=== PATIENT | female | born 1945 | race Caucasian/White ===

== ENCOUNTER → 2023-07-25 08:59 | Outpatient (REF) | payer MEDICARE, SELFPAY ==
[2023-07-25 12:04] LABS: % Basophils 0.6 % (0-2); % Eosinophils 3.6 % (0-6); % Immature Granulocytes 0.1 % (0-0.5); % Lymphocytes 37.3 % (20.5-51.1); % Monocytes 11.4 % (1.7-9.3); Absolute Eosinophils 0.3 10^3/uL (0-0.7); Absolute Lymphocytes 2.6 10^3/uL (1.2-3.4); Absolute Monocytes 0.8 10^3/uL (0.1-0.6); Absolute Neutrophils 3.3 10^3/uL (1.4-6.5); Hematocrit 42.2 % (37.0-47.0); Hemoglobin 14.4 g/dL (12.0-16.0); Mean Corp Hgb Conc. 34.1 g/dL (33.0-37.0); Mean Corpuscular Hgb 32.8 pg (27.0-31.0); Mean Corpuscular Volume 96.1 fL (81.0-99.0); Mean Platelet Volume 10.1 fL (7.4-10.4); Nucleated Red Blood Cells % 0 %; Platelet Count 289 10^3/uL (130-400); Red Blood Cell Count 4.39 10^6/uL (4.20-5.40); Red Cell Dist. Width 13.2 % (11.5-14.5)
[2023-07-25 12:20] LABS: ALT (SGPT) 11 U/L (0-35); AST (SGOT) 24 U/L (14-36); Albumin 3.6 g/dl (3.5-5.0); Alkaline Phosphatase 51 U/L (38-126); Blood Urea Nitrogen 8 mg/dl (7-17); Calcium 9.4 mg/dl (8.4-10.2); Carbon Dioxide 33 mmol/L (22-30); Chloride 98 mmol/L (98-107); Glucose 86 mg/dl (70-99); Iron 98 ug/dl (37-170); Potassium 4.5 mmol/L (3.5-5.1); Sodium 135 mmol/L (135-145); Total Bilirubin 0.8 mg/dl (0.2-1.3); Total Protein 6.5 g/dl (6.3-8.2); eGFR > 60.00
[2023-07-25 12:33] LABS: Percent Saturation 27 % (20-50); Total Iron Binding Capacity 351 ug/dl (265-497)
[2023-07-25 12:47] LABS: TSH Reflex To Free T4 0.98 uIU/ml (0.47-4.68)
[2023-07-25 12:48] LABS: Ferritin 27.5 ng/ml (11.1-264.0)
[2023-07-25 13:20] LABS: Folate > 20.0 ng/ml (2.76-20); Vitamin B12 447 pg/ml (239-931)
== END ==
LOC: HWRAD 08:59
PROVIDERS: ATTENDING PHYSICIAN Radiology Radiation Oncology; FAMILY PHYSICIAN Internal Medicine; OTHER PHYSICIAN Nurse Practitioner Adult Health; REFERRING PHYSICIAN Podiatrist Foot Surgery
DX: M06.9 Rheumatoid arthritis, unspecified (principal); C34.11 Malignant neoplasm of upper lobe, right bronchus or lung; C34.12 Malignant neoplasm of upper lobe, left bronchus or lung; I48.91 Unspecified atrial fibrillation
CPT/HCPCS: 36415; 71250; 72050; 80053; 82607; 82728; 82746; 83540; 83550; 84443; 85025

== ENCOUNTER 2023-08-05 16:54 | Inpatient (IN) | payer MEDICARE, SELFPAY ==
[2023-08-05] VITALS (11 sets, daily range): BP systolic 93–157; BP diastolic 58–139; BMI 20.4; BMI 18.9
--- NOTE | 2023-08-05 12:01 | ED.GENMED ---
History of Present Illness
General
Chief Complaint: Heart Rate Problem
Time Seen by Provider: 08/05/23 11:46
Travel History
Have you had any contact with someone who has COVID-19?: No
Do you have any symptoms of coronavirus? Fever > 100 degrees, chills, cough, shortness of breath, sore throat, loss of taste or smell, muscle aches, or headache?: No
History of Present Illness
History of Present Illness:
78-year-old female with history of lung cancer in remission as well as PSVT presents to the emergency department for evaluation of shortness of breath ongoing for the past 2 to 3 days associated with coughing and chills. Her symptoms dramatically
worsened today prompting her to call 911, on arrival of EMS the patient was noted to be in SVT with rates in the 170s however this terminated before being administered adenosine. She denies any chest pain or leg swelling. She did have a screening
CT scan 2 weeks ago for her lung cancer showing a parenchymal opacity in the left upper lobe that was felt to be more suggestive of inflammatory or posttreatment related focus. Otherwise the CT was considered stable. Denies any ill contacts at home
Past History
Past History
ED Past Medical History: Arrthythmia (Atrial fibrillation), HTN, Hypercholesterolemia and Other (Psoriatic arthritis)
ED Past Surgical History: Cholecystectomy, Gynecological, Orthopedic, Tonsilectomy and Other
Social History
Tobacco: Smoker
Alcohol: Occasional
Personal:
Living: with family
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
Family History
Family History: Other (Her mother had multiple myeloma and amyloidosis. Her brother had an ID)
Review of Systems
Review of Systems
Allergies reviewed?: Yes
All Other Systems: ROS reviewed and negative except as documented in HPI and ROS
Phy Exam
Physical Exam
Physical Exam:
GEN: In acute respiratory distress, with conversational dyspnea, nondiaphoretic
Eyes: PERRLA, EOMs intact, no scleral icterus
HENT: NCAT, oral mucosa moist, no JVD
Lungs: Grossly clear lungs somewhat diminished at the bases, tachypneic with accessory muscle use and conversational dyspnea
Cardiac: RRR, no M/R/G, no peripheral edema. Radial pulses 2+ bilat
Neuro: AO x 3, no focal deficits to BUE/BLE, normal sensation throughout
MSK: No gross deformity or ecchymosis. No edema. No digital clubbing
Skin: No rashes, petechiae. Normal color, no pallor or jaundice.
Psych: Calm, cooperative, proper hygiene
Course
Orders/Labs/Results
Orders:
Orders
08/05/23 11:41
Electrocardiogram (*1) Urgent
Reason for Study: Chest Pain
Cardiac Monitoring- Treatment ONCE
EKG- Treatment ONCE
IV Insert/Care/Rem.- Treatment PRN
O2 Therapy [RESP] Urgent
Titrate/Wean O2 to maintain O2 sat greater than (%): 90
Special Instructions: Maintain sats >/=90%
Pulse Ox/spot Check [RESP] Urgent
Quantity: 1
Special Instructions: ON ROOM AIR
08/05/23 11:46
COVID-19 Antigen Urgent
Source: Nasal Swab
Complete Blood Count/With Diff Urgent
Comprehensive Metabolic Panel Urgent
Troponin I Urgent
Influenza A+B Rapid Molecular Urgent
JOSÉ Source: Nasal Swab
Specimen Description:
08/05/23 12:00
HYDROmorphone [Dilaudid] 0.5 mg IV NOW STA
08/05/23 12:21
D-Dimer Urgent
Blood Culture Q30M
JOSÉ Source: Blood/Venous
Specimen Description:
Blood Culture Q30M
JOSÉ Source: Blood/Venous
Specimen Description:
08/05/23 13:09
CT Chest Pe Study Urgent
Comment:
Reason For Exam: SOB/hypoxia, lung CA in remission, elevated dimer
08/05/23 14:59
CefTRIAXone [Rocephin] 1,000 mg IV NOW STA
08/05/23 Dinner
Regular
At Your Request: Full Participation
08/05/23 15:20
0.9% Sodium Chloride 1000 ml [Nss] 1,000 ml IV BOLUS
08/05/23 16:05
Doxycycline [Vibramycin] 100 mg PO NOW STA
08/05/23 16:22
Admit/Transfer Patient As Directed
Co-Sign Provider:
Level of Care: Inpatient admission
Assign to:: Telemetry
Physician / Group: Fidencio Johnson
Diagnosis: Pneumonia in immunocopromised, SVT
Reason for Telemetry: Arrhythmia
Date to Stop Telemetry: 08/08/23
Time to Stop Telemetry: 11:00
Reason for Hospitalization: Pneumonia in immunocompromised, SVT, hypoxia
Expected length of stay greater than two midnights?: Yes
ELOS- Estimated Length of Stay in days: 2
I certify the patient meets the requirements for IP care: Yes
08/05/23 16:24
Code Status As Directed
Resuscitation Status: Full Code
08/05/23 16:44
Ondansetron Injectable [Zofran] 4 mg IV Q6HPRN PRN
08/05/23 16:48
Ondansetron Injectable [Zofran] 4 mg .ROUTE .STK-MED ONE
08/08/23 11:00
DC Protocol for Telemetry ONCE
Abnormal Lab Results
08/05/23 08/05/23
11:46 12:21
MCH 31.9 H pg
(27.0-31.0)
Absolute Monos (auto) 1.0 H 10^3/uL
(0.1-0.6)
Monocytes % 13.0 H %
(1.7-9.3)
D-Dimer 1.47 H ug/mlFEU
(0.00-0.50)
Sodium 128 L mmol/L
(135-145)
BUN 6 L mg/dl
(7-17)
AST 41 H U/L
(14-36)
08/05/23 11:46
08/05/23 11:46
Vital Signs
Initial and Last Documented VS:
Initial Vital Signs
Pulse Resp BP Pulse Ox
99 35 141/86 100
08/05/23 11:35 08/05/23 11:35 08/05/23 11:35 08/05/23 11:35
Last Documented Vital Signs
Temp Pulse Resp BP Pulse Ox
98.9 F 74 20 139/68 98
08/05/23 11:42 08/05/23 17:45 08/05/23 17:45 08/05/23 17:00 08/05/23 17:45
MDM/Problems Addressed
MDM/Problems Addressed:
Patient noted to be hypoxic with severely increased work of breathing on arrival, this improved gradually with 4 L nasal cannula supplementation. Her lungs are overall clear. After initial workup revealed no clear etiology to symptoms however an
elevated D-dimer, CT chest PE study was obtained given the patient's prior history of lung cancer and lack of adventitious breath sounds. Fortunately this was negative for PE however a left lower lobe pneumonia was identified. Patient did request
that we discharge her home however she was trialed off of oxygen very briefly and desaturated into the mid 80s on room air thus she will be admitted for IV antibiotics and further management. Does not appear to be volume overloaded to suggest
concomitant CHF
*Critical Care Note
Total Time (30-74mins, 75-104mins- exclusive of procedures): Not Applicable
ED Attending Note
-
Portions of this chart may have been created with voice recognition software.� Occasional wrong word or��sound alike� substitutions may have occurred due to the inherent limitations of voice recognition software.
Discharge Plan
Departure
Patient Disposition: Admit
Date of Disposition: 08/05/23
Time of Disposition: 15:25
Admit to: Med/Surg
Presentation/result/management discussed w/ accepting MD/DO: Hospitalist
Discharge Problem:
Community acquired pneumonia
Interventions
Interventions:
*Risk Screen - Suicide Last Done: 08/05/23 11:56
*General Assessment Last Done: 08/05/23 11:40
*Neglect/Abuse Screening Last Done: 08/05/23 11:56
ED- Fall Risk Assessment Last Done: 08/05/23 11:40
*ED COVID-19 Vaccine History Last Done: 08/05/23 11:43
ED- Cardiac Assessment Last Done: 08/05/23 11:55
ED- Pulmonary Assessment Last Done: 08/05/23 11:55
[2023-08-05 12:06] LABS: % Basophils 0.3 % (0-2); % Eosinophils 0.3 % (0-6); % Immature Granulocytes 0.3 % (0-0.5); % Lymphocytes 21.2 % (20.5-51.1); % Neutrophils 64.9 % (42.2-75.2); Absolute Lymphocytes 1.6 10^3/uL (1.2-3.4); Absolute Neutrophils 4.9 10^3/uL (1.4-6.5); Hematocrit 40.1 % (37.0-47.0); Hemoglobin 13.8 g/dL (12.0-16.0); Mean Corp Hgb Conc. 34.4 g/dL (33.0-37.0); Mean Corpuscular Hgb 31.9 pg (27.0-31.0); Mean Corpuscular Volume 92.8 fL (81.0-99.0); Mean Platelet Volume 9.4 fL (7.4-10.4); Nucleated Red Blood Cells % 0 %; Platelet Count 244 10^3/uL (130-400); Red Blood Cell Count 4.32 10^6/uL (4.20-5.40); Red Cell Dist. Width 13.3 % (11.5-14.5); White Blood Cell Count 7.6 10^3/uL (4.8-10.8)
[2023-08-05] MEDS: DILAUDID 0.5 MG IV (12:14)
[2023-08-05 12:18] LABS: ALT (SGPT) 19 U/L (0-35); AST (SGOT) 41 U/L (14-36); Alkaline Phosphatase 57 U/L (38-126); Blood Urea Nitrogen 6 mg/dl (7-17); Calcium 8.5 mg/dl (8.4-10.2); Carbon Dioxide 25 mmol/L (22-30); Chloride 99 mmol/L (98-107); Estimated Creatinine Clearance 68 ml/min; Glucose 88 mg/dl (70-99); Potassium 4.1 mmol/L (3.5-5.1); Sodium 128 mmol/L (135-145); Total Bilirubin 0.6 mg/dl (0.2-1.3); Total Protein 6.8 g/dl (6.3-8.2); eGFR > 60.00
[2023-08-05 12:29] LABS: COVID-19 Antigen Negative (Negative); Troponin I < 0.012 ng/ml
[2023-08-05 12:56] LABS: D-Dimer 1.47 ug/mlFEU (0.00-0.50)
[2023-08-05] MEDS: ROCEPHIN 1000 MG IV (15:16)
[2023-08-05] MEDS: NSS 1000 IV (15:20)
--- NOTE | 2023-08-05 16:27 | HPS.HSE ---
Family Physician
-
Family Physician: Ana Bhatt
Chief Complaint
-
Shortness of breath/cough/chills
History of Present Illness
Patient is a 78-year-old female with past medical history of adenocarcinoma of the lung in remission, psoriasis/rheumatoid arthritis on infliximab, tobacco abuse, COPD, hypertension, paroxysmal supraventricular tachycardia, psoriatic arthropathy,
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 Patient symptoms rapid onset within 48 hours.
Patient noticed new onset of shortness of breath with dry cough and some rigors at home. Denies orthopnea or PND. No lower extremity swelling. Patient also had some chest tightness without true chest pain/palpitation/dizziness. Patient called
EMS today and was noted to be in SVT with heart rate in 180s, patient spontaneously converted to normal sinus rhythm and there was consideration of giving IV adenosine by ER physician. Patient follows up with Dr. Chung for history of paroxysmal
supraventricular tachycardia. Patient follows up with [facility] for lung cancer follow-up
Medical History
Past Medical History
Past Medical History: Reports Other
Additional Past Medical History:
history of adenocarcinoma of the lung in remission, psoriasis/rheumatoid arthritis on infliximab, tobacco abuse, COPD, hypertension, paroxysmal supraventricular tachycardia, psoriatic arthropathy, history of perforated diverticulitis with partial
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
Past Surgical History: Reports Cholecystectomy
Social History
Tobacco: Smoker (Half pack/day)
Alcohol: Occasional
Drug: None
Living: With Family
Family History
Family History: Not pertinent
Allergies / Home Medications
Allergies reflects when Allergies were last updated in [facility].
Home Medications with original date entered in [facility]
Allergy/Medication List:
Allergies
Allergy/AdvReac Type Severity Reaction Status Date / Time
codeine [Codeine] Allergy VOMITING Verified 08/05/23 16:10
ibuprofen Allergy muscle Verified 08/05/23 16:10
spasms and
pain
latex [Latex] Allergy rash/sob Verified 08/05/23 16:10
levofloxacin [From Levaquin] Allergy severe Verified 08/05/23 16:10
muscle
spasms and
pain
oxycodone Allergy Vomiting Verified 08/05/23 16:10
titanium Allergy Swelling Verified 08/05/23 16:10
monocry sutures Allergy Swelling Uncoded 08/05/23 16:10
Home Medications
Nyquil/Nitetime 15 ml PO HS 08/19/13
infliximab 100 mg intravenous solution (Remicade) 1 dose IV Q4W 06/27/15
nifedipine 60 mg tablet,extended release 60 mg PO DAILY #30 tabs 06/01/19
flecainide 50 mg tablet 50 mg PO BID 02/17/20
pravastatin 40 mg tablet 40 mg PO DAILY@199902/17/20
Pauline Otc Constipation Med 1 cap PO QPM 08/05/23
Prevagen Supplement 1 cap PO QPM 08/05/23
acetaminophen 650 mg tablet,extended release 1,300 mg PO DAILYPRN PRN mild pain 08/05/23
biotin 1,000 mcg chewable tablet 1,000 mcg PO DAILY@199908/05/23
coQ10 (ubiquinol) 200 mg capsule 200 mg PO DAILY@199908/05/23
denosumab 60 mg/mL subcutaneous syringe (Prolia) 60 mg SC [id number] 08/05/23
estradiol 0.5 mg tablet 0.5 mg PO DAILY@199908/05/23
folic acid 1 mg tablet 1 mg PO DAILY 08/05/23
hydrocodone 5 mg-acetaminophen 325 mg tablet 1 tab PO TIDPRN PRN severe pain 08/05/23
montelukast 10 mg tablet 10 mg PO DAILY PRN allergies 08/05/23
sulfasalazine 500 mg tablet 500 mg PO BID 03/04/24
Review of Systems
-
A 12 point ROS was completed and negative except as noted: Yes
Physical Exam
Vital Signs
Vital Signs
Temp Pulse Resp BP Pulse Ox
98.9 F 82 21 135/64 96
08/05/23 11:42 08/05/23 16:15 08/05/23 16:15 08/05/23 16:01 08/05/23 16:15
Physical Exam
General: No Apparent Distress
HEENT: Atraumatic and Oxygen (2 L NC)
Respiratory: Wheezes
Cardiac: S1/S2 and Regular Rhythm; No Murmur or Rub
GI: Soft, Non Tender, Non Distended and Normal Bowel Sounds; No Organomegaly
Rectal: Deferred by Provider
Musculoskeletal: No Clubbing, No Cyanosis and No Edema
Skin: No Rash
Neuro: Nonfocal/grossly intact
Laboratory Results
-
08/05/23 11:46
08/05/23 11:46
Laboratory Results
Total Bilirubin 0.6 mg/dl (0.2-1.3) 08/05/23 11:46
AST 41 U/L (14-36) H 08/05/23 11:46
ALT 19 U/L (0-35) 08/05/23 11:46
Alkaline Phosphatase 57 U/L (38-126) 08/05/23 11:46
Troponin I < 0.012 ng/ml 08/05/23 11:46
Data Reviewed
-
CT Scan: Image Personally Visualized and interpreted, Report Reviewed by me and Discussed with Patient
Lab Data: Labs Reviewed by me and Discussed with Patient
Impression/Plan
-
1. Left lower lobe pneumonia
Immunocompromised with history of lung malignancy/on infliximab for RA and psoriasis
Acute hypoxic respite insufficiency
-Patient came in for new onset of shortness of breath/cough and rigors
-Patient afebrile in ER. Normal white blood cell count.
-Patient requiring 2 L oxygen support through nasal cannula, room for weaning off
-Patient D-dimer elevated, got CT chest ruled out PE. Have chronic changes in bilateral lungs with history of lung cancer. Ne conrw left lower lobe infiltrate suspected PNA
-Respiratory distress blood culture ordered.
-COVID/flu negative. Check Legionella/strep urinary antigen. check procal.
-Patient got Rocephin and doxycycline in ER, continue
2. COPD exacerbation
Tobacco abuse
-Patient active smoker and smokes half pack a day. Nicotine patch if any cravings developed
-Follows up with Dr. Leal
-Minimal wheezing on exam, start with nebulizer therapy.
-Patient hesitant to take steroid with sleep disturbance and other issues, will be reconsidered if not improved in 24 hours
3. Paroxysmal supraventricular tachycardia
-Patient had episode of SVT noted by EMS. Spontaneous conversion to sinus rhythm
-Monitor on telemetry, will involve cardiology for further episodes
-On flecainide at home continue
-EKG for QTc monitor
history of adenocarcinoma of the lung in remission
psoriasis/rheumatoid arthritis on infliximab
Essential hypertension
Psoriatic arthropathy
history of perforated diverticulitis with partial colectomy in
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
DVT PPX - lovenox
Full code
Total time spent : 78 mins
I personally saw and examined the patient.
I have reviewed all diagnostic interpretations and treatment plans as written.
Time includes patient management by me, time spent at the patients bedside, time to review lab and imaging results, discussing patient care, documentation in the medical record, and time spent with the family or caregiver and discussing care plan
with RN/Consultants.
[2023-08-05] MEDS: VIBRAMYCIN 100 MG PO (16:35)
[2023-08-05] MEDS: ZOFRAN 4 MG IV (16:49)
[2023-08-05 18:44] LABS: Procalcitonin < 0.05 ng/ml (0.0-0.25)
[2023-08-05] MEDS: ROBITUSSIN DM 5 ML PO (21:41)
[2023-08-05] MEDS: AZULFIDINE 500 MG PO (21:41)
[2023-08-05] MEDS: TAMBOCOR 50 MG PO (21:41)
[2023-08-05] MEDS: NORCO 5/325 1 TABLET PO (21:42)
[2023-08-05] MEDS: PRAVACHOL 40 MG PO (21:42)
[2023-08-05] MEDS: LOVENOX 40 MG SC (21:42)
[2023-08-06] VITALS (8 sets, daily range): BP systolic 117–169; BP diastolic 52–85; PULSE 91; O2SAT 95
[2023-08-06] MEDS: ZOFRAN 4 MG IV ×3 (02:45→21:09)
[2023-08-06] MEDS: NORCO 5/325 1 TABLET PO ×4 (03:04→21:09)
[2023-08-06 07:53] LABS: Hematocrit 36.3 % (37.0-47.0); Hemoglobin 12.7 g/dL (12.0-16.0); Mean Corpuscular Hgb 32.2 pg (27.0-31.0); Mean Corpuscular Volume 91.9 fL (81.0-99.0); Mean Platelet Volume 9.5 fL (7.4-10.4); Platelet Count 218 10^3/uL (130-400); Red Blood Cell Count 3.95 10^6/uL (4.20-5.40); Red Cell Dist. Width 13.2 % (11.5-14.5); White Blood Cell Count 6.3 10^3/uL (4.8-10.8)
[2023-08-06 08:10] LABS: Blood Urea Nitrogen 7 mg/dl (7-17); Calcium 8.3 mg/dl (8.4-10.2); Carbon Dioxide 27 mmol/L (22-30); Chloride 98 mmol/L (98-107); Estimated Creatinine Clearance 63 ml/min; Glucose 79 mg/dl (70-99); Potassium 4.1 mmol/L (3.5-5.1); Sodium 128 mmol/L (135-145); eGFR > 60.00
[2023-08-06] MEDS: ROBITUSSIN DM 5 ML PO ×2 (08:25→17:05)
[2023-08-06] MEDS: PROCARDIA XL (EXTENDED RELEASE) 60 MG PO (08:27)
[2023-08-06] MEDS: AZULFIDINE PO (08:28)
[2023-08-06] MEDS: VIBRAMYCIN 100 MG PO (08:28)
--- NOTE | 2023-08-06 09:08 | PTOTSP ---
pt currently requires supervision to no assistance to complete simple ADLs, functional transfers, ambulation. pt currently requires 4LO2, demonstrates decreased endurance due to PNA. pt verbalized understanding of energy conservation techniques. no
acute OT needs identified, will defer endurance training to PT. will sign off.
[2023-08-06] MEDS: TAMBOCOR 50 MG PO ×2 (09:24→21:11)
--- NOTE | 2023-08-06 10:07 | CM ---
MEt with patient in room. She reports she is independent in home and community. She lives with spouse in one level home. There are not steps to enter.
She does not own or use and DME.
PCP Dr. Ana Bhatt
[facility]
She is admitted with pneumonia and on oxygen. She does not have oxygen at home and does not want to go home on oxygen.
PT and OT have seen her and she is supervision level.
PLAN: home no needs.
--- NOTE | 2023-08-06 10:20 | PHA.VAN.IN ---
Assessment
- Assessment
Renal Function: Appears similar to baseline
AUC Dosing Plan
- Dosing Variables
Dosing Weight (kg): 57
Dosing CrCl (ml/min): 69.5
Vd coefficient (L/kg): 0.7
Utilized IBW for dosing weight and CrCl calculations given BMI < 20
- Empiric Dosing
Initial / Loading Dose: 1500mg - administration pending
Maintenance Regimen: Vanc 500mg Q12H starting 08/06 599
Estimated AUC (mcg*h/mL): 416
Estimated Peak (mcg*h/mL): 23.9
Estimated Trough (mcg/ml): 12.1
Estimated Half Life (H): 11.2
- Monitoring
No levels ordered at this time: consider levels in next few days
Pharmacokinetics Vancomycin I
- -
Patient Age: 78
Patient Sex: Female
Vancomycin Day #: 1
Indication: Bacteremia
Requesting Provider: Dr. Lety Johnson
Pertinent Antimicrobial Allergies:
levofloxacin - severe muscle spasms & pain
Height / Weight:
Height 5 ft 5 in
Actual Weight 51.511 kg
IBW in k
Pertinent Past Medical History: BMI ~18.9, Lung cancer, Psoriasis/RA (infliximab)
- Vital Signs / Lab Results
Temp Pulse Resp BP Pulse Ox
99.3 F 102 18 169/85 92
08/06/23 07:30 08/06/23 07:30 08/06/23 07:30 08/06/23 07:30 08/06/23 10:01
Lab Results - Hematology
08/05/23 08/06/23
11:46 06:56
WBC 7.6 6.3
Lab Results - Chemistry
08/05/23 08/06/23
11:46 06:56
BUN 6 L 7
Creatinine 0.6 0.5 L
Estimated Creat Clear 68 63
Albumin 4.0
Microbiology Results
08/05/23 21:52 Legionella Urinary Antigen - Final
Urine Negative for Legionella pneumophila Serogroup 1 antigen.
A negative result does not rule out the possiblity of
Legionella infection due to other serogroups or species of
Legionella. Clinical correlation is recommended.
Streptococcus pneumoniae Antigen (M - Final
Negative for Streptococcus pneumoniae antigen.
A negative result does not exclude infection with
Streptococcus pneumoniae. Clinical correlation is
recommended.
08/05/23 12:21 Blood Culture - Preliminary
Blood/Venous Positive culture in progress
Gram Stain - Preliminary
08/05/23 12:21 Blood Culture - Preliminary
Blood/Venous Positive culture in progress
Gram Stain - Preliminary
08/05/23 11:46 Influenza Types A & B (TOMI) - Final
Nasal Swab Negative for Influenza A & B, NAAT
Negative results must be combined with clinical observations
and patient history.
Nucleic Acid Amplification test (NAAT)performed on the
[employer] platform.
[2023-08-06] MEDS: VANCOCIN 300 MG IV (11:32)
[2023-08-06] MEDS: VANCOCIN 300 ML IV (11:32)
[2023-08-06 12:56] LABS: Osmolality Urine 667 mOsm/kg (300-900)
[2023-08-06 13:13] LABS: Urine Sodium 96 mmol/L (30-90)
--- NOTE | 2023-08-06 14:03 | W.PN.HOSP.TC ---
Today's Communication/Plan
-
f/u ER blood cs report
change abx to vancomycin
urine na/osm check
fluid restriction
Assessment / Plan
Assessment / Plan
1.� Left lower lobe pneumonia
�� � Immunocompromised with history of lung malignancy/on infliximab for RA and psoriasis
�� � Acute hypoxic respite insufficiency
-Patient came in for new onset of shortness of breath/cough and rigors
-Patient afebrile in ER.� Normal white blood cell count.
-Patient requiring 2 L oxygen support through nasal cannula, room for weaning off
-Patient D-dimer elevated, got CT chest ruled out PE.� Have chronic changes in bilateral lungs with history of lung cancer. Ne conrw left lower lobe infiltrate suspected PNA
-Respiratory distress blood culture ordered.
-COVID/flu negative.� Legionella/strep urinary antigen neg. Procal < 0.05
-Patient got Rocephin and doxycycline in ER, change to vancomycin IV for GPC bacteremia
2. GPC bacteremia
-Both sets of blood culture growing gram-positive cocci in clusters
-Repeat blood cultures ordered and initiate vancomycin aftewards
-Await further identification and susceptibility on ER blood culture
3. COPD exacerbation
� � Tobacco abuse
-Patient active smoker and smokes half pack a day.� Nicotine patch if any cravings developed
-Follows up with Dr. Leal
-Lung exam clearer, continue with neb therapy for now. pt hesistant to take steroids.
4. Paroxysmal supraventricular tachycardia
-Patient had episode of SVT noted by EMS.� Spontaneous conversion to sinus rhythm
-Monitor on telemetry, will involve cardiology for further episodes
-On flecainide at home continue
-EKG for QTc monitor
5. Acute hyponatremia
-euvolemic on exam
-fluid restriction and urine na/osm/TSH/cortisol check ordered
history of adenocarcinoma of the lung in remission
psoriasis/rheumatoid arthritis on infliximab
Essential hypertension
Psoriatic arthropathy
history of perforated diverticulitis with partial colectomy in 95
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
DVT PPX - lovenox
Full code
Anticipated Discharge: 24 - 48 hours
Subjective/Interval History
-
Date of Service: August 06, 2023
Patient afebrile in the night
Remains on oxygen through nasal cannula
Objective Data
-
Labs:
Laboratory Results
08/06/23
06:56
WBC 6.3
Hgb 12.7
Hct 36.3 L
Plt Count 218
Sodium 128 L
Potassium 4.1
Chloride 98
Carbon Dioxide 27
BUN 7
Creatinine 0.5 L
Glucose 79
Calcium 8.3 L
Vital Signs:
Vital Signs
Temp Pulse Resp BP Pulse Ox
98.8 F 75 18 117/52 98
08/06/23 11:34 08/06/23 11:34 08/06/23 11:34 08/06/23 11:34 08/06/23 11:34
I&O
08/05/23 08/06/23 08/07/23
06:59 06:59 06:59
Intake Total 120 / 120
Balance 120 / 120
Review of Systems
-
Respiratory: Reports No Symptoms
Cardiac: Reports No Symptoms
Abdomen/GI: Reports No Symptoms
Physical Exam
-
General: Comfortable
HEENT: Oxygen
Respiratory: Clear to Auscultation
Cardiac: Regular Rhythm and S1/S2; Negative Murmur or Rub
GI: Soft, Nontender and Nondistended
Musculoskeletal: No Edema
Neuro: Awake, Alert, Oriented, No Motor Deficits and Nonfocal/Grossly Intact
Psych: Calm
[2023-08-06 15:36] LABS: TSH 1.54 uIU/ml (0.47-4.68)
[2023-08-06] MEDS: LOVENOX 40 MG SC (17:05)
[2023-08-06] MEDS: VENTOLIN NEBULES 2.5 MG INH (20:30)
[2023-08-06] MEDS: AZULFIDINE 500 MG PO (21:10)
[2023-08-06] MEDS: NON-FORMULARY ITEM 0.5 MG PO (21:11)
[2023-08-06] MEDS: PRAVACHOL 40 MG PO (21:11)
[2023-08-07] MEDS: ROBITUSSIN DM 5 ML PO ×3 (01:56→21:34)
[2023-08-07 03:00] VITALS: BP 179/79
[2023-08-07] MEDS: VENTOLIN NEBULES 2.5 MG INH ×2 (04:41→12:15)
[2023-08-07] MEDS: ZOFRAN 4 MG IV (04:59)
[2023-08-07] MEDS: VANCOCIN HCL 500 MG 100 IV (05:01)
[2023-08-07] MEDS: NORCO 5/325 1 TABLET PO ×3 (05:01→21:34)
[2023-08-07 05:05] VITALS: BMI 18.8
[2023-08-07 07:06] LABS: Hematocrit 34.5 % (37.0-47.0); Mean Corp Hgb Conc. 34.8 g/dL (33.0-37.0); Mean Corpuscular Hgb 32.3 pg (27.0-31.0); Mean Corpuscular Volume 92.7 fL (81.0-99.0); Mean Platelet Volume 9.3 fL (7.4-10.4); Platelet Count 189 10^3/uL (130-400); Red Blood Cell Count 3.72 10^6/uL (4.20-5.40); Red Cell Dist. Width 12.9 % (11.5-14.5); White Blood Cell Count 5.2 10^3/uL (4.8-10.8)
[2023-08-07 07:16] LABS: Blood Urea Nitrogen 8 mg/dl (7-17); Calcium 7.6 mg/dl (8.4-10.2); Carbon Dioxide 29 mmol/L (22-30); Chloride 95 mmol/L (98-107); Estimated Creatinine Clearance 63 ml/min; Glucose 96 mg/dl (70-99); Potassium 3.6 mmol/L (3.5-5.1); Sodium 127 mmol/L (135-145); eGFR > 60.00
[2023-08-07 07:17] VITALS: BP 133/72
[2023-08-07] MEDS: AZULFIDINE PO (08:02)
[2023-08-07] MEDS: PROCARDIA XL (EXTENDED RELEASE) 60 MG PO (08:03)
[2023-08-07] MEDS: TAMBOCOR 50 MG PO ×2 (08:04→20:06)
[2023-08-07 11:10] VITALS: BP 146/66
[2023-08-07] MEDS: DELTASONE 20 MG PO (11:36)
[2023-08-07] MEDS: STERILE WATER FOR INJECTION 10 ML IV ×2 (11:37→20:06)
[2023-08-07] MEDS: MAXIPIME 2000 MG IV ×2 (11:37→20:06)
--- NOTE | 2023-08-07 12:35 | CON.ID ---
Consultation
-
Date/Time Consultation Requested: 08/07/23 10:37
Date/Time Consultation Performed: 08/07/23 12:35
Requesting Provider: Dr Johnson
Performing Provider: Dr Galvan
Reason for Consultation: pseudomonas pna, stap epi bacteremia
Chief Complaint / Past History
Chief Complaint
Shortness of breath/cough/chills
History of Present Illness
Ms Nesbitt is a 78 year old female with history of adenocarcinoma of the lung (remission), COPD, psoriasis/RA on infliximab, current smoker who presented here for shortness of breath, dry cough (nonproductive), rigors at home. No orthopnea or lower
extremity swelling. + chest tightness. EMS called and found to be in SVT with HR in the 180s, spontaneous converted to normal. No hardwear or metal in the body. No rashes or lesions. She does not have a chronic cough or chronic sputum
production. =
Since arrival here she has been afebrile, bp stable, requiring 4L of O2 to maintain a sat of 95%, without leukocytosis x3 days - last wbc 5.2, hgb 12.0, plt 189, no L shift on arrival, cr 0.5, procalcitonin was negative 3/, sputum culture 3/ few
pseudomonas
CT chest: new, mild suspected developing pneumonia
Past History
Additional Past Medical History:
history of adenocarcinoma of the lung in remission, psoriasis/rheumatoid arthritis on infliximab, tobacco abuse, COPD, hypertension, paroxysmal supraventricular tachycardia, psoriatic arthropathy, history of perforated diverticulitis with
Additional Past Surgical History:
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
cholecystectomy
Allergy History:
codeine [Codeine] Allergy (Verified 08/05/23 16:10)
VOMITING
ibuprofen Allergy (Verified 08/05/23 16:10)
muscle spasms and pain
latex [Latex] Allergy (Verified 08/05/23 16:10)
rash/sob
levofloxacin [From Levaquin] Allergy (Verified 08/05/23 16:10)
severe muscle spasms and pain
oxycodone Allergy (Verified 08/05/23 16:10)
Vomiting
titanium Allergy (Verified 08/05/23 16:10)
Swelling
monocry sutures Allergy (Uncoded 08/05/23 16:10)
Swelling
Medications Reviewed: Yes
Social History
Tobacco: Smoker
Alcohol: Occasional
Drug: None
Family History
Family History: Not Pertinent
Review of Systems
Review of Systems
General: Fever and Chills
All systems: All other systems were reviewed and were negative
Vital Signs
Temp Pulse Resp BP Pulse Ox
99.6 F 92 20 146/66 95
08/07/23 11:10 08/07/23 12:17 08/07/23 12:17 08/07/23 11:10 08/07/23 12:17
Physical Exam
Physical Exam
Constitutional: No Acute Distress and Chronically Ill
Cardiovascular: Regular Rate and S1/S2; Negative Murmur or Rub
Pulmonary: Clear and Symmetric; Negative Wheezes, Rales or Rhonchi
Gastrointestinal: Soft, Non Tender, Non Distended and Normal Bowel Sounds
Skin: Warm and Dry; Negative Rash or Jaundice
Lab / Diagnostic Study Results
08/07/23 06:38
08/07/23 06:38
Abs Immat Gran (auto) 0.0 10^3/uL (0-0.05) 08/05/23 11:46
Absolute Neuts (auto) 4.9 10^3/uL (1.4-6.5) 08/05/23 11:46
Absolute Lymphs (auto) 1.6 10^3/uL (1.2-3.4) 08/05/23 11:46
Absolute Monos (auto) 1.0 10^3/uL (0.1-0.6) H 08/05/23 11:46
Absolute Basos (auto) 0.0 10^3/uL (0-0.2) 08/05/23 11:46
Immature Gran % 0.3 % (0-0.5) 08/05/23 11:46
Neutrophils % 64.9 % (42.2-75.2) 08/05/23 11:46
Lymphocytes % 21.2 % (20.5-51.1) 08/05/23 11:46
Monocytes % 13.0 % (1.7-9.3) H 08/05/23 11:46
Eosinophils % 0.3 % (0-6) 08/05/23 11:46
Basophils % 0.3 % (0-2) 08/05/23 11:46
Procalcitonin < 0.05 ng/ml (0.0-0.25) 08/05/23 18:01
Microbiology Results
Micro:
08/06/23 11:36 Blood Culture - Preliminary
Blood/Venous No Growth in 24 hours- Final report to follow
08/06/23 10:54 Blood Culture - Preliminary
Blood/Venous No Growth in 24 hours- Final report to follow
08/05/23 21:52 Respiratory Culture - Preliminary
Sputum Pseudomonas aeruginosa
Gram Stain - Preliminary
08/05/23 12:21 Blood Culture - Preliminary
Blood/Venous Coagulase neg. staphylococcus
Gram Stain - Final
08/05/23 12:21 Blood Culture - Preliminary
Blood/Venous Coagulase neg. staphylococcus
Gram Stain - Preliminary
08/05/23 21:52 Legionella Urinary Antigen - Final
Urine Negative for Legionella pneumophila Serogroup 1 antigen.
A negative result does not rule out the possiblity of
Legionella infection due to other serogroups or species of
Legionella. Clinical correlation is recommended.
Streptococcus pneumoniae Antigen (M - Final
Negative for Streptococcus pneumoniae antigen.
A negative result does not exclude infection with
Streptococcus pneumoniae. Clinical correlation is
recommended.
08/05/23 11:46 Influenza Types A & B (TOMI) - Final
Nasal Swab Negative for Influenza A & B, NAAT
Negative results must be combined with clinical observations
and patient history.
Nucleic Acid Amplification test (NAAT)performed on the
[employer] platform.
Assessment / Plan
Few Pseudomonas from the Sputum
Immunosuppression on Infliximab
- CT chest with minimal questionable pneumonia, sputum culture few presumptive pseudomonas, procalcitonin negative
- QTc acceptable
- note plans for prednisone 20 mg at this time
- continue cefepime for a 3 day total course 08/06 through 08/08 given stated ADR to levofloxacin
- follow clinically
CONS Pseudobacteremia
- blood cultures x2 at the same time from 08/04 very likely from the same stick
- 08/05 blood cultures no growth to date
- CONS is very likely a contaminant
--- NOTE | 2023-08-07 12:56 | W.PN.HOSP.TC ---
Today's Communication/Plan
-
start cefepime
f/u repeat blood cs report
small dose steroids
wean off o2
routine cxr
Assessment / Plan
Assessment / Plan
1.� Pseudomonas Pneumonia
�� � Immunocompromised with history of lung malignancy/on infliximab for RA and psoriasis
�� � Acute hypoxic resp insufficiency
-Patient came in for new onset of shortness of breath/cough and rigors
-Patient afebrile in ER.� Normal white blood cell count.
-Patient D-dimer elevated, got CT chest ruled out PE.� Have chronic changes in bilateral lungs with history of lung cancer. Ne conrw left lower lobe infiltrate suspected PNA
-Respiratory cs growing - pseudomonas
-COVID/flu negative.� Legionella/strep urinary antigen neg. Procal < 0.05
-was on rocephin/doxy > stopped > started on cefepime for pseudomonal coverage
-ID asked to help further
-o2 requirement increased to 4 L today.
2. Staphylococcus epi bacteremia
-Both sets of blood culture growing CONS, likely contaminant - same time collection.
-Repeat blood cultures neg (collected before vanc dosing)
-ID eval requested .
3. COPD exacerbation
� � Tobacco abuse
-Patient active smoker and smokes half pack a day.� Nicotine patch if any cravings developed
-Follows up with Dr. Leal
-wheezing/rhonchus on exam today, starting small dose prednisone
4. Paroxysmal supraventricular tachycardia
-Patient had episode of SVT noted by EMS.� Spontaneous conversion to sinus rhythm
-Monitor on telemetry, will involve cardiology for further episodes
-On flecainide at home continue
-EKG for QTc monitor
5. Acute hyponatremia
-euvolemic on exam
-Cortisol 13, TSG 1.54, Noam 96 Uosm 667
-fluid restriction, adding dose of lasix
history of adenocarcinoma of the lung in remission
psoriasis/rheumatoid arthritis on infliximab
Essential hypertension
Psoriatic arthropathy
history of perforated diverticulitis with partial colectomy in 95
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
DVT PPX - lovenox
Full code
Total time spent : 54 mins
I personally saw and examined the patient.
I have reviewed all diagnostic interpretations and treatment plans as written.
Time includes patient management by me, time spent at the patients bedside, time to review lab and imaging results, discussing patient care, documentation in the medical record, and time spent with the family or caregiver and discussing care plan
with RN/Consultants.
Anticipated Discharge: 24 - 48 hours
Subjective/Interval History
-
Date of Service: August 07, 2023
have cough and dyspena
o2 requirement increased today
Objective Data
-
Labs:
Laboratory Results
08/07/23
06:38
WBC 5.2
Hgb 12.0
Hct 34.5 L
Plt Count 189
Sodium 127 L
Potassium 3.6
Chloride 95 L
Carbon Dioxide 29
BUN 8
Creatinine 0.5 L
Glucose 96
Calcium 7.6 L
Vital Signs:
Vital Signs
Temp Pulse Resp BP Pulse Ox
99.6 F 92 20 146/66 95
08/07/23 11:10 08/07/23 12:17 08/07/23 12:17 08/07/23 11:10 08/07/23 12:17
I&O
08/06/23 08/07/23 08/08/23
06:59 06:59 06:59
Intake Total 120 / 120 690 / 690
Balance 120 / 120 690 / 690
Review of Systems
-
Respiratory: Reports Cough, Trouble Breathing and Wheezing; Denies Hemoptysis
Cardiac: Reports No Symptoms
Abdomen/GI: Reports No Symptoms
Physical Exam
-
General: Comfortable
HEENT: Oxygen (4L through NC)
Respiratory: Wheezes
Cardiac: Regular Rhythm and S1/S2; Negative Murmur or Rub
GI: Soft, Nontender and Nondistended
Musculoskeletal: No Edema
Neuro: Awake, Alert, Oriented, No Motor Deficits and Nonfocal/Grossly Intact
Psych: Calm
--- NOTE | 2023-08-07 13:54 | CM ---
internal security manager reviewed patient's chart and met with patient and patient is currently requiring 3-4 liters of oxygen. Patient does not have oxygen in home. internal security manager explained to patient she may need oxygen at discharge. Physical therapy are
recommending home health at discharged and patient has declined home health.
Plan; Home with spouse when stable, patient will need home oxygen evaluation at discharge.
[2023-08-07 15:36] VITALS: BP 129/62
[2023-08-07] MEDS: LOVENOX 40 MG SC (18:18)
[2023-08-07 19:15] VITALS: BP 146/69
[2023-08-07] MEDS: PRAVACHOL 40 MG PO (20:06)
[2023-08-07] MEDS: AZULFIDINE 500 MG PO (20:06)
[2023-08-07] MEDS: NON-FORMULARY ITEM 0.5 MG PO (20:07)
[2023-08-07 23:12] VITALS: BP 115/57
[2023-08-08] VITALS (8 sets, daily range): BP systolic 107–151; BP diastolic 55–75; PULSE 70; O2SAT 92; BMI 18.4
[2023-08-08] MEDS: MAXIPIME 2000 MG IV ×3 (03:06→21:03)
[2023-08-08] MEDS: STERILE WATER FOR INJECTION 10 ML IV ×3 (03:07→21:03)
[2023-08-08] MEDS: VENTOLIN NEBULES 2.5 MG INH ×2 (03:44→12:34)
[2023-08-08] MEDS: ROBITUSSIN DM 5 ML PO (06:33)
[2023-08-08 07:10] LABS: Hematocrit 38.3 % (37.0-47.0); Hemoglobin 13.1 g/dL (12.0-16.0); Mean Corp Hgb Conc. 34.2 g/dL (33.0-37.0); Mean Corpuscular Hgb 31.8 pg (27.0-31.0); Mean Platelet Volume 9.8 fL (7.4-10.4); Platelet Count 180 10^3/uL (130-400); Red Blood Cell Count 4.12 10^6/uL (4.20-5.40); Red Cell Dist. Width 12.7 % (11.5-14.5); White Blood Cell Count 5.6 10^3/uL (4.8-10.8)
[2023-08-08 07:43] LABS: Blood Urea Nitrogen 8 mg/dl (7-17); Calcium 8.3 mg/dl (8.4-10.2); Carbon Dioxide 32 mmol/L (22-30); Chloride 92 mmol/L (98-107); Estimated Creatinine Clearance 61 ml/min; Glucose 88 mg/dl (70-99); Potassium 3.9 mmol/L (3.5-5.1); Sodium 130 mmol/L (135-145); eGFR > 60.00
[2023-08-08] MEDS: DELTASONE PO (10:06)
[2023-08-08] MEDS: AZULFIDINE 500 MG PO ×2 (10:07→21:01)
[2023-08-08] MEDS: TAMBOCOR 50 MG PO ×2 (10:07→21:01)
[2023-08-08] MEDS: PROCARDIA XL (EXTENDED RELEASE) 60 MG PO (10:07)
[2023-08-08] MEDS: MILK OF MAGNESIA 30 ML PO (10:42)
[2023-08-08] MEDS: NORCO 5/325 1 TABLET PO ×3 (11:06→22:24)
--- NOTE | 2023-08-08 12:11 | PN.CDI ---
CDI
- -
CDI:
Physician Documentation Request
Admit Date: 08/05/23 16:54
Dear Doctor Alex,
Patient presented to the ED for evaluation of shortness of breath.
Assessment in ED states ' tachypneic with accessory muscle use and conversational dyspnea'
ED note states 'Patient noted to be hypoxic with severely increased work of breathing on arrival, this improved gradually with 4 L nasal cannula supplementation.....Patient did request that we discharge her home however she was trialed off of oxygen
very briefly and desaturated into the mid 80s on room air'
Please clarify which of the following accurately represents the patient's respiratory status:
Acute respiratory failure -- please specify type
Hypoxia
Other
Additional information for Respiratory Failure:
Recognized criteria for Respiratory Failure (Source: [facility] Apr 2013)
ABGs: (1 or more) Symptoms Please indicate type if known
1. p)2 <60 or RA SPO2 <91% on RA 1. Tachypnea, SOB, dyspnea Hypoxic
2. pCO2 50 and pH <7.35 2. Use of accessory muscles Hypercapnic
3. pO2 decrease of pCO2 increase by 3. Pallor or cyanosis Hypoxic and Hypercapnic
10 mmHg from baseline if known 4. Anxiety or restlessness
5. Unable to speak in full sentences
Supplemental O2 of > 40% (5LPM) Intubation is not required
Use of terms such as suspected, likely, concern for, or probable (associated with a specific diagnosis that is being evaluated, monitored, or treated as if it exists) are acceptable and can be coded in the inpatient setting, when documented at the
time of discharge.
Thank you,
Jessica Lozada RN, BSN
CDI Specialist
tiger text
Please use your independent medical judgment in providing your response.
--- NOTE | 2023-08-08 13:41 | W.PN.HOSP.TC ---
Today's Communication/Plan
-
continue abx
increasing steroids
anti-tussive
pain meds increased
Assessment / Plan
Assessment / Plan
1.� Pseudomonas Pneumonia
�� � Immunocompromised with history of lung malignancy/on infliximab for RA and psoriasis
�� � Acute hypoxic resp insufficiency
-Patient came in for new onset of shortness of breath/cough and rigors
-Patient afebrile in ER.� Normal white blood cell count.
-Patient D-dimer elevated, got CT chest ruled out PE.� Have chronic changes in bilateral lungs with history of lung cancer. Ne conrw left lower lobe infiltrate suspected PNA
-Respiratory cs growing - pseudomonas
-COVID/flu negative.� Legionella/strep urinary antigen neg. Procal < 0.05
-was on rocephin/doxy > stopped > started on cefepime for pseudomonal coverage
-ID asked to help further
-Patient pulmonary status remains tenuous. have excessive cough and secretion, causing bilateral flank pain.
2. Staphylococcus epi bacteremia ruled out - contamination
-Both sets of blood culture growing CONS, likely contaminant - same time collection.
-Repeat blood cultures neg (collected before vanc dosing)
3. COPD exacerbation
� � Tobacco abuse
-Patient active smoker and smokes half pack a day.� Nicotine patch if any cravings developed
-Follows up with Dr. Leal
-Increasing steroid to Decadron 4 mg every 12 hours
4. Paroxysmal supraventricular tachycardia
-Patient had episode of SVT noted by EMS.� Spontaneous conversion to sinus rhythm
-Monitor on telemetry, will involve cardiology for further episodes
-On flecainide at home continue
-EKG for QTc monitor
5. Acute hyponatremia
-euvolemic on exam
-Cortisol 13, TSG 1.54, Noam 96 Uosm 667
-fluid restriction, Na upto 130 today
history of adenocarcinoma of the lung in remission
psoriasis/rheumatoid arthritis on infliximab
Essential hypertension
Psoriatic arthropathy
history of perforated diverticulitis with partial colectomy in 95
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
DVT PPX - lovenox
Full code
Anticipated Discharge: 24 - 48 hours
Subjective/Interval History
-
Date of Service: August 08, 2023
Continues to have significant cough
Mild respiratory distress
Bilateral lower rib pain from excessive coughing
Oxygen requirement remain elevated at 4 L
Patient not feeling well
Objective Data
-
Labs:
Laboratory Results
08/08/23
06:34
WBC 5.6
Hgb 13.1
Hct 38.3
Plt Count 180
Sodium 130 L
Potassium 3.9
Chloride 92 L
Carbon Dioxide 32 H
BUN 8
Creatinine 0.4 L
Glucose 88
Calcium 8.3 L
Vital Signs:
Vital Signs
Temp Pulse Resp BP Pulse Ox
98.1 F 70 18 118/66 92
08/08/23 12:04 08/08/23 12:35 08/08/23 12:35 08/08/23 12:04 08/08/23 12:35
I&O
08/07/23 08/08/23 08/09/23
06:59 06:59 06:59
Intake Total 690 / 690 540 / 540
Balance 690 / 690 540 / 540
Review of Systems
-
Respiratory: Reports Cough, Trouble Breathing and Wheezing
Cardiac: Reports No Symptoms
Abdomen/GI: Reports No Symptoms
Physical Exam
-
General: Comfortable
HEENT: Oxygen (4L through NC)
Respiratory: Wheezes and Rhonchi
Cardiac: Regular Rhythm and S1/S2; Negative Murmur or Rub
Musculoskeletal: No Edema
Neuro: Awake, Alert, Oriented, No Motor Deficits and Nonfocal/Grossly Intact
Psych: Calm
--- NOTE | 2023-08-08 13:56 | CM ---
creative manager reviewed patient's chart and met with patient and patient will need home oxygen assessment closer to discharge, patient has refused visiting nurses.
Plan; To follow with patient plan is to home with spouse and Home oxygen assessment.
--- NOTE | 2023-08-08 15:33 | W.PN.ID1 ---
Date of Service
Date of Service: August 08, 2023
Today's Communication
- continue cefepime for a 3 day total course 08/06 through 08/08 given stated ADR to levofloxacin, need for steroids
Assessment / Plan
COPD exacerbation
Few Pseudomonas from the Sputum
Immunosuppression on Infliximab
- CT chest with minimal questionable pneumonia, sputum culture few presumptive pseudomonas, procalcitonin negative
- QTc acceptable
- note need for steroids - dose increased
- continue cefepime for a 3 day total course 08/06 through 08/08 given stated ADR to levofloxacin, need for steroids
- follow clinically
CONS Pseudobacteremia
- blood cultures x2 at the same time from 08/04 very likely from the same stick
- 08/05 blood cultures no growth to date
- CONS is very likely a contaminant
Chief Complaint
-: Other (COPD exacerbation)
Subjective / Review of Systems
afebrile
bp stable
persistent leukocytosis
cr stable
blood cultures no growth to date
increased wheezing today
more alert and articulate
Vital Signs / Physical Exam
Vital Signs
Vital Signs
Temp Pulse Resp BP Pulse Ox
98.1 F 70 18 118/66 92
08/08/23 12:04 08/08/23 12:35 08/08/23 12:35 08/08/23 12:04 08/08/23 12:35
Physical Exam
Constitutional: No Acute Distress
Cardiovascular: Regular Rate and S1/S2; Negative Murmur or Rub
Pulmonary: Symmetric, Wheezes, Coarse and Non Labored
Gastrointestinal: Soft, Non Tender, Non Distended and Normal Bowel Sounds
Skin: Warm and Dry; Negative Rash or Jaundice
Objective Data
Lab Data
Lab Results
08/08/23 06:34
03/07/24 06:34
Estimated Creat Clear 61 ml/min 08/08/23 06:34
Total Bilirubin 0.6 mg/dl (0.2-1.3) 08/05/23 11:46
AST 41 U/L (14-36) H 08/05/23 11:46
ALT 19 U/L (0-35) 08/05/23 11:46
Alkaline Phosphatase 57 U/L (38-126) 08/05/23 11:46
Most recent labs reviewed.
Micro Results:
08/06/23 11:36 Blood Culture - Preliminary
Blood/Venous No Growth in 48 hours- Final report to follow
08/06/23 10:54 Blood Culture - Preliminary
Blood/Venous No Growth in 48 hours- Final report to follow
08/05/23 12:21 Blood Culture - Preliminary
Blood/Venous Staphylococcus epidermidis
Staphylococcus epidermidis#2
Gram Stain - Preliminary
08/05/23 12:21 Blood Culture - Preliminary
Blood/Venous Staphylococcus epidermidis
Gram Stain - Final
08/05/23 21:52 Respiratory Culture - Final
Sputum Pseudomonas aeruginosa
Gram Stain - Final
08/05/23 21:52 Legionella Urinary Antigen - Final
Urine Negative for Legionella pneumophila Serogroup 1 antigen.
A negative result does not rule out the possiblity of
Legionella infection due to other serogroups or species of
Legionella. Clinical correlation is recommended.
Streptococcus pneumoniae Antigen (M - Final
Negative for Streptococcus pneumoniae antigen.
A negative result does not exclude infection with
Streptococcus pneumoniae. Clinical correlation is
recommended.
08/05/23 11:46 Influenza Types A & B (TOMI) - Final
Nasal Swab Negative for Influenza A & B, NAAT
Negative results must be combined with clinical observations
and patient history.
Nucleic Acid Amplification test (NAAT)performed on the
[employer] platform.
[2023-08-08] MEDS: LOVENOX 40 MG SC (17:47)
[2023-08-08] MEDS: PRAVACHOL 40 MG PO (21:02)
[2023-08-08] MEDS: DECADRON 4 MG IV (21:02)
[2023-08-08] MEDS: NON-FORMULARY ITEM 0.5 MG PO (21:02)
[2023-08-08] MEDS: ZOFRAN 4 MG IV (22:05)
[2023-08-09] MEDS: STERILE WATER FOR INJECTION 10 ML IV ×3 (03:12→19:39)
[2023-08-09] MEDS: MAXIPIME 2000 MG IV ×3 (03:13→19:40)
[2023-08-09 05:57] VITALS: BMI 18.5
[2023-08-09 07:25] VITALS: BP 174/89
[2023-08-09 07:59] LABS: Hematocrit 39.3 % (37.0-47.0); Hemoglobin 13.4 g/dL (12.0-16.0); Mean Corp Hgb Conc. 34.1 g/dL (33.0-37.0); Mean Corpuscular Hgb 31.9 pg (27.0-31.0); Mean Corpuscular Volume 93.6 fL (81.0-99.0); Mean Platelet Volume 9.6 fL (7.4-10.4); Platelet Count 175 10^3/uL (130-400); Red Cell Dist. Width 12.8 % (11.5-14.5); White Blood Cell Count 2.9 10^3/uL (4.8-10.8)
[2023-08-09 08:17] LABS: Blood Urea Nitrogen 10 mg/dl (7-17); Calcium 8.4 mg/dl (8.4-10.2); Carbon Dioxide 33 mmol/L (22-30); Chloride 96 mmol/L (98-107); Estimated Creatinine Clearance 62 ml/min; Glucose 103 mg/dl (70-99); Potassium 4.6 mmol/L (3.5-5.1); Sodium 129 mmol/L (135-145); eGFR > 60.00
[2023-08-09] MEDS: TAMBOCOR 50 MG PO ×2 (09:49→19:38)
[2023-08-09] MEDS: AZULFIDINE 500 MG PO ×2 (09:50→19:38)
[2023-08-09] MEDS: PROCARDIA XL (EXTENDED RELEASE) 60 MG PO (09:50)
[2023-08-09] MEDS: DECADRON 4 MG IV ×2 (09:50→19:40)
--- NOTE | 2023-08-09 10:27 | W.PN.ID1 ---
Date of Service
Date of Service: August 09, 2023
Today's Communication
- continue cefepime for a 5 day total course 08/06 through 08/10 given stated ADR to levofloxacin, need for steroids
- follow clinically
Assessment / Plan
COPD exacerbation
Few Pseudomonas from the Sputum
Immunosuppression on Infliximab
- continue cefepime for a 5 day total course 08/06 through 08/10 given stated ADR to levofloxacin, need for steroids
- follow clinically
S epi Pseudobacteremia
- blood cultures x2 at the same time from 08/04 very likely from the same stick
- 08/05 blood cultures no growth to date
- CONS is very likely a contaminant - no need for treatment
Chief Complaint
-: Other (COPD exacerbation)
Subjective / Review of Systems
afebrile
markedly hypertensive
remains on 4L
new leukopenia today
remains hyponatremic
blood cultures no growth
'I feel a lot better'
Vital Signs / Physical Exam
Vital Signs
Vital Signs
Temp Pulse Resp BP Pulse Ox
97.8 F 84 24 174/89 99
08/09/23 07:25 08/09/23 07:25 08/09/23 07:25 08/09/23 07:25 08/09/23 07:25
Physical Exam
Constitutional: No Acute Distress, Chronically Ill and Cachetic
Cardiovascular: Regular Rate and S1/S2; Negative Murmur or Rub
Pulmonary: Clear, Symmetric and Wheezes; Negative Rales
Gastrointestinal: Soft, Non Tender, Non Distended and Normal Bowel Sounds
Skin: Warm and Dry; Negative Rash or Jaundice
Objective Data
Lab Data
Lab Results
08/09/23 07:44
08/09/23 07:44
Estimated Creat Clear 62 ml/min 08/09/23 07:44
Total Bilirubin 0.6 mg/dl (0.2-1.3) 08/05/23 11:46
AST 41 U/L (14-36) H 08/05/23 11:46
ALT 19 U/L (0-35) 08/05/23 11:46
Alkaline Phosphatase 57 U/L (38-126) 08/05/23 11:46
Most recent labs reviewed.
Micro Results:
08/05/23 12:21 Blood Culture - Final
Blood/Venous Staphylococcus epidermidis
Gram Stain - Final
08/06/23 11:36 Blood Culture - Preliminary
Blood/Venous No Growth in 48 hours- Final report to follow
08/06/23 10:54 Blood Culture - Preliminary
Blood/Venous No Growth in 48 hours- Final report to follow
08/05/23 12:21 Blood Culture - Preliminary
Blood/Venous Staphylococcus epidermidis
Staphylococcus epidermidis#2
Gram Stain - Preliminary
08/05/23 21:52 Respiratory Culture - Final
Sputum Pseudomonas aeruginosa
Gram Stain - Final
08/05/23 21:52 Legionella Urinary Antigen - Final
Urine Negative for Legionella pneumophila Serogroup 1 antigen.
A negative result does not rule out the possiblity of
Legionella infection due to other serogroups or species of
Legionella. Clinical correlation is recommended.
Streptococcus pneumoniae Antigen (M - Final
Negative for Streptococcus pneumoniae antigen.
A negative result does not exclude infection with
Streptococcus pneumoniae. Clinical correlation is
recommended.
08/05/23 11:46 Influenza Types A & B (TOIM) - Final
Nasal Swab Negative for Influenza A & B, NAAT
Negative results must be combined with clinical observations
and patient history.
Nucleic Acid Amplification test (NAAT)performed on the
[employer] platform.
--- NOTE | 2023-08-09 10:31 | W.PN.HOSP.TC ---
Addendum entered and electronically signed by Fidencio Johnson MD 08/09/23 16:13:
Adjust diagnosis
Acute hypoxic respiratory failure
Unable to determine if component of radiation fibrosis present.
Original Note:
Today's Communication/Plan
-
wean off o2 as possible
continue IV steroids
IS ordered
PT as tolerated
Assessment / Plan
Assessment / Plan
1.� Pseudomonas Pneumonia
�� � Immunocompromised with history of lung malignancy/on infliximab for RA and psoriasis
�� � Acute hypoxic resp insufficiency
-Patient came in for new onset of shortness of breath/cough and rigors
-Patient afebrile in ER.� Normal white blood cell count.
-Patient D-dimer elevated, got CT chest ruled out PE.� Have chronic changes in bilateral lungs with history of lung cancer. Ne conrw left lower lobe infiltrate suspected PNA
-Respiratory cs growing - few pseudomonas
-COVID/flu negative.� Legionella/strep urinary antigen neg. Procal < 0.05
-was on Rocephin/doxy > stopped > started on cefepime for pseudomonal coverage
-ID following and help appreciated.
-Patient pulmonary status remains tenuous. have excessive cough and secretion, causing bilateral flank pain.
2. Staphylococcus epi bacteremia ruled out - contamination
-Both sets of blood culture growing CONS, likely contaminant - same time collection.
-Repeat blood cultures neg (collected before vanc dosing)
3. COPD exacerbation
� � Tobacco abuse
-Patient active smoker and smokes half pack a day.� Nicotine patch if any cravings developed
-Follows up with Dr. Leal
-Increasing steroid to Decadron 4 mg every 12 hours
4. Paroxysmal supraventricular tachycardia
-Patient had episode of SVT noted by EMS.� Spontaneous conversion to sinus rhythm
-Monitor on telemetry, will involve cardiology for further episodes
-On flecainide at home continue
-EKG for QTc monitor
5. Acute hyponatremia
-euvolemic on exam
-Cortisol 13, TSG 1.54, Noam 96 Uosm 667
-continue fluid restriction,
history of adenocarcinoma of the lung in remission
psoriasis/rheumatoid arthritis on infliximab
Essential hypertension
Psoriatic arthropathy
history of perforated diverticulitis with partial colectomy in 95
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
DVT PPX - lovenox
Full code
Anticipated Discharge: 24 - 48 hours
Subjective/Interval History
-
Date of Service: August 09, 2023
subjectively feeling better
oxygen requirement stable around 3L NC
cough better
Objective Data
-
Labs:
Laboratory Results
08/09/23
07:44
WBC 2.9 L
Hgb 13.4
Hct 39.3
Plt Count 175
Sodium 129 L
Potassium 4.6
Chloride 96 L
Carbon Dioxide 33 H
BUN 10
Creatinine 0.5 L
Glucose 103 H
Calcium 8.4
Vital Signs:
Vital Signs
Temp Pulse Resp BP Pulse Ox
97.8 F 84 24 174/89 99
08/09/23 07:25 08/09/23 07:25 08/09/23 07:25 08/09/23 07:25 08/09/23 07:25
I&O
08/08/23 08/09/23 08/10/23
06:59 06:59 06:59
Intake Total 540 / 540 680 / 680
Balance 540 / 540 680 / 680
Review of Systems
-
Respiratory: Reports No Symptoms
Cardiac: Reports No Symptoms
Abdomen/GI: Reports No Symptoms
Physical Exam
-
General: Comfortable
HEENT: Oxygen (4L through NC)
Respiratory: Wheezes and Rhonchi
Cardiac: Regular Rhythm and S1/S2; Negative Murmur or Rub
Musculoskeletal: No Edema
Neuro: Awake, Alert, Oriented, No Motor Deficits and Nonfocal/Grossly Intact
Psych: Calm
--- NOTE | 2023-08-09 11:16 | CM ---
Chart reviewed and patient will require oxygen at discharge. Vivienne was hoping to wean off oxygen. Patient has declined visiting nurses.
Plan; Need to follow for home oxygen needs. Patient has declined visiting nurses.
[2023-08-09] MEDS: NORCO 5/325 1 TABLET PO ×3 (12:50→21:51)
--- NOTE | 2023-08-09 14:39 | PN.CDI ---
CDI
- -
CDI:
Physician Documentation Request
Admit Date: 08/05/23 16:54
Dear Doctor Alex,
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
Please indicate in your progress notes if you are in agreement that the above diagnosis is valid for this patient:
____ - radiation fibrosis is a valid diagnosis (Please include it in your progress notes)
____ - radiation fibrosis is not a valid diagnosis for this patient
____ - Other
Use of terms such as suspected, likely, concern for, or probable are acceptable for a diagnosis that is being evaluated, monitored or treated as if it exists and can be coded in the inpatient setting, when documented at the time of discharge.
Thank you,
Jessica Lozada RN, BSN
CDI Specialist
tiger text
Please use your independent medical judgment in providing your response.
[2023-08-09 15:00] VITALS: BP 119/70
[2023-08-09] MEDS: LOVENOX 40 MG SC (17:32)
[2023-08-09] MEDS: PRAVACHOL 40 MG PO (19:39)
[2023-08-09] MEDS: ZOFRAN 4 MG IV (19:39)
[2023-08-09] MEDS: NON-FORMULARY ITEM 0.5 MG PO (19:41)
[2023-08-09] MEDS: VENTOLIN NEBULES 2.5 MG INH (20:36)
[2023-08-09] MEDS: ROBITUSSIN DM 5 ML PO (21:47)
[2023-08-09] MEDS: NON-FORMULARY ITEM 1 UNIT PO (21:48)
[2023-08-09 22:53] VITALS: BP 164/74
[2023-08-10] MEDS: STERILE WATER FOR INJECTION 10 ML IV ×3 (03:05→19:47)
[2023-08-10] MEDS: MAXIPIME 2000 MG IV ×3 (03:08→19:47)
[2023-08-10] MEDS: VENTOLIN NEBULES 2.5 MG INH ×2 (03:25→15:25)
[2023-08-10 03:49] VITALS: BMI 17.7
[2023-08-10] MEDS: NORCO 5/325 1 TABLET PO ×3 (03:52→18:31)
[2023-08-10 06:18] LABS: Hematocrit 37.8 % (37.0-47.0); Mean Corp Hgb Conc. 34.4 g/dL (33.0-37.0); Mean Corpuscular Hgb 32.2 pg (27.0-31.0); Mean Corpuscular Volume 93.6 fL (81.0-99.0); Platelet Count 192 10^3/uL (130-400); Red Blood Cell Count 4.04 10^6/uL (4.20-5.40); Red Cell Dist. Width 12.8 % (11.5-14.5); White Blood Cell Count 3.4 10^3/uL (4.8-10.8)
[2023-08-10 06:40] LABS: Blood Urea Nitrogen 13 mg/dl (7-17); Calcium 8.5 mg/dl (8.4-10.2); Carbon Dioxide 31 mmol/L (22-30); Chloride 95 mmol/L (98-107); Estimated Creatinine Clearance 59 ml/min; Glucose 123 mg/dl (70-99); Sodium 131 mmol/L (135-145); eGFR > 60.00
[2023-08-10 07:00] VITALS: BP 159/80
[2023-08-10] MEDS: DECADRON 4 MG IV ×2 (08:25→19:46)
[2023-08-10] MEDS: TAMBOCOR 50 MG PO ×2 (08:26→19:46)
[2023-08-10] MEDS: PROCARDIA XL (EXTENDED RELEASE) 60 MG PO (08:27)
[2023-08-10] MEDS: AZULFIDINE 500 MG PO ×2 (08:27→19:45)
[2023-08-10] MEDS: ZOFRAN 4 MG IV ×2 (08:36→20:00)
--- NOTE | 2023-08-10 11:22 | W.PN.HOSP.TC ---
Today's Communication/Plan
-
Continue wean off oxygen
Continue IV steroids 1 more day
Assessment / Plan
Assessment / Plan
1.� Pseudomonas Pneumonia
�� � Immunocompromised with history of lung malignancy/on infliximab for RA and psoriasis
�� � Acute hypoxic resp insufficiency
-Patient came in for new onset of shortness of breath/cough and rigors
-Patient afebrile in ER.� Normal white blood cell count.
-Patient D-dimer elevated, got CT chest ruled out PE.� Have chronic changes in bilateral lungs with history of lung cancer. Ne conrw left lower lobe infiltrate suspected PNA
-Respiratory cs growing - few pseudomonas
-COVID/flu negative.� Legionella/strep urinary antigen neg. Procal < 0.05
-was on Rocephin/doxy > stopped > started on cefepime for pseudomonal coverage
-ID following and help appreciated.
-Oxygen requirement coming down today. Patient wheezing has improved. Patient able to take deep inspiration without excessive coughing.
2. Staphylococcus epi bacteremia ruled out - contamination
-Both sets of blood culture growing CONS, likely contaminant - same time collection.
-Repeat blood cultures neg (collected before vanc dosing)
3. COPD exacerbation
� � Tobacco abuse
-Patient active smoker and smokes half pack a day.� Nicotine patch if any cravings developed
-Follows up with Dr. Leal
-On higher dose of steroid to Decadron 4 mg every 12 hours, continue another 24hrs
4. Paroxysmal supraventricular tachycardia
-Patient had episode of SVT noted by EMS.� Spontaneous conversion to sinus rhythm
-Monitor on telemetry, will involve cardiology for further episodes
-On flecainide at home continue
-EKG for QTc monitor
5. Acute hyponatremia
-euvolemic on exam
-Cortisol 13, TSG 1.54, Noam 96 Uosm 667
-continue fluid restriction,
history of adenocarcinoma of the lung in remission
psoriasis/rheumatoid arthritis on infliximab
Essential hypertension
Psoriatic arthropathy
history of perforated diverticulitis with partial colectomy in 95
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
DVT PPX - lovenox
Full code
Anticipated Discharge: 24 - 48 hours
Subjective/Interval History
-
Date of Service: August 10, 2023
Oxygen requirement coming down
Subjectively still not feeling better
Cough improved in my opinion, able to take deep inspiration without coughing on exam
No acute issues reported overnight
Objective Data
-
Labs:
Laboratory Results
08/10/23
05:21
WBC 3.4 L
Hgb 13.0
Hct 37.8
Plt Count 192
Sodium 131 L
Potassium 4.0
Chloride 95 L
Carbon Dioxide 31 H
BUN 13
Creatinine 0.5 L
Glucose 123 H
Calcium 8.5
Vital Signs:
Vital Signs
Temp Pulse Resp BP Pulse Ox
97.7 F 80 18 159/80 92
08/10/23 07:00 08/10/23 07:00 08/10/23 07:00 08/10/23 07:00 08/10/23 09:55
I&O
08/09/23 08/10/23 08/11/23
06:59 06:59 07:59
Intake Total 680 / 680 600 / 600
Balance 680 / 680 600 / 600
Review of Systems
-
Respiratory: Reports Cough and Trouble Breathing
Cardiac: Reports No Symptoms
Abdomen/GI: Reports No Symptoms
Physical Exam
-
General: Comfortable
HEENT: Oxygen (4L through NC)
Respiratory: Wheezes (minimal b/l lung)
Cardiac: Regular Rhythm and S1/S2; Negative Murmur or Rub
Musculoskeletal: No Edema
Neuro: Awake, Alert, Oriented, No Motor Deficits and Nonfocal/Grossly Intact
Psych: Calm
[2023-08-10 15:00] VITALS: BP 154/75
[2023-08-10] MEDS: ROBITUSSIN DM 5 ML PO (15:11)
[2023-08-10 15:20] VITALS: BP 154/75; PULSE 77; O2SAT 96
[2023-08-10] MEDS: LOVENOX 40 MG SC (18:32)
[2023-08-10] MEDS: PRAVACHOL 40 MG PO (19:46)
[2023-08-10] MEDS: NON-FORMULARY ITEM 0.5 MG PO (19:49)
[2023-08-10] MEDS: NON-FORMULARY ITEM 1 UNIT PO (21:36)
[2023-08-10 23:51] VITALS: BP 136/75
[2023-08-11] MEDS: MAXIPIME 2000 MG IV (03:31)
[2023-08-11] MEDS: STERILE WATER FOR INJECTION 10 ML IV (03:32)
[2023-08-11] MEDS: ROBITUSSIN DM 5 ML PO (05:57)
[2023-08-11 06:00] VITALS: BMI 17.5
[2023-08-11 06:30] LABS: Hematocrit 36.6 % (37.0-47.0); Hemoglobin 12.9 g/dL (12.0-16.0); Mean Corp Hgb Conc. 35.2 g/dL (33.0-37.0); Mean Corpuscular Hgb 32.3 pg (27.0-31.0); Mean Corpuscular Volume 91.5 fL (81.0-99.0); Platelet Count 168 10^3/uL (130-400); Red Cell Dist. Width 12.7 % (11.5-14.5); White Blood Cell Count 4.2 10^3/uL (4.8-10.8)
[2023-08-11 06:44] LABS: Blood Urea Nitrogen 12 mg/dl (7-17); Calcium 8.6 mg/dl (8.4-10.2); Carbon Dioxide 35 mmol/L (22-30); Chloride 93 mmol/L (98-107); Estimated Creatinine Clearance 58 ml/min; Glucose 101 mg/dl (70-99); Potassium 4.2 mmol/L (3.5-5.1); Sodium 131 mmol/L (135-145); eGFR > 60.00
[2023-08-11 07:00] VITALS: BP 188/93
[2023-08-11] MEDS: TAMBOCOR 50 MG PO (08:05)
[2023-08-11] MEDS: PROCARDIA XL (EXTENDED RELEASE) 60 MG PO (08:05)
[2023-08-11] MEDS: AZULFIDINE 500 MG PO (08:05)
[2023-08-11] MEDS: DECADRON 4 MG IV (08:06)
--- NOTE | 2023-08-11 08:31 | W.PN.HOSP.TC ---
Today's Communication/Plan
-
home o2 eval
discharge planning
Assessment / Plan
Assessment / Plan
1.� Pseudomonas Pneumonia
�� � Immunocompromised with history of lung malignancy/on infliximab for RA and psoriasis
�� � Acute hypoxic resp insufficiency
-Patient came in for new onset of shortness of breath/cough and rigors
-Patient afebrile in ER.� Normal white blood cell count.
-Patient D-dimer elevated, got CT chest ruled out PE.� Have chronic changes in bilateral lungs with history of lung cancer. Ne conrw left lower lobe infiltrate suspected PNA
-Respiratory cs growing - few pseudomonas
-COVID/flu negative.� Legionella/strep urinary antigen neg. Procal < 0.05
-was on Rocephin/doxy > stopped > finishing course of cefepime today for pseudomonal coverage
-ID following and help appreciated.
-Patient adamant about not wanting oxygen at discharge . She is on 1 L NC and will need to do Home o2 eval.
2. Staphylococcus epi bacteremia ruled out - contamination
-Both sets of blood culture growing CONS, likely contaminant - same time collection.
-Repeat blood cultures neg (collected before vanc dosing)
3. COPD exacerbation
� � Tobacco abuse
-Patient active smoker and smokes half pack a day.� Nicotine patch if any cravings developed
-Follows up with Dr. Leal
-getting more anxious/agitated - will lower to oral prednisone tomorrow, no more IV steroids today.
4. Paroxysmal supraventricular tachycardia
-Patient had episode of SVT noted by EMS.� Spontaneous conversion to sinus rhythm
-Monitor on telemetry, will involve cardiology for further episodes
-On flecainide at home continue
-EKG for QTc monitor
5. Acute hyponatremia
-euvolemic on exam
-Cortisol 13, TSG 1.54, Noam 96 Uosm 667
-continue fluid restriction,
history of adenocarcinoma of the lung in remission
psoriasis/rheumatoid arthritis on infliximab
Essential hypertension
Psoriatic arthropathy
history of perforated diverticulitis with partial colectomy in 95
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
DVT PPX - lovenox
Full code
Anticipated Discharge: Today
Subjective/Interval History
-
Date of Service: August 11, 2023
patient agitated and anxious, requesting to leave home
no other issues overnight
Objective Data
-
Labs:
Laboratory Results
08/11/23
05:30
WBC 4.2 L
Hgb 12.9
Hct 36.6 L
Plt Count 168
Sodium 131 L
Potassium 4.2
Chloride 93 L
Carbon Dioxide 35 H
BUN 12
Creatinine 0.4 L
Glucose 101 H
Calcium 8.6
Vital Signs:
Vital Signs
Temp Pulse Resp BP Pulse Ox
97.7 F 78 16 188/93 92
08/11/23 07:00 08/11/23 07:00 08/11/23 07:00 08/11/23 07:00 08/11/23 07:00
I&O
08/10/23 08/11/23 08/12/23
05:59 06:59 06:59
Intake Total
Balance
Review of Systems
-
Respiratory: Reports Cough
Cardiac: Reports No Symptoms
Abdomen/GI: Reports No Symptoms
Physical Exam
-
General: Comfortable
HEENT: Oxygen (4L through NC)
Respiratory: Wheezes (minimal b/l lung)
Cardiac: Regular Rhythm and S1/S2; Negative Murmur or Rub
Musculoskeletal: No Edema
Neuro: Awake, Alert, Oriented, No Motor Deficits and Nonfocal/Grossly Intact
Psych: Agitated and Anxious
[2023-08-11 09:50] VITALS: BP 162/75
[2023-08-11] MEDS: APRESOLINE 10 MG IV (10:08)
[2023-08-11] MEDS: MILK OF MAGNESIA 30 ML PO (10:08)
[2023-08-11] MEDS: STERILE WATER FOR INJECTION IV (12:16)
--- NOTE | 2023-08-11 13:10 | CM ---
Pt for dc today.
Pt signed IMM and will transport home.
With O2 testing, pt dropped to 86. Pt refusing O2 and refusing VN.
Pt was educated on the risks of dc without services; Signed AMA forms with at bedside.
--- NOTE | 2023-08-11 13:14 | PTCARENOTE ---
Patient ambulating in the hallway with RT for home oxygen set up determination. RT follow up with nursing stating the patient qualifies, being 86-87% SpO2 on RA with exertion. Patient called in RN immediately after RT left and stated she was ready
to go, requesting her IV to be removed and for her discharge paperwork. RN explained that CM needs some time to set up home oxygen. The patient stated she only wants an oxygen concentrator for home and no tanks. The patient stated she could not wait
for CM because she needed to be home to receive it. RN explained that it takes some time to submit all paperwork, etc prior to being discharged. MD at bedside to talk with patient about awaiting CM set up and signing AMA form if she refused to wait
in hospital. Patient signed form and when RN entered room to remove patient's IV, she asked about the oxygen concentrator for home. RN explained that leaving AMA would cease set up of home services without waiting a bit longer (patient refusing VN
per CM) and the patient stated, 'well forget it.' RN talked with patient regarding understanding of signing the AMA form, up to insurance coverage/reimbursement for this hospitalization and the patient stated, 'I will fight with my insurance, I know
what I signed.'
Patient transported via WC to ICU pavilion exit. Discharge paperwork provided and patient encouraged by nursing and CM to follow up with PCP and reception manager CHAD. Patient indicated understanding.
--- NOTE | 2023-08-11 14:00 | W.DCSUMMARY ---
Discharge Summary
Discharge Data
Date of Admission: 08/05/23
Date of Discharge: 08/11/23
-
Pending Results: No
Hospital Course
This is an AMA note on Ms. Nicole Nesbitt who left against medical advice on 08/21/2023 at 1300.
Primary care physician : Dr Ana Bhatt
Principal Discharge diagnosis :
Pseudomonas pneumonia
Chronic obstructive pulmonary disease flareup
Acute hypoxic respiratory failure
Acute hyponatremia
Chronic Discharge diagnosis :
Left lung adenocarcinoma in remission
Paroxysmal supraventricular tachycardia
Rheumatoid arthritis on infliximab therapy
Essential hypertension
Psoriatic arthropathy
History of perforated diverticulitis with partial colectomy
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
Hospital Course :
Patient is a 78-year-old female with above-mentioned past medical history came to ER with new onset of shortness of breath and cough. In ER patient had CT chest which showed changes of new left lower lobe suspicious of pneumonia. Patient was
started on broad-spectrum antibiotic and was admitted to hospital for further evaluation. COVID/flu/Legionella/strep urinary antigen check was negative. Patient had minimal hypoxia associated with pneumonia. Patient had a sputum culture collected
as part of workup which later grew Pseudomonas organism. Patient antibiotic was changed to cefepime and ID was involved in care. Patient finished a course of antibiotic in hospital. Patient also was felt to having COPD flareup and required to be
started on IV steroids. Patient dyspnea improved with therapy although patient continued to remain hypoxic requiring 1 L oxygen support. Patient did not want oxygen prescribed. Patient discharged to sign herself out AGAINST MEDICAL ADVICE on
08/11/2023.
Beside this patient also have mild hyponatremia, patient was euvolemic on exam cortisol/TSH were normal. Patient was maintained on fluid restriction with which patient sodium improved.
Important imaging findings :
None
Procedure findings :
None
Discharge Plan
-
Patient Disposition: Home (Routine Discharge)
Discharge Diagnosis/Procedures: COPD flare up, Pseudomonas Pneumonia
Condition: Fair
Diet: 2 Gram Sodium
Activity: As tolerated
Driving Restrictions: No driving
Bathing Restrictions: OK to Shower
Instructions: Oxygen Therapy, Adult
Referrals:
Ana Bhatt MD [Family Provider] - in one week
Prescriptions:
New
prednisone 10 mg Tablet
See Rx Instructions .ROUTE .COMPLEX Qty: 30 0RF
Rx Instructions:
Take By Mouth:
40 mg daily x3 days, 30 mg daily x3 days,
20 mg daily x3 days, 10 mg daily x3 days.
albuterol sulfate 90 mcg/actuation HFA aerosol inhaler
2 puff inhalation Q6H PRN (Reason: shortness of breath or wheezing) Qty: 8.5 0RF
Continued
Nyquil/Nitetime Liquid
15 ml PO HS
infliximab [Remicade] 100 MG/10 ML recon soln
1 dose IV Q4W
Patient Comments:
08/05/2023, 5 mg/kg weight per [facility]. Next dose is 08/29/2023 per pt.
nifedipine 60 MG tablet extended release
60 mg PO DAILY Qty: 30 0RF
pravastatin 40 MG tablet
40 mg PO DAILY@1999
flecainide 50 MG tablet
50 mg PO BID
sulfasalazine 500 mg Tablet
500 mg PO BID
hydrocodone-acetaminophen 5-325 mg Tablet
1 tab PO TIDPRN PRN (Reason: severe pain)
Patient Comments:
08/05/2023, pt. filled this med. on 07/05/2023 for 90 tablets according to PDMP.
acetaminophen 650 mg Tablet Extended Release
1,300 mg PO DAILYPRN PRN (Reason: mild pain)
folic acid 1 mg Tablet
1 mg PO DAILY
montelukast 10 mg Tablet
10 mg PO DAILY PRN (Reason: allergies)
estradiol 0.5 mg Tablet
0.5 mg PO DAILY@1999
coQ10 (ubiquinol) 200 mg Capsule
200 mg PO DAILY@1999
Prolia 60 mg/mL Syringe
60 mg SC [id number]
Patient Comments:
08/05/2023, next dose in September per pt.
biotin 1,000 mcg Tablet,Chewable
1,000 mcg PO DAILY@1999
Pauline Otc Constipation Med
1 cap PO QPM
Prevagen Supplement
1 cap PO QPM
Discharge Orders:
Discharge Patient (As Directed); Ordered 08/11/23
Ordered By: Fidencio Johnson
== END 2023-08-11 14:13 | disposition left against medical advice (07) | DRG 177 ==
LOC: 4 WEST ACU 16:54
PROVIDERS: Physician Assistant; ADMITTING PHYSICIAN Hospitalist; CONSULT PHYSICIAN Student in an Organized Health Care Education/Training Program; EMERGENCY PHYSICIAN Student in an Organized Health Care Education/Training Program; FAMILY PHYSICIAN Internal Medicine
DX: J15.1 Pneumonia due to Pseudomonas (principal); J96.01 Acute respiratory failure with hypoxia; I47.19 Other supraventricular tachycardia; D84.9 Immunodeficiency, unspecified; J44.1 Chronic obstructive pulmonary disease with (acute) exacerbation; J44.0 Chronic obstructive pulmonary disease with (acute) lower respiratory infection; R78.81 Bacteremia; E87.1 Hypo-osmolality and hyponatremia; C34.92 Malignant neoplasm of unspecified part of left bronchus or lung; F17.210 Nicotine dependence, cigarettes, uncomplicated; Z85.118 Personal history of other malignant neoplasm of bronchus and lung; L40.50 Arthropathic psoriasis, unspecified; M06.9 Rheumatoid arthritis, unspecified; I10 Essential (primary) hypertension; Z53.29 Procedure and treatment not carried out because of patient's decision for other reasons; Z11.52 Encounter for screening for COVID-19
CPT/HCPCS: 71046; 71275; 80048; 80053; 82533; 83935; 84145; 84300; 84443; 84484; 85025; 85027; 85379; 87040; 87070; 87071; 87147; 87150; 87186; 87205; 87449; 87502; 87811; 87899; 93005; 94640; 96361; 96374; 96375; 97116; 97163; 97166; 97530; 99285; 99406; Q9967

== ENCOUNTER 2023-09-09 05:36 | Inpatient (IN) | payer MEDICARE, SELFPAY ==
[2023-09-09] VITALS (14 sets, daily range): BP systolic 107–143; BP diastolic 51–66; BMI 18.6; BMI 18.5
--- NOTE | 2023-09-09 02:34 | ED.GENMED ---
History of Present Illness
<CARIE Wheat - Last Filed: 09/09/23 04:27>
General
Chief Complaint: Abdominal Pain
Source: patient
Exam Limitations: none
Time Seen by Provider: 09/09/23 02:11
Nursing documentation reviewed up to this point in time: agreed with
Travel History
Have you had any contact with someone who has COVID-19?: No
Do you have any symptoms of coronavirus? Fever > 100 degrees, chills, cough, shortness of breath, sore throat, loss of taste or smell, muscle aches, or headache?: No
History of Present Illness
History of Present Illness:
patient is a 78 y.o female presenting with abdominal pain x 8 hrs. Patient states the pain started around 6pm. Patient states it is localized to her lower abdomen and radiates into her groin and around to her back. Patient states leaning back makes
the pain worse. Patient states the pain resembles the pain she felt when she had a bowel perforation 20+ years ago. Patient has had nausea with no episodes of vomiting. EMS gave Zofran en route. Patient admits to lack of bowel movement in 3 days.
Patient admits to mild distension of the abdomen. Patient admits to weight loss during her last hospital stay on 08/11/23 due to PNA. Patient denies V/D/C, SOB, CP, GANNON, Fever, chills, dysuria. Patient was in and out of SVT in EMS. Patient follows up
with [facility]. Patient has a history of an appendectomy and lung cancer.
Past History
<CARIE Wheat - Last Filed: 09/09/23 04:27>
Past History
ED Past Medical History: Arrthythmia (Atrial fibrillation), HTN, Hypercholesterolemia and Other (Psoriatic arthritis)
ED Past Surgical History: Cholecystectomy, Gynecological, Orthopedic, Tonsilectomy and Other
Social History
Tobacco: Smoker
Alcohol: Occasional
Personal:
Living: with family
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
Family History
Family History: Other (Her mother had multiple myeloma and amyloidosis. Her brother had an [place])
Review of Systems
<CARIE Wheat - Last Filed: 09/09/23 04:27>
Review of Systems
Constitutional: Reports no symptoms
EENT: Reports no symptoms
Respiratory: Reports cough
Cardiac: Reports no symptoms
ABD/GI: Reports abdominal pain (diffuse), nausea and constipated
: Reports no symptoms
Musculoskeletal: Reports no symptoms
Skin: Reports no symptoms
Phy Exam
<CARIE Wheat - Last Filed: 09/09/23 04:27>
General Physical Exam
General Presentation: well appearing and no apparent distress
General Skin: warm and dry
General Habitus: normal
General Mental: alert
General Hydration: appears well hydrated
ENT Exam
ENT Exam: EOMI, pharynx normal, neck supple and normocephalic
Eye Exam
Eye Exam: PERRL, cornea clear and conjunctiva normal
Cardiovascular Exam
Cardiovascular Exam: regular rate/rhythm, no edema, no murmur and normal peripheral pulses
Pulmonary Exam
Pulmonary Exam: lungs clear, no respiratory distress, no rales, no crackles, no rhonchi, no stridor, no wheezing and no cough
Gastrointestinal Exam
Gastrointestinal Exam: normal bowel sounds, distended (mild distension), guarding, surgical scar and tender (diffusely tender )
Palpation: generalized: Moderate tenderness
Abdominal Scars: ángel-umbilical
Auscultation of Abdomen: normal
Neurological Exam
Neurological Exam: alert, oriented x3, no motor deficits and speech normal
Musculoskeletal Exam
Musculoskeletal Exam: full ROM and no edema
Skin Exam
Skin Exam: normal color, warm/dry, no rash and no petechia
Psychiatric Exam
Psychiatric Exam: normal mood/affect
Course
<Idania CruzwsonCARIE - Last Filed: 09/09/23 04:27>
Orders/Labs/Results
Orders:
Orders
09/09/23 02:10
Electrocardiogram (*1) Urgent
Reason for Study: Abdominal Pain
Cardiac Monitoring- Treatment ONCE
09/09/23 02:11
EKG- Treatment ONCE
09/09/23 02:21
CT Abd/pelvis W Iv Cont Urgent
Reason For Exam: lower abd pain
09/09/23 02:24
Electrocardiogram (*1) Urgent
Reason for Study: Other
Other Reason for Exam: change in rythm
EKG- Treatment ONCE
09/09/23 02:27
CMP [Comprehensive Metabolic Panel] Urgent
Complete Blood Count/With Diff Urgent
Lactic Acid Urgent
09/09/23 02:46
Morphine Sulfate 4 mg IV NOW STA
09/09/23 02:54
HYDROmorphone [Dilaudid] 0.5 mg .ROUTE .STK-MED ONE
HYDROmorphone [Dilaudid] 0.5 mg IV NOW STA
Abnormal Lab Results
09/09/23
02:27
WBC 16.4 H 10^3/uL
(4.8-10.8)
RBC 3.80 L 10^6/uL
(4.20-5.40)
Hct 35.9 L %
(37.0-47.0)
MCH 32.6 H pg
(27.0-31.0)
Plt Count 411 H 10^3/uL
(130-400)
Abs Immat Gran (auto) 0.1 H 10^3/uL
(0-0.05)
Absolute Neuts (auto) 14.4 H 10^3/uL
(1.4-6.5)
Absolute Lymphs (auto) 0.8 L 10^3/uL
(1.2-3.4)
Absolute Monos (auto) 1.1 H 10^3/uL
(0.1-0.6)
Neutrophils % 87.8 H %
(42.2-75.2)
Lymphocytes % 5.0 L %
(20.5-51.1)
Sodium 131 L mmol/L
(135-145)
Chloride 96 L mmol/L
(98-107)
Creatinine 0.5 L mg/dL
(0.6-1.0)
Glucose 127 H mg/dl
(70-99)
Alkaline Phosphatase 144 H U/L
(38-126)
09/09/23 02:27
09/09/23 02:27
Vital Signs
Initial and Last Documented VS:
Initial Vital Signs
Temp Pulse Resp BP
99.5 F 98 30 143/60
09/09/23 02:12 09/09/23 02:12 09/09/23 02:12 09/09/23 02:12
Last Documented Vital Signs
Temp Pulse Resp BP Pulse Ox
99.5 F 98 26 134/62 91
09/09/23 02:12 09/09/23 03:00 09/09/23 03:00 09/09/23 03:00 09/09/23 03:00
Garlandlt;Nicholas Wagner, DO - Last Filed: 09/09/23 04:48>
Orders/Labs/Results
Orders:
Orders
09/09/23 02:10
Electrocardiogram (*1) Urgent
Reason for Study: Abdominal Pain
Cardiac Monitoring- Treatment ONCE
09/09/23 02:11
EKG- Treatment ONCE
09/09/23 02:21
CT Abd/pelvis W Iv Cont Urgent
Reason For Exam: lower abd pain
09/09/23 02:24
Electrocardiogram (*1) Urgent
Reason for Study: Other
Other Reason for Exam: change in rythm
EKG- Treatment ONCE
09/09/23 02:27
CMP [Comprehensive Metabolic Panel] Urgent
Complete Blood Count/With Diff Urgent
Lactic Acid Urgent
09/09/23 02:46
Morphine Sulfate 4 mg IV NOW STA
09/09/23 02:54
HYDROmorphone [Dilaudid] 0.5 mg .ROUTE .STK-MED ONE
HYDROmorphone [Dilaudid] 0.5 mg IV NOW STA
Abnormal Lab Results
09/09/23
02:27
WBC 16.4 H 10^3/uL
(4.8-10.8)
RBC 3.80 L 10^6/uL
(4.20-5.40)
Hct 35.9 L %
(37.0-47.0)
MCH 32.6 H pg
(27.0-31.0)
Plt Count 411 H 10^3/uL
(130-400)
Abs Immat Gran (auto) 0.1 H 10^3/uL
(0-0.05)
Absolute Neuts (auto) 14.4 H 10^3/uL
(1.4-6.5)
Absolute Lymphs (auto) 0.8 L 10^3/uL
(1.2-3.4)
Absolute Monos (auto) 1.1 H 10^3/uL
(0.1-0.6)
Neutrophils % 87.8 H %
(42.2-75.2)
Lymphocytes % 5.0 L %
(20.5-51.1)
Sodium 131 L mmol/L
(135-145)
Chloride 96 L mmol/L
(98-107)
Creatinine 0.5 L mg/dL
(0.6-1.0)
Glucose 127 H mg/dl
(70-99)
Alkaline Phosphatase 144 H U/L
(38-126)
09/09/23 02:27
09/09/23 02:27
Vital Signs
Initial and Last Documented VS:
Initial Vital Signs
Temp Pulse Resp BP
99.5 F 98 30 143/60
09/09/23 02:12 09/09/23 02:12 09/09/23 02:12 09/09/23 02:12
Last Documented Vital Signs
Temp Pulse Resp BP Pulse Ox
99.5 F 98 26 134/62 91
09/09/23 02:12 09/09/23 03:00 09/09/23 03:00 09/09/23 03:00 09/09/23 03:00
<CARIE Wheat - Last Filed: 09/09/23 04:27>
MDM/Problems Addressed
Differential Diagnosis Includes:
bowel perforation
pancreatitis
AAA
MDM/Problems Addressed:
abdominal pain
<CARIE Wheat - Last Filed: 09/09/23 04:27>
*Critical Care Note
Total Time (30-74mins, 75-104mins- exclusive of procedures): Not Applicable
<CARIE Wheat - Last Filed: 09/09/23 04:27>
Update Note
Update Note:
patient admits to continued pain and nausea but states medications have helped.
<Nicholas Wagner DO - Last Filed: 09/09/23 04:48>
Update Note
Update Note:
patient admits to continued pain and nausea but states medications have helped.
CT ABDOMEN PELVIS WITH CONTRAST
COMPARISON: 12/25/2021
IMPRESSION:
Sigmoidectomy with colorectal anastomosis. There is thickening of the colon proximal to the anastomosis concerning for colitis. No dilation to indicate obstruction.
Suggestion of low rectal /anal canal wall thickening, similar to previous. This may be due to hemorrhoids or possibly neoplasm. Suggest surgical referral
Appendix not seen. No small bowel obstruction. No free air.
Cholecystectomy. Prominence of the common bile duct is consistent with the post-cholecystectomy state.
Right pelvic kidney
Patchy nodular groundglass right lower lobe suspicious for aspiration or infectious bronchiolitis. No consolidation.
ED Attending Note
<CARIE Wheat - Last Filed: 09/09/23 04:27>
-
Portions of this chart may have been created with voice recognition software.� Occasional wrong word or��sound alike� substitutions may have occurred due to the inherent limitations of voice recognition software.
<Nicholas Wagner DO - Last Filed: 09/09/23 04:48>
ED Attending Note
Patient seen and examined by attending physician: Yes
I performed the substantive portion of visit, reviewed & personally made and approve the management plan that is documented in note by myself or ELOISA.: Yes
ED Attending Note:
This a pleasant 78-year-old female who presents with abdominal pain that is been present for the last 8 hours. Patient states that the pain is in her lower abdomen that radiates into her groin and around her back. Patient states that this pain is
reminiscent of her previous bowel perforation that she sustained in 1994. Patient has not had a bowel movement in the last several days. She denies fever or chills. Patient recently had pneumonia and had a short hospital stay for that. Patient
does have a history of lung cancer and is a smoker.
Discharge Plan
Departure
Patient Disposition: Admit
Date of Disposition: 09/09/23
Time of Disposition: 04:46
Admit to: Telemetry
Admit to doctor: Hospitalist
Presentation/result/management discussed w/ accepting MD/DO: Hospitalist
Condition: Fair
Discharge Problem:
Colitis, Abdominal pain
Prescriptions:
No Action
Nyquil/Nitetime Liquid
15 ml PO HS
infliximab [Remicade] 100 MG/10 ML recon soln
1 dose IV Q4W
Patient Comments:
08/05/2023, 5 mg/kg weight per [facility]. Next dose is 08/29/2023 per pt.
nifedipine 60 MG tablet extended release
60 mg PO DAILY Qty: 30 0RF
pravastatin 40 MG tablet
40 mg PO DAILY@1999
flecainide 50 MG tablet
50 mg PO BID
sulfasalazine 500 mg Tablet
500 mg PO BID
acetaminophen 650 mg Tablet Extended Release
1,300 mg PO DAILYPRN PRN (Reason: mild pain)
folic acid 1 mg Tablet
1 mg PO DAILY
estradiol 0.5 mg Tablet
0.5 mg PO DAILY@1999
coQ10 (ubiquinol) 200 mg Capsule
200 mg PO DAILY@1999
Prolia 60 mg/mL Syringe
60 mg SC [id number]
Patient Comments:
08/05/2023, next dose in September per pt.
biotin 1,000 mcg Tablet,Chewable
1,000 mcg PO DAILY@1999
Pauline Otc Constipation Med
1 cap PO QPM
Prevagen Supplement
1 cap PO QPM
albuterol sulfate 90 mcg/actuation HFA aerosol inhaler
2 puff inhalation Q6H PRN (Reason: shortness of breath or wheezing) Qty: 8.5 0RF
hydrocodone-acetaminophen [Vicodin] 5-300 mg Tablet
1 tab PO BID PRN (Reason: pain)
Referrals:
Ana Bhatt MD [Family Provider] -
Interventions
Interventions:
*Risk Screen - Suicide Last Done: 09/09/23 02:12
*General Assessment Last Done: 09/09/23 02:12
*Neglect/Abuse Screening Last Done: 09/09/23 02:12
ED- Fall Risk Assessment Last Done: 09/09/23 02:32
*ED COVID-19 Vaccine History Last Done: 09/09/23 02:12
HU-Uqihus-Qgojjsqmoq Assessment Last Done: 09/09/23 02:32
Discharge Date and Time
Print Language: SOMALI
--- NOTE | 2023-09-09 02:42 | EDRN ---
While doing triage, patient came in, in a Normal sinus rhythm and then went into a rapid heart of 165, was able to catch EKG of patient in rapid rhythm and then breaking into a normal sinus, patient broke rhythm by blowing into syringe,
Bernard aware and has seen EKGs and came to assess patient
[2023-09-09 02:53] LABS: % Basophils 0.2 % (0-2); % Immature Granulocytes 0.4 % (0-0.5); % Monocytes 6.6 % (1.7-9.3); % Neutrophils 87.8 % (42.2-75.2); Absolute Immature Granulocytes 0.1 10^3/uL (0-0.05); Absolute Lymphocytes 0.8 10^3/uL (1.2-3.4); Absolute Monocytes 1.1 10^3/uL (0.1-0.6); Absolute Neutrophils 14.4 10^3/uL (1.4-6.5); Hematocrit 35.9 % (37.0-47.0); Hemoglobin 12.4 g/dL (12.0-16.0); Mean Corp Hgb Conc. 34.5 g/dL (33.0-37.0); Mean Corpuscular Hgb 32.6 pg (27.0-31.0); Mean Corpuscular Volume 94.5 fL (81.0-99.0); Mean Platelet Volume 9.5 fL (7.4-10.4); Nucleated Red Blood Cells % 0 %; Platelet Count 411 10^3/uL (130-400); Red Cell Dist. Width 13.6 % (11.5-14.5); White Blood Cell Count 16.4 10^3/uL (4.8-10.8)
[2023-09-09] MEDS: DILAUDID 0.5 MG IV ×2 (02:55→09:08)
[2023-09-09 02:59] LABS: Lactic Acid 1.4 mmol/L (0.7-2.0)
[2023-09-09 03:01] LABS: ALT (SGPT) 16 U/L (0-35); AST (SGOT) 29 U/L (14-36); Albumin 3.6 g/dl (3.5-5.0); Alkaline Phosphatase 144 U/L (38-126); Blood Urea Nitrogen 15 mg/dl (7-17); Calcium 9.7 mg/dl (8.4-10.2); Carbon Dioxide 28 mmol/L (22-30); Chloride 96 mmol/L (98-107); Estimated Creatinine Clearance 62 ml/min; Glucose 127 mg/dl (70-99); Potassium 4.5 mmol/L (3.5-5.1); Sodium 131 mmol/L (135-145); Total Bilirubin 0.9 mg/dl (0.2-1.3); Total Protein 6.9 g/dl (6.3-8.2); eGFR > 60.00
--- NOTE | 2023-09-09 04:39 | EDRN ---
Dr. Wagner in to update patient on results and plan for admission, patient provided with ice chips she had asked for and Dr. Wagner said was ok to have, call camacho in reach.
[2023-09-09] MEDS: ZOSYN 100 IV (04:54)
--- NOTE | 2023-09-09 05:11 | HPS.HSE ---
Family Physician
-
Family Physician: Ana Bhatt
Chief Complaint
-
lower abdominal pain
History of Present Illness
78F [facility] remote HX sigmoidectomy with clorectal anstomosis 2/2 perforated diverticultis , HX adenoCA of lung in remission, Immunosuppression on Infliximab for RA, psoriatic arthropathy, COPD , HX Prx SVT seen at ER for evaluation of abdominal
pain
Abdominal pain:
- acute onset lower abdomen pain wit radiation to groin and back
- Pain is similar to the pain like prior bowel perforation
- constipated x 3 days
+ nausea but no vomiting
+ abdominal distention
HX appendectomy
Remote HX sigmoidectomy with colorectal anastomosis 2/2 perforated diverticultiis
@ ER monitor ? SVT
ROS
No SoB, CP, GANNON
No Fever, chills
No dysuria
Medical History
Past Medical History
Past Medical History: Reports Other
Additional Past Medical History:
Left lung adenocarcinoma in remission
Paroxysmal supraventricular tachycardia
Rheumatoid arthritis on infliximab therapy
Essential hypertension
Psoriatic arthropathy
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
Past Surgical History: Reports Bowel Resection (History of perforated diverticulitis with partial colectomy)
Social History
Tobacco: Smoker (Half pack/day)
Alcohol: Occasional
Drug: None
Personal:
Living: With Family
Family History
Family History: Not pertinent
Allergies / Home Medications
Allergies reflects when Allergies were last updated in [facility].
Home Medications with original date entered in [facility]
Allergy/Medication List:
Allergies
Allergy/AdvReac Type Severity Reaction Status Date / Time
latex [Latex] Allergy rash/sob Verified 09/09/23 02:34
titanium Allergy Swelling Verified 09/09/23 02:34
codeine [Codeine] AdvReac VOMITING Verified 09/09/23 02:34
ibuprofen AdvReac muscle Verified 09/09/23 02:34
spasms and
pain
levofloxacin [From Levaquin] AdvReac severe Verified 09/09/23 02:34
muscle
spasms and
pain
oxycodone AdvReac Vomiting Verified 09/09/23 02:34
monocry sutures Allergy Swelling Uncoded 09/09/23 02:34
Home Medications
Nyquil/Nitetime 15 ml PO HS cough/congestion 08/19/13
infliximab 100 mg intravenous solution (Remicade) 1 dose IV Q4W psoriasis/rheumatoid arthritis 06/27/15
nifedipine 60 mg tablet,extended release 60 mg PO DAILY #30 tabs 06/01/19
flecainide 50 mg tablet 50 mg PO BID Arrhythmia 02/17/20
pravastatin 40 mg tablet 40 mg PO DAILY@1999 High Cholesterol 02/17/20
Pauline Otc Constipation Med 1 cap PO QPM Constipation 08/05/23
Prevagen Supplement 1 cap PO QPM Supplement 08/05/23
acetaminophen 650 mg tablet,extended release 1,300 mg PO DAILYPRN PRN mild pain 08/05/23
biotin 1,000 mcg chewable tablet 1,000 mcg PO DAILY@1999 Supplement 08/05/23
coQ10 (ubiquinol) 200 mg capsule 200 mg PO DAILY@1999 Supplement 08/05/23
denosumab 60 mg/mL subcutaneous syringe (Prolia) 60 mg SC [id number] osteoporosis 08/05/23
estradiol 0.5 mg tablet 0.5 mg PO DAILY@1999 Hormonal Agent 08/05/23
folic acid 1 mg tablet 1 mg PO DAILY Supplement 08/05/23
sulfasalazine 500 mg tablet 500 mg PO BID rheumatoid arthritis 08/05/23
albuterol sulfate 90 mcg/actuation aerosol inhaler 2 puff inhalation Q6H PRN shortness of breath or wheezing #8.5 grams 08/11/23
hydrocodone 5 mg-acetaminophen 300 mg tablet 1 tab PO BID PRN pain 09/09/23
Review of Systems
-
Constitutional: Reports No Symptoms
EENT: Reports No Symptoms
Respiratory: Reports No Symptoms
Cardiac: Reports No Symptoms
Abdomen/GI: Reports See HPI, Abdominal Pain, Nausea and Constipated (3 days ); Denies Vomiting or Diarrhea
: Reports No Symptoms
Musculoskeletal: Reports No Symptoms
Skin: Reports No Symptoms
Neurological: Reports No Symptoms
Endocrine: Reports No Symptoms
Hematologic/Lymphatic: Reports No Symptoms
Psych: Reports No Symptoms
Physical Exam
Vital Signs
Vital Signs
Temp Pulse Resp BP Pulse Ox
99.5 F 98 26 134/62 91
09/09/23 02:12 09/09/23 03:00 09/09/23 03:00 09/09/23 03:00 09/09/23 03:00
Physical Exam
General: Well Nourished (thin ), No Apparent Distress and Other (not toxic looking )
HEENT: Anicteric
Respiratory: Clear; No Wheezes, Rales or Rhonchi
Cardiac: S1/S2, Regular Rhythm and Tachycardia
Breast: Deferred by me
GI: Soft, Non Distended (mildly distended ), Tender (diffuse) and Other (noted well heled surgical scar )
Rectal: Deferred by Provider
Genito-urinary: Deferred by me
Musculoskeletal: No Edema
Skin: Warm and Dry
Neuro: AO x 3
Psych: Calm
Laboratory Results
-
09/09/23 02:27
09/09/23 02:27
Laboratory Results
Lactic Acid 1.4 mmol/L (0.7-2.0) 09/09/23 02:27
Total Bilirubin 0.9 mg/dl (0.2-1.3) 09/09/23 02:27
AST 29 U/L (14-36) 09/09/23 02:27
ALT 16 U/L (0-35) 09/09/23 02:27
Alkaline Phosphatase 144 U/L (38-126) H 09/09/23 02:27
Data Reviewed
-
CT Scan: Report Reviewed by me
Medical Tests (Nuc Med, Echo, EKG etc): Report Reviewed by me
Lab Data: Labs Reviewed by me
Old Records: Reviewed
Impression/Plan
-
Reviewed VS: 99.5 HR 98s 135/62 RR26 POx 86- low 90s
Data
WCC 16s
Hgb 12.4
Plt 411
Na 131
Cl 96
nl Cr
nl eGFR
CT AP with contrast:[facility] hawk report
- lower rectal /anal canal wall thickening , similar to previous. DDX: Hemorrhoid vs possible neoplasm. Suggest surgical refferal.
- sigmoidectomy with colorectal anastomosis. Thickening of colon proximal to anastomosis concerning for colitis. No obstruction
- Cholecystectomy
- Rt pelvic kidney
- Patchy nodules GGO Rt LLL suspicion for aspiration or bronchiolitis . No consolidation
EKG:
SUPRAVENTRICULAR TACHYCARDIA
LEFT ANTERIOR FASCICULAR BLOCK
NONSPECIFIC ST AND T WAVE ABNORMALITY
ABNORMAL ECG
WHEN COMPARED WITH ECG OF 06-AUG-2023 10:26,
VENT. RATE HAS INCREASED BY 83 BPM
03/26/22 ECHO
1. LVEF 65%
2. Thickened mitral leaflets with trace mitral regurgitation and normal left atrium
3. Aortic sclerosis without significant stenosis or regurgitation
4. Normal right heart with mild pulmonary hypertension, 40-43 mmHg systolic
Last hospitalist admission: 08/05/23 - 08/11/23 DDx
Pseudomonas pneumonia
Chronic obstructive pulmonary disease flareup
Acute hypoxic respiratory failure
Acute hyponatremia
ASSESSMENT & PLAN
Acute lower abdominal pain with nausea , constipation
CT AP suggest lower rectal /anal canal wall and also thickening of colon proximal to anstomosis
DDX: Hemorrhoid vs possible neoplasm vs. colitis/diverticulitis
+ Leucocytosis with T 99.5
- No vomiting
- No CT evidence of No obstruction
- clear and IVF
- empiric IV Zosyn
- PRN Narcotic analgesia and antiemetics
- Trend WCC
- CRS consult
Paroxysmal SVT with HX spontaneous conversion to NSR
HX of dislike to verapamil, diltiazem, metoprolol.
Primary Card; Dr Chung
- on [employer] Flecainide - monitor QTc
- on nifedipine XL 60 mg daily at home
- TLM monitor
- DCA card consult
CT AP suggest patchy nodules GGO Rt LLL suspicion for aspiration or bronchiolitis . No consolidation
HX COPD
HX Pseudomonas POS Sputum
Immunosuppression on Infliximab
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
- observe
Known HX
HX adenocarcinoma of the lung in remission
Psoriasis/rheumatoid arthritis on infliximab
Essential hypertension
Psoriatic arthropathy
HX perforated diverticulitis with partial colectomy in 95
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
DVT Px: LMWH
Code: Full
IP TLM
--- NOTE | 2023-09-09 05:27 | EDRN ---
Dr. Morrell at bedside working on admission
[2023-09-09] MEDS: TAMBOCOR 50 MG PO ×2 (08:26→20:54)
[2023-09-09] MEDS: NSS 1000 IV ×2 (08:28→20:55)
[2023-09-09] MEDS: PROCARDIA XL (EXTENDED RELEASE) 60 MG PO (08:32)
--- NOTE | 2023-09-09 09:34 | CON.CAR ---
Addendum entered and electronically signed by Huntre Chung MD 09/09/23 10:49:
I saw and examined the patient.
The ACTIVITIES AIDE or PA's note was reviewed and I agree with the note.
Comment: General: Well developed, well nourished in NAD.
Neck: Supple, no JVD, HJR, carotids +2 B/L, no bruits bilaterally.
Heart: Non displaced PMI, RRR, no murmurs, No S3, S4, no rubs.
Lungs: Decreased breath sounds throughout
Extremities: No clubbing, cyanosis or edema bilaterally.
Neuro: Grossly nonfocal, awake, alert and oriented x3.
Debby has a history of COPD, hypertension, atrial tachycardia, irritable bowel, rheumatoid arthritis, lung cancer. She presented with severe abdominal pain. She was found to have SVT in the ER which converted to sinus rhythm. Of note she had atrial
tachycardia on outpatient monitor and Cardizem was prescribed but she did not get prescription filled.
Will plan on stopping Procardia and start Cardizem CD 120 mg daily. of note she has had multiple medication intolerances and hopefully will tolerate this medication. We could consider increasing flecainide as well if does not tolerate calcium
ashutosh. She has follow-up in our office on September 19. Stable cardiology status for discharge
Original Note:
Consultation
Consultation Request
Date/Time Consultation Requested: 09/09/2023
Date/Time Consultation Performed: 09/09/2023 at 0900
Requesting Provider: Dr. Morrell
Performing Provider: Dr. Chung
Reason for Consultation: Atrial tachycardia
Medical History
-
History of Present Illness:
HPI: Nicole is a 78 year old female with PMH of SVT, atrial tachycardia, hypertension, hyperlipidemia, COPD, rheumatoid arthritis, lung cancer, and IBS who presented to [facility] for evaluation of abdominal pain. She started with diffuse abdominal
pain yesterday. Pain felt similar to prior bowel perforation that she had in the past. Also noted constipation over the past few days. Given concern for severe pain, she came to ER for evaluation. She had CT of abdomen and pelvis which showed mild
colitis w/ thickening of colon proximal to the anastomosis and of the lower rectal/anal canal. While in ER, she was noted to have episode of SVT which broke spontaneously. She had recent hospitalization at for pneumonia. During this
hospitalization, she started noting increased frequency of palpitations with rapid heart rates. Discontinued following her discharge and she called the operations lieutenant to discuss the symptoms. She was arranged for a CAM monitor which revealed
episodes of atrial tachycardia. She was recommended to start Cardizem 120 mg daily, however she did not mixing picker tender this prescription before her abdominal pain started, prompting ER evaluation. She continues to have short lived episodes of
palpitations, happening multiple times per day, lasting up to 5 minutes at a time. Cardiology consulted for evaluation.
PMH:
Atrial tachycardia
h/o SVT
Chronic flecainide therapy
HTN
HLD
COPD
IBS
Rheumatoid arthritis
h/o lung cancer
Past Medical History
Past Medical History: Other (In HPI)
Past Surgical History: Cholecystectomy, Tonsilectomy and Other (Cataract extraction, bilateral hand surgery, hysterectomy, colectomy in 1994 with reversal, bunionectomy)
Social History
Tobacco: Smoker
Alcohol: None
Drug: None
Personal:
Living: With Family
Employment: Retired
Family History
Family History: Reviewed & Not Pertinent
Allergies / Home Medications
Allergy/AdvReac Type Severity Reaction Status Date / Time
latex [Latex] Allergy rash/sob Verified 09/09/23 02:34
titanium Allergy Swelling Verified 09/09/23 02:34
codeine [Codeine] AdvReac VOMITING Verified 09/09/23 02:34
ibuprofen AdvReac muscle Verified 09/09/23 02:34
spasms and
pain
levofloxacin [From Levaquin] AdvReac severe Verified 09/09/23 02:34
muscle
spasms and
pain
oxycodone AdvReac Vomiting Verified 09/09/23 02:34
monocry sutures Allergy Swelling Uncoded 09/09/23 02:34
�Medication �Instructions �Recorded �Confirmed �Type
Nyquil/Nitetime 15 ml PO HS cough/congestion 08/19/13 09/09/23 History
infliximab 100 mg intravenous 1 dose IV Q4W psoriasis/rheumatoid 06/27/15 09/09/23 History
solution (Remicade) arthritis
nifedipine 60 mg tablet,extended 60 mg PO DAILY #30 tabs 06/01/19 09/09/23 Rx
release
flecainide 50 mg tablet 50 mg PO BID Arrhythmia 02/17/20 09/09/23 History
pravastatin 40 mg tablet 40 mg PO DAILY@1999 High 02/17/20 09/09/23 History
Cholesterol
Pauline Otc Constipation Med 1 cap PO QPM Constipation 08/05/23 09/09/23 History
Prevagen Supplement 1 cap PO QPM Supplement 08/05/23 09/09/23 History
acetaminophen 650 mg 1,300 mg PO DAILYPRN PRN mild pain 08/05/23 09/09/23 History
tablet,extended release
biotin 1,000 mcg chewable tablet 1,000 mcg PO DAILY@1999 Supplement 08/05/23 09/09/23 History
coQ10 (ubiquinol) 200 mg capsule 200 mg PO DAILY@1999 Supplement 08/05/23 09/09/23 History
denosumab 60 mg/mL subcutaneous 60 mg SC [id number] osteoporosis 08/05/23 09/09/23 History
syringe (Prolia)
estradiol 0.5 mg tablet 0.5 mg PO DAILY@1999 Hormonal Agent 08/05/23 09/09/23 History
folic acid 1 mg tablet 1 mg PO DAILY Supplement 08/05/23 09/09/23 History
sulfasalazine 500 mg tablet 500 mg PO BID rheumatoid arthritis 08/05/23 09/09/23 History
albuterol sulfate 90 mcg/actuation 2 puff inhalation Q6H PRN 08/11/23 09/09/23 Rx
aerosol inhaler shortness of breath or wheezing
#8.5 grams
diltiazem HCl 120 mg 120 mg PO DAILY Heart 09/09/23 09/09/23 History
capsule,extended release 24 hr Disease/Condition
(Cartia XT)
hydrocodone 5 mg-acetaminophen 300 1 tab PO BID PRN pain 09/09/23 09/09/23 History
mg tablet
Review of Systems
-
History Source: Patient
All other systems: Negative unless noted
Physical Exam
Vital Signs
Temp Pulse Resp BP Pulse Ox
98.6 F 85 14 108/52 90
09/09/23 06:33 09/09/23 08:32 09/09/23 08:09 09/09/23 08:32 09/09/23 08:09
Lab Results
09/09/23 02:27
09/09/23 02:27
Physical Exam
General: Well Developed, Well Nourished and No Apparent Distress
HEENT: Normocephalic, Anicteric and Moist Mucous Membranes
Respiratory: Clear and Non Labored Respirations
Cardiac: S1/S2 and Regular Rhythm
Musculoskeletal: No Clubbing, No Cyanosis and No Edema
Skin: Warm and Dry
Neuro: AO x 3 and Nonfocal/Grossly Intact
Psych: Calm
Impression / Plan
-
PCP: Dr. Bhatt
Stone Driller: Dr. Chung
Impression:
Presented with abdominal pain
Atrial tachycardia
h/o SVT
Chronic flecainide therapy
HTN
HLD
COPD
IBS
Rheumatoid arthritis
h/o lung cancer
Echo 03/26/2022: EF 65%, mild LVH, trace MR, aortic sclerosis without stenosis, mild pulmonary hypertension, 40 to 43 mmHg systolic
Plan:
-Presented with abdominal pain and constipation. Now reporting diarrhea this AM. Continue abx per primary service. CRS consulted by primary service.
-Also w/ episodes of SVT/atrial tachycardia noted on tele. As OP, had recent 5 day CAM monitor which revealed episodes of atrial tachycardia.
-Patient had been recommended to start Cardizem as OP, however did not have time yet to mixing picker tender prescription. Continues on nifedipine and flecainide.
-Will stop nifedipine now and transition to Cardizem 120 mg daily.
-In SR by most recent EKG. Continue to follow on telemetry while admitted
-Continue flecainide 50mg BID. No afib noted, not anticoagulated.
-Most recent echo 03/2022 with preserved EF and no significant valvular disease.
-BP stable, follow w/ transitioning nifedipine to Cardizem.
HPI: Nicole is a 78 year old female with PMH of SVT, atrial tachycardia, hypertension, hyperlipidemia, COPD, rheumatoid arthritis, lung cancer, and IBS who presented to [facility] for evaluation of abdominal pain. She started with diffuse abdominal
pain yesterday. Pain felt similar to prior bowel perforation that she had in the past. Also noted constipation over the past few days. Given concern for severe pain, she came to ER for evaluation. She had CT of abdomen and pelvis which showed mild
colitis w/ thickening of colon proximal to the anastomosis and of the lower rectal/anal canal. While in ER, she was noted to have episode of SVT which broke spontaneously. She had recent hospitalization at for pneumonia. During this
hospitalization, she started noting increased frequency of palpitations with rapid heart rates. Discontinued following her discharge and she called the operations lieutenant to discuss the symptoms. She was arranged for a CAM monitor which revealed
episodes of atrial tachycardia. She was recommended to start Cardizem 120 mg daily, however she did not mixing picker tender this prescription before her abdominal pain started, prompting ER evaluation. She continues to have short lived episodes of
palpitations, happening multiple times per day, lasting up to 5 minutes at a time. Cardiology consulted for evaluation.
Data Reviewed
-
EKG: Tracing Personally Visualized and interpreted
CT Scan: Report Reviewed by me
Labs: Labs Reviewed by me
Old Records: Reviewed
[2023-09-09] MEDS: ZOSYN 50 IV ×2 (11:53→17:29)
--- NOTE | 2023-09-09 12:03 | W.PN.HOSP.TC ---
Today's Communication/Plan
-
GI eval requested
IV abx
cardizem started
Assessment / Plan
Assessment / Plan
Acute lower abdominal pain with nausea , constipation
CT AP suggest lower rectal /anal canal wall and also thickening of colon proximal to anastomosis
DDX: Hemorrhoid vs possible neoplasm vs. colitis/diverticulitis
+ Leucocytosis with T 99.5
- No vomiting
- No CT evidence of No obstruction
- clear and IVF
- empiric IV Zosyn
- PRN Narcotic analgesia and antiemetics
- Trend WCC
- CRS consulted. Requesting GI evaluation. Patient known to Dr. Grace.
Paroxysmal SVT with HX spontaneous conversion to NSR
Primary Card; Dr Chung
- on HIDE WORKER Flecainide - monitor QTc
- on nifedipine XL 60 mg daily at home-plan to stop it per cards.
- TLM monitor. Started on cardizem 120mg daily.
- DCA card consult
CT AP suggest patchy nodules GGO Rt LLL suspicion for aspiration or bronchiolitis . No consolidation
HX COPD
HX Pseudomonas POS Sputum
Immunosuppression on Infliximab
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
- observe
Chronic hyponatremia
-Na at baseline 131. Monitor for now.
Known HX
HX adenocarcinoma of the lung in remission
Psoriasis/rheumatoid arthritis on infliximab
Essential hypertension
Psoriatic arthropathy
HX perforated diverticulitis with partial colectomy in 95
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
DVT Px: LMWH
Code: Full
Anticipated Discharge: > 48 hours
Subjective/Interval History
-
Date of Service: September 09, 2023
States of having liquid bowel movement
States improvement in abdominal pain
Denies palpitations
Objective Data
-
Labs:
Laboratory Results
09/09/23
02:27
WBC 16.4 H
Hgb 12.4
Hct 35.9 L
Plt Count 411 H
Sodium 131 L
Potassium 4.5
Chloride 96 L
Carbon Dioxide 28
BUN 15
Creatinine 0.5 L
Glucose 127 H
Calcium 9.7
Total Bilirubin 0.9
AST 29
ALT 16
Alkaline Phosphatase 144 H
Vital Signs:
Vital Signs
Temp Pulse Resp BP Pulse Ox
98.2 F 85 14 110/53 85
09/09/23 11:52 09/09/23 11:52 09/09/23 11:52 09/09/23 11:52 09/09/23 11:52
Physical Exam
-
General: Well Developed and No Apparent Distress
HEENT: Normocephalic, Atraumatic and Moist Mucous Membranes
Respiratory: Clear to Auscultation
Cardiac: Regular Rhythm and S1/S2; Negative Murmur, Rub or Gallop
GI: Soft, Nontender, Nondistended, Normal Bowel Sounds and Tender; Negative Organomegaly
Rectal: Deferred by Provider
Musculoskeletal: No Clubbing, No Cyanosis and No Edema
Skin: Negative Rash
Neuro: Awake, No Motor Deficits and Nonfocal/Grossly Intact
Psych: Calm
Data Reviewed
-
Total Time Spent with Patient (in minutes): 55
--- NOTE | 2023-09-09 12:07 | CON.CRS ---
Consultation
-
Date/Time Consultation Requested: 09/09/2023, 6:25
Date/Time Consultation Performed: 09/09/2023, 09:30
Requesting Provider: Damien Morrell MD
Performing Provider: Nicholas Ayala MD
Reason for Consultation: colitis
Medical History
-
Chief Complaint: abdominal pain
History of Present Illness:
78yo female with a past medical history of a sigmoidectomy with colostomy (s/p reversal) in 1994 for perforated diverticulitis, presents to the ER with abdominal pain for 8 hours. The patient stated she felt like it did 20 years ago when she had
perforated diverticulitis. The patient states she has nausea due to abdominal pain but no vomiting. She has not had a bowel movement in 3 days. She feels distended. Originally her pain was a 10/10 when she came in, but now she is a 6-8/10. She had
multiple bowel movements this morning that were loose in nature. She denies blood in her stool. She was recently hospitalized here at [facility] from 08/05/23-08/11/23 for PNA. She has a past medical history of lung cancer and has been in remission for
two years. The cancer she states is bilateral and was adenocarcinoma. She underwent radiation but no chemotherapy or surgery. She is currently on Remicaide due to psoriatic and rheumatoid arthritis. Her last colonoscopy was in [address] Grace
but he was unable to get past her sigmoid. She underwent a virtual colonoscopy in 2013 that was negative. She has not had one since.
CT A/P shows mild bowel wall thickening of the sigmoid colon proximal to the rectosigmoid anastomosis, suggestive of mild colitis, pronounced fecal retention within the rectum, suggestive of fecal impaction or stercoral colitis, and apparent bowel
wall thickening and luminal narrowing at the rectoanal junction, best seen on series 201 images 71-73. Findings may be related to hemorrhoids, however rectoanal neoplasm should be excluded by rectal examination and/or sigmoidoscopy. We have been
consulted for further surgical management.
Past Medical History
Past Medical History: HTN and Other (Left lung adenocarcinoma in remission (s/p radiation, no chemo or surgery), Paroxysmal supraventricular tachycardia, Rheumatoid arthritis on infliximab therapy, Psoriatic arthropathy, History of left eye injury
with prosthetic eye in place)
Past Surgical History: Appendectomy, Cholecystectomy, Gynecological (hysterectomy through vagina) and Other (Ada's resection in 1994, colostomy reversal 1 month later)
Social History
Tobacco: Smoker (1/2 ppd)
Alcohol: Occasional
Drug: None
Family History
Family History: Cancer (Maternal Aunt, Grandfather and Cousin with colon cancer)
Allergies / Home Medications
Allergy/AdvReac Type Severity Reaction Status Date / Time
latex [Latex] Allergy rash/sob Verified 09/09/23 02:34
titanium Allergy Swelling Verified 09/09/23 02:34
codeine [Codeine] AdvReac VOMITING Verified 09/09/23 02:34
ibuprofen AdvReac muscle Verified 09/09/23 02:34
spasms and
pain
levofloxacin [From Levaquin] AdvReac severe Verified 09/09/23 02:34
muscle
spasms and
pain
oxycodone AdvReac Vomiting Verified 09/09/23 02:34
monocry sutures Allergy Swelling Uncoded 09/09/23 02:34
�Medication �Instructions �Recorded �Confirmed �Type
Nyquil/Nitetime 15 ml PO HS cough/congestion 08/19/13 09/09/23 History
infliximab 100 mg intravenous 1 dose IV Q4W psoriasis/rheumatoid 06/27/15 09/09/23 History
solution (Remicade) arthritis
nifedipine 60 mg tablet,extended 60 mg PO DAILY #30 tabs 06/01/19 09/09/23 Rx
release
flecainide 50 mg tablet 50 mg PO BID Arrhythmia 02/17/20 09/09/23 History
pravastatin 40 mg tablet 40 mg PO DAILY@2000 High 02/17/20 09/09/23 History
Cholesterol
Pauline Otc Constipation Med 1 cap PO QPM Constipation 08/05/23 09/09/23 History
Prevagen Supplement 1 cap PO QPM Supplement 08/05/23 09/09/23 History
acetaminophen 650 mg 1,300 mg PO DAILYPRN PRN mild pain 08/05/23 09/09/23 History
tablet,extended release
biotin 1,000 mcg chewable tablet 1,000 mcg PO DAILY@1999 Supplement 08/05/23 09/09/23 History
coQ10 (ubiquinol) 200 mg capsule 200 mg PO DAILY@1999 Supplement 08/05/23 09/09/23 History
denosumab 60 mg/mL subcutaneous 60 mg SC [id number] osteoporosis 08/05/23 09/09/23 History
syringe (Prolia)
estradiol 0.5 mg tablet 0.5 mg PO DAILY@1999 Hormonal Agent 08/05/23 09/09/23 History
folic acid 1 mg tablet 1 mg PO DAILY Supplement 08/05/23 09/09/23 History
sulfasalazine 500 mg tablet 500 mg PO BID rheumatoid arthritis 08/05/23 09/09/23 History
albuterol sulfate 90 mcg/actuation 2 puff inhalation Q6H PRN 08/11/23 09/09/23 Rx
aerosol inhaler shortness of breath or wheezing
#8.5 grams
diltiazem HCl 120 mg 120 mg PO DAILY Heart 09/09/23 09/09/23 History
capsule,extended release 24 hr Disease/Condition
(Cartia XT)
hydrocodone 5 mg-acetaminophen 300 1 tab PO BID PRN pain 09/09/23 09/09/23 History
mg tablet
Review of Systems
-
History Source: Patient
Abdomen/GI: Abdominal Pain, Nausea and Constipated
A 10 point review of systems was completed, and was negative except as per HPI.
Physical Exam
Vital Signs
Temp 98.2 F 09/09/23 11:52
Pulse 85 09/09/23 11:52
Resp Rate 14 09/09/23 11:52
Blood pressure 110/53 09/09/23 11:52
SaO2 85 09/09/23 11:52
09/08/23 09/09/23 09/10/23
06:59 06:59 06:59
Actual Weight 50.462 kg
Body Mass Index (BMI) 18.5
Lab Results / Allergies
09/09/23 02:27
09/09/23 02:27
WBC 16.4 10^3/uL (4.8-10.8) H 09/09/23 02:27
Hgb 12.4 g/dL (12.0-16.0) 09/09/23 02:27
Hct 35.9 % (37.0-47.0) L 09/09/23 02:27
Plt Count 411 10^3/uL (130-400) H 09/09/23 02:27
Abs Immat Gran (auto) 0.1 10^3/uL (0-0.05) H 09/09/23 02:27
Neutrophils % 87.8 % (42.2-75.2) H 09/09/23 02:27
Allergy/AdvReac Type Severity Reaction Status Date / Time
latex [Latex] Allergy rash/sob Verified 09/09/23 02:34
titanium Allergy Swelling Verified 09/09/23 02:34
codeine [Codeine] AdvReac VOMITING Verified 09/09/23 02:34
ibuprofen AdvReac muscle Verified 09/09/23 02:34
spasms and
pain
levofloxacin [From Levaquin] AdvReac severe Verified 09/09/23 02:34
muscle
spasms and
pain
oxycodone AdvReac Vomiting Verified 09/09/23 02:34
monocry sutures Allergy Swelling Uncoded 09/09/23 02:34
Physical Exam
General: Well Developed, Well Nourished and No Apparent Distress
GI: Soft and Tender (moderate throughout)
Rectal: Brown and Other (no blood on fingertip, no stool in rectal vault, no masses noted)
Skin: Warm and Dry
Neuro: AO x 3
Data Reviewed
-
CT Scan: Image Personally Visualized and interpreted, Report Reviewed by me and Discussed with Patient
Labs: Labs Reviewed by me, Discussed with Physician and Discussed with Patient
Old Records: Reviewed
Assessment / Plan
-
Assessment: 78 yo female with a PMH of Ada's resection for diverticulitis in 1994, and recent PNA admission, on Remicaide, presents to the ER with abdominal pain and constipation (which has now resolved), CT shows sigmoid colon proximal to the
rectosigmoid anastomosis, suggestive of mild colitis, pronounced fecal retention within the rectum, suggestive of fecal impaction or stercoral colitis, and apparent bowel wall thickening and luminal narrowing at the rectoanal junction
Plan:
Continue NPO status with IVFs. Recommend consult to GI for a colonoscopy. Continue on IV Zosyn. No urgent surgery at this time. Will follow.
--- NOTE | 2023-09-09 12:20 | CM ---
Initial assessment completed with patient and who live together in a 1 story condo on 1st floor with no basement and 1 step to enter. 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
hospitalizations, no HC POA. Pharmacy is [facility] in [place] and PCP is Dr. Ana Bhatt. Anticipate home with no needs. Will continue to follow should needs change.
--- NOTE | 2023-09-09 12:55 | CON.GI ---
Medical History
Chief Complaint / HPI
Chief Complaint: abdominal pain
History of Present Illness:
The patient is a 78-year-old female past medical history as noted with abdominal pain. She had increasing constipation for the past couple of days along with diffuse crampy abdominal pain which prompted to come to emergency room. This was severe
enough that she felt like it felt when she had her diverticular perforation. She had several large bowel movement since then, with resolution of most of her pain, with now some abdominal wall soreness. She denies any bleeding, fever, chills,
expected weight loss. She does have intermittent constipation though has not changed over the years. She has a sharp angulation precluding colonoscopy in the past following her surgical resection and has had multiple virtual colonoscopies by
report which have been okay. She is currently feeling much better. she did have SVT on admission that broke spontaneously.
Past Medical History
Past Medical History: Other (Left lung adenocarcinoma in remission Paroxysmal supraventricular tachycardia Rheumatoid arthritis on infliximab therapy Essential hypertension Psoriatic arthropathy History of left eye injury with prosthetic eye in
place, diverticulitis, mild )
Past Surgical History: Other (sigmoidectomy)
Social History
Tobacco: Smoker
Alcohol: Occasional
Family History
Family History: Other (Multiple second degree relatives with colon cancer)
Allergies / Home Medications
Allergy/AdvReac Type Severity Reaction Status Date / Time
latex [Latex] Allergy rash/sob Verified 09/09/23 02:34
titanium Allergy Swelling Verified 09/09/23 02:34
codeine [Codeine] AdvReac VOMITING Verified 09/09/23 02:34
ibuprofen AdvReac muscle Verified 09/09/23 02:34
spasms and
pain
levofloxacin [From Levaquin] AdvReac severe Verified 09/09/23 02:34
muscle
spasms and
pain
oxycodone AdvReac Vomiting Verified 09/09/23 02:34
monocry sutures Allergy Swelling Uncoded 09/09/23 02:34
�Medication �Instructions �Recorded
Nyquil/Nitetime 15 ml PO HS cough/congestion 08/19/13
infliximab 100 mg intravenous 1 dose IV Q4W psoriasis/rheumatoid 06/27/15
solution (Remicade) arthritis
nifedipine 60 mg tablet,extended 60 mg PO DAILY #30 tabs 06/01/19
release
flecainide 50 mg tablet 50 mg PO BID Arrhythmia 02/17/20
pravastatin 40 mg tablet 40 mg PO DAILY@1999 High 02/17/20
Cholesterol
Pauline Otc Constipation Med 1 cap PO QPM Constipation 08/05/23
Prevagen Supplement 1 cap PO QPM Supplement 08/05/23
acetaminophen 650 mg 1,300 mg PO DAILYPRN PRN mild pain 08/05/23
tablet,extended release
biotin 1,000 mcg chewable tablet 1,000 mcg PO DAILY@1999 Supplement 08/05/23
coQ10 (ubiquinol) 200 mg capsule 200 mg PO DAILY@1999 Supplement 08/05/23
denosumab 60 mg/mL subcutaneous 60 mg SC [id number] osteoporosis 08/05/23
syringe (Prolia)
estradiol 0.5 mg tablet 0.5 mg PO DAILY@1999 Hormonal Agent 08/05/23
folic acid 1 mg tablet 1 mg PO DAILY Supplement 08/05/23
albuterol sulfate 90 mcg/actuation 2 puff inhalation Q6H PRN 08/11/23
aerosol inhaler shortness of breath or wheezing
#8.5 grams
diltiazem HCl 120 mg 120 mg PO DAILY Heart 09/09/23
capsule,extended release 24 hr Disease/Condition
(Cartia XT)
hydrocodone 5 mg-acetaminophen 300 1 tab PO BID PRN pain 09/09/23
mg tablet
Review of Systems
-
All other systems: A 12 pt ROS was Negative except as stated above in HPI
Vital Signs
Temp Pulse Resp BP Pulse Ox
98.2 F 85 14 110/53 85
09/09/23 11:52 09/09/23 11:52 09/09/23 11:52 09/09/23 11:52 09/09/23 11:52
Physical Exam
Exam
General: NAD
HEENT: MMM, anicteric, no lymphadenopathy
Heart: Regular, no murmurs
Lungs: Few wheezes bilaterally
Abdomen: normal bowel sounds, soft, mild diffuse tenderness, no rebound or guarding, no masses, bruits or ascites
Extremeties: no edema
Skin: no rashes
Results
WBC 16.4 10^3/uL (4.8-10.8) H 09/09/23 02:
Hgb 12.4 g/dL (12.0-16.0) 09/09/23 02:
Hct 35.9 % (37.0-47.0) L 09/09/23 02:
MCV 94.5 fL (81.0-99.0) 09/09/23 02:27
Plt Count 411 10^3/uL (130-400) H 09/09/23 02:27
Absolute Neuts (auto) 14.4 10^3/uL (1.4-6.5) H 09/09/23 02:27
Sodium 131 mmol/L (135-145) L 09/09/23 02:
Potassium 4.5 mmol/L (3.5-5.1) 09/09/23 02:
Chloride 96 mmol/L (98-107) L 09/09/23 02:27
Carbon Dioxide 28 mmol/L (22-30) 09/09/23 02:27
BUN 15 mg/dl (7-17) 09/09/23 02:
Creatinine 0.5 mg/dL (0.6-1.0) L 09/09/23 02:
Calcium 9.7 mg/dl (8.4-10.2) 09/09/23 02:
Total Bilirubin 0.9 mg/dl (0.2-1.3) 09/09/23 02:27
AST 29 U/L (14-36) 09/09/23 02:27
ALT 16 U/L (0-35) 09/09/23 02:27
Alkaline Phosphatase 144 U/L (38-126) H 09/09/23 02:27
Diagnostic Image Results:
CT:
IMPRESSION:
1. Mild bowel wall thickening of the sigmoid colon proximal to the rectosigmoid anastomosis, suggestive of mild colitis.
2. Pronounced fecal retention within the rectum, suggestive of fecal impaction or stercoral colitis.
3. Reticular nodular opacities at the right lung base, new compared to prior CT dated 08/05/2023. Findings may be related to subsegmental atelectasis, bronchopneumonia, or endobronchial spread of infection.
4. Apparent bowel wall thickening and luminal narrowing at the rectoanal junction, best seen on series 201 images 71-73. Findings may be related to hemorrhoids, however rectoanal neoplasm should be excluded by rectal examination and/or sigmoidoscopy.
5. Pelvic malrotated right kidney, without evidence of nephrolithiasis, hydronephrosis, or renal inflammatory process.
6. Status post cholecystectomy. Mild biliary ductal dilation, which may be within normal limits following cholecystectomy.
Prior GI Procedures:
EGD: 03/2022:
Impression: - Normal esophagus.
- Z-line regular, 39 cm from the incisors.
- Mild antral gastritis. Biopsied for Helicobacter
pylori testing.
- Normal examined duodenum. Biopsied for evaluation of
celiac disease.
Colonoscopy:
01/2013:
Impression: - I was unable to pass the scope beyond the sigmoid
colon due to scar tissue with resultant tight
angulations.
- Diverticulosis in the sigmoid colon.
- Two benign appearing 5 to 6 mm polyps in the rectum
and in the distal sigmoid colon. This was biopsied.
- Non-bleeding internal hemorrhoids.
- Normal mucosa. Biopsies were taken with a cold forceps
from the rectosigmoid colon for evaluation of
microscopic colitis.
Assessment / Plan
-
1. Abdominal pain: Consistent with constipation and fecal impaction, which is evident on CT scan. Since admission she has had multiple large bowel movements and feeling much better overall. Her CT scan did show some bowel wall thickening at the
rectoanal junction and bowel wall thickening proximal sigmoid colon to the anastomosis. This is most likely stercoral in nature given her CAT scan and constipation, now improved. At this point will advance to full liquid diet, plan at least
flexible sigmoidoscopy in the future once the acute inflammation is resolved. Will continue to monitor heart rate overnight though her SVT did resolve spontaneously. She declines further attempts at colonoscopy. She will continue her outpatient
bowel regimen.
-
-
Thank you for consultation and allowing me to participate in the patient's care. Please call the construction coordinator GI physician during the after hours with any questions or concerns.
[2023-09-09] MEDS: LOVENOX 40 MG SC (17:29)
[2023-09-09] MEDS: ProAIR HFA INHALER 2 PUFF INH (17:45)
[2023-09-09] MEDS: PRAVACHOL 40 MG PO (20:54)
--- NOTE | 2023-09-09 22:40 | PTCARENOTE ---
pt HR will elevate to 150s but will not sustain. Returns to 90s within a few seconds. Elevates with ambulation, coughing, and during sleep. Notified ELECTROMYOGRAPHIC TECHNICIAN. No new orders at this time.
[2023-09-10] MEDS: ZOSYN 50 IV ×2 (00:12→05:51)
[2023-09-10 03:51] VITALS: BP 139/72
--- NOTE | 2023-09-10 03:51 | PTCARENOTE ---
Patient pox 85% during 2300 vitals. Put patient on 2L NC and she came up to 92%. Again during 0 vitals, she was 85%. Patient took off NC she says around 2am due to it being painful in her nose. She stated that during her previous admission she
got sores in her nose from NC and they are still healing currently. Offered moisturizer (water based) to put on outer edge of nose. Patient agreed to try it. She is now pox 92% on 2L. Offered and spoke to patient about humidification and she said
she would like to try that if the moisturizer does not provide relief. She is resting comfortably in bed, call camacho within reach.
[2023-09-10 05:20] LABS: Hematocrit 33.2 % (37.0-47.0); Hemoglobin 11.6 g/dL (12.0-16.0); Mean Corp Hgb Conc. 34.9 g/dL (33.0-37.0); Mean Corpuscular Hgb 33.1 pg (27.0-31.0); Mean Corpuscular Volume 94.9 fL (81.0-99.0); Mean Platelet Volume 9.7 fL (7.4-10.4); Platelet Count 396 10^3/uL (130-400); Red Cell Dist. Width 13.8 % (11.5-14.5); White Blood Cell Count 11.2 10^3/uL (4.8-10.8)
[2023-09-10 06:04] LABS: Blood Urea Nitrogen 11 mg/dl (7-17); Calcium 8.7 mg/dl (8.4-10.2); Carbon Dioxide 27 mmol/L (22-30); Chloride 99 mmol/L (98-107); Estimated Creatinine Clearance 62 ml/min; Glucose 78 mg/dl (70-99); Potassium 4.2 mmol/L (3.5-5.1); Sodium 131 mmol/L (135-145); eGFR > 60.00
[2023-09-10 07:52] VITALS: BP 152/96
[2023-09-10] MEDS: TAMBOCOR 50 MG PO (07:58)
[2023-09-10] MEDS: CARDIZEM CD 120 MG PO (07:59)
--- NOTE | 2023-09-10 08:43 | W.PN.GI.CBS2 ---
Today's Communication / Plan
-
Advance diet, okay for discharge with antibiotics. GI will sign off. Please call with questions
Assessment / Plan
-
Pt is a 78yo with hx lung CA in remission, PSVT, RA on infliximab, HTN, psoriatic arthritis, diverticulitis with prior sigmoidectomy with onset of constipation and crampy abdominal pain. She had several large bowel movement after admission. CT on
admission as below. hx She has a sharp angulation precluding colonoscopy in the past following her surgical resection and has had multiple virtual colonoscopies by report which have been okay. Last noted in [facility] 2013 with no polyps.
Prior cecal polyp seen not reproducible. Last Pet scan 2022 with not mets seen. She was also note with SVT on admission.
09/09/23
1. Mild bowel wall thickening of the sigmoid colon proximal to the rectosigmoid anastomosis, suggestive of mild colitis.
2. Pronounced fecal retention within the rectum, suggestive of fecal impaction or stercoral colitis.
3. Reticular nodular opacities at the right lung base, new compared to prior CT dated 08/05/2023. Findings may be related to subsegmental atelectasis, bronchopneumonia, or endobronchial spread of infection.
4. Apparent bowel wall thickening and luminal narrowing at the rectoanal junction, best seen on series 201 images 71-73. Findings may be related to hemorrhoids, however rectoanal neoplasm should be excluded by rectal examination and/or sigmoidoscopy.
5. Pelvic malrotated right kidney, without evidence of nephrolithiasis, hydronephrosis, or renal inflammatory process.
6. Status post cholecystectomy. Mild biliary ductal dilation, which may be within normal limits following cholecystectomy.
-constipation - improving
-CT on admission with mild colitis with thickening sigmoid to proximal rectosigmoid anastomosis
-hx prior sigmoidectomy for diverticular disease
-prior limited colonoscopy with angulation
-PSVT
-psoriatic arthritis/RA on Remicade
-lung CA
PLAN:
Etiology of symptoms with constipation related to know angulation s/p sigmoid resection vs other
+ stools
09/10/2023: Patient improving both clinically and on labs
Having bowel movements and states she is 95+ percent improved and back to normal. Still with some mild soreness
Improved leukocytosis
Patient's home bowel regimen is senna daily which she states helps dramatically
I told her if she skips a day to add MiraLAX to the regimen
She is afebrile. Will send her home with antibiotics to complete a 7-day regimen
patient needs an outpatient appointment with Dr. Leavitt -at that time he will schedule a outpatient flexible sigmoidoscopy
GI will sign off. Please call with any questions
Total Time Spent with Patient (in minutes): 15
Subjective
Subjective
Date of Service: September 10, 2023
Patient moving her bowels well. Had some formed stool this morning. States she is 95% back to normal. Just some mild soreness.
Objective
Data Reviewed
Laboratory Data:
Laboratory Results
09/10/23 04:33
09/10/23 04:33
Laboratory Results
Total Bilirubin 0.9 mg/dl (0.2-1.3) 09/09/23 02:27
AST 29 U/L (14-36) 09/09/23 02:27
ALT 16 U/L (0-35) 09/09/23 02:27
Alkaline Phosphatase 144 U/L (38-126) H 09/09/23 02:27
Vital Signs and I&O:
Vital Signs
Temp Pulse Resp BP Pulse Ox
98.9 F 98 20 152/92 94
09/10/23 07:52 09/10/23 07:59 09/10/23 07:52 09/10/23 07:59 09/10/23 08:03
I&O
09/09/23 09/10/23 09/11/23
06:59 06:59 06:59
Intake Total 960 / 960
Balance 960 / 960
Physical Exam
Physical Exam
HEENT: Anicteric
GI: Soft, Non Distended and Tender (Mild tenderness in the left lower quadrant)
Extremities: No Edema
Neuro: Non Focal
[2023-09-10] MEDS: NSS IV (09:30)
--- NOTE | 2023-09-10 10:14 | W.PN.CRS1 ---
Today's Communication / Plan
-
No surgery
Okay for discharge from our perspective
Advance diet
Finish course of antibiotics
Assessment/Plan
-
78 yo female with a PMH of Ada's resection for diverticulitis in 1994, and recent PNA admission, on Remicaide, presents to the ER with abdominal pain and constipation (which has now resolved), CT shows sigmoid colon proximal to the rectosigmoid
anastomosis, suggestive of mild colitis, pronounced fecal retention within the rectum, suggestive of fecal impaction or stercoral colitis, and apparent bowel wall thickening and luminal narrowing at the rectoanal junction
Plan:
1. WBC trending down, now 11.2 from 16.4. Continue course of antibiotics.
2. No surgery warranted at this time. Patient is overall feeling better and now having bowel movements.
3. Will need to follow-up as an outpatient for colonoscopy.
4. Okay for discharge from our standpoint. Please contact us if any further issues arise.
Subjective Data
Subjective Data
Date of Service: September 10, 2023
Patient states she had no issues overnight. She is having bowel movements that are both solid and liquid in nature. She denies nausea or vomiting. She is tender but has no abdominal pain. She overall feels better.
Objective Data
-
Vital Signs
Temp Pulse Resp BP Pulse Ox
98.9 F 98 20 152/92 94
09/10/23 07:52 09/10/23 07:59 09/10/23 07:52 09/10/23 07:59 09/10/23 08:03
Intake & Output
09/09/23 09/10/23 09/11/23
06:59 06:59 06:59
Intake Total 960 / 960
Balance 960 / 960
Intake:
Oral fluids 960 / 960
Other:
Number of approximated MODERATE 3
amounts of urine
Number of unmeasured liquid
stools
Rectum 2
Lab Results
09/10/23 04:33
09/10/23 04:33
Physical Exam
-
General: No Acute Distress and AOx3
Abdomen: Soft, Non Distended and Non Tender
Skin: Warm and Dry
--- NOTE | 2023-09-10 10:54 | W.PN.HOSP.TC ---
Addendum entered and electronically signed by Gildardo Montoya MD 09/11/23 12:24:
Moderate protein caloric malnutrition chronic illness
Original Note:
Today's Communication/Plan
-
po abx
dc home
bowel regimen
Assessment / Plan
Assessment / Plan
Acute lower abdominal pain with nausea likely secondary stercoral colitis
Sepsis 2/2 stercoral colitis-poa
-No vomiting
-No CT evidence of No obstruction
-empiric IV Zosyn switched to p.o. Augmentin with plan to complete course for 7 days. improvement in WBC.
-Continue with outpatient home regimen with senna and MiraLAX as needed if needed
-Patient diet advanced and tolerating. Patient with regular solid bowel movements
Paroxysmal SVT with HX spontaneous conversion to NSR
Primary Card; Dr Chung
- on BARTENDER HELPER Flecainide - monitor QTc
- on nifedipine XL 60 mg daily at home-plan to stop it per cards.
- TLM monitor. Started on Cardizem 120mg daily.
- [facility] card consult
CT AP suggest patchy nodules GGO Rt LLL suspicion for aspiration or bronchiolitis . No consolidation
HX COPD
HX Pseudomonas POS Sputum
Immunosuppression on Infliximab
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
- observe
Chronic hyponatremia
-Na at baseline 131. Monitor for now.
Known HX
HX adenocarcinoma of the lung in remission
Psoriasis/rheumatoid arthritis on infliximab
Essential hypertension
Psoriatic arthropathy
HX perforated diverticulitis with partial colectomy in 95
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
DVT Px: LMWH
Code: Full
More than 30 minutes spent in discharge including
Final examination of the patient
Summarizing hospital stay
Instructions for continuing care to all relevant caregivers
Preparation of discharge records, prescriptions, and referral forms
Total time spent (in minutes): 50
Anticipated Discharge: Today
Subjective/Interval History
-
Date of Service: September 10, 2023
Having bowel movements now for solids
Significant improvement abdominal pain
Tolerating regular diet
Objective Data
-
Labs:
Laboratory Results
09/10/23
04:33
WBC 11.2 H
Hgb 11.6 L
Hct 33.2 L
Plt Count 396
Sodium 131 L
Potassium 4.2
Chloride 99
Carbon Dioxide 27
BUN 11
Creatinine 0.5 L
Glucose 78
Calcium 8.7
Vital Signs:
Vital Signs
Temp Pulse Resp BP Pulse Ox
98.9 F 98 20 152/92 94
09/10/23 07:52 09/10/23 07:59 09/10/23 07:52 09/10/23 07:59 09/10/23 10:40
I&O
09/09/23 09/10/23 09/11/23
06:59 06:59 06:59
Intake Total 960 / 960
Balance 960 / 960
Physical Exam
-
General: Well Developed and No Apparent Distress
HEENT: Normocephalic, Atraumatic and Moist Mucous Membranes
Respiratory: Clear to Auscultation
Cardiac: Regular Rhythm and S1/S2; Negative Murmur, Rub or Gallop
GI: Soft, Nontender, Nondistended, Normal Bowel Sounds and Tender; Negative Organomegaly
Rectal: Deferred by Provider
Musculoskeletal: No Clubbing, No Cyanosis and No Edema
Skin: Negative Rash
Neuro: Awake, No Motor Deficits and Nonfocal/Grossly Intact
Psych: Calm
[2023-09-10 11:30] VITALS: BP 137/76
--- NOTE | 2023-09-10 11:31 | CM ---
Patient has been medically cleared for discharge to home with no additional skilled services. will transport home.
--- NOTE | 2023-09-10 11:59 | W.DCSUMMARY ---
Discharge Summary
Discharge Data
Date of Admission: 09/09/23
Date of Discharge: 09/10/23
-
Pending Results: No
Hospital Course
78-year-old female past medical history of COPD, hyponatremia, adenocarcinoma of the lung in remission, Silastic and rheumatoid arthritis, hypertension, paroxysmal SVT is presenting from home with abdominal pain and nausea. Patient was also found
to be in SVT on arrival to the hospital and was eval by cardiology. Patient was started on Cardizem (of note it was prescribed as outpatient however patient never started taking it, has pills at home). Patient heart rate improved with Cardizem.
Procardia was discontinued. CT abdomen pelvis concern for colonic stricture. Colorectal and gastroenterology was consulted. It seems patient symptoms related to stercoral colitis. Patient was having liquid bowel movement. Patient was started on
IV antibiotics. Liquid diet was advanced to low residue. Patient was having solid bowel movements. Vital signs were stable. Patient without any nausea or vomiting. Patient be discharged home with outpatient follow-up.
Discharge Plan
-
Patient Disposition: Home (Routine Discharge)
Discharge Diagnosis/Procedures: Sepsis secondary to stercoral colitis
Supraventricular tachycardia
Condition: Fair
Diet: Regular
Activity: With assistance and As tolerated
Driving Restrictions: As prior to admission
Blood Work: Repeat CBC and BMP in 1 week via primary doctor
Referrals:
Hunter Leavitt MD [Active] - (call to arrange GI follow up to discuss flex sig to evaluate narrowing )
Hunter Chung MD [Active] - 09/20/23 (Keep your appointment with cardiology for further med adjustment)
Ana Bhatt MD [Family Provider] -
Additional Discharge Medication Instructions: Nifedipine discontinued and started on Cardizem
Prescriptions:
New
polyethylene glycol 3350 [Miralax] 17 gram powder in packet
17 g PO DAILY PRN (Reason: Constipation) Qty: 30 0RF
amoxicillin-pot clavulanate 875-125 mg tablet
1 tab PO Q12H Qty: 14 0RF
Continued
Nyquil/Nitetime Liquid
15 ml PO HS
infliximab [Remicade] 100 MG/10 ML recon soln
1 dose IV Q4W
Patient Comments:
08/05/2023, 5 mg/kg weight per [facility]. Next dose is 08/29/2023 per pt.
pravastatin 40 MG tablet
40 mg PO DAILY@1999
flecainide 50 MG tablet
50 mg PO BID
acetaminophen 650 mg Tablet Extended Release
1,300 mg PO DAILYPRN PRN (Reason: mild pain)
folic acid 1 mg Tablet
1 mg PO DAILY
estradiol 0.5 mg Tablet
0.5 mg PO DAILY@1999
coQ10 (ubiquinol) 200 mg Capsule
200 mg PO DAILY@1999
Prolia 60 mg/mL Syringe
60 mg SC [id number]
Patient Comments:
08/05/2023, next dose in September per pt.
biotin 1,000 mcg Tablet,Chewable
1,000 mcg PO DAILY@1999
Pauline Otc Constipation Med
1 cap PO QPM
Prevagen Supplement
1 cap PO QPM
albuterol sulfate 90 mcg/actuation HFA aerosol inhaler
2 puff inhalation Q6H PRN (Reason: shortness of breath or wheezing) Qty: 8.5 0RF
hydrocodone-acetaminophen 5-300 mg Tablet
1 tab PO BID PRN (Reason: pain)
diltiazem HCl [Cartia XT] 120 mg Capsule,Extended Release 24hr
120 mg PO DAILY
Discontinued
nifedipine 60 MG tablet extended release
60 mg PO DAILY Qty: 30 0RF
Discharge Orders:
Discharge Patient (As Directed); Ordered 09/10/23
Ordered By: Gildadro Montoya
Discharge Date and Time
Print Language: KENYAN
--- NOTE | 2023-09-10 12:47 | PN.CDI ---
CDI
- -
CDI:
Physician Documentation Request
Admit Date: 09/09/23 05:36
Dear Doctor Jan,
Patient admitted with sepsis 2/2 stercoral colitis.
09/08 Nutrition note, 'Per ASPEN/AND guidelines, pt meets for moderate malnutrition in the context of chronic illness as evidenced by < 75% intake est needs x > 1 month, mild muscle loss.
Please provide in your note the diagnosis associated with the patients nutritional status based on you assessment:
Moderate protein calorie malnutrition
Mild protein calorie malnutrition
Other
[place] Criteria ([facility] Hospitalist 2017)
2 or more criteria must be present for either
non severe or severe malnutrition
Note that the criteria differs related to the
presence of an acute or chronic illness
Chronic Illness
Energy Intake Non Severe: <75% for >1 month
Severe: <75% for >1 month
Weight Loss Non Severe: 5% over 1 month
7.5% over 3 months
10% over 6 months
20% over 1 year
Severe: >5% over 1 month
>7.5% over 3 months
>10% over 6 months
>20% over 1 year
Body Fat Non Severe: Mild Loss
Severe: Severe Loss
Muscle Mass Non Severe: Mild Loss
Severe: Severe Loss
Fluid Accumulation Non Severe: Mild Accumulation
Severe: Moderate to severe
accumulation
Reduced Aquatic Director Strength Non Severe: N/A
Severe: Measurably reduced
Use of terms such as suspected, likely, concern for, or probable (associated with a specific diagnosis that is being evaluated, monitored, or treated as if it exists) are acceptable and can be coded in the inpatient setting, when documented at the
time of discharge.
Thank you,
Pascale NICOLE,RN,CCDS
CDI Specialist
Available via tiger text
Please use your independent medical judgment in providing your response.
--- NOTE | 2023-09-10 13:08 | W.PN.CARDCBS ---
Today's Communication / Plan
-
Cont Cardizem and Flecainide
Has outpt follow up
Impression / Plan
-
PCP: Dr. Bhatt
Curb Builder: Dr. Chung
Impression:
Presented with abdominal pain
Atrial tachycardia
h/o SVT
Chronic flecainide therapy
HTN
HLD
COPD
IBS
Rheumatoid arthritis
h/o lung cancer
Echo 03/26/2022: EF 65%, mild LVH, trace MR, aortic sclerosis without stenosis, mild pulmonary hypertension, 40 to 43 mmHg systolic
Plan:
Procardia stopped and tolerating Cardizem
Remains sinus
Cont Flecainide
Outpt follow up already scheduled.
Stable cv status.
HPI: Nicole is a 78 year old female with PMH of SVT, atrial tachycardia, hypertension, hyperlipidemia, COPD, rheumatoid arthritis, lung cancer, and IBS who presented to [facility] for evaluation of abdominal pain. She started with diffuse abdominal
pain yesterday. Pain felt similar to prior bowel perforation that she had in the past. Also noted constipation over the past few days. Given concern for severe pain, she came to ER for evaluation. She had CT of abdomen and pelvis which showed mild
colitis w/ thickening of colon proximal to the anastomosis and of the lower rectal/anal canal. While in ER, she was noted to have episode of SVT which broke spontaneously. She had recent hospitalization at for pneumonia. During this
hospitalization, she started noting increased frequency of palpitations with rapid heart rates. Discontinued following her discharge and she called the director hair to discuss the symptoms. She was arranged for a CAM monitor which revealed
episodes of atrial tachycardia. She was recommended to start Cardizem 120 mg daily, however she did not roll picker this prescription before her abdominal pain started, prompting ER evaluation. She continues to have short lived episodes of
palpitations, happening multiple times per day, lasting up to 5 minutes at a time. Cardiology consulted for evaluation.
Progress Note - Curb Builder
Subjective
Date of Service: September 10, 2023
pt seen and examined. No complaints. No cp.
Objective
Labs:
09/10/23 04:33
09/10/23 04:33
Labs
Hgb 11.6 g/dL (12.0-16.0) L 09/10/23 04:33
Hct 33.2 % (37.0-47.0) L 09/10/23 04:33
Plt Count 396 10^3/uL (130-400) 09/10/23 04:33
Sodium 131 mmol/L (135-145) L 09/10/23 04:33
Potassium 4.2 mmol/L (3.5-5.1) 09/10/23 04:33
BUN 11 mg/dl (7-17) 09/10/23 04:33
Creatinine 0.5 mg/dL (0.6-1.0) L 09/10/23 04:33
Glucose 78 mg/dl (70-99) 09/10/23 04:33
Vital Signs and I&O:
Vital Signs
Temp Pulse Resp BP Pulse Ox
98.7 F 96 20 137/76 89
09/10/23 11:30 09/10/23 11:30 09/10/23 11:30 09/10/23 11:30 09/10/23 11:30
Vital Signs
Temp Pulse Resp BP Pulse Ox
98.7 F 96 20 137/76 89
09/10/23 11:30 09/10/23 11:30 09/10/23 11:30 09/10/23 11:30 09/10/23 11:30
Intake & Output
09/08/23 09/09/23 09/10/23 09/11/23
06:59 06:59 06:59 06:59
Intake Total 960 / 960
Balance 960 / 960
Physical Exam
Physical Exam
General: No acute distress, AAOX3
Neck: Negative JVD
Heart: Regular, Negative S3 positive S1/S2, Negative S4, No murmur
Lungs: CTA b/l, negative wheezes/rales/rhonchi
Abd: Positive BS, NT/ND, neg rebound/rigidity/guarding
Ext: Negative cyanosis/clubbing/edema
Neuro: nonfocal
== END 2023-09-10 12:28 | disposition home or self-care (01) | DRG 871 ==
LOC: 2 NORTH 05:36
PROVIDERS: ADMITTING PHYSICIAN Internal Medicine; ATTENDING PHYSICIAN Hospitalist; CONSULT PHYSICIAN Internal Medicine Gastroenterology; CONSULT PHYSICIAN Surgery; EMERGENCY PHYSICIAN Student in an Organized Health Care Education/Training Program; FAMILY PHYSICIAN Internal Medicine; OTHER PHYSICIAN Internal Medicine Cardiovascular Disease
DX: A41.9 Sepsis, unspecified organism (principal); J18.9 Pneumonia, unspecified organism; I47.19 Other supraventricular tachycardia; J44.0 Chronic obstructive pulmonary disease with (acute) lower respiratory infection; D84.821 Immunodeficiency due to drugs; E87.1 Hypo-osmolality and hyponatremia; E44.0 Moderate protein-calorie malnutrition; Z68.1 Body mass index [BMI] 19.9 or less, adult; F17.210 Nicotine dependence, cigarettes, uncomplicated; K56.41 Fecal impaction; I10 Essential (primary) hypertension; K58.9 Irritable bowel syndrome, unspecified; M06.9 Rheumatoid arthritis, unspecified; Z79.620 Long term (current) use of immunosuppressive biologic
CPT/HCPCS: 74177; 80048; 80053; 83605; 85025; 85027; 93005; 94640; 96365; 96375; 99285; 99406; Q9967

== ENCOUNTER → 2023-10-16 06:31 | Day surgery (SDC) | payer MEDICARE, SELFPAY | LOC: GI 06:31 | PROVIDERS: ATTENDING PHYSICIAN Internal Medicine Gastroenterology | DX: R93.3 Abnormal findings on diagnostic imaging of other parts of digestive tract (principal); K59.00 Constipation, unspecified; K64.8 Other hemorrhoids | CPT/HCPCS: 45330 ==

== ENCOUNTER → 2023-10-22 11:41 | Outpatient (REF) | payer MEDICARE, SELFPAY ==
[2023-10-22 13:43] LABS: % Basophils 0.6 % (0-2); % Immature Granulocytes 0.2 % (0-0.5); % Lymphocytes 31.3 % (20.5-51.1); % Monocytes 9.9 % (1.7-9.3); Absolute Basophils 0.1 10^3/uL (0-0.2); Absolute Eosinophils 0.2 10^3/uL (0-0.7); Absolute Lymphocytes 2.8 10^3/uL (1.2-3.4); Absolute Monocytes 0.9 10^3/uL (0.1-0.6); Absolute Neutrophils 5.1 10^3/uL (1.4-6.5); Hematocrit 39.8 % (37.0-47.0); Hemoglobin 13.2 g/dL (12.0-16.0); Mean Corp Hgb Conc. 33.2 g/dL (33.0-37.0); Mean Corpuscular Volume 96.4 fL (81.0-99.0); Mean Platelet Volume 10.4 fL (7.4-10.4); Nucleated Red Blood Cells % 0 %; Platelet Count 320 10^3/uL (130-400); Red Blood Cell Count 4.13 10^6/uL (4.20-5.40); Red Cell Dist. Width 12.8 % (11.5-14.5)
[2023-10-22 13:54] LABS: Erythrocyte Sed Rate 21 mm/hour (0-20)
[2023-10-22 14:04] LABS: ALT (SGPT) 12 U/L (0-35); AST (SGOT) 26 U/L (14-36); Albumin 3.7 g/dl (3.5-5.0); Alkaline Phosphatase 64 U/L (38-126); Blood Urea Nitrogen 10 mg/dl (7-17); Calcium 9.1 mg/dl (8.4-10.2); Carbon Dioxide 29 mmol/L (22-30); Chloride 100 mmol/L (98-107); Glucose 97 mg/dl (70-99); HDL Cholesterol 71 mg/dl; LDL Cholesterol, Calculated 47 mg/dl; Potassium 3.7 mmol/L (3.5-5.1); Sodium 135 mmol/L (135-145); Total Bilirubin 0.7 mg/dl (0.2-1.3); Total Cholesterol 133 mg/dl (50-199); Total Protein 7.1 g/dl (6.3-8.2); Triglyceride 75 mg/dl (10-149); Very Low Density Lipoprotein 15 mg/dl (0-30); eGFR > 60.00
[2023-10-22 14:06] LABS: C-Reactive Protein < 5.00 mg/L (0.0-10.00)
== END ==
LOC: HWLAB 11:41
PROVIDERS: ATTENDING PHYSICIAN Internal Medicine Rheumatology; FAMILY PHYSICIAN Internal Medicine
DX: M54.50 Low back pain, unspecified (principal); M81.0 Age-related osteoporosis without current pathological fracture; Z51.81 Encounter for therapeutic drug level monitoring; L40.50 Arthropathic psoriasis, unspecified; M05.742 Rheumatoid arthritis with rheumatoid factor of left hand without organ or systems involvement; E78.5 Hyperlipidemia, unspecified
CPT/HCPCS: 36415; 80053; 80061; 85025; 85652; 86140

== ENCOUNTER → 2024-03-03 11:30 | Outpatient (REF) | payer MEDICARE, SELFPAY ==
[2024-03-03 15:42] LABS: % Basophils 0.6 % (0-2); % Eosinophils 2.1 % (0-6); % Immature Granulocytes 0.3 % (0-0.5); % Monocytes 9.5 % (1.7-9.3); % Neutrophils 46.5 % (42.2-75.2); Absolute Basophils 0.1 10^3/uL (0-0.2); Absolute Eosinophils 0.2 10^3/uL (0-0.7); Absolute Lymphocytes 3.5 10^3/uL (1.2-3.4); Absolute Monocytes 0.8 10^3/uL (0.1-0.6); Hematocrit 43.4 % (37.0-47.0); Hemoglobin 14.7 g/dL (12.0-16.0); Mean Corp Hgb Conc. 33.9 g/dL (33.0-37.0); Mean Corpuscular Hgb 31.1 pg (27.0-31.0); Mean Corpuscular Volume 91.8 fL (81.0-99.0); Mean Platelet Volume 11.7 fL (7.4-10.4); Nucleated Red Blood Cells % 0 %; Platelet Count 221 10^3/uL (130-400); Red Blood Cell Count 4.73 10^6/uL (4.20-5.40); Red Cell Dist. Width 14.3 % (11.5-14.5); White Blood Cell Count 8.6 10^3/uL (4.8-10.8)
[2024-03-03 15:46] LABS: ALT (SGPT) 16 U/L (0-35); AST (SGOT) 26 U/L (14-36); Albumin 4.5 g/dl (3.5-5.0); Alkaline Phosphatase 64 U/L (38-126); Blood Urea Nitrogen 9 mg/dl (7-17); Calcium 10.1 mg/dl (8.4-10.2); Carbon Dioxide 32 mmol/L (22-30); Chloride 97 mmol/L (98-107); Glucose 85 mg/dl (70-99); Potassium 4.7 mmol/L (3.5-5.1); Sodium 138 mmol/L (135-145); eGFR > 60.00
[2024-03-03 15:51] LABS: C-Reactive Protein < 5.00 mg/L (0.0-10.00)
[2024-03-03 16:08] LABS: Erythrocyte Sed Rate 19 mm/hour (0-20)
== END ==
LOC: HWLAB 11:30
PROVIDERS: ATTENDING PHYSICIAN Internal Medicine Rheumatology; FAMILY PHYSICIAN Nurse Practitioner Adult Health
DX: R68.84 Jaw pain (principal); L40.50 Arthropathic psoriasis, unspecified; M05.742 Rheumatoid arthritis with rheumatoid factor of left hand without organ or systems involvement; M17.0 Bilateral primary osteoarthritis of knee; M54.42 Lumbago with sciatica, left side; M81.0 Age-related osteoporosis without current pathological fracture; Z51.81 Encounter for therapeutic drug level monitoring
CPT/HCPCS: 36415; 70110; 80053; 85025; 85652; 86140

== ENCOUNTER → 2024-03-12 12:52 | Outpatient (REF) | payer MEDICARE, SELFPAY | LOC: HWWDC 12:52 | PROVIDERS: ATTENDING PHYSICIAN Internal Medicine; REFERRING PHYSICIAN Radiology Radiation Oncology | DX: Z12.39 Encounter for other screening for malignant neoplasm of breast (principal); R93.89 Abnormal findings on diagnostic imaging of other specified body structures; C34.12 Malignant neoplasm of upper lobe, left bronchus or lung | CPT/HCPCS: 71250; 77063; 77067 ==

== ENCOUNTER → 2024-04-04 12:58 | Outpatient (REF) | payer MEDICARE, SELFPAY | LOC: MRI 3T 12:58 | PROVIDERS: ATTENDING PHYSICIAN Physical Medicine & Rehabilitation; FAMILY PHYSICIAN Internal Medicine | DX: M54.12 Radiculopathy, cervical region (principal) | CPT/HCPCS: 72141 ==

== ENCOUNTER → 2024-06-15 11:22 | Outpatient (REF) | payer MEDICARE, SELFPAY | LOC: HWRAD 11:22 | PROVIDERS: ATTENDING PHYSICIAN Radiology Radiation Oncology; FAMILY PHYSICIAN Internal Medicine | DX: C34.12 Malignant neoplasm of upper lobe, left bronchus or lung (principal) | CPT/HCPCS: 71250 ==

== ENCOUNTER → 2024-08-10 12:32 | Outpatient (REF) | payer MEDICARE, SELFPAY | LOC: HWLAB 12:32 | PROVIDERS: ATTENDING PHYSICIAN Internal Medicine Gastroenterology; FAMILY PHYSICIAN Internal Medicine | DX: K58.0 Irritable bowel syndrome with diarrhea (principal) | CPT/HCPCS: 87338 ==

== ENCOUNTER → 2024-09-16 11:08 | Outpatient (REF) | payer MEDICARE, SELFPAY | LOC: HWRAD 11:08 | PROVIDERS: ATTENDING PHYSICIAN Internal Medicine | DX: M54.50 Low back pain, unspecified (principal); N39.0 Urinary tract infection, site not specified | CPT/HCPCS: 76770 ==

== ENCOUNTER → 2024-10-12 11:13 | Outpatient (REF) | payer MEDICARE, SELFPAY | LOC: HWRAD 11:13 | PROVIDERS: ATTENDING PHYSICIAN Internal Medicine Critical Care Medicine; FAMILY PHYSICIAN Internal Medicine | DX: R93.89 Abnormal findings on diagnostic imaging of other specified body structures (principal); R05.3 Chronic cough | CPT/HCPCS: 71250 ==

== ENCOUNTER → 2024-12-02 09:40 | Outpatient (REF) | payer MEDICARE, SELFPAY | LOC: HWRAD 09:40 | PROVIDERS: ATTENDING PHYSICIAN Internal Medicine Critical Care Medicine; FAMILY PHYSICIAN Internal Medicine | DX: R93.89 Abnormal findings on diagnostic imaging of other specified body structures (principal) | CPT/HCPCS: 71250 ==

== ENCOUNTER 2025-02-12 06:53 | Outpatient (REF) | payer MEDICARE, SELFPAY ==
[2025-02-12] VITALS (15 sets, daily range): BP systolic 75–159; BP diastolic 56–78
[2025-02-12 07:35] LABS: Hematocrit 41.8 % (37.0-47.0); Hemoglobin 14.3 g/dL (12.0-16.0); Mean Corp Hgb Conc. 34.2 g/dL (33.0-37.0); Mean Corpuscular Volume 93.5 fL (81.0-99.0); Platelet Count 333 10^3/uL (130-400); Red Cell Dist. Width 12.9 % (11.5-14.5)
[2025-02-12 07:53] LABS: INR 1.00; PT 13.5 Sec (11.4-14.6)
[2025-02-12] MEDS: DILAUDID 0.25 MG IV (09:55)
== END 2025-02-12 12:20 | disposition home or self-care (01) ==
LOC: RADI 06:53
PROVIDERS: ATTENDING PHYSICIAN Internal Medicine Critical Care Medicine; FAMILY PHYSICIAN Internal Medicine
DX: R91.1 Solitary pulmonary nodule (principal); Z85.118 Personal history of other malignant neoplasm of bronchus and lung; J43.9 Emphysema, unspecified; Z87.891 Personal history of nicotine dependence; J95.811 Postprocedural pneumothorax
CPT/HCPCS: 32408; 36415; 71045; 85027; 85610; 88305; 88312; 88333; 99152; 99153

== ENCOUNTER → 2025-02-22 10:57 | Outpatient (REF) | payer MEDICARE, SELFPAY ==
[2025-02-22 16:38] LABS: Hematocrit 41.0 % (37.0-47.0); Hemoglobin 13.7 g/dL (12.0-16.0); Mean Corp Hgb Conc. 33.4 g/dL (33.0-37.0); Mean Corpuscular Volume 93.8 fL (81.0-99.0); Nucleated Red Blood Cells % 0 %; Platelet Count 347 10^3/uL (130-400); Red Cell Dist. Width 12.9 % (11.5-14.5)
[2025-02-22 17:04] LABS: C-Reactive Protein < 5.00 mg/L (0.0-10.00)
[2025-02-22 17:05] LABS: ALT (SGPT) 10 U/L (0-35); AST (SGOT) 20 U/L (14-36); Albumin 3.9 g/dl (3.5-5.0); Alkaline Phosphatase 67 U/L (38-126); Blood Urea Nitrogen 13 mg/dl (7-17); Calcium 9.6 mg/dl (8.4-10.2); Carbon Dioxide 34 mmol/L (22-30); Chloride 96 mmol/L (98-107); Glucose 84 mg/dl (70-99); Potassium 4.6 mmol/L (3.5-5.1); Sodium 133 mmol/L (135-145); Total Protein 7.3 g/dl (6.3-8.2); eGFR > 60.00
== END ==
LOC: HWLAB 10:57
PROVIDERS: ATTENDING PHYSICIAN Internal Medicine Rheumatology; FAMILY PHYSICIAN Internal Medicine
DX: L40.50 Arthropathic psoriasis, unspecified (principal); L40.53 Psoriatic spondylitis; M05.741 Rheumatoid arthritis with rheumatoid factor of right hand without organ or systems involvement; M05.742 Rheumatoid arthritis with rheumatoid factor of left hand without organ or systems involvement; M17.11 Unilateral primary osteoarthritis, right knee; M54.2 Cervicalgia; M81.0 Age-related osteoporosis without current pathological fracture; Z79.899 Other long term (current) drug therapy
CPT/HCPCS: 36415; 80053; 85025; 85652; 86140

== ENCOUNTER → 2025-04-20 11:27 | Outpatient (REF) | payer MEDICARE, SELFPAY ==
[2025-04-20 15:38] LABS: HDL Cholesterol 48 mg/dl; LDL Cholesterol, Calculated 64 mg/dl; Very Low Density Lipoprotein 21 mg/dl (0-30)
== END ==
LOC: HWRAD 11:27
PROVIDERS: ATTENDING PHYSICIAN Internal Medicine Critical Care Medicine; FAMILY PHYSICIAN Internal Medicine
DX: R93.89 Abnormal findings on diagnostic imaging of other specified body structures (principal); C34.90 Malignant neoplasm of unspecified part of unspecified bronchus or lung; E78.5 Hyperlipidemia, unspecified
CPT/HCPCS: 36415; 71250; 80061

== ENCOUNTER 2025-05-06 10:16 | Inpatient (IN) | payer MEDICARE, SELFPAY ==
[2025-05-06] VITALS (13 sets, daily range): BP systolic 107–180; BP diastolic 58–118; BMI 15.9
--- NOTE | 2025-05-06 06:51 | ED.GENMED ---
History of Present Illness
General
Chief Complaint: Fainting/Passed Out
Source: patient and spouse
Time Seen by Provider: 05/06/25 06:45
History of Present Illness
History of Present Illness:
80-year-old female presents to the emergency room via ambulance after collapsing at home. Patient states she stood up to go to the bathroom to get a drink of water which she collapsed. She said she felt just too weak to stand. Did not have
complete loss of consciousness. She may have struck her head. Also struck her left elbow. Patient has a history of advanced COPD. She does not use oxygen at home. Patient has been having muscle aches, cough for past couple days. Her
also has similar symptoms. They have not taken her temperature at home. No nausea vomiting chest pain or abdominal pain. states the patient is also been having significant weight loss over the past few weeks.
Past History
Past History
ED Past Medical History: Arrthythmia (Atrial fibrillation), HTN, Hypercholesterolemia and Other (Psoriatic arthritis)
ED Past Surgical History: Cholecystectomy, Gynecological, Orthopedic, Tonsilectomy and Other
Social History
Tobacco: Smoker
Alcohol: Occasional
Personal:
Living: with family
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
Family History
Family History: Other (Her mother had multiple myeloma and amyloidosis. Her brother had an SD)
Phy Exam
Physical Exam
Physical Exam:
General: Awake, Alert, Oriented X3. Appears chronically ill, quite thin
Vitals: Febrile, tachycardic, hypertensive
Head: Atraumatic
Eyes: Pupils equal, EOMI
Throat: Airway intact, no exudates, dry mucosa
Neck: Trachea midline
Lungs: Crackles noted bilaterally
Heart: Regular rate, no murmurs
Abd: Soft, Nontender, No pulsatile mass
Neuro: Nonfocal
Skin: Warm, dry, no rash
Extremities: pulses equal b/l, no edema
Sepsis
Sepsis Screening
Sepsis Assessment: Sepsis
Sepsis Screen
Sepsis Screen: Sepsis
Date: 05/06/25
Time: 09:30
Course
Orders/Labs/Results
Orders:
Orders
05/06/25 06:28
Electrocardiogram (*1) Urgent
Reason for Study: Syncope
05/06/25 06:29
EKG- Treatment ONCE
05/06/25 06:40
CMP [Comprehensive Metabolic Panel] Urgent
Magnesium Urgent
Comment: ADD ON
Serum Osmolality Urgent
Comment: ADD ON
05/06/25 06:41
COVID-19 Antigen Urgent
Source: Nasal Swab
Complete Blood Count/With Diff Urgent
Vitamin B12 Urgent
Comment: ADD ON
Vitamin D, 25-Oh Urgent
Influenza A+B Rapid Molecular Urgent
JOSÉ Source: Nasal Swab
Specimen Description:
05/06/25 07:05
Cardiac Monitoring- Treatment ONCE
0.9% Sodium Chloride 1000 ml [Nss] 1,300 ml IV NOW STA
Acetaminophen [Tylenol] 650 mg PO NOW STA
Ipratropium/Albuterol Sulfate [Duoneb] 3 ml INH R NOW STA
05/06/25 07:15
CT Head W/o Iv Contrast Urgent
Comment:
Reason For Exam: head injury s/p fall
05/06/25 07:16
CT Cervical Spine W/o Iv Contr Urgent
Comment:
Reason For Exam: neck pain s/p fall
05/06/25 07:27
CR Chest Portable - 1 View Urgent
Comment:
Reason For Exam: fever, cough, sob
Reason Study Needs to be Portable: Patient Unstable
05/06/25 07:43
Oseltamivir Phosphate [Tamiflu] 75 mg PO NOW STA
05/06/25 07:45
Lactic Acid Q4H
Comment: CANCEL 2nd LACTIC ACID IF 1st LACTIC ACID IS LESS THAN 2
Venous Blood Gas Urgent
%Oxygen/Room Air: 4L
Blood Culture Q30M
JOSÉ Source: Blood/Venous
Specimen Description:
05/06/25 07:52
Blood Culture Q30M
JOSÉ Source: Blood/Venous
Specimen Description:
05/06/25 09:47
Admit/Transfer Patient As Directed
Co-Sign Provider:
Level of Care: Inpatient admission
Assign to:: Telemetry
Physician / Group: hospitalist
Diagnosis: syncope
Reason for Telemetry: Syncope
Date to Stop Telemetry: 05/08/25
Time to Stop Telemetry: 11:00
Reason for Hospitalization: syncope, hyponatremia
Expected length of stay greater than two midnights?: Yes
ELOS- Estimated Length of Stay in days: 3
I certify the patient meets the requirements for IP care: Yes
05/06/25 09:54
Osmolality, Random Urine Urgent
Date Specimen was Collected: 05/06/25
Time Specimen was Collected: 09:53
Comment: ADD ON
Urinalysis Reflex To Culture Urgent
Date Specimen was Collected: 05/06/25
Time Specimen was Collected: 09:53
Urine Microscopic Reflex Cult Urgent
Urine Sodium Urgent
Date Specimen was Collected: 05/06/25
Time Specimen was Collected: 09:53
Comment: ADD ON
Urine Culture Urgent
JOSÉ Source: U
Specimen Description:
Date Specimen was Collected: 05/06/25
Time Specimen was Collected: 09:53
05/06/25 11:17
Lactic Acid Q4H
Comment: CANCEL 2nd LACTIC ACID IF 1st LACTIC ACID IS LESS THAN 2
05/08/25 11:00
DC Protocol for Telemetry ONCE
Abnormal Lab Results
05/06/25 05/06/25 05/06/25
06:40 06:41 07:45
WBC 18.3 H 10^3/uL
(4.8-10.8)
RBC 4.13 L 10^6/uL
(4.20-5.40)
Hct 36.7 L %
(37.0-47.0)
MCH 31.5 H pg
(27.0-31.0)
Abs Immat Gran (auto) 0.1 H 10^3/uL
(0-0.05)
Absolute Neuts (auto) 16.4 H 10^3/uL
(1.4-6.5)
Absolute Lymphs (auto) 0.8 L 10^3/uL
(1.2-3.4)
Absolute Monos (auto) 0.8 H 10^3/uL
(0.1-0.6)
Immature Gran % 0.7 H %
(0-0.5)
Neutrophils % 89.8 H %
(42.2-75.2)
Lymphocytes % 4.2 L %
(20.5-51.1)
VBG pH 7.44 H
(7.32-7.43)
VBG pO2 137 H mmHg
(30-50)
VBG HCO3 27.2 H mmol/L
(22-27)
Sodium 127 L mmol/L
(135-145)
Chloride 94 L mmol/L
(98-107)
Glucose 110 H mg/dl
(70-99)
Lactic Acid 2.8 H mmol/L
(0.7-2.0)
AST 44 H U/L
(14-36)
Urine Ketones
Ur Occult Blood Reflex
Leukocyte Esterase Rfl
Urine RBC
Urine Albumin (Reflex)
05/06/25
09:54
WBC
RBC
Hct
MCH
Abs Immat Gran (auto)
Absolute Neuts (auto)
Absolute Lymphs (auto)
Absolute Monos (auto)
Immature Gran %
Neutrophils %
Lymphocytes %
VBG pH
VBG pO2
VBG HCO3
Sodium
Chloride
Glucose
Lactic Acid
AST
Urine Ketones 1+ A
(Negative)
Ur Occult Blood Reflex 1+ A
(Negative)
Leukocyte Esterase Rfl 1+ A
(Negative)
Urine RBC 3-6 A /HPF
(0-2)
Urine Albumin (Reflex) 2+ A
(Neg - Trace)
05/06/25 06:41
05/06/25 06:40
Vital Signs
Initial and Last Documented VS:
Initial Vital Signs
Temp Pulse Resp BP Pulse Ox
103.2 F H 120 16 163/101 85
05/06/25 06:17 05/06/25 06:17 05/06/25 06:17 05/06/25 06:17 05/06/25 06:17
Last Documented Vital Signs
Temp Pulse Resp BP Pulse Ox
99.5 F 110 21 129/64 93
05/06/25 07:40 05/06/25 13:00 05/06/25 13:00 05/06/25 13:00 05/06/25 13:00
MDM/Problems Addressed
Differential Diagnosis Includes:
COPD exacerbation, pneumonia, influenza, COVID
MDM/Problems Addressed:
Patient presents with fever, increased work of breathing and shortness of breath. Workup here reveals positive flu test. White count is elevated 18,000 though this may be related to chronic steroid use. A VBG shows no significant CO2 retention
and a normal pH. Chemistry showed the patient to be mild to moderately hyponatremic. Patient will require hospitalization for supportive care, supplemental oxygen, close monitoring
*Radiology
Radiology exam reviewed: preliminary read by ED provider (No acute abnormality on my review of the patient's chest x-ray)
*Pulse Oximetry
SaO2: 93
Nasal Cannula flow liters per minute: 4
Oxygen Mode of Delivery: Room air
Patient hypoxic: yes
*EKG
Interpreted by ED Provider?: Yes
Heart Rate: 119
Rate: tachycardiac
Rhythm: sinus tachycardia
[place]: left axis deviation
Interval: normal interval
QRS Pattern: left vent hypertrophy
Ischemia: ST depression (lateral)
*Folding Machine Feeder Interpretation
Rate: tachycardiac
Interpretation: abnormal
Rhythm: sinus tachycardia
*Critical Care Note
Total Time (30-74mins, 75-104mins- exclusive of procedures): Not Applicable
Patient Management
Social determinants of health affecting care: Living situation
ED Attending Note
-
Portions of this chart may have been created with voice recognition software.� Occasional wrong word or��sound alike� substitutions may have occurred due to the inherent limitations of voice recognition software.
Discharge Plan
Departure
Patient Disposition: Admit
Date of Disposition: 05/06/25
Time of Disposition: 08:05
Admit to: Med/Surg
Presentation/result/management discussed w/ accepting MD/DO: Hospitalist
Condition: Fair
Discharge Problem:
Influenza A, Acute hyponatremia, COPD exacerbation, Hypoxia
Interventions
Interventions:
*Risk Screen - Suicide Last Done: 05/06/25 06:32
*General Assessment Last Done: 05/06/25 06:31
*Neglect/Abuse Screening Last Done: 05/06/25 06:31
*ED COVID-19 Vaccine History Last Done: 05/06/25 06:31
*ED Influenza Vaccine History Last Done: 05/06/25 06:31
[facility] Fall Risk Assessment Tool Last Done: 05/06/25 06:35
ED- Cardiac Assessment Last Done: 05/06/25 08:00
ED- Neurological Assessment Last Done: 05/06/25 08:00
[2025-05-06 06:55] LABS: Hematocrit 36.7 % (37.0-47.0); Hemoglobin 13.0 g/dL (12.0-16.0); Mean Corp Hgb Conc. 35.4 g/dL (33.0-37.0); Mean Corpuscular Volume 88.9 fL (81.0-99.0); Nucleated Red Blood Cells % 0 %; Platelet Count 296 10^3/uL (130-400); Red Cell Dist. Width 13.2 % (11.5-14.5)
[2025-05-06 07:13] LABS: ALT (SGPT) 30 U/L (0-35); AST (SGOT) 44 U/L (14-36); Albumin 4.2 g/dl (3.5-5.0); Alkaline Phosphatase 88 U/L (38-126); Blood Urea Nitrogen 12 mg/dl (7-17); Calcium 8.7 mg/dl (8.4-10.2); Carbon Dioxide 24 mmol/L (22-30); Chloride 94 mmol/L (98-107); Estimated Creatinine Clearance 51 ml/min; Glucose 110 mg/dl (70-99); Potassium 3.9 mmol/L (3.5-5.1); Sodium 127 mmol/L (135-145); Total Protein 7.5 g/dl (6.3-8.2); eGFR > 60.00
[2025-05-06 07:30] LABS: COVID-19 Antigen Negative (Negative)
[2025-05-06] MEDS: NSS 1300 ML IV (07:38)
[2025-05-06] MEDS: TYLENOL 650 MG PO (07:38)
[2025-05-06] MEDS: DUONEB 3 ML INH ×3 (07:38→19:40)
[2025-05-06 07:57] LABS: Venous Blood Gas B.E. 2.8 mmol/L (-4 to +4); Venous Blood Gas O2 Sat % 99.5 %
[2025-05-06] MEDS: TAMIFLU 75 MG PO (09:16)
--- NOTE | 2025-05-06 10:12 | HPS.HSE ---
Addendum entered and electronically signed by Charles Alcocer MD 05/07/25 15:02:
Correction antibiotics to ceftriaxone and doxycycline
Addendum entered and electronically signed by Charles Alcocer MD 05/06/25 14:16:
Seen and examined the patient with the resident. Agree with the plan formulated. See changes in my documentation.
80-year-old female presented to the hospital with dizziness. She woke up to go to the bathroom and felt really weak that she had to sit down on the floor and lay on the floor. got her up and she still felt weak and lightheaded and was also
feeling short of breath. She smoked a cigarette while laying on the couch. She does not use any oxygen at home. had nasal congestion and sickness for the past few days
On examination awake and alert but coughing constantly
Cardiovascular system S1-S2 appreciated
Chest few rales bilaterally short wheezes decreased air entry
Abdomen soft and nontender
No pedal edema
TANK CAR MECHANIC nonfocal
Reviewed by te-VLE-yztok tachycardia left axis deviation LVH
Chest x-ray reviewed by me-bilateral opacities, more on the right side
CT of the cervical spine-no acute changes. Moderate degenerative changes most pronounced C6-C7. Cavitary lesion in the left upper lobe 1.4 cm unchanged from the PET scan dated 12/15/2024
# Sepsis present on admission
Patient got sepsis bolus IV fluids in the ER hold off on further fluids for now
Likely source influenza
Cannot rule out bacterial pneumonia-procalcitonin elevated
Continue Tamiflu
Added ceftriaxone and Flagyl
Blood cultures have been ordered
Lactic acidosis resolving
Mucinex, nebulizer treatments
# Hyponatremia
Serum osmolality pending
Urine osmolality possibly indicates SIADH
Especially the fact that sodium dropped after IV fluids
Will give 3% saline if osmolality turns out to be low
Fluid restriction
# Bilateral Lung Ca
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
Patient had right upper lobe squamous cell carcinoma 2019
there is a cavitary lesion in the left upper lobe 1.4 cm-there was mild FDG uptake within that lesion on the PET scan from December 2024
Patient had a lung biopsy 02/12/2025-mostly necrotic acellular tissue no malignancy reported.
# Hypertension-Hold off on Nifedipine for now
# Mild aortic stenosis
# COPD-continue Trelegy or equivalent and Duo Nebs
# History of SVT/atrial tachycardia-on flecainide
# Rheumatoid arthritis/psoriatic arthritis-continue Plaquenil and prednisone
# Hyperlipidemia-continue pravastatin
# Low BMI 16-continue megestrol for appetite
# IBS with constipation-continue Linzess
# Diverticulosis
# History of Left eye injury in the past with plastic eye
# History of sigmoidectomy with colostomy and reversal for ruptured diverticulitis/history of small bowel obstruction
# Neuropathy/sciatica-chronic pain opiate dependent-continue hydrocodone/acetaminophen
# Osteoporosis on Prolia
# Active smoker-cessation counseling. Patient states it is difficult to quit
# DVT prophylaxis-Lovenox
# DNR
Spoke to and updated. He is aware that the patient is DNR
Time spent over 75 min
Part of this note was created using voice recognition system. Occasional wrong word or��sound alike� substitutions may have inadvertently occurred due to the inherent limitations of voice recognition software. If noted kindly bring it to my
attention for correction.
Original Note:
Family Physician
-
Family Physician: Ana Bhatt
Chief Complaint
-
dizziness
History of Present Illness
80 year old female with PMH of COPD, current smoker, chronic hyponatremia, adenocarcinoma of the lung in remission, Silastic and rheumatoid arthritis, hypertension, paroxysmal SVT presents today with dizziness. Patient reports that today at 4 AM
she woke up to go to the restroom however she felt very weak and she had to lay on the floor. She called her to help get up from the floor. She notes of feeling very weak and felt lightheaded denies any room spinning around her. She
states that she smoked a cigarette while lying on the couch. She reports of short of breath with started this morning. She is not on home oxygen. Pt notes that she felt fatigue, nasal congestion which started 2 days ago. Sick contact .
denies any falls/trauma. She denies feeling lightheaded before. She denies headache, nausea, vomiting, diarrhea, abdominal pain. Recent percutaneous biopsy 02/12/2025 left upper lobe: Necrosis/inflammation. No cancer cells.
In the ED, she is positive for influenza A, negative for COVID. She is febrile temp 103.2, HR 119, Labs, leukocytosis 18,300 with mild left shift, hyponatremia with serum sodium of 127, lactic acid 2.8. UA and blood culture is pending.
Medical History
Past Medical History
Past Medical History: Reports Other (COPD, current smoker, chronic hyponatremia, adenocarcinoma of the lung in remission, Silastic and rheumatoid arthritis, hypertension, paroxysmal SVT, left prosthetic eye)
Past Surgical History: Reports Cholecystectomy and Other (Tonsillectomy)
Social History
Tobacco: Smoker
Alcohol: Occasional
Drug: None
Personal:
Living: With Family
Employment: Retired
Family History
Family History: Other (Multiple myeloma and amyloidosis- mother )
Allergies / Home Medications
Allergies reflects when Allergies were last updated in [facility].
Home Medications with original date entered in [employer]
Allergy/Medication List:
Allergies
Allergy/AdvReac Type Severity Reaction Status Date / Time
codeine (Codeine) Allergy VOMITING Verified 05/06/25 06:22
ibuprofen Allergy muscle Verified 05/06/25 06:22
spasms and
pain
latex (Latex) Allergy rash/sob Verified 05/06/25 06:22
levofloxacin (From Levaquin) Allergy severe Verified 05/06/25 06:22
muscle
spasms and
pain
morphine Allergy Shortness Verified 05/06/25 06:22
of Breath
oxycodone Allergy Vomiting Verified 05/06/25 06:22
titanium Allergy Swelling Verified 05/06/25 06:22
monocry sutures Allergy Swelling Uncoded 05/06/25 06:22
Home Medications
pravastatin 40 mg tablet 40 mg PO QPM High Cholesterol 02/17/20
coQ10 (ubiquinol) 200 mg capsule 200 mg PO HS Supplement 08/05/23
biotin 1 mg capsule 1 mg PO DAILY Supplement 02/10/25
denosumab 60 mg/mL subcutaneous syringe (Prolia) 60 mg SC [id number] 02/10/25
fluticasone fur. 200 mcg-umeclid 62.5 mcg-vilant 25 mcg inhalat.powder (Trelegy Ellipta) 1 inh inhalation R DAILY Lung/Breathing Issues 02/10/25
hydroxychloroquine 200 mg tablet 200 mg PO BID 02/10/25
nifedipine 60 mg tablet,extended release 24 hr 60 mg PO DAILY Heart Disease/Condition 02/10/25
nhtqlicdd-OUE-XW-acetaminophen 7.5 mg-60 [id number]/30mL oral liqd 15 ml PO HS 05/06/25
flecainide 100 mg tablet 100 mg PO Q12H 05/06/25
hydrocodone 5 mg-acetaminophen 325 mg tablet 1 tab PO BIDPRN PRN severe pain 05/06/25
linaclotide 145 mcg capsule (Linzess) 145 mcg PO DAILY Constipation 05/06/25
megestrol 400 mg/10 mL (40 mg/mL) oral suspension 50 mg PO DAILY 05/06/25
prednisone 1 mg tablet 5 mg PO DAILY 05/06/25
Review of Systems
-
History Source: Patient and Family
A 12 point ROS was completed and negative except as noted: Yes
Constitutional: Reports Fatigue
Physical Exam
Vital Signs
Vital Signs
Temp Pulse Resp BP Pulse Ox
99.5 F 136 28 119/58 95
05/06/25 07:40 05/06/25 09:00 05/06/25 09:00 05/06/25 09:00 05/06/25 09:00
Physical Exam
General: Conversant, Cachectic and Other (On 4 L of oxygen)
HEENT: NormoCephalic, Anicteric and Other (Dry mucous membrane)
Respiratory: Wheezes (Left lower base)
Cardiac: Regular Rhythm and Tachycardia
GI: Soft, Non Distended, Normal Bowel Sounds and Tender (Epigastric)
Musculoskeletal: No Edema
Skin: Warm and Dry
Neuro: AO x 3
Hematologic/Lymphatic: No Lymphadenopathy
Psych: Calm
Laboratory Results
-
05/06/25 06:41
05/06/25 06:40
Laboratory Results
Lactic Acid 2.8 mmol/L (0.7-2.0) H 05/06/25 07:45
Total Bilirubin 1.0 mg/dl (0.2-1.3) 05/06/25 06:40
AST 44 U/L (14-36) H 05/06/25 06:40
ALT 30 U/L (0-35) 05/06/25 06:40
Alkaline Phosphatase 88 U/L (38-126) 05/06/25 06:40
Impression/Plan
-
IMPRESSION:
Sepsis secondary to influenza A
Acute hypoxic respiratory insufficiency
Hypovolemic hyponatremia
Wheeze/shortness of breath in the setting of COPD
Severe malnutrition
History of paroxysmal SVT
History of rheumatoid arthritis/psoriatic arthritis
History of adenocarcinoma of lung in remission
History of osteoporosis
Current smoker
PLAN:
Sepsis secondary to influenza A
Febrile, leukocytosis
Ongoing symptoms for more than 48 hours
Continue Tamiflu, one dose given in ED.
Received 1300 mL of normal saline in the ED. Continue IV fluid
Lactic acid 2.8--- trend lactate
Supportive care-Tylenol, pain control
Await blood culture and UA
DuoNeb for wheeze/SOB
Isolation precaution
Droplet precaution
Acute hypoxic respiratory insufficiency
History of COPD, not on home oxygen
Currently on 3 L of oxygen, suspect due to influenza infection
Wean as able
Acute on chronic hyponatremia
Serum sodium on admission is 127, baseline is nearly 130
Hypovolemic with dry mucous membrane on physical exam
IV fluids at 100 cc/h. Repeat BMP. Check urine osmolality and urine sodium.
Monitor BMP
Wheeze/shortness of breath in the setting of COPD
DuoNeb as needed
Continue home dose Trelegy
Wean oxygen as able
Severe malnutrition
Cachectic appearing with muscle wasting
Patient admits to having decreased appetite
Suspect due to advanced COPD with constant tobacco use
Start Ensure
History of paroxysmal SVT
Heart rate is in the between 120-130
Continue home dose flecainide might and nifedipine
History of rheumatoid arthritis/ psoriatic arthritis
Continue hydroxychloroquine, hydrocodone-acetaminophen
Continue home dose prednisone
History of adenocarcinoma of lung in remission
Recent percutaneous biopsy 02/12/2025 left upper lobe- Necrosis/inflammation. No cancer cells.
History of osteoporosis
Continue Prolia
Current smoker
Declines nicotine
DNR
Regular diet
Lovenox
[2025-05-06] MEDS: DILAUDID 0.25 MG IV (10:38)
[2025-05-06 11:05] LABS: Urine Character Cloudy (Clear)
[2025-05-06 11:43] LABS: Blood Urea Nitrogen 11 mg/dl (7-17); Calcium 7.6 mg/dl (8.4-10.2); Carbon Dioxide 26 mmol/L (22-30); Chloride 98 mmol/L (98-107); Estimated Creatinine Clearance 51 ml/min; Glucose 120 mg/dl (70-99); Potassium 3.4 mmol/L (3.5-5.1); Sodium 126 mmol/L (135-145); eGFR > 60.00
[2025-05-06 12:09] LABS: Procalcitonin 8.49 ng/ml (0.0-0.25)
[2025-05-06] MEDS: KCL 40 MEQ PO (14:31)
[2025-05-06] MEDS: ROCEPHIN 1000 MG IV (14:31)
[2025-05-06] MEDS: VIBRAMYCIN 100 MG PO ×2 (14:31→20:49)
[2025-05-06 14:35] LABS: Vitamin D, 25-OH*** 65.0 ng/mL (30-80)
[2025-05-06 14:55] LABS: Magnesium 1.2 mg/dl (1.6-2.3)
[2025-05-06 15:08] LABS: Vitamin B12 965 pg/ml (239-931)
[2025-05-06 15:17] LABS: Magnesium 1.3 mg/dl (1.6-2.3)
[2025-05-06 15:45] LABS: TSH 0.81 uIU/ml (0.47-4.68)
[2025-05-06 16:04] LABS: Vitamin B12 925 pg/ml (239-931)
--- NOTE | 2025-05-06 17:37 | CON.PUL ---
Consultation
Consultation Request
Date/Time Consultation Requested: 05/06/2025
Date/Time Consultation Performed: 05/06/2025
Requesting Provider: Dr. Alcocer
Performing Provider: Dr. Michael Leal
Reason for Consultation: Cough/shortness of breath-influenza positive.
Medical History
-
History of Present Illness:
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 More recently left upper lobe lung nodule status post biopsy which showed
mainly inflammatory changes no evidence for recurrence.
Came to the hospital feeling weak, cough which she usually has chronically with phlegm production has worsened, she was debilitated and needed help to get out of the bathroom.
She feels more short of breath than usual.
She continues to smoke few cigarettes per day.
Denies any nausea vomiting or diarrhea.
Patient is on chronic low-dose steroids for psoriatic arthritis. She is on Trelegy and nebulizers as needed.
More recently I started her on megestrol as appetite stimulant.
Discovered to have flu A+ in the emergency room.
Chest x-ray with chronic abnormalities without acute infiltrate.
Past Medical History
Past Medical History: Other (See assessment and plan)
Social History
Tobacco: Smoker
Alcohol: None
Drug: None
Personal:
Living: With Family
Family History
Family History: Reviewed & Not Pertinent
Allergies / Home Medications
Allergies
Allergy/AdvReac Type Severity Reaction Status Date / Time
codeine (Codeine) Allergy VOMITING Verified 05/06/25 06:22
ibuprofen Allergy muscle Verified 05/06/25 06:22
spasms and
pain
latex (Latex) Allergy rash/sob Verified 05/06/25 06:22
levofloxacin (From Levaquin) Allergy severe Verified 05/06/25 06:22
muscle
spasms and
pain
morphine Allergy Shortness Verified 05/06/25 06:22
of Breath
oxycodone Allergy Vomiting Verified 05/06/25 06:22
titanium Allergy Swelling Verified 05/06/25 06:22
monocry sutures Allergy Swelling Uncoded 05/06/25 06:22
Home Medications
�Medication �Instructions �Recorded �Confirmed �Last Taken �Type
pravastatin 40 mg tablet 40 mg PO QPM High Cholesterol 02/17/20 05/06/25 05/05/25 History
coQ10 (ubiquinol) 200 mg capsule 200 mg PO HS Supplement 08/05/23 05/06/25 05/05/25 History
biotin 1 mg capsule 1 mg PO DAILY Supplement 02/10/25 05/06/25 05/05/25 History
denosumab 60 mg/mL subcutaneous 60 mg SC [id number] osteoporosis 02/10/25 05/06/25 Unknown History
syringe (Prolia)
fluticasone fur. 200 mcg-umeclid 1 inh inhalation R DAILY 02/10/25 05/06/25 05/05/25 History
62.5 mcg-vilant 25 mcg Lung/Breathing Issues
inhalat.powder (Trelegy Ellipta)
hydroxychloroquine 200 mg tablet 200 mg PO BID rheumatoid arthritis 02/10/25 05/06/25 05/05/25 History
nifedipine 60 mg tablet,extended 60 mg PO DAILY Heart 02/10/25 05/06/25 05/05/25 History
release 24 hr Disease/Condition
hneqohzbl-PZL-GM-acetaminophen 7.5 15 ml PO HS Cough/cold 05/06/25 05/06/25 05/05/25 History
mg-60 [id number]/30mL oral liqd
flecainide 100 mg tablet 100 mg PO Q12H Arrhythmia 05/06/25 05/06/25 05/05/25 History
hydrocodone 5 mg-acetaminophen 325 1 tab PO BIDPRN PRN severe pain 05/06/25 05/06/25 Unknown History
mg tablet
linaclotide 145 mcg capsule 145 mcg PO DAILY Constipation 12/09/2505/06/25 05/05/25 History
(Linzess)
megestrol 400 mg/10 mL (40 mg/mL) 50 mg PO DAILY appetite stimulation 05/06/25 05/06/25 05/05/25 History
oral suspension
prednisone 1 mg tablet 5 mg PO DAILY rheumatoid arthritis 05/06/25 05/06/25 05/05/25 History
Review of Systems
-
History Source: Patient
All other systems: Negative unless noted
Vitals / Labs / Diagnostic Testing
Vital Signs
Temp Pulse Resp BP Pulse Ox
98.3 F 109 33 136/73 92
05/06/25 14:00 05/06/25 17:07 05/06/25 17:07 05/06/25 15:00 05/06/25 17:07
Lab Data
05/06/25 06:41
05/06/25 11:17
Microbiology
05/06/25 06:41 Nasal Swab Influenza Types A & B (TOMI) - Final
Influenza A Positive, NAAT
Diagnostic Testing:
Physical Exam
-
HEENT: Normocephalic
Cardiovascular: S1/S2
Respiratory: Wheeze (n) and Rhonchi (bilaterally)
GI: Soft and Non Distended
Neurology: Awake and Alert
Skin: Warm
General: Other (Cachectic)
Assessment
-
Acute respiratory sufficiency: Influenza A on top of severe COPD and deconditioning.
Chest x-ray 05/06/2025: Bilateral opacities stable compared to prior-postradiation changes. Hyperinflation.
Hyponatremia
Severe COPD with hyperinflation. Not on oxygen therapy.
Conditions present prior admission:
Severe COPD-chronic bronchitic symptoms/emphysema
Follows up with Dr. Leal
Most recent FEV1 postbronchodilator 50% 09/22/2024. Total lung capacity 68% DLCO 24%.
6-minute walk testing 04/01/2024: No oxygen desaturation. On 03/25/2025 unable to perform due to weakness.
Last acute exacerbation 07/2024
Ongoing smoking few cigarettes per day
Chronic hypoxemic respiratory failure
Psoriatic arthritis on chronic immunosuppression up until recently-now on low-dose prednisone and hydroxychloroquine.
Pulmonary cachexia
Megace started 03/25/2025.
Lung cancer:
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
More recently percutaneous biopsy of left upper lobe 1.4 cm lung nodule negative for malignancy.
IBS
History of SVT/atrial tachycardia on flecainide
Mild aortic stenosis
Hypertension
DNR status
Osteoporosis
Assessment and plan:
Acute symptoms triggered by influenza and possibly bacterial bronchitis/early pneumonia on top of her advanced COPD and pulmonary cachexia.
Agree with Tamiflu
Agree with antibiotics to cover for community-acquired infection
DuoNebs [id number]
Given her coughing continue mucolytics and antitussives
Patient chronically on 5 mg of prednisone-if you become hypotensive consider stress dose of steroids.
No need for systemic corticosteroids at this point for her COPD-will try to minimize.
If needed will start pulmicort nebs.
-
Watch for SVT or tachycardia she is sensitive to beta agonist.
If she continues to have cough and phlegm production can consider Pulmicort nebulizer for now we will hold. Patient is debilitated, cachectic will try to minimize immunosuppression as much as possible
Sputum culture
Blood culture
Oxygen as needed
Acapella device
-
Pt is chornically debilitated, continues to loose weight, which is part of her limiting factor.
Continue Megace
Nutritional support
Aspiration precautions
-
In regards to history of bilateral synchronous lung primary cancer status post radiation. She has been on remission.
Recently underwent CT chest that demonstrated left upper lobe cavitary nodule-status post percutaneous biopsy in April negative for malignancy.
The plan is to repeat CAT scan in the next 3 to 4 months. This is already scheduled by Dr. Leal.
It is encouraging that CT neck showed stability of left upper lobe abnormality.
-
Smoking cessation strongly encouraged
May need a nicotine patch
High risk situation
Patient is DNR
Will continue to follow with you.
[2025-05-06] MEDS: NORCO 5/325 1 TABLET PO ×2 (17:43→23:52)
[2025-05-06] MEDS: MAGNESIUM SULFATE 50 IV (17:43)
[2025-05-06] MEDS: PRAVACHOL 40 MG PO (17:44)
[2025-05-06] MEDS: TAMBOCOR 100 MG PO (17:44)
[2025-05-06] MEDS: LOVENOX 30 MG SC (17:46)
[2025-05-06] MEDS: DUONEB INH (18:24)
[2025-05-06] MEDS: SYMBICORT 160/4.5 MCG INHALER 2 PUFF INH (19:40)
[2025-05-06] MEDS: SODIUM CHLORIDE 3% 250 IV (20:37)
[2025-05-06] MEDS: TAMIFLU 30 MG PO (20:44)
[2025-05-06] MEDS: PLAQUENIL 200 MG PO (20:45)
[2025-05-06] MEDS: PEPCID 20 MG PO (20:49)
[2025-05-06] MEDS: MUCINEX 600 MG PO (20:49)
[2025-05-07] VITALS (9 sets, daily range): BP systolic 91–179; BP diastolic 53–102
[2025-05-07 00:45] LABS: Blood Urea Nitrogen 10 mg/dl (7-17); Calcium 7.8 mg/dl (8.4-10.2); Carbon Dioxide 29 mmol/L (22-30); Chloride 97 mmol/L (98-107); Estimated Creatinine Clearance 49 ml/min; Glucose 85 mg/dl (70-99); Potassium 4.3 mmol/L (3.5-5.1); Sodium 128 mmol/L (135-145); eGFR > 60.00
[2025-05-07] MEDS: TAMBOCOR 100 MG PO ×2 (03:03→13:48)
[2025-05-07] MEDS: NORCO 5/325 1 TABLET PO ×3 (03:07→21:24)
[2025-05-07] MEDS: ZOFRAN 4 MG IV (06:26)
[2025-05-07] MEDS: SPIRIVA RESPIMAT 2.5 MCG 2 PUFF INH (07:20)
[2025-05-07] MEDS: SYMBICORT 160/4.5 MCG INHALER 2 PUFF INH (07:20)
[2025-05-07] MEDS: DUONEB 3 ML INH ×4 (07:20→22:32)
[2025-05-07 08:00] LABS: Blood Urea Nitrogen 12 mg/dl (7-17); Calcium 7.7 mg/dl (8.4-10.2); Carbon Dioxide 30 mmol/L (22-30); Chloride 98 mmol/L (98-107); Estimated Creatinine Clearance 49 ml/min; Glucose 82 mg/dl (70-99); Potassium 4.3 mmol/L (3.5-5.1); Sodium 130 mmol/L (135-145); eGFR > 60.00
[2025-05-07 08:12] LABS: Hematocrit 34.6 % (37.0-47.0); Hemoglobin 12.3 g/dL (12.0-16.0); Mean Corp Hgb Conc. 35.5 g/dL (33.0-37.0); Mean Corpuscular Volume 91.5 fL (81.0-99.0); Nucleated Red Blood Cells % 0 %; Platelet Count 263 10^3/uL (130-400); Red Cell Dist. Width 13.8 % (11.5-14.5)
--- NOTE | 2025-05-07 08:13 | W.PN.HOSP.TC ---
Today's Communication/Plan
-
Continue supportive care
Sputum cx pending
hold nebulizers
transition to trelegy
continue tamiflu, ab's
nutritional support
Assessment / Plan
Assessment / Plan
80 y/o F with pmh of COPD active smoker , chronic hyponatremia, adenocarcinoma of the lung in remission, Silastic and rheumatoid arthritis, hypertension, paroxysmal SVT presented to ED on 05/06/2025 with dizziness. She woke up to go to the bathroom
and felt really weak that she had to sit down on the floor and lay on the floor. got her up and she still felt weak and lightheaded and was also feeling short of breath. She smoked a cigarette while laying on the couch. She does not use
any oxygen at home. had nasal congestion and sickness for the past few days
Imaging
CT Head W/o Iv Contrast 05/06/2025
-No acute intracranial abnormalities appreciated.
-Mild atrophy and mild chronic small vessel change
CT Cervical Spine W/o Iv Contrast 05/06/2025
-No osseous injury appreciated.
-Moderate degenerative change, most pronounced at C6-7, without significant change compared to prior MRI.
- Cavitary lesion within the left upper lobe measures 1.4 cm in diameter, unchanged compared to prior PET/CT dated 12/15/2024.
Chest Xray 05/06/2025
1. No acute pulmonary abnormalities appreciated.
2. Linear and nodular opacities bilaterally, unchanged compared to prior chest x-ray. Please see report from CT chest dated 04/20/2025.
Plan
Acute symptoms triggered by influenza and possibly bacterial bronchitis/early pneumonia on top of her advanced COPD and pulmonary cachexia
Sepsis present on admission
-Patient got sepsis bolus IV fluids in the ER hold off on further fluids for now
-Influenza A positive
-Procalcitonin - 8.49
-Cannot rule out bacterial pneumonia-procalcitonin elevated
-Continue Tamiflu #D2
-Continue cefepime, doxycycline #D2 for possible CAP
-Blood cx- pending
-Sputum cx- pending
-Lactic acidosis resolved
-Consult pulmonology, input appreciated
-continue guafenesin and benzonatate for coughing
-transition to trelegy her home med
-Active smoker - difficulty with quiting- refuses nicotine patch
-Smoking cessation counseling
-provided acapella device
Nausea
-Tigan ordered
-on Protonix
Hyponatremia
-Serum osmolality low, Urine osmolality 656, possibly indicates SIADH
-Na 128
-Fluid restriction
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
-Patient had right upper lobe squamous cell carcinoma 2019
-there is a cavitary lesion in the left upper lobe 1.4 cm-there was mild FDG uptake within that lesion on the PET scan from December 2024
-Patient had a lung biopsy 02/12/2025-mostly necrotic acellular tissue no malignancy reported
Mild aortic stenosis
History of SVT/atrial tachycardia
-on flecainide
Hypertension
-Hold off on Nifedipine for now
Hyperlipidemia
-continue pravastatin
Low BMI 16
Pumonary cachexia
-continue megestrol for appetite
-nutritional support
IBS with constipation
-continue Linzess
Rheumatoid arthritis/psoriatic arthritis
-continue Plaquenil and prednisone 5mg
Diverticulosis
History of Left eye injury in the past with plastic eye
History of sigmoidectomy with colostomy and reversal for ruptured diverticulitis/history of small bowel obstruction
Neuropathy/sciatica-chronic pain opiate dependent-continue hydrocodone/acetaminophen
Osteoporosis on Prolia
DVT prophylaxis-Lovenox
DNR
Anticipated Discharge: > 48 hours
Subjective/Interval History
-
Date of Service: May 07, 2025
She has nausea sitting with the tray in front of her. She vomited twice. She did not have bm yet. She says it is chronic because of her adhesions in the bowels. She has chronic abdominal pain. She is coughing phlegm yellow/whitish color. She is on
3L oxygen. She feels shaky when she takes inhalers and reposts not wanting to take it. She denies chest pain, palpitations.
Objective Data
-
Labs:
Laboratory Results
05/06/25 05/07/25 05/07/25
21:00 00:02 06:00
WBC
Hgb
Hct
Plt Count
Sodium Cancelled 128 L Cancelled
Potassium Cancelled 4.3 D Cancelled
Chloride Cancelled 97 L Cancelled
Carbon Dioxide Cancelled 29 Cancelled
BUN Cancelled 10 Cancelled
Creatinine Cancelled 0.4 L Cancelled
Glucose Cancelled 85 Cancelled
Calcium Cancelled 7.8 L Cancelled
05/07/25 05/07/25
07:01 11:59
WBC 18.7 H
Hgb 12.3
Hct 34.6 L
Plt Count 263
Sodium 130 L Pending
Potassium 4.3 Pending
Chloride 98 Pending
Carbon Dioxide 30 Pending
BUN 12 Pending
Creatinine 0.4 L Pending
Glucose 82 Pending
Calcium 7.7 L Pending
Vital Signs:
Vital Signs
Temp Pulse Resp BP Pulse Ox
97.6 F 102 20 148/88 98
05/07/25 03:23 05/07/25 07:22 05/07/25 07:22 05/07/25 03:23 05/07/25 07:22
I&O
05/06/25 05/07/25 05/08/25
06:59 06:59 06:59
Intake Total 590 / 590
Balance 590 / 590
Review of Systems
-
History Source: Patient
Constitutional: Reports No Symptoms
EENT: Reports No Symptoms Reported
Respiratory: Reports Cough
Cardiac: Reports No Symptoms
Abdomen/GI: Reports Nausea, Vomiting and Constipated
Breast: Reports No Symptoms
Genitourinary: Reports No Symptoms
Musculoskeletal: Reports No Symptoms
Skin: Reports No Symptoms
Neuro: Reports No Symptoms
Endocrine: Reports No Symptoms
Allergy / Immunology: Reports No Symptoms
Physical Exam
-
General: Appears in Distress, Conversant, Appears Chronically Ill and Cachectic
HEENT: Normocephalic, Atraumatic and Oxygen (3L)
Respiratory: Wheezes and Rales
Cardiac: Regular Rhythm and S1/S2
Breast: Deferred by me
GI: Soft, Nontender and Nondistended
Rectal: Deferred by Provider
Genito-urinary: Deferred by me
Musculoskeletal: No Edema
Skin: Warm and Dry
Neuro: AO x 3
Psych: Calm
[2025-05-07] MEDS: MEGACE ORAL SUSPENSION 200 MG PO (08:32)
[2025-05-07] MEDS: DELTASONE 5 MG PO (08:32)
[2025-05-07] MEDS: PEPCID 20 MG PO (08:34)
[2025-05-07] MEDS: MUCINEX 600 MG PO ×2 (08:34→21:21)
[2025-05-07] MEDS: VIBRAMYCIN 100 MG PO ×2 (08:35→21:21)
[2025-05-07] MEDS: PLAQUENIL 200 MG PO ×2 (08:35→21:21)
[2025-05-07] MEDS: TAMIFLU 30 MG PO ×2 (08:35→21:21)
[2025-05-07] MEDS: MAXIPIME 1000 MG IV ×3 (09:34→23:00)
[2025-05-07] MEDS: STERILE WATER FOR INJECTION 10 ML IV ×3 (09:35→23:00)
[2025-05-07 10:10] LABS: Magnesium 1.9 mg/dl (1.6-2.3)
[2025-05-07 11:57] LABS: Blood Urea Nitrogen 13 mg/dl (7-17); Calcium 7.6 mg/dl (8.4-10.2); Carbon Dioxide 31 mmol/L (22-30); Chloride 97 mmol/L (98-107); Estimated Creatinine Clearance 49 ml/min; Glucose 93 mg/dl (70-99); Potassium 4.1 mmol/L (3.5-5.1); Sodium 128 mmol/L (135-145); eGFR > 60.00
[2025-05-07] MEDS: NSS (PRESERVATIVE FREE) 10 ML IV (12:56)
[2025-05-07] MEDS: PROTONIX IV 40 MG IV (12:56)
[2025-05-07] MEDS: TIGAN 200 MG IM ×2 (12:56→21:10)
--- NOTE | 2025-05-07 13:17 | W.PN.PUL3 ---
Today's Communication / Plan
-
Continue Tamiflu
Cont. antibiotics for community-acquired infection
Sputum culture pending
Hold nebulizers patient developed vomiting
Transition to Trelegy patient will bring her on medication. Okay to take.
Trying to minimize systemic corticosteroids due to debilitation/weight loss high risk of complications
Continue secretion clearance interventions
Nutritional support
Continue Megace
Prognosis is guarded
Assessment
-
80-year-old woman known to Dr. 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 Pulmonary cachexia with ongoing weight loss on Megace. Admitted with fatigue, shortness of breath
and increased coughing for few days, found to have flu positive. 05/06/2025
Acute respiratory sufficiency: Influenza A on top of severe COPD and deconditioning.
Chest x-ray 05/06/2025: Bilateral opacities stable compared to prior-postradiation changes. Hyperinflation.
Hyponatremia
Severe COPD with hyperinflation. Not on oxygen therapy.
Conditions present prior admission:
Severe COPD-chronic bronchitic symptoms/emphysema
Follows up with Dr. Leal
Most recent FEV1 postbronchodilator 50% 09/22/2024. Total lung capacity 68% DLCO 24%.
6-minute walk testing 04/01/2024: No oxygen desaturation. On 03/25/2025 unable to perform due to weakness.
Last acute exacerbation 07/2024
Ongoing smoking few cigarettes per day
Chronic hypoxemic respiratory failure
Psoriatic arthritis on chronic immunosuppression up until recently-now on low-dose prednisone and hydroxychloroquine.
Pulmonary cachexia
Megace started 03/25/2025.
Lung cancer:
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
More recently percutaneous biopsy of left upper lobe 1.4 cm lung nodule negative for malignancy.
IBS
History of SVT/atrial tachycardia on flecainide
Mild aortic stenosis
Hypertension
DNR status
Osteoporosis
Assessment and plan:
Continues to feel debilitated.
Remains on supplemental oxygen via nasal cannula, 6 L 100% FiO2. Usually not on oxygen supplementation.
-
Acute symptoms triggered by influenza and possibly bacterial bronchitis/early pneumonia on top of her advanced COPD and pulmonary cachexia.
Agree continue with Tamiflu
Continue with antibiotics to cover for community-acquired infection
-
Developed vomiting with nebulizers would like to stop.
Currently not bronchospastic-does have some rhonchi bilaterally.
Hold nebulizer therapy
Can transition back to her Trelegy-she states that her son will bring the medication. Otherwise we can start ICS/LABA and anticholinergic here. Trelegy is not available.
-
Given her coughing continue mucolytics and antitussives
Patient chronically on 5 mg of prednisone-if you become hypotensive consider stress dose of steroids.
No need for systemic corticosteroids at this point for her COPD-will try to minimize.
In her case return to minimize systemic corticosteroids.
Usually on Trelegy in the outpatient setting
-
Watch for SVT or tachycardia she is sensitive to beta agonist.
Patient is debilitated, cachectic will try to minimize immunosuppression as much as possible
Sputum culture-pending
Blood culture-negative so far
-
Acapella device
-
Pt is chornically debilitated, continues to loose weight, which is part of her limiting factor.
Continue Megace
Nutritional support
Aspiration precautions
-
In regards to history of bilateral synchronous lung primary cancer status post radiation. She has been on remission.
Recently underwent CT chest that demonstrated left upper lobe cavitary nodule-status post percutaneous biopsy in April negative for malignancy.
The plan is to repeat CAT scan in the next 3 to 4 months. This is already scheduled by Dr. Leal.
It is encouraging that CT neck showed stability of left upper lobe abnormality.
-
Smoking cessation strongly encouraged-continues to smoke few cigarettes per day.
May need a nicotine patch
High risk situation
Patient is DNR
Will continue to follow with you.
Subjective Data
-
Date of Service:
Date of Service: May 07, 2025
Chief Complaint: Pulmonary Follow Up (Acute exacerbation of COPD/influenza A)
Subjective:
Continues to feel fatigued and debilitated
Continues to have chronic coughing with intermittent phlegm production
Denies hemoptysis
No fevers
Patient reports developing significant nausea and vomiting with nebulizer. Would like to stop.
Review of Systems
Cardiopulmonary: Dyspnea (Chronic) and Dyspnea on Exertion ( chronic)
Objective Data
Data Reviewed
Vital Signs / I&O / Oxygen:
Vital Signs
Temp Pulse Resp BP Pulse Ox
97.9 F 85 18 142/67 100
05/07/25 11:19 05/07/25 11:19 05/07/25 11:19 05/07/25 11:19 05/07/25 11:19
Intake and Output
05/06/25 05/07/25 05/08/25
06:59 06:59 06:59
Intake Total 590 / 590
Balance 590 / 590
SaO2 100
Nasal Cannula flow liters per 6
minute
Physical Exam
General: Comfortable and Other (Cachectic)
HEENT: Normocephalic
Cardiovascular: S1-S2
Respiratory: Rhonchi
GI: Soft and Non Distended
Neurology: Awake and Alert
Skin: Warm
Labs/Micro/Reports
Lab Data
05/07/25 07:01
05/07/25 11:32
Microbiology
05/06/25 09:54 Urine Urine Culture - Preliminary
Sparse growth, too young to be identified. Further results
to follow.
05/07/25 03:16 Sputum Gram Stain - Preliminary
05/06/25 07:52 Blood/Venous Blood Culture - Preliminary
No Growth in 24 hours- Final report to follow
05/06/25 07:45 Blood/Venous Blood Culture - Preliminary
No Growth in 24 hours- Final report to follow
05/06/25 06:41 Nasal Swab Influenza Types A & B (TOMI) - Final
Influenza A Positive, NAAT
[2025-05-07] MEDS: TESSALON PERLES 100 MG PO (14:19)
--- NOTE | 2025-05-07 14:40 | CM ---
CM met with patient at bedside. IA completed. Patient admitted with dx of sepsis due to influenza A, acute respiratory insufficiency. Patient lives with her in a 1st floor condo with 1 [address]. She is independent with ambulation and ADLs. She is
currently on O2 but was not using O2 at home prior to hospitalization. She has no DME and denies any hx of VN or SNF stays. She confirmed her PCP is Dr. Ana Bhatt and uses [facility] in [place]. She plans to return home upon d/c. Her
family will provide transportation home.
Plan:Home with , no needs.
--- NOTE | 2025-05-07 14:54 | W.PN.UPDATE ---
Update Note
Progress Note Update
Seen and examined the patient with the resident. Agree with the plan formulated. See changes in my documentation.
80-year-old female presented to the hospital with dizziness. She woke up to go to the bathroom and felt really weak that she had to sit down on the floor and lay on the floor. got her up and she still felt weak and lightheaded and was also
feeling short of breath. She smoked a cigarette while laying on the couch. She does not use any oxygen at home. had nasal congestion and sickness for the past few days
On examination awake and alert
Cardiovascular system S1-S2 appreciated
Chest few rales bilaterally short wheezes decreased air entry
Abdomen soft and nontender
No pedal edema
Reviewed by [id number] tachycardia left axis deviation LVH
Chest x-ray reviewed by me-bilateral opacities, more on the right side
CT of the cervical spine-no acute changes. Moderate degenerative changes most pronounced C6-C7. Cavitary lesion in the left upper lobe 1.4 cm unchanged from the PET scan dated 12/15/2024
# Sepsis present on admission
Patient got sepsis bolus IV fluids in the ER hold off on further fluids for now
Likely source influenza
Likely has bacterial pneumonia-procalcitonin elevated
Continue Tamiflu
Added doxycycline and cefepime
Blood cultures have been ordered
Lactic acidosis resolving
Mucinex, nebulizer treatments
# Nausea- Tigan ordered. Pepcid ordered.
# Hyponatremia
Serum osmolality pending
Urine osmolality possibly indicates SIADH
Especially the fact that sodium dropped after IV fluids
S/P 3% saline
Sodium better
Fluid restriction
# Bilateral Lung Ca
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
Patient had right upper lobe squamous cell carcinoma 2019
there is a cavitary lesion in the left upper lobe 1.4 cm-there was mild FDG uptake within that lesion on the PET scan from December 2024
Patient had a lung biopsy 02/12/2025-mostly necrotic acellular tissue no malignancy reported.
# Hypertension-Hold off on Nifedipine for now
# Mild aortic stenosis
# COPD-continue Trelegy or equivalent and Duo Nebs
# History of SVT/atrial tachycardia-on flecainide
# Rheumatoid arthritis/psoriatic arthritis-continue Plaquenil and Prednisone
# Hyperlipidemia-continue pravastatin
# Low BMI 16-continue megestrol for appetite
# IBS with constipation-continue Linzess
# Diverticulosis
# History of Left eye injury in the past with plastic eye
# History of sigmoidectomy with colostomy and reversal for ruptured diverticulitis/history of small bowel obstruction
# Neuropathy/sciatica-chronic pain opiate dependent-continue hydrocodone/acetaminophen
# Osteoporosis on Prolia
# Active smoker-cessation counseling. Patient states it is difficult to quit. She is declining nicotine patch
# DVT prophylaxis-Lovenox
# DNR
D/W RN
Part of this note was created using voice recognition system. Occasional wrong word or��sound alike� substitutions may have inadvertently occurred due to the inherent limitations of voice recognition software. If noted kindly bring it to my
attention for correction.
[2025-05-07] MEDS: SENOKOT 17.2 MG PO ×2 (15:10→21:21)
[2025-05-07] MEDS: LOVENOX 30 MG SC (17:08)
[2025-05-07] MEDS: PRAVACHOL 40 MG PO (17:09)
[2025-05-07] MEDS: NON-FORMULARY ITEM INH (17:47)
[2025-05-07] MEDS: APRESOLINE 5 MG IV (21:09)
[2025-05-07] MEDS: COLACE 100 MG PO (21:21)
[2025-05-07 22:24] LABS: Glucose - Point of Care 123 mg/dl (70-99)
[2025-05-07 22:28] LABS: B.E. 2.8 mmol/L; HCO3 31.7 mmol/L (21-28); O2 Saturation % 98.5 % (94-98); PCO2 69 mmHg (32-35); PO2 86 mmHg (83-108)
--- NOTE | 2025-05-07 22:30 | RR ---
A Rapid Response was called on this patient, please see Rapid Response form.
[2025-05-07] MEDS: LOPRESSOR 5 MG IV (22:33)
--- NOTE | 2025-05-07 22:34 | W.PN.UPDATE ---
Update Note
Progress Note Update
0815~upon rounding on the floor. RT and RN were in the pts room. Pt walked to the bathroom on 3L and was not recovering on 6L NC. sats 87-90% at best. RT gave douneb. RR called. BP 170s/100s. HR 150s-160s. Tachypneic and dry heaving. Upgraded to IMU
for closer monitoring- possible need for HFNC.
ABG, CXR, 5mg lopressor ordered.
aware- plan discussed over the phone.
--- NOTE | 2025-05-07 22:35 | PTCARENOTE ---
Pt reported continued nausea s/p IM Tigan. This RN assisted pt to the bathroom and back into bed while pt was on 5L NC. Pt reported difficulty catching her breath after getting back into bed. Pt's pulse ox on 5L was 87%. This RN increased O2 to
6L and pt was sating at 90%. Pt requested prn duoneb treatment; RT notified and came to floor. Two neb treatments provided to pt but pt reports continued nausea and difficulty catching her breath. HR on telemetry reading sinus tach in the 150s.
MEAT STRINGER rounding on floor and notified of pt's condition; MEAT STRINGER ordered portable CXR, ABGs, CBC, CMP, lactic, PTT, PT, troponin stat as well as EKG. Rapid response called by this RN. Pt's BP at time of rapid response was 179/102, HR 158. Pt still
nauseous and coughing up pak sputum. Pt's O2 increased from 90% to 94-95% on 6L NC. MEAT STRINGER ordered stat IV Lopressor 5mg. BP rechecked before IV Lopressor admin and had decreased from 179/102 to 155/98; IV Lopressor provided to pt and pt's HR
decreased to 60s-70s sinus rhythm. Order placed for pt to be transferred to IMU room 3346 to be placed on high-flow NC. This RN called report to MARKELL Shine and pt was transferred with an RN and RT to room 334 with her belongings.
[2025-05-07 22:36] LABS: Hematocrit 37.0 % (37.0-47.0); Hemoglobin 12.5 g/dL (12.0-16.0); Mean Corp Hgb Conc. 33.8 g/dL (33.0-37.0); Mean Corpuscular Volume 92.7 fL (81.0-99.0); Nucleated Red Blood Cells % 0 %; Platelet Count 259 10^3/uL (130-400); Red Cell Dist. Width 13.8 % (11.5-14.5)
[2025-05-07 22:46] LABS: INR 1.07; PT 14.0 Sec (11.4-14.6)
[2025-05-07 22:47] LABS: APTT 36.6 Sec (23.4-35.0)
[2025-05-07 22:49] LABS: ALT (SGPT) 26 U/L (0-35); AST (SGOT) 66 U/L (14-36); Albumin 3.6 g/dl (3.5-5.0); Alkaline Phosphatase 83 U/L (38-126); Blood Urea Nitrogen 14 mg/dl (7-17); Calcium 8.6 mg/dl (8.4-10.2); Carbon Dioxide 30 mmol/L (22-30); Chloride 97 mmol/L (98-107); Estimated Creatinine Clearance 49 ml/min; Glucose 119 mg/dl (70-99); Potassium 4.5 mmol/L (3.5-5.1); Sodium 128 mmol/L (135-145); Total Protein 6.8 g/dl (6.3-8.2); eGFR > 60.00
[2025-05-07 23:01] LABS: Troponin I 0.043 ng/ml
--- NOTE | 2025-05-07 23:20 | PTCARENOTE ---
received patient as rapid response from [facility]. Patient switched from 6L NC to HFNC upon arrival, sating at 95%. Patient aaox3. patient nauseous but states it feels better then before. chest xray done. assessment and vital signs charted. call camacho
in reach.
[2025-05-08] VITALS (12 sets, daily range): BP systolic 119–156; BP diastolic 64–87; BMI 15.9
[2025-05-08] MEDS: COMPAZINE 5 MG IV ×3 (00:29→22:54)
[2025-05-08] MEDS: NORCO 5/325 1 TABLET PO ×3 (00:34→22:16)
[2025-05-08] MEDS: STERILE WATER FOR INJECTION 10 ML IV ×4 (03:44→21:08)
[2025-05-08] MEDS: MAXIPIME 1000 MG IV ×4 (03:44→21:08)
[2025-05-08] MEDS: TAMBOCOR 100 MG PO ×3 (03:44→22:52)
[2025-05-08 03:57] LABS: Venous Blood Gas B.E. 4.7 mmol/L (-4 to +4); Venous Blood Gas O2 Sat % 99.7 %
[2025-05-08 04:03] LABS: Hematocrit 32.5 % (37.0-47.0); Hemoglobin 11.3 g/dL (12.0-16.0); Mean Corp Hgb Conc. 34.8 g/dL (33.0-37.0); Mean Corpuscular Volume 92.1 fL (81.0-99.0); Platelet Count 222 10^3/uL (130-400); Red Cell Dist. Width 13.8 % (11.5-14.5)
[2025-05-08 04:15] LABS: Blood Urea Nitrogen 16 mg/dl (7-17); Calcium 8.1 mg/dl (8.4-10.2); Carbon Dioxide 32 mmol/L (22-30); Chloride 97 mmol/L (98-107); Estimated Creatinine Clearance 49 ml/min; Glucose 87 mg/dl (70-99); Potassium 4.0 mmol/L (3.5-5.1); Sodium 129 mmol/L (135-145); eGFR > 60.00
[2025-05-08 04:37] LABS: Troponin I 0.251 ng/ml
--- NOTE | 2025-05-08 06:43 | W.PN.UPDATE ---
Update Note
Progress Note Update
�Rapid response earlier for resp distress and SVT (has hx takes Flecanide) Trop is climbing likely demand ischemia from elevated HR earlier. No CP. +FLU. Compazine for nausea.� Added high flow. VBG pH 7.4.
[2025-05-08] MEDS: NON-FORMULARY ITEM 1 INH INH (07:44)
--- NOTE | 2025-05-08 07:58 | W.PN.HOSP.TC ---
Addendum entered and electronically signed by Charles Alcocer MD 05/08/25 13:41:
Seen and examined the patient. Agree with the plan formulated by the resident. See changes in my documentation.
Patient became more short of breath overnight and needed to be transferred to stepdown for higher oxygen requirements and high flow oxygen.
Patient was extremely short of breath when I saw her today
On examination cardiovascular system S1-S2 appreciated
Chest decreased breath sounds few scattered rales
Abdomen soft and nontender
No pedal edema
Patient does not want to take Mucinex, even though IV steroids were ordered she does not want to take at the maximum dose of steroids she wanted to take his 10 mg of prednisone and not about that
She was also refusing bowel regimen initially but I convinced her that she needs it to prevent narcotic induced constipation. She is also requesting for higher dose of narcotics because of her chronic back pain acting up being in bed.
Sputum cultures growing gram-negative rods-ID pending
Continue antibiotics, no dose of steroids
Nebulizer treatments
Patient has trilogy from home continue that
Wean oxygen as tolerated
Slightly elevated troponin-on ischemic myocardial injury secondary to respiratory distress. Follow until troponin peaks
Initial EKG looks like slightly prolonged QTc but not on the repeat. Continue dofetilide
Discussed with nursing at bedside
Discussed with pulmonary
Time spent over 50 minutes
prognosis is guarded
Original Note:
Today's Communication/Plan
-
Monitor BP and HR
Automatic Beading Lathe Operator consult
check EKG for QTc
Assessment / Plan
Assessment / Plan
80 y/o F with pmh of COPD active smoker , chronic hyponatremia, adenocarcinoma of the lung in remission, Silastic and rheumatoid arthritis, hypertension, paroxysmal SVT presented to ED on 05/06/2025 with dizziness. She woke up to go to the bathroom
and felt really weak that she had to sit down on the floor and lay on the floor. got her up and she still felt weak and lightheaded and was also feeling short of breath. She smoked a cigarette while laying on the couch. She does not use
any oxygen at home. had nasal congestion and sickness for the past few days
Imaging
CT Head W/o Iv Contrast 05/06/2025
-No acute intracranial abnormalities appreciated.
-Mild atrophy and mild chronic small vessel change
CT Cervical Spine W/o Iv Contrast 05/06/2025
-No osseous injury appreciated.
-Moderate degenerative change, most pronounced at C6-7, without significant change compared to prior MRI.
- Cavitary lesion within the left upper lobe measures 1.4 cm in diameter, unchanged compared to prior PET/CT dated 12/15/2024.
Chest Xray 05/06/2025
1. No acute pulmonary abnormalities appreciated.
2. Linear and nodular opacities bilaterally, unchanged compared to prior chest x-ray. Please see report from CT chest dated 04/20/2025.
Chest Xray 05/07/2025
The lungs are symmetrically hyperinflated. Stable bandlike opacity in the left upper lobe and nodular opacity in the right upper lobe compared to previous examinations. Similar appearance of mild bibasilar reticulonodular opacities. No pleural
effusion or pneumothorax. Stable cardiomediastinal silhouette. Chronic degenerative changes of the spine.
Plan
Acute symptoms triggered by influenza and possibly bacterial bronchitis/early pneumonia on top of her advanced COPD and pulmonary cachexia
Sepsis present on admission
-Patient got sepsis bolus IV fluids in the ER hold off on further fluids for now. Leukocytosis improving
-Influenza A positive
-Procalcitonin - 8.49
-Cannot rule out bacterial pneumonia-procalcitonin elevated
-Continue Tamiflu #D2
-Continue cefepime#D2, doxycycline #D3 for possible CAP
-Blood cx- NG in 48h
-Sputum cx-usual respiratory sisi
-Lactic acidosis resolved
-Consult pulmonology, input appreciated
-Refuses Mucinex stating it causes coughing
-transition to Trelegy her home med
-Active smoker - difficulty with quiting- refuses nicotine patch use
-Smoking cessation counseling
-provided acapella device
Acute hypoxic respiratory failure
-She is on 4L HFNC
-ABG- resoiratory acidosis with compensatory met. alkalosis
-Troponin 0.25 likely from demand ischemia Type 2 MT
-Continue O2 support
Nausea
-Tigan ordered
-on Protonix
-improved
Mild aortic stenosis
History of SVT/atrial tachycardia
-on flecainide
-check qtc on ECG
Hyponatremia
-Serum osmolality low, Urine osmolality 656, possibly indicates SIADH
-Na 129
-Fluid restriction
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
-Patient had right upper lobe squamous cell carcinoma 2019
-there is a cavitary lesion in the left upper lobe 1.4 cm-there was mild FDG uptake within that lesion on the PET scan from December 2024
-Patient had a lung biopsy 02/12/2025-mostly necrotic acellular tissue no malignancy reported
Low BMI 16
Pumonary cachexia
-continue megestrol for appetite
-finance controller consulted
Rheumatoid arthritis/psoriatic arthritis
-continue Plaquenil and prednisone 10mg
Hypertension
-Her BP 170/100-received Lopressor-BP 138/64
-Hold off on Nifedipine for now
Hyperlipidemia
-continue pravastatin
IBS with constipation
-continue Linzess - is going to bring it today
Diverticulosis
History of Left eye injury in the past with plastic eye
History of sigmoidectomy with colostomy and reversal for ruptured diverticulitis/history of small bowel obstruction
Neuropathy/sciatica-chronic pain opiate dependent-continue hydrocodone/acetaminophen
Osteoporosis on Prolia
DVT prophylaxis-Lovenox
DNR
Anticipated Discharge: > 48 hours
Subjective/Interval History
-
Date of Service: May 08, 2025
Overnight she walked to the bathroom on 3L O2 and when she came back from bathroom she had shortness of breath. Per note, her oxygen was increased to 6L NC and sats 87 to 90%, BP 170/100, HR 150-160. She moved to IMU. Currently she denies nausea
or vomiting, denies chest pain. She believes her shortness of breath and coughing was from taking Mucinex. She is constipated her is going to bring Linzess today.
Objective Data
-
Labs:
Laboratory Results
05/07/25 05/07/25 05/08/25
22:23 22:30 03:00
WBC 19.8 H
Hgb 12.5
Hct 37.0
Plt Count 259
PT 14.0
INR 1.07
APTT 36.6 H
HCO3 31.7 H Cancelled
Sodium 128 L
Potassium 4.5
Chloride 97 L
Carbon Dioxide 30
BUN 14
Creatinine 0.4 L
Glucose 119 H
Calcium 8.6
Total Bilirubin 0.5
AST 66 H
ALT 26
Alkaline Phosphatase 83
05/08/25
03:47
WBC 14.5 H
Hgb 11.3 L
Hct 32.5 L
Plt Count 222
PT
INR
APTT
HCO3
Sodium 129 L
Potassium 4.0
Chloride 97 L
Carbon Dioxide 32 H
BUN 16
Creatinine 0.5 L
Glucose 87
Calcium 8.1 L
Total Bilirubin
AST
ALT
Alkaline Phosphatase
Vital Signs:
Vital Signs
Temp Pulse Resp BP Pulse Ox
98.2 F 77 29 138/64 98
05/08/25 03:00 05/08/25 06:00 05/08/25 06:00 05/08/25 06:00 05/08/25 06:00
I&O
05/07/25 05/08/25 05/09/25
06:59 06:59 06:59
Intake Total 590 / 590 900 / 900
Output Total
Balance 590 / 590 875 / 875
Review of Systems
-
History Source: Patient
Constitutional: Reports No Symptoms
EENT: Reports No Symptoms Reported
Respiratory: Reports Cough
Cardiac: Reports No Symptoms
Abdomen/GI: Reports No Symptoms
Breast: Reports No Symptoms
Genitourinary: Reports No Symptoms
Musculoskeletal: Reports No Symptoms
Skin: Reports No Symptoms
Neuro: Reports No Symptoms
Endocrine: Reports No Symptoms
Allergy / Immunology: Reports No Symptoms
Physical Exam
-
General: Appears in Distress, Appears Chronically Ill and Cachectic
HEENT: Normocephalic, Atraumatic and Oxygen (40L HFNC)
Respiratory: Wheezes and Rales
Cardiac: Regular Rhythm and S1/S2
Breast: Deferred by me
GI: Soft, Nontender and Nondistended
Rectal: Deferred by Provider
Genito-urinary: Deferred by me
Musculoskeletal: No Edema
Skin: Warm and Dry
Neuro: AO x 3 and Nonfocal/Grossly Intact
Psych: Calm
[2025-05-08] MEDS: TAMIFLU 30 MG PO ×2 (08:37→21:06)
[2025-05-08] MEDS: SENOKOT 17.2 MG PO (08:38)
[2025-05-08] MEDS: DELTASONE 5 MG PO ×2 (08:38→10:22)
[2025-05-08] MEDS: NSS (PRESERVATIVE FREE) 10 ML IV (08:38)
[2025-05-08] MEDS: COLACE 100 MG PO ×2 (08:38→21:06)
[2025-05-08] MEDS: PLAQUENIL 200 MG PO (08:38)
[2025-05-08] MEDS: VIBRAMYCIN 100 MG PO ×2 (08:38→21:07)
[2025-05-08] MEDS: MEGACE ORAL SUSPENSION PO ×2 (08:39→09:13)
[2025-05-08] MEDS: PROTONIX IV 40 MG IV (08:39)
[2025-05-08] MEDS: MUCINEX PO ×2 (08:45→21:06)
[2025-05-08] MEDS: PEPCID PO (08:46)
--- NOTE | 2025-05-08 09:48 | W.PN.PUL3 ---
Addendum entered and electronically signed by Sabrina Harley DO 05/08/25 13:40:
PCT from 05/06 noted, but sputum culture final negative
PCT could be high for other reasons
Can likely stop abx if coverage is for URI
Original Note:
Today's Communication / Plan
-
Transferred to IMU for HFNC, but can transition back to NC
On tamiflu, check PCT to stop abx
Transitioned to PO prednisone
If not improving, may consider GOC discussions
Assessment
-
80-year-old woman known to Dr. 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 Pulmonary cachexia with ongoing weight loss on Megace. Admitted with fatigue, shortness of breath
and increased coughing for few days, found to have flu positive. 05/06/2025
Acute respiratory sufficiency: Influenza A on top of severe COPD and deconditioning.
Chest x-ray 05/06/2025: Bilateral opacities stable compared to prior-postradiation changes. Hyperinflation.
Hyponatremia
Severe COPD with hyperinflation. Not on oxygen therapy.
Conditions present prior admission:
Severe COPD-chronic bronchitic symptoms/emphysema
Follows up with Dr. Leal
Most recent FEV1 postbronchodilator 50% 09/22/2024. Total lung capacity 68% DLCO 24%.
6-minute walk testing 04/01/2024: No oxygen desaturation. On 03/25/2025 unable to perform due to weakness.
Last acute exacerbation 07/2024
Ongoing smoking few cigarettes per day
Chronic hypoxemic respiratory failure
Psoriatic arthritis on chronic immunosuppression up until recently-now on low-dose prednisone and hydroxychloroquine.
Pulmonary cachexia
Megace started 03/25/2025.
Lung cancer:
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
More recently percutaneous biopsy of left upper lobe 1.4 cm lung nodule negative for malignancy.
IBS
History of SVT/atrial tachycardia on flecainide
Mild aortic stenosis
Hypertension
DNR status
Osteoporosis
Plan:
Rapid response overnight for resp distress and SVT
Added high flow. VBG pH 7.4.
Transferred to IMU, now on HFNC 40%/40LPM
Can likely transition back to NC
-
Continues to feel debilitated.
Usually not on oxygen supplementation.
Acute symptoms triggered by influenza and possibly bacterial bronchitis/early pneumonia on top of her advanced COPD and pulmonary cachexia.
Agree continue with Tamiflu
Continue with antibiotics to cover for community-acquired infection
-
Developed vomiting with nebulizers would like to stop.
Currently not bronchospastic-does have some rhonchi bilaterally.
Hold nebulizer therapy
Can transition back to her Trelegy-she states that her son will bring the medication.
Otherwise we can start ICS/LABA and anticholinergic here. Trelegy is not available.
-
Given her coughing continue mucolytics and antitussives
Patient chronically on 5 mg of prednisone-if you become hypotensive consider stress dose of steroids.
No need for systemic corticosteroids at this point for her COPD-will try to minimize.
In her case return to minimize systemic corticosteroids.
Usually on Trelegy in the outpatient setting
-
Watch for SVT or tachycardia she is sensitive to beta agonist.
Patient is debilitated, cachectic will try to minimize immunosuppression as much as possible
Sputum culture-pending
Blood culture-negative so far
Acapella device
-
Pt is chronically debilitated, continues to loose weight, which is part of her limiting factor.
Continue Megace
Nutritional support
Aspiration precautions
-
In regards to history of bilateral synchronous lung primary cancer status post radiation. She has been on remission.
Recently underwent CT chest that demonstrated left upper lobe cavitary nodule-status post percutaneous biopsy in April negative for malignancy.
The plan is to repeat CAT scan in the next 3 to 4 months. This is already scheduled by Dr. Leal.
It is encouraging that CT neck showed stability of left upper lobe abnormality.
-
Smoking cessation strongly encouraged-continues to smoke few cigarettes per day.
May need a nicotine patch
High risk situation. Patient is DNR
Would be reasonable given extensive comorbidities and worsening clinical status to begin GOC discussions
Will continue to follow with you.
Diagnostic Data
Chest X-Ray: 05/07/25-The lungs are symmetrically hyperinflated. Stable bandlike opacity in the left upper lobe and nodular opacity in the right upper lobe compared to previous examinations. Similar appearance of mild bibasilar reticulonodular
opacities. No pleural effusion or pneumothorax. Stable cardiomediastinal silhouette. Chronic degenerative changes of the spine.
05/06/25-. No acute pulmonary abnormalities appreciated. 2. Linear and nodular opacities bilaterally, unchanged compared to prior chest x-ray. Please see report from CT chest dated 04/20/2025.
CT Scan: CHEST 12/02/24-. Mild interval enlargement of cavitary nodule within the left upper lobe measuring 14 x 10 mm, previously 10 x 10 mm. Continued close radiographic follow-up and/or further evaluation with PET/CT recommended. Significant
interval enlargement of now 9 x 5.8 mm nodule in the medial right upper lobe.
2. Multiple areas of scattered peripheral bronchial impaction with distal tree in bud nodules and consolidative changes, most pronounced within the right middle lobe, consistent with chronic endobronchial disease. Multiple scattered small nodules
and groundglass opacities, possibly related.
3. Unchanged confluent areas of airspace consolidation within the lateral right upper lobe and also within the left hilum extending into the left upper lobe compatible with treated tumor and radiation changes.
Echo: 03/26/22- 1. Small left ventricle with mild left ventricular hypertrophy and preserved contractility, ejection fraction 65% 2. Thickened mitral leaflets with trace mitral regurgitation and normal left atrium 3. Aortic sclerosis without
significant stenosis or regurgitation 4. Normal right heart with mild pulmonary hypertension, 40-43 mmHg systolic In May 2019, the mean aortic valve gradient was 12mmHg and is 8 mmHg today. The patient will be called and told that there is
preserved heart muscle function and no significant valve abnormality.
PFT's:
Reports and relevant images were personally reviewed.
Total time spent on this consultation/encounter __51__ minutes which includes review of history, physical exam, medications, laboratory data, personal review of imaging, extensive review of outpatient records, discussion with care team and
respiratory therapy.
Subjective Data
-
Date of Service:
Date of Service: May 08, 2025
Chief Complaint: Pulmonary Follow Up (Acute exacerbation of COPD/influenza A)
Subjective:
Transferred to IMU following events ON
On HFNC but weaned to 40%/40LPM
Objective Data
Data Reviewed
Vital Signs / I&O / Oxygen:
Vital Signs
Temp Pulse Resp BP Pulse Ox
97.9 F 90 20 138/64 94
05/08/25 08:43 05/08/25 07:44 05/08/25 07:44 05/08/25 06:00 05/08/25 07:44
Intake and Output
05/07/25 05/08/25 05/09/25
06:59 06:59 06:59
Intake Total 590 / 590 900 / 900
Output Total
Balance 590 / 590 875 / 875
SaO2 94
Nasal Cannula flow liters per 40
minute
Physical Exam
General: Comfortable and Other (Cachectic/thin appearing)
HEENT: Normocephalic, Anicteric and Moist Mucous Membranes
Cardiovascular: S1-S2 and Regular Rhythm
Respiratory: Crackles and Non-Labored Respirations
GI: Soft, Non Distended and Non Tender
Neurology: Awake, Alert, Oriented and No Motor Deficits
Skin: Warm, Dry and Good Color
Labs/Micro/Reports
Lab Data
05/08/25 03:47
05/08/25 03:47
Laboratory Results
05/07/25 05/07/25 05/08/25
22:23 22:30 03:00
PT 14.0
INR 1.07
APTT 36.6 H
pH 7.27 L Cancelled
pCO2 69 H Cancelled
pO2 86 Cancelled
HCO3 31.7 H Cancelled
O2 Delivery Level Cancelled
Microbiology
05/06/25 09:54 Urine Urine Culture - Final
05/06/25 07:52 Blood/Venous Blood Culture - Preliminary
No Growth in 48 hours- Final report to follow
05/06/25 07:45 Blood/Venous Blood Culture - Preliminary
No Growth in 48 hours- Final report to follow
05/07/25 03:16 Sputum Gram Stain - Preliminary
05/06/25 06:41 Nasal Swab Influenza Types A & B (TOMI) - Final
Influenza A Positive, NAAT
[2025-05-08 11:37] LABS: Troponin I 0.281 ng/ml
[2025-05-08] MEDS: TESSALON PERLES 100 MG PO ×2 (13:01→22:16)
[2025-05-08] MEDS: LASIX 20 MG PO (15:22)
[2025-05-08] MEDS: PRAVACHOL 40 MG PO (17:16)
[2025-05-08] MEDS: LOVENOX 30 MG SC (17:16)
[2025-05-08 18:14] LABS: Troponin I 0.595 ng/ml
--- NOTE | 2025-05-08 18:24 | W.PN.UPDATE ---
Update Note
Progress Note Update
Troponin noted.
Aspirin added. Cannot add beta-blockers because of the severe COPD continue statin
Continue to follow troponin until it peaks.
Treat respiratory distress
Try and wean oxygen as tolerated
Echo ordered
Routine cardiology evaluation
updated
[2025-05-08] MEDS: LOW STRENGTH ASPIRIN 81 MG PO (18:36)
[2025-05-08] MEDS: SENOKOT PO (21:06)
[2025-05-08] MEDS: PLAQUENIL PO (21:08)
[2025-05-08 23:03] LABS: Troponin I 0.609 ng/ml
[2025-05-09] VITALS (11 sets, daily range): BP systolic 98–157; BP diastolic 49–90
[2025-05-09] MEDS: NORCO 5/325 1 TABLET PO ×3 (04:25→19:50)
[2025-05-09] MEDS: STERILE WATER FOR INJECTION 10 ML IV ×4 (04:25→21:26)
[2025-05-09] MEDS: MAXIPIME 1000 MG IV ×4 (04:26→21:26)
[2025-05-09 04:49] LABS: Hematocrit 33.0 % (37.0-47.0); Hemoglobin 11.0 g/dL (12.0-16.0); Mean Corp Hgb Conc. 33.3 g/dL (33.0-37.0); Mean Corpuscular Volume 92.7 fL (81.0-99.0); Platelet Count 237 10^3/uL (130-400); Red Cell Dist. Width 13.5 % (11.5-14.5)
[2025-05-09 05:28] LABS: Troponin I 0.519 ng/ml
[2025-05-09 05:39] LABS: Blood Urea Nitrogen 15 mg/dl (7-17); Calcium 8.2 mg/dl (8.4-10.2); Carbon Dioxide 32 mmol/L (22-30); Chloride 95 mmol/L (98-107); Estimated Creatinine Clearance 49 ml/min; Glucose 98 mg/dl (70-99); Potassium 3.9 mmol/L (3.5-5.1); Sodium 129 mmol/L (135-145); eGFR > 60.00
[2025-05-09] MEDS: NON-FORMULARY ITEM 145 MCG PO (06:44)
--- NOTE | 2025-05-09 07:04 | W.PN.HOSP.TC ---
Today's Communication/Plan
-
Give lasix
Troponin downtrending
AMA - changed her mind staying
Continue supportive care
Assessment / Plan
Assessment / Plan
80 y/o F with pmh of COPD active smoker , chronic hyponatremia, adenocarcinoma of the lung in remission, Silastic and rheumatoid arthritis, hypertension, paroxysmal SVT presented to ED on 05/06/2025 with dizziness. She woke up to go to the bathroom
and felt really weak that she had to sit down on the floor and lay on the floor. got her up and she still felt weak and lightheaded and was also feeling short of breath. She smoked a cigarette while laying on the couch. She does not use
any oxygen at home. had nasal congestion and sickness for the past few days
Imaging
CT Head W/o Iv Contrast 05/06/2025
-No acute intracranial abnormalities appreciated.
-Mild atrophy and mild chronic small vessel change
CT Cervical Spine W/o Iv Contrast 05/06/2025
-No osseous injury appreciated.
-Moderate degenerative change, most pronounced at C6-7, without significant change compared to prior MRI.
- Cavitary lesion within the left upper lobe measures 1.4 cm in diameter, unchanged compared to prior PET/CT dated 12/15/2024.
Chest Xray 05/06/2025
1. No acute pulmonary abnormalities appreciated.
2. Linear and nodular opacities bilaterally, unchanged compared to prior chest x-ray. Please see report from CT chest dated 04/20/2025.
Chest Xray 05/07/2025
The lungs are symmetrically hyperinflated. Stable bandlike opacity in the left upper lobe and nodular opacity in the right upper lobe compared to previous examinations. Similar appearance of mild bibasilar reticulonodular opacities. No pleural
effusion or pneumothorax. Stable cardiomediastinal silhouette. Chronic degenerative changes of the spine.
Plan
Acute symptoms triggered by influenza and possibly bacterial bronchitis/early pneumonia on top of her advanced COPD and pulmonary cachexia
Sepsis present on admission
-Patient got sepsis bolus IV fluids in the ER hold off on further fluids for now. Leukocytosis improving
-Influenza A positive
-Procalcitonin - 8.49
-Cannot rule out bacterial pneumonia-procalcitonin elevated
-Continue Tamiflu #D3
-Continue cefepime#D3, doxycycline #D4 for possible CAP
-Blood cx- NG in 48h
-Sputum cx-usual respiratory sisi
-Lactic acidosis resolved
-Consult pulmonology, input appreciated
-Refuses Mucinex stating it causes coughing
-transition to Trelegy her home med
-Active smoker - difficulty with quiting- refuses nicotine patch use
-Smoking cessation counseling
-provided acapella device
Acute hypoxic respiratory failure
-She refuses Oxygen support
-ABG- resoiratory acidosis with compensatory met. alkalosis
-Troponin trending down - likely from demand ischemia Type 2 [place]
-Consult cardiology, input appreciated
Nausea
-Tigan ordered
-on Protonix
-improved
Mild aortic stenosis
History of SVT/atrial tachycardia
-on flecainide
-check QTC on ECG - prolonged- rechecked WNL
Hyponatremia
-Serum osmolality low, Urine osmolality 656, possibly indicates SIADH
-Na 129
-Fluid restriction
-Give lasix
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
-Patient had right upper lobe squamous cell carcinoma 2019
-there is a cavitary lesion in the left upper lobe 1.4 cm-there was mild FDG uptake within that lesion on the PET scan from December 2024
-Patient had a lung biopsy 02/12/2025-mostly necrotic acellular tissue no malignancy reported
Low BMI 16
Pumonary cachexia
-continue megestrol for appetite
-chief unit forester consulted
Rheumatoid arthritis/psoriatic arthritis
-continue Plaquenil and prednisone 10mg
Hypertension
-Her BP 170/100-received Lopressor-BP 138/64
-Hold off on Nifedipine for now
Hyperlipidemia
-continue pravastatin
IBS with constipation
-continue Linzess
-bowel regimen for opioid induced constipation
Diverticulosis
History of Left eye injury in the past with plastic eye
History of sigmoidectomy with colostomy and reversal for ruptured diverticulitis/history of small bowel obstruction
Neuropathy/sciatica-chronic pain opiate dependent-continue hydrocodone/acetaminophen
Osteoporosis on Prolia
DVT prophylaxis-Lovenox
DNR
Anticipated Discharge: > 48 hours
Subjective/Interval History
-
Date of Service: May 09, 2025
She is sitting in the bed. She is complaining about receiving a lot of medications and making her worse. She states not wanting to stay at the hospital. She wants to leave AGAINST MEDICAL ADVICE. She has chronic abdominal pain requests a pain
med for it. Denies shortness of breath.
She stopped using oxygen, disconnected from monitor, refusing medication intake. Her daughter is on her way to talk to her.
Objective Data
-
Labs:
Laboratory Results
05/09/25
04:36
WBC 8.2
Hgb 11.0 L
Hct 33.0 L
Plt Count 237
Sodium 129 L
Potassium 3.9
Chloride 95 L
Carbon Dioxide 32 H
BUN 15
Creatinine 0.5 L
Glucose 98
Calcium 8.2 L
Vital Signs:
Vital Signs
Temp Pulse Resp BP Pulse Ox
97.7 F 110 26 155/86 95
05/09/25 02:37 05/09/25 04:00 05/09/25 04:00 05/09/25 04:00 05/09/25 04:00
I&O
05/08/25 05/09/25 05/10/25
06:59 06:59 06:59
Intake Total 900 / 900 120 / 120
Output Total
Balance 875 / 875 120 / 120
Review of Systems
-
History Source: Patient
Constitutional: Reports No Symptoms
EENT: Reports No Symptoms Reported
Respiratory: Reports Cough
Cardiac: Reports No Symptoms
Abdomen/GI: Reports No Symptoms
Breast: Reports No Symptoms
Genitourinary: Reports No Symptoms
Musculoskeletal: Reports No Symptoms
Skin: Reports No Symptoms
Neuro: Reports No Symptoms
Endocrine: Reports No Symptoms
Allergy / Immunology: Reports No Symptoms
Psych: Reports Anxious
Physical Exam
-
General: Appears in Distress, Appears Chronically Ill and Cachectic
HEENT: Normocephalic and Atraumatic
Respiratory: Wheezes
Cardiac: Regular Rhythm and S1/S2
Breast: Deferred by me
GI: Soft, Nontender and Nondistended
Rectal: Deferred by Provider
Genito-urinary: Deferred by me
Musculoskeletal: No Edema
Skin: Warm and Dry
Neuro: AO x 3 and Nonfocal/Grossly Intact
Psych: Agitated and Anxious
[2025-05-09] MEDS: DELTASONE PO (07:47)
[2025-05-09] MEDS: COLACE PO ×2 (07:47→19:45)
[2025-05-09] MEDS: MIRALAX 17 GRAMS PO (07:47)
[2025-05-09] MEDS: MEGACE ORAL SUSPENSION PO (07:48)
[2025-05-09] MEDS: LOW STRENGTH ASPIRIN PO (07:48)
[2025-05-09] MEDS: PEPCID PO (07:48)
[2025-05-09] MEDS: MUCINEX PO ×2 (07:48→19:45)
[2025-05-09] MEDS: PROTONIX IV IV (07:49)
[2025-05-09] MEDS: NSS (PRESERVATIVE FREE) IV (07:49)
[2025-05-09] MEDS: SENOKOT PO ×2 (07:49→19:45)
[2025-05-09] MEDS: PLAQUENIL 200 MG PO ×2 (07:50→19:50)
[2025-05-09] MEDS: TAMIFLU PO (07:51)
[2025-05-09] MEDS: VIBRAMYCIN PO (07:51)
[2025-05-09] MEDS: TAMBOCOR 100 MG PO ×2 (07:59→19:50)
[2025-05-09] MEDS: NON-FORMULARY ITEM 1 INH INH (08:18)
--- NOTE | 2025-05-09 08:19 | PTCARENOTE ---
Pt refused most meds because of side effects and states she is going home no matter what.
--- NOTE | 2025-05-09 09:24 | W.PN.UPDATE ---
Update Note
Progress Note Update
Seen and examined the patient with the resident. Agree with the plan formulated. See changes in my documentation.
80-year-old female presented to the hospital with dizziness. She woke up to go to the bathroom and felt really weak that she had to sit down on the floor and lay on the floor. got her up and she still felt weak and lightheaded and was also
feeling short of breath. She smoked a cigarette while laying on the couch. She does not use any oxygen at home. had nasal congestion and sickness for the past few days
No events overnight. Patient is doing much better and off oxygen
On examination awake and alert
Cardiovascular system S1-S2 appreciated
Chest few rales bilaterally short wheezes air entry improved
Abdomen soft and nontender
No pedal edema
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
Reviewed by [id number] tachycardia left axis deviation LVH
Chest x-ray reviewed by me-bilateral opacities, more on the right side
CT of the cervical spine-no acute changes. Moderate degenerative changes most pronounced C6-C7. Cavitary lesion in the left upper lobe 1.4 cm unchanged from the PET scan dated 12/15/2024
# Sepsis present on admission
Patient got sepsis bolus IV fluids in the ER hold off on further fluids for now
Likely source influenza
Cannot rule out bacterial pneumonia-procalcitonin elevated
Continue Tamiflu
Was also on cefepime and doxycycline
Blood cultures negative so far
Lactic acidosis resolved
Mucinex, nebulizer treatments
# Hyponatremia likely SIADH
Fluid restriction
Slightly better with a dose of Lasix. Patient refusing further Lasix
# Bilateral Lung Ca
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
Patient had right upper lobe squamous cell carcinoma 2019
there is a cavitary lesion in the left upper lobe 1.4 cm-there was mild FDG uptake within that lesion on the PET scan from December 2024
Patient had a lung biopsy 02/12/2025-mostly necrotic acellular tissue no malignancy reported.
# Hypertension-restart nifedipine
# Mild aortic stenosis
# COPD-continue Trelegy or equivalent and Duo Nebs
# History of SVT/atrial tachycardia-on flecainide
# Rheumatoid arthritis/psoriatic arthritis-continue Plaquenil and prednisone
# Hyperlipidemia-continue pravastatin
# Low BMI 16-continue megestrol for appetite
# IBS with constipation-continue Linzess
# Diverticulosis
# History of Left eye injury in the past with prosthetic eye
# History of sigmoidectomy with colostomy and reversal for ruptured diverticulitis/history of small bowel obstruction
# Neuropathy/sciatica-chronic pain opiate dependent-continue hydrocodone/acetaminophen
# Osteoporosis on Prolia
# Active smoker-cessation counseling. Patient states it is difficult to quit. Refusing nicotine patch
# DVT prophylaxis-Lovenox
# DNR
Discussed with nursing at bedside
Patient is refusing to stay in the hospital. She is off of oxygen and feels that she is ready to go home. Discussed about cardiac enzymes being higher. States that she has an appoint with Dr. Chung on Saturday. Also aware that an echo is
pending and also she is on antibiotics and we are still waiting for the final cultures on the sputum. She has made up her mind that she will be leaving AGAINST MEDICAL ADVICE. All ramifications of leaving AGAINST MEDICAL ADVICE was discussed with
the patient .
I will still give her a course of antiviral/antibiotics even though there is no guarantee that this will be working-which I discussed the patient.
Time spent over 50 minutes
Time spent over 75 min
Part of this note was created using voice recognition system. Occasional wrong word or��sound alike� substitutions may have inadvertently occurred due to the inherent limitations of voice recognition software. If noted kindly bring it to my
attention for correction.
[2025-05-09] MEDS: PROCARDIA XL (EXTENDED RELEASE) 60 MG PO (09:52)
--- NOTE | 2025-05-09 09:54 | CON.CAR ---
Consultation
Consultation Request
Date/Time Consultation Requested: 05/08/2025 at 1800
Date/Time Consultation Performed: 05/09/2025 at 10 AM
Requesting Provider: Dr. Alcocer
Performing Provider: Dr. Jeremi Brown
Reason for Consultation: Atrial tach/SVT on flecainide with elevated troponin
Medical History
-
History of Present Illness:
80-year-old woman admitted with clinical sepsis suspected secondary to influenza A, with hyponatremia, sodium 127, had rapid response May 08 at 6 AM for SVT (longstanding history, on flecainide) with detectable troponin. She was admitted after
a fall, found to have influenza A. Early on the morning of the , a rapid response was called. She had an SVT. Peak troponin is 0.6. Now in sinus rhythm, no cardiac complaints.
Past Medical History
Past Medical History: Arrhythmias (SVT/atrial tachycardia on flecainide), Cancer (Non-small cell cancer right lung treated with radiation therapy, 2019 stage I A3, left upper lobe stage IIb treated with radiation therapy 2019, PET with FDG
positivity right lung 2024 followed by negative biopsy), COPD, HTN, Hypercholesterolemia, Psychiatric (Depression, peripheral neuropathy) and Other (Rheumatoid arthritis/psoriatic arthritis, history of pneumonia, stercoral colitis, diverticulitis,
pulmonary cachexia, DNR)
Past Surgical History: Cholecystectomy, Tonsilectomy and Other (Left eye enucleation, hysterectomy, colostomy with reversal for diverticulitis, epidural injections,)
Social History
Tobacco: Smoker
Alcohol: None
Drug: None
Personal:
Living: With Family
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
Family History
Family History: Reviewed & Not Pertinent
Allergies / Home Medications
Allergy/AdvReac Type Severity Reaction Status Date / Time
codeine (Codeine) Allergy VOMITING Verified 05/06/25 06:22
ibuprofen Allergy muscle Verified 05/06/25 06:22
spasms and
pain
latex (Latex) Allergy rash/sob Verified 05/06/25 06:22
levofloxacin (From Levaquin) Allergy severe Verified 05/06/25 06:22
muscle
spasms and
pain
morphine Allergy Shortness Verified 05/06/25 06:22
of Breath
oxycodone Allergy Vomiting Verified 05/06/25 06:22
titanium Allergy Swelling Verified 05/06/25 06:22
monocry sutures Allergy Swelling Uncoded 05/06/25 06:22
�Medication �Instructions �Recorded �Confirmed �Type
pravastatin 40 mg tablet 40 mg PO QPM High Cholesterol 02/17/20 05/06/25 History
coQ10 (ubiquinol) 200 mg capsule 200 mg PO HS Supplement 08/05/23 05/06/25 History
biotin 1 mg capsule 1 mg PO DAILY Supplement 02/10/25 05/06/25 History
denosumab 60 mg/mL subcutaneous 60 mg SC [id number] osteoporosis 02/10/25 05/06/25 History
syringe (Prolia)
fluticasone fur. 200 mcg-umeclid 1 inh inhalation R DAILY 02/10/25 05/06/25 History
62.5 mcg-vilant 25 mcg Lung/Breathing Issues
inhalat.powder (Trelegy Ellipta)
hydroxychloroquine 200 mg tablet 200 mg PO BID rheumatoid arthritis 02/10/25 05/06/25 History
nifedipine 60 mg tablet,extended 60 mg PO DAILY Heart 02/10/25 05/06/25 History
release 24 hr Disease/Condition
fdukcajrg-YHS-JV-acetaminophen 7.5 15 ml PO HS Cough/cold 05/06/25 05/06/25 History
mg-60 [id number]/30mL oral liqd
flecainide 100 mg tablet 100 mg PO Q12H Arrhythmia 05/06/25 05/06/25 History
hydrocodone 5 mg-acetaminophen 325 1 tab PO BIDPRN PRN severe pain 05/06/25 05/06/25 History
mg tablet
linaclotide 145 mcg capsule 145 mcg PO DAILY Constipation 05/06/25 05/06/25 History
(Linzess)
megestrol 400 mg/10 mL (40 mg/mL) 50 mg PO DAILY appetite stimulation 05/06/25 05/06/25 History
oral suspension
prednisone 1 mg tablet 5 mg PO DAILY rheumatoid arthritis 05/06/25 05/06/25 History
cefdinir 300 mg capsule 300 mg PO BID Infection #7 caps 05/09/25 Rx
doxycycline hyclate 100 mg capsule 100 mg PO BID Infection #7 caps 05/09/25 Rx
oseltamivir 30 mg capsule (Tamiflu) 30 mg PO BID flu 2 days #5 caps 05/09/25 Rx
Review of Systems
-
All other systems: Negative unless noted
Physical Exam
Vital Signs
Temp Pulse Resp BP Pulse Ox
36.5 C 78 18 155/86 94
05/09/25 07:44 05/09/25 08:21 05/09/25 08:21 05/09/25 04:00 05/09/25 08:21
Lab Results
05/09/25 04:36
05/09/25 04:36
Troponin I 0.519 ng/ml H* 05/09/25 04:36
Ngx-D-[id number] Pept 1990 pg/ml 05/08/25 03:47
Physical Exam
General: Other (Cachectic)
HEENT: Other (Temporal wasting)
Respiratory: Wheezes (Diminished breath sounds)
Cardiac: Other (No murmurs JVD okay, carotids okay)
GI: Non Tender (Scaphoid) and Non Distended
Musculoskeletal: No Edema and Other (Pulses palpable)
Neuro: AO x 3
Psych: Calm
Impression / Plan
-
Impression:
Clinical sepsis related to influenza A
Non ischemic myocardial injury related to influenza A and SVT, peak troponin 0.6
Acute on chronic respiratory failure
Atrial tachycardia/SVT on flecainide
Hyponatremia
HTN
HLD
COPD
h/o lung cancer, stage Ia right lung, stage IIb left lung, XRT 2019
Depression
Blindness left eye status post enucleation
Rheumatoid arthritis
Psoriatic arthritis
Diverticulitis
Ongoing tobacco abuse
Sestamibi study June 2022: Small mild fixed basal inferior, basal inferoseptal, mid inferior most likely soft tissue attenuation artifact, EF 67%
Echocardiogram March 2022: Small LV, mild LVH, EF 65%, trace mitral regurgitation, aortic sclerosis, normal right heart, pulmonary artery systolic pressure 40-43 mmHg
Impression:
She presents with acute on chronic respiratory failure in the setting of influenza A.
In addition she has a nonischemic myocardial injury related to hyponatremia, influenza A, SVT.
At present, would not pursue her troponin further.
Repeat echocardiogram in AM.
No obvious evidence of heart failure.
Regarding rhythm control, flecainide is probably the best of bad choices. Would continue.
Overall, despite everything cardiac status is satisfactory.
Data Reviewed
-
EKG: Tracing Personally Visualized and interpreted (ECG May 06, sinus tach with left axis, LVH, nonspecific ST and T changes possible septal VA, second tracing atrial tach versus atrial flutter with 2-1 conduction, ECG #3 May 08, normal
sinus rhythm, left axis, LVH, possible septal VA, prolonged QT)
Radiology: Image Personally Visualized and interpreted
Medical Tests (Nuc Med, Echo etc): Report Reviewed by me
Labs: Labs Reviewed by me (Hemoglobin 11, white count 8.2, troponin 0.6, relatively flat, was 0.043 on admission, sodium 129, BUN and creatinine 15 and 0.5, potassium 3.9)
Old Records: Reviewed
--- NOTE | 2025-05-09 10:02 | W.PN.PUL3 ---
Today's Communication / Plan
-
She is signing out AMA today, she is resumed on PO prednisone
Can stop abx, sputum final negative
Complete 5 days of tamiflu
We will call this week for FU appt in 1-2 weeks, she otherwise has appt in Jun with REBECCA
Assessment
-
80-year-old woman known to Dr. 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 Pulmonary cachexia with ongoing weight loss on Megace. Admitted with fatigue, shortness of breath
and increased coughing for few days, found to have flu positive. 05/06/2025
Acute respiratory sufficiency: Influenza A on top of severe COPD and deconditioning.
Chest x-ray 05/06/2025: Bilateral opacities stable compared to prior-postradiation changes. Hyperinflation.
Hyponatremia
Severe COPD with hyperinflation. Not on oxygen therapy.
Conditions present prior admission:
Severe COPD-chronic bronchitic symptoms/emphysema
Follows up with Dr. Leal
Most recent FEV1 postbronchodilator 50% 09/22/2024. Total lung capacity 68% DLCO 24%.
6-minute walk testing 04/01/2024: No oxygen desaturation. On 03/25/2025 unable to perform due to weakness.
Last acute exacerbation 07/2024
Ongoing smoking few cigarettes per day
Chronic hypoxemic respiratory failure
Psoriatic arthritis on chronic immunosuppression up until recently-now on low-dose prednisone and hydroxychloroquine.
Pulmonary cachexia
Megace started 03/25/2025.
Lung cancer:
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
More recently percutaneous biopsy of left upper lobe 1.4 cm lung nodule negative for malignancy.
IBS
History of SVT/atrial tachycardia on flecainide
Mild aortic stenosis
Hypertension
DNR status
Osteoporosis
Plan:
Rapid response overnight for resp distress and SVT
Added high flow. VBG pH 7.4.
Transferred to IMU, now on HFNC 40%/40LPM--transitioned back to NC
Now off O2
-
Continues to feel debilitated.
Usually not on oxygen supplementation.
Acute symptoms triggered by influenza and possibly bacterial bronchitis/early pneumonia on top of her advanced COPD and pulmonary cachexia.
Agree continue with Tamiflu
Continue with antibiotics to cover for community-acquired infection
-
Developed vomiting with nebulizers would like to stop.
Currently not bronchospastic-does have some rhonchi bilaterally.
Hold nebulizer therapy
Can transition back to her Trelegy-she states that her son will bring the medication.
Otherwise we can start ICS/LABA and anticholinergic here. Trelegy is not available.
-
Given her coughing continue mucolytics and antitussives
Patient chronically on 5 mg of prednisone-if you become hypotensive consider stress dose of steroids.
No need for systemic corticosteroids at this point for her COPD-will try to minimize.
In her case return to minimize systemic corticosteroids.
Usually on Trelegy in the outpatient setting
-
Watch for SVT or tachycardia she is sensitive to beta agonist.
Patient is debilitated, cachectic will try to minimize immunosuppression as much as possible
Sputum culture-pending
Blood culture-negative so far
Acapella device
-
Pt is chronically debilitated, continues to loose weight, which is part of her limiting factor.
Continue Megace
Nutritional support
Aspiration precautions
-
In regards to history of bilateral synchronous lung primary cancer status post radiation. She has been on remission.
Recently underwent CT chest that demonstrated left upper lobe cavitary nodule-status post percutaneous biopsy in April negative for malignancy.
The plan is to repeat CAT scan in the next 3 to 4 months. This is already scheduled by Dr. Leal.
It is encouraging that CT neck showed stability of left upper lobe abnormality.
-
Smoking cessation strongly encouraged-continues to smoke few cigarettes per day.
May need a nicotine patch
High risk situation. Patient is DNR
Would be reasonable given extensive comorbidities and worsening clinical status to begin GOC discussions
She is signing out AMA today
We will call for short term FU this week if needed
Diagnostic Data
Chest X-Ray: 05/07/25-The lungs are symmetrically hyperinflated. Stable bandlike opacity in the left upper lobe and nodular opacity in the right upper lobe compared to previous examinations. Similar appearance of mild bibasilar reticulonodular
opacities. No pleural effusion or pneumothorax. Stable cardiomediastinal silhouette. Chronic degenerative changes of the spine.
05/06/25-. No acute pulmonary abnormalities appreciated. 2. Linear and nodular opacities bilaterally, unchanged compared to prior chest x-ray. Please see report from CT chest dated 04/20/2025.
CT Scan: CHEST 12/02/24-. Mild interval enlargement of cavitary nodule within the left upper lobe measuring 14 x 10 mm, previously 10 x 10 mm. Continued close radiographic follow-up and/or further evaluation with PET/CT recommended. Significant
interval enlargement of now 9 x 5.8 mm nodule in the medial right upper lobe.
2. Multiple areas of scattered peripheral bronchial impaction with distal tree in bud nodules and consolidative changes, most pronounced within the right middle lobe, consistent with chronic endobronchial disease. Multiple scattered small nodules
and groundglass opacities, possibly related.
3. Unchanged confluent areas of airspace consolidation within the lateral right upper lobe and also within the left hilum extending into the left upper lobe compatible with treated tumor and radiation changes.
Echo: 03/26/22- . Small left ventricle with mild left ventricular hypertrophy and preserved contractility, ejection fraction 65% 2. Thickened mitral leaflets with trace mitral regurgitation and normal left atrium 3. Aortic sclerosis without
significant stenosis or regurgitation 4. Normal right heart with mild pulmonary hypertension, 40-43 mmHg systolic In May 2019, the mean aortic valve gradient was 12mmHg and is 8 mmHg today. The patient will be called and told that there is
preserved heart muscle function and no significant valve abnormality.
PFT's:
Reports and relevant images were personally reviewed.
Total time spent on this consultation/encounter __51__ minutes which includes review of history, physical exam, medications, laboratory data, personal review of imaging, extensive review of outpatient records, discussion with care team and
respiratory therapy.
Subjective Data
-
Date of Service:
Date of Service: May 09, 2025
Chief Complaint: Pulmonary Follow Up (Acute exacerbation of COPD/influenza A)
Subjective:
Patient signing out AMA
Now off O2
Objective Data
Data Reviewed
Vital Signs / I&O / Oxygen:
Vital Signs
Temp Pulse Resp BP Pulse Ox
97.7 F 78 18 155/86 94
05/09/25 07:44 05/09/25 08:21 05/09/25 08:21 05/09/25 04:00 05/09/25 08:21
Intake and Output
05/08/25 05/09/25 05/10/25
06:59 06:59 06:59
Intake Total 900 / 900 120 / 120
Output Total
Balance 875 / 875 120 / 120
SaO2 94
Nasal Cannula flow liters per 1
minute
Physical Exam
General: Comfortable and Other (Cachectic/thin appearing)
HEENT: Normocephalic, Anicteric and Moist Mucous Membranes
Cardiovascular: S1-S2 and Regular Rhythm
Respiratory: Crackles and Non-Labored Respirations
GI: Soft, Non Distended and Non Tender
Neurology: Awake, Alert, Oriented and No Motor Deficits
Skin: Warm, Dry and Good Color
Labs/Micro/Reports
Lab Data
05/09/25 04:36
05/09/25 04:36
Microbiology
05/07/25 03:16 Sputum Respiratory Culture - Final
Usual Respiratory Kaila
05/07/25 03:16 Sputum Gram Stain - Final
05/06/25 07:52 Blood/Venous Blood Culture - Preliminary
No Growth in 72 hours- Final report to follow
05/06/25 07:45 Blood/Venous Blood Culture - Preliminary
No Growth in 72 hours- Final report to follow
05/06/25 09:54 Urine Urine Culture - Final
05/06/25 06:41 Nasal Swab Influenza Types A & B (TOMI) - Final
Influenza A Positive, NAAT
--- NOTE | 2025-05-09 10:13 | PTCARENOTE ---
Talked to pt laura LAGUNA and if she tought that was a haley chice, she states she knows her bosy and she is leaving
--- NOTE | 2025-05-09 12:13 | PTCARENOTE ---
Pt has decided to stay DR Alcocer aware.
--- NOTE | 2025-05-09 14:53 | PTCARENOTE ---
Pt states she needs Girish Alcocer
--- NOTE | 2025-05-09 14:58 | W.PN.UPDATE ---
Update Note
Progress Note Update
She was planning to leave AGAINST MEDICAL ADVICE today. Her daughter came to see her and she changed her mind to stay at the hospital. Currently she is on 3L O2. Continue supportive care.
[2025-05-09] MEDS: LASIX 20 MG IV (15:04)
[2025-05-09] MEDS: DUONEB 3 ML INH (16:02)
--- NOTE | 2025-05-09 16:40 | PTCARENOTE ---
Pt given Lasi void 125 ml continues to be SOB O2 at 6 L O2. Breathing t givem
--- NOTE | 2025-05-09 17:25 | W.PN.UPDATE ---
Update Note
Progress Note Update
Pt initially stated she wanted to leave AMA and refused oxygen support, steroids, lasix etc. After talking to her family she changed her mind and decided to stay at the hospital. She has been non compliant with medications and instructions. She
developed SOB on RA and her O2 sat was 88. She received Duoneb Tx, Lasix 20mg, on 6L O2 and prednisone 10mg. Currently her lungs are clear. She is comfortable, lying in the bed. Denies CP, SOB.
[2025-05-09] MEDS: LOVENOX 30 MG SC (17:45)
[2025-05-09] MEDS: DELTASONE 10 MG PO (17:45)
[2025-05-09] MEDS: PRAVACHOL 40 MG PO (17:45)
[2025-05-09] MEDS: VIBRAMYCIN 100 MG PO (19:50)
[2025-05-09] MEDS: TAMIFLU 30 MG PO (19:50)
[2025-05-09] MEDS: TESSALON PERLES 100 MG PO (19:50)
[2025-05-09] MEDS: COMPAZINE 5 MG IV (21:35)
--- NOTE | 2025-05-09 22:53 | PTCARENOTE ---
assumed care of patient. pt is AAOx3, able to make needs known. flat affect, anxious at times. blind in left eye. on 6L NC 95%, SOB on exertion. able to get up to side of bed to use BSC. foam applied to sacrum, stage 2 noted. foam applied to right
back, scabs noted. complaints of pain all over body, medicated per MAR, pt noted to be sleeping after administration. care ongoing.
[2025-05-10] VITALS (12 sets, daily range): BP systolic 102–170; BP diastolic 56–95
[2025-05-10] MEDS: DUONEB 3 ML INH (01:48)
[2025-05-10] MEDS: NORCO 5/325 1 TABLET PO ×3 (01:50→21:29)
[2025-05-10] MEDS: MAXIPIME 1000 MG IV ×3 (04:34→18:54)
[2025-05-10] MEDS: STERILE WATER FOR INJECTION 10 ML IV ×3 (04:34→18:53)
[2025-05-10 05:11] LABS: Hematocrit 31.1 % (37.0-47.0); Hemoglobin 11.0 g/dL (12.0-16.0); Mean Corp Hgb Conc. 35.4 g/dL (33.0-37.0); Mean Corpuscular Volume 89.9 fL (81.0-99.0); Platelet Count 228 10^3/uL (130-400); Red Cell Dist. Width 13.1 % (11.5-14.5)
[2025-05-10 05:28] LABS: Blood Urea Nitrogen 15 mg/dl (7-17); Calcium 8.7 mg/dl (8.4-10.2); Carbon Dioxide 34 mmol/L (22-30); Chloride 93 mmol/L (98-107); Estimated Creatinine Clearance 49 ml/min; Glucose 98 mg/dl (70-99); Magnesium 1.3 mg/dl (1.6-2.3); Potassium 4.1 mmol/L (3.5-5.1); Sodium 129 mmol/L (135-145); eGFR > 60.00
[2025-05-10] MEDS: MAGNESIUM SULFATE 100 IV (06:02)
--- NOTE | 2025-05-10 06:09 | PTCARENOTE ---
Magnesium this AM 1.3, notified covering LICENSED MASSAGE THERAPIST- mag rider ordered and infusing at this time.
--- NOTE | 2025-05-10 07:30 | W.PN.HOSP.TC ---
Today's Communication/Plan
-
Echo today
Repeat EKG
Check orthostatics
Replete magnesium
Give 40 mg IV Lasix
If shortness of breath will not improve get chest x-ray later
Assessment / Plan
Assessment / Plan
80 y/o F with pmh of COPD active smoker , chronic hyponatremia, adenocarcinoma of the lung in remission, Silastic and rheumatoid arthritis, hypertension, paroxysmal SVT presented to ED on 05/06/2025 with dizziness. She woke up to go to the bathroom
and felt really weak that she had to sit down on the floor and lay on the floor. got her up and she still felt weak and lightheaded and was also feeling short of breath. She smoked a cigarette while laying on the couch. She does not use
any oxygen at home. had nasal congestion and sickness for the past few days
Imaging
CT Head W/o Iv Contrast 05/06/2025
-No acute intracranial abnormalities appreciated.
-Mild atrophy and mild chronic small vessel change
CT Cervical Spine W/o Iv Contrast 05/06/2025
-No osseous injury appreciated.
-Moderate degenerative change, most pronounced at C6-7, without significant change compared to prior MRI.
- Cavitary lesion within the left upper lobe measures 1.4 cm in diameter, unchanged compared to prior PET/CT dated 12/15/2024.
Chest Xray 05/06/2025
1. No acute pulmonary abnormalities appreciated.
2. Linear and nodular opacities bilaterally, unchanged compared to prior chest x-ray. Please see report from CT chest dated 04/20/2025.
Chest Xray 05/07/2025
The lungs are symmetrically hyperinflated. Stable bandlike opacity in the left upper lobe and nodular opacity in the right upper lobe compared to previous examinations. Similar appearance of mild bibasilar reticulonodular opacities. No pleural
effusion or pneumothorax. Stable cardiomediastinal silhouette. Chronic degenerative changes of the spine.
Plan
Acute symptoms triggered by influenza and possibly bacterial bronchitis/early pneumonia on top of her advanced COPD and pulmonary cachexia
Sepsis present on admission
-Patient got sepsis bolus IV fluids in the ER hold off on further fluids for now. Leukocytosis improved
-Influenza A positive
-Procalcitonin - 8.49
-Cannot rule out bacterial pneumonia-procalcitonin elevated
-Continue Tamiflu #D4
-Continue cefepime#D4, doxycycline #D5 for possible CAP
-Blood cx-negative
-Sputum cx-usual respiratory sisi
-Lactic acidosis resolved
-Consult pulmonology, input appreciated
-Refuses Mucinex stating it causes coughing
-transition to Trelegy her home med
-Active smoker - difficulty with quiting- refuses nicotine patch use
-Smoking cessation counseling
-provided acapella device
Acute hypoxic respiratory failure
-On 6L O2 NC - sat 96%
-ABG- respiratory acidosis with compensatory met. alkalosis
-Troponin trending down - likely from demand ischemia Type 2 NC
-Consult cardiology, input appreciated
-IF SOB not improving order Chest Xray
-Pro BNP 7570
Mild aortic stenosis
History of SVT/atrial tachycardia
-on flecainide
-check QTC on ECG - prolonged- rechecked WNL
-Echo today
-On telemetry H-pul-gnpubk EKG
-repleted Magnesium
Nausea
-Tigan ordered
-on Protonix
-improved
Lightheadeness
-Check orthostatics
Hyponatremia
-Serum osmolality low, Urine osmolality 656, possibly indicates SIADH
-Na 129
-Fluid restriction
-Give lasix
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
-Patient had right upper lobe squamous cell carcinoma 2019
-there is a cavitary lesion in the left upper lobe 1.4 cm-there was mild FDG uptake within that lesion on the PET scan from December 2024
-Patient had a lung biopsy 02/12/2025-mostly necrotic acellular tissue no malignancy reported
Pumonary cachexia
Severe Protein Calorie Malnutrition
-Low BMI 16
-continue megestrol for appetite
-certified nurse practitioner consulted
Rheumatoid arthritis/psoriatic arthritis
-continue Plaquenil and prednisone 10mg
Hypertension
-Her BP 170/100-received Lopressor-BP 138/64
-Hold off on Nifedipine for now
Hyperlipidemia
-continue pravastatin
IBS with constipation
-continue Linzess
-bowel regimen for opioid induced constipation
Diverticulosis
History of Left eye injury in the past with plastic eye
History of sigmoidectomy with colostomy and reversal for ruptured diverticulitis/history of small bowel obstruction
Neuropathy/sciatica-chronic pain opiate dependent-continue hydrocodone/acetaminophen
Osteoporosis on Prolia
DVT prophylaxis-Lovenox
DNR
Anticipated Discharge: > 48 hours
Subjective/Interval History
-
Date of Service: May 10, 2025
She had difficulty with falling asleep last night. She slept only 2 hours. She denies shortness of breath on 6 L O2. She feels dizzy from laying to standing and believes it is because of her neck. She did not have BM yet
Objective Data
-
Labs:
Laboratory Results
05/10/25
04:48
WBC 7.9
Hgb 11.0 L
Hct 31.1 L
Plt Count 228
Sodium 129 L
Potassium 4.1
Chloride 93 L
Carbon Dioxide 34 H
BUN 15
Creatinine 0.4 L
Glucose 98
Calcium 8.7
Vital Signs:
Vital Signs
Temp Pulse Resp BP Pulse Ox
97.9 F 106 26 160/94 100
05/10/25 03:00 05/10/25 06:00 05/10/25 06:00 05/10/25 06:00 05/10/25 06:00
I&O
05/09/25 05/10/25 05/11/25
06:59 06:59 06:59
Intake Total 120 / 120
Output Total 125 / 125
Balance 120 / 120 -125 / -125
Review of Systems
-
History Source: Patient
Constitutional: Reports No Symptoms and Sleep Disturbance
EENT: Reports No Symptoms Reported
Respiratory: Reports Cough
Cardiac: Reports No Symptoms
Abdomen/GI: Reports No Symptoms
Breast: Reports No Symptoms
Genitourinary: Reports No Symptoms
Musculoskeletal: Reports No Symptoms
Skin: Reports No Symptoms
Neuro: Reports No Symptoms
Endocrine: Reports No Symptoms
Allergy / Immunology: Reports No Symptoms
Physical Exam
-
General: Appears in Distress, Appears Chronically Ill and Cachectic
HEENT: Normocephalic, Atraumatic and Oxygen (6L)
Respiratory: Crackles
Cardiac: S1/S2, Irregular Rhythm and Tachycardic
Breast: Deferred by me
GI: Soft, Nontender, Nondistended and Normal Bowel Sounds
Rectal: Deferred by Provider
Genito-urinary: Deferred by me
Musculoskeletal: No Edema
Skin: Warm and Dry
Neuro: AO x 3 and Nonfocal/Grossly Intact
Psych: Agitated and Anxious
[2025-05-10] MEDS: NON-FORMULARY ITEM 1 INH INH (07:59)
[2025-05-10] MEDS: NON-FORMULARY ITEM PO (08:33)
[2025-05-10] MEDS: NSS (PRESERVATIVE FREE) 10 ML IV (08:35)
[2025-05-10] MEDS: PROTONIX IV 40 MG IV (08:35)
[2025-05-10] MEDS: SENOKOT 17.2 MG PO (08:36)
[2025-05-10] MEDS: PLAQUENIL 200 MG PO (08:36)
[2025-05-10] MEDS: VIBRAMYCIN 100 MG PO ×2 (08:36→21:21)
[2025-05-10] MEDS: TAMIFLU 30 MG PO ×2 (08:36→21:21)
[2025-05-10] MEDS: PROCARDIA XL (EXTENDED RELEASE) 60 MG PO (08:36)
[2025-05-10] MEDS: DELTASONE 10 MG PO (08:36)
[2025-05-10] MEDS: PEPCID 20 MG PO (08:36)
[2025-05-10] MEDS: LOW STRENGTH ASPIRIN PO (08:47)
[2025-05-10] MEDS: COLACE PO ×2 (08:47→21:22)
[2025-05-10] MEDS: TAMBOCOR 100 MG PO ×2 (08:48→21:29)
[2025-05-10] MEDS: MEGACE ORAL SUSPENSION PO (08:48)
[2025-05-10] MEDS: MUCINEX PO ×2 (08:48→21:22)
--- NOTE | 2025-05-10 08:48 | W.PN.PUL.V3 ---
Today's Communication / Plan
-
Wean oxygen
Increase activity
Finite course of antibiotics
Antiarrhythmics and monitor for SVT recurrence
Outpatient pulmonary follow-up
Assessment
-
80-year-old woman known to Dr. 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 Pulmonary cachexia with ongoing weight loss on Megace. Admitted with fatigue, shortness of breath
and increased coughing for few days, found to have flu positive. 05/06/2025
Acute respiratory sufficiency: Influenza A on top of severe COPD and deconditioning.
Chest x-ray 05/06/2025: Bilateral opacities stable compared to prior-postradiation changes. Hyperinflation.
Hyponatremia
Severe COPD with hyperinflation. Not on oxygen therapy.
Conditions present prior admission:
Severe COPD-chronic bronchitic symptoms/emphysema
Follows up with Dr. Leal
Most recent FEV1 postbronchodilator 50% 09/22/2024. Total lung capacity 68% DLCO 24%.
6-minute walk testing 04/01/2024: No oxygen desaturation. On 03/25/2025 unable to perform due to weakness.
Last acute exacerbation 07/2024
Ongoing smoking few cigarettes per day
Chronic hypoxemic respiratory failure
Psoriatic arthritis on chronic immunosuppression up until recently-now on low-dose prednisone and hydroxychloroquine.
Pulmonary cachexia
Megace started 03/25/2025.
Lung cancer:
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
More recently percutaneous biopsy of left upper lobe 1.4 cm lung nodule negative for malignancy.
IBS
History of SVT/atrial tachycardia on flecainide
Mild aortic stenosis
Hypertension
DNR status
Osteoporosis
Plan:
Respiratory status slowly improving
Supplemental oxygen as needed-assess discharge supplemental oxygen needs prior to discharge
Prednisone 10 mg daily
Nebulizers as needed-
Trelegy as an outpatient
Mucolytic's
Antitussives
Incentive spirometry and Acapella
In regards to history of bilateral synchronous lung primary cancer status post radiation. She has been on remission.
Recently underwent CT chest that demonstrated left upper lobe cavitary nodule-status post percutaneous biopsy in April negative for malignancy.
The plan is to repeat CAT scan in the next 3 to 4 months. This is already scheduled by Dr. Leal.
It is encouraging that CT neck showed stability of left upper lobe abnormality.
Smoking cessation strongly encouraged-continues to smoke few cigarettes per day.
Nicotine patch if needed
Diuresis as tolerated
Monitor renal function, electrolytes, intake/output, lower extremity edema and weight
Replace electrolytes as needed
Check cultures
Empiric antibiotics-finish finite course
Tamiflu-finite course
Respiratory isolation per protocol
Monitor for recurrent SVT
Patient on flecainide, nifedipine
DVT prophylaxis-on Lovenox
GI prophylaxis-on pantoprazole and famotidine
Nutrition
Early mobilization
DNR
Outpatient pulmonary follow-up
Diagnostic Data
Chest X-Ray: 05/07/25-The lungs are symmetrically hyperinflated. Stable bandlike opacity in the left upper lobe and nodular opacity in the right upper lobe compared to previous examinations. Similar appearance of mild bibasilar reticulonodular
opacities. No pleural effusion or pneumothorax. Stable cardiomediastinal silhouette. Chronic degenerative changes of the spine.
05/06/25-1. No acute pulmonary abnormalities appreciated. 2. Linear and nodular opacities bilaterally, unchanged compared to prior chest x-ray. Please see report from CT chest dated 04/20/2025.
CT Scan: CHEST 12/02/24-1. Mild interval enlargement of cavitary nodule within the left upper lobe measuring 14 x 10 mm, previously 10 x 10 mm. Continued close radiographic follow-up and/or further evaluation with PET/CT recommended. Significant
interval enlargement of now 9 x 5.8 mm nodule in the medial right upper lobe.
2. Multiple areas of scattered peripheral bronchial impaction with distal tree in bud nodules and consolidative changes, most pronounced within the right middle lobe, consistent with chronic endobronchial disease. Multiple scattered small nodules
and groundglass opacities, possibly related.
3. Unchanged confluent areas of airspace consolidation within the lateral right upper lobe and also within the left hilum extending into the left upper lobe compatible with treated tumor and radiation changes.
Echo: 03/26/22- 1. Small left ventricle with mild left ventricular hypertrophy and preserved contractility, ejection fraction 65% 2. Thickened mitral leaflets with trace mitral regurgitation and normal left atrium 3. Aortic sclerosis without
significant stenosis or regurgitation 4. Normal right heart with mild pulmonary hypertension, 40-43 mmHg systolic In May 2019, the mean aortic valve gradient was 12mmHg and is 8 mmHg today. The patient will be called and told that there is
preserved heart muscle function and no significant valve abnormality.
PFT's:
Reports and relevant images were personally reviewed.
.
Subjective Data
-
Date of Service:
Date of Service: May 10, 2025
Chief Complaint: Pulmonary Follow Up (Acute exacerbation of COPD/influenza A)
Subjective:
Still with significant shortness of breath, chest pain, productive cough, pleurisy or abdominal pain
Review of Systems
General: Other (Per HPI)
Objective Data
Data Reviewed
Vital Signs / I&O:
Vital Signs
Temp Pulse Resp BP Pulse Ox
97.9 F 98 20 160/94 94
05/10/25 07:31 05/10/25 08:02 05/10/25 08:02 05/10/25 06:00 05/10/25 08:02
Intake and Output
05/09/25 05/10/25 05/11/25
06:59 06:59 06:59
Intake Total 120 / 120
Output Total 125 / 125
Balance 120 / 120 -125 / -125
SaO2: 94
Nasal Cannula flow liters per minute: 5
Physical Exam
General: Respiratory Distress (n), Comfortable and Other (Cachectic/thin appearing)
HEENT: Normocephalic, Anicteric and Moist Mucous Membranes
Cardiovascular: Regular Rhythm
Respiratory: Clear (Prolonged expiratory time, diminished breath sounds, hyperinflation), Wheeze (n), Crackles, Non-Labored Respirations, Accessory Resp Muscle Use (n) and Stridor (n)
GI: Soft, Non Distended and Non Tender
Neurology: Awake, Alert and No Motor Deficits
Skin: Warm, Dry, Good Color, Cyanosis (n), Jaundice (n) and Rash (n)
Labs/Micro/Reports
Lab Data
05/10/25 04:48
05/10/25 04:48
Microbiology
05/06/25 07:52 Blood/Venous Blood Culture - Preliminary
No Growth in 4 days- Final report to follow
05/06/25 07:45 Blood/Venous Blood Culture - Preliminary
No Growth in 4 days- Final report to follow
05/07/25 03:16 Sputum Respiratory Culture - Final
Usual Respiratory Kaila
05/07/25 03:16 Sputum Gram Stain - Final
05/06/25 09:54 Urine Urine Culture - Final
--- NOTE | 2025-05-10 09:26 | PN.CDI ---
CDI
- -
CDI:
Physician Documentation Request
Admit Date: 05/06/25 10:16
Dear Doctor Eliecer,
Clinical Indicators:
Patient admitted with sepsis; PMH includes pulmonary cachexia.
BMI 15.9
Home medications include: Megace 200 mg po daily
05/08 note/assessment: - Muscle Loss Clavicle,Temporal: Severe Subcutaneous Loss Rib Cage: Severe
-'Due to suspected intakes of <75% for > 1 month and observed fat/muscle loss, pt
meeting criteria for severe protein/calorie malnutrition (ASPEN/AND guidelines,
chronic illness)'
Based on the above information and your assessment, which of the following most accurately represents the patient's nutritional status?
Severe Protein Calorie Malnutrition
Other (please specify)
[place] Criteria (ACP Hospitalist 2017)
2 or more criteria must be present for either
non severe or severe malnutrition
Note that the criteria differs related to the
presence of an acute or chronic illness
Chronic Illness
Energy Intake Non Severe: <75% for >1 month
Severe: <75% for >1 month
Weight Loss Non Severe: 5% over 1 month
7.5% over 3 months
10% over 6 months
20% over 1 year
Severe: >5% over 1 month
>7.5% over 3 months
>10% over 6 months
>20% over 1 year
Body Fat Non Severe: Mild Loss
Severe: Severe Loss
Muscle Mass Non Severe: Mild Loss
Severe: Severe Loss
Fluid Accumulation Non Severe: Mild Accumulation
Severe: Moderate to severe
accumulation
Reduced Php Programmer Strength Non Severe: N/A
Severe: Measurably reduced
Additional criteria that can be used to Determine if Mild or Moderate Malnutrition ([employer] Manual 2018)
Mild Moderate Severe
Albumin gm/dl <3.0 gm/dl <2.5 gm/dl <2.0 gm/dl
Pre Albumin mg/dl <15 gm/dl <10 mg/dl <5.0 mg/dl
BMI <18.5 <17 <16
Use of terms such as suspected, likely, concern for, or probable (associated with a specific diagnosis that is being evaluated, monitored, or treated as if it exists) are acceptable and can be coded in the inpatient setting, when documented at the
time of discharge.
Thank you,
BONNIE Horvath RN
CDI Specialist
available via tiger text
Please use your independent medical judgment in providing your response.
[2025-05-10] MEDS: LASIX 40 MG IV (10:59)
--- NOTE | 2025-05-10 11:24 | PTCARENOTE ---
EKG obtained per order. Report stating 'STEMI.' Pt asymptomatic, denies SOB/CP. Dr. Brown notified, no further orders received at this time.
--- NOTE | 2025-05-10 11:33 | WOUNDNOTE ---
RUMA RN NOTE: Patient admitted with sepsis, + flu and hypoxia, patient with extensive medical history, active smoker and recent weight tolls. Patient is on a centrella air mattress, turns self although during assessment patient reported feeling
dizzy. Gluteal cleft with shallow linear opening, suspect MASD vs stage 2 PI. Patient fell at home and sat on floor until could get her up. During fall patient sustained small skin tears on L elbow and leg, silicone foams in use. Denies
being incontinent at home, nurse reports none. Coccyx blanchable red, heels boggy and blanchable. Foams applied to sacrum/gluteal cleft and heels. Pressure ulcer prevention measures reviewed with patient, states she understands. Encouraged turning
while in bed and increase of protein in diet. Instructed nurse Melissa that if patient transferred to floor to either keep on an air mattress or use air overlay. Pillow placed under calves and air chair cushion in use. Can take air cushion upon
discharge. Will update wound care instructions and follow as needed.
--- NOTE | 2025-05-10 12:34 | W.PN.CARDCBS ---
Addendum entered and electronically signed by Abbie Parra DO 05/11/25 00:49:
Late entry update note after patient was reassessed on 05/10/2025 at 4:20 PM. Chart/labs/telemetry reviewed. Patient is an 80-year-old female who presents with hypoxic respiratory distress secondary to influenza A who has underlying severe COPD not
requiring home O2 and lung cancer status post radiation, psoriatic and rheumatoid arthritis and malnutrition. She also has a history of SVT/atrial tachycardia on flecainide and nifedipine as an outpatient; she denies a history of atrial
fibrillation/flutter. She was seen earlier today by my colleague for elevated troponin (peak 0.6) and abnormal EKG with ST changes concerning for involving anterior infarct and a 2D echocardiogram which was personally reviewed noting moderate
reduced left ventricular systolic function with an LV ejection fraction estimated 40% and hypokinesis of the mid-� apical anterior, anterior septum, apical lateral and apex. Patient had previously declined invasive procedures including a cardiac
catheterization and is opted for medical therapy. Telemetry demonstrated runs of PAT with no definite atrial fibrillation or flutter. She continues to deny chest pain or pressure and reports stable/improving cough and shortness of breath although
remains on 4 L nasal cannula. She understands the concern for underlying coronary artery disease but again has opted for medical therapy and has declined any invasive procedures including a left heart catheterization. Given lower level troponin
and lack of symptoms, echo findings may be be related to Takotsubo's cardiomyopathy although difficult to confirm at this time. Would continue supportive care as she recovers from influenza A. Given concern for underlying coronary artery disease
we will stop flecainide. After washout will start amiodarone and continue to monitor on telemetry. Will also change nifedipine to metoprolol which was discussed with pulmonary. Continue aspirin and Plavix started earlier today. Patient has
requested that I do not speak with her or daughter. Update provided to nursing as well as primary service.
Original Note:
Today's Communication / Plan
-
Await echocardiogram
Add Plavix
Continue flecainide for now, may need to switch to amiodarone if okay from pulmonary standpoint
No beta-ashutosh at present giving lung disease, will consider if needed
May need to stop hydroxychloroquine
Conservative strategy given patient preference, DNR status, refusal to consider cardiac catheterization (which I think may be appropriate in her case)
Impression / Plan
-
Impression:
Clinical sepsis related to influenza A
Non ischemic myocardial injury related to influenza A and SVT, peak troponin 0.6
Acute on chronic respiratory failure
Atrial tachycardia/SVT on flecainide
Hyponatremia
HTN
HLD
COPD
h/o lung cancer, stage Ia right lung, stage IIb left lung, XRT 2019
Depression
Blindness left eye status post enucleation
Rheumatoid arthritis
Psoriatic arthritis
Diverticulitis
Ongoing tobacco abuse
DNR
Sestamibi study June 2022: Small mild fixed basal inferior, basal inferoseptal, mid inferior most likely soft tissue attenuation artifact, EF 67%
Echocardiogram March 2022: Small LV, mild LVH, EF 65%, trace mitral regurgitation, aortic sclerosis, normal right heart, pulmonary artery systolic pressure 40-43 mmHg
Impression:
Unfortunately her electrocardiogram has evolved and she may have underlying LV dysfunction despite the fact that her troponin was only 0.6. Will repeat troponin now.
Await echocardiogram looking for change in EF. Based on her EKG this may be the case.
Her COPD, lung cancer, etc. complicate management making GDMT very challenging.
For now we will continue to hold the beta-ashutosh. I will continue flecainide though this may be contraindicated in the setting of LV dysfunction and possible acute HFrEF. We may need to consider amiodarone to control her SVT in place of
flecainide, though risks of pulmonary toxicity in her case could be catastrophic with underlying pulmonary disease and history of lung cancer.
With regards to influenza A she seems relatively stable.
She remains with hyponatremia.
Given what is probably an anterior NM, will add Plavix.
Consider TOMMIE/ARB, possibly nitrates.
She emphatically states she is DNR does not want cardiac catheterization, etc.
We will continue to follow.
Prognosis guarded.
Progress Note - Cad Designer Drafter
Subjective
Date of Service: May 10, 2025:
80-year-old woman admitted with clinical sepsis suspected secondary to influenza A, with hyponatremia, sodium 127, had rapid response May 08 at 6 AM for SVT (longstanding history, on flecainide) with detectable troponin. She was admitted after
a fall, found to have influenza A. Early on the morning of the , a rapid response was called. She had an SVT. Peak troponin is 0.6. Now in sinus rhythm, no cardiac complaints.
Current meds: Doxycycline, Lovenox 30 subcu daily, Plaquenil 200 twice daily, pravastatin 40 mg a day, Tamiflu, Mucinex, Megace, famotidine 20 a day, Senokot, Trelegy Ellipta, prednisone 10 mg a day, aspirin 81 mg a day, flecainide 100 mg twice
daily, nifedipine ER 60 mg a day, pantoprazole 40 mg a day, cefepime 1 g every 8 hours
She received Lasix for proBNP of 7500, denies change in dyspnea. She again tried to sign out AMA. She is DNR.
160/94, pulse 98, respiratory rate 20, afebrile, denies chest pain, rhonchi bilaterally, no obvious murmurs, abdomen benign, extremities without clubbing cyanosis or edema
Hemoglobin 11, white count 7.9, sodium 129, BUN and creatinine are 15 and 0.4, CO2 is 34, magnesium is 1.3, proBNP is 7570, was 1989 on admission peak troponin was 0.61
ECG: Sinus rhythm with runs of atrial tachycardia probable recent anterior NM, LVH, left anterior fascicular block borderline QT interval
Telemetry: Increasing runs of atrial tachycardia
Objective
Labs:
05/10/25 04:48
05/10/25 04:48
Labs
Hgb 11.0 g/dL (12.0-16.0) L 05/10/25 04:48
Hct 31.1 % (37.0-47.0) L 05/10/25 04:48
Plt Count 228 10^3/uL (130-400) 05/10/25 04:48
PT 14.0 Sec (11.4-14.6) 05/07/25 22:30
INR 1.07 05/07/25 22:30
APTT 36.6 Sec (23.4-35.0) H 05/07/25 22:30
Sodium 129 mmol/L (135-145) L 05/10/25 04:48
Potassium 4.1 mmol/L (3.5-5.1) 05/10/25 04:48
BUN 15 mg/dl (7-17) 05/10/25 04:48
Creatinine 0.4 mg/dL (0.6-1.0) L 05/10/25 04:48
Glucose 98 mg/dl (70-99) 05/10/25 04:48
Troponins
05/07/25 05/08/25 05/08/25
22:30 03:47 10:45
Troponin I 0.043 H* 0.251 H* D 0.281 H*
05/08/25 05/08/25 05/09/25
17:28 22:17 04:36
Troponin I 0.595 H* D 0.609 H* 0.519 H*
Vital Signs and I&O:
Vital Signs
Temp Pulse Resp BP Pulse Ox
36.6 C 98 20 160/94 95
05/10/25 11:09 05/10/25 08:02 05/10/25 08:02 05/10/25 06:00 05/10/25 12:01
Vital Signs
Temp Pulse Resp BP Pulse Ox
36.6 C 98 20 160/94 95
05/10/25 11:09 05/10/25 08:02 05/10/25 08:02 05/10/25 06:00 05/10/25 12:01
Intake & Output
05/08/25 05/09/25 05/10/25 05/11/25
07:59 07:59 07:59 07:59
Intake Total 900 / 900 120 / 120 240 / 240
Output Total 125 / 125
Balance 875 / 875 120 / 120 -125 / -125 240 / 240
Physical Exam
Physical Exam
See above
--- NOTE | 2025-05-10 13:15 | W.PN.UPDATE ---
Addendum entered and electronically signed by Charles Alcocer MD 05/10/25 14:55:
Severe protein calorie malnutrition
Addendum entered and electronically signed by Charles Alcocer MD 05/10/25 14:50:
Patient has and is aware EKG changes in the ST segments
Reviewed cardiology
Patient does not want cardiac catheterization.
Check 1 more set of troponin also await echocardiogram to see if there is a wall motion abnormality
Medical management is recommended by cardiology given her medical conditions as well as preference
Our team will update family
Original Note:
Update Note
Progress Note Update
Seen and examined the patient with the resident. Agree with the plan formulated. See changes in my documentation.
80-year-old female presented to the hospital with dizziness. She woke up to go to the bathroom and felt really weak that she had to sit down on the floor and lay on the floor. got her up and she still felt weak and lightheaded and was also
feeling short of breath. She smoked a cigarette while laying on the couch. She does not use any oxygen at home. had nasal congestion and sickness for the past few days
On examination awake and alert
Cardiovascular system S1-S2 appreciated
Chest few rales bilaterally short wheezes air entry improved
Abdomen soft and nontender
No pedal edema
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
Reviewed by [id number] tachycardia left axis deviation LVH
Chest x-ray reviewed by me-bilateral opacities, more on the right side
CT of the cervical spine-no acute changes. Moderate degenerative changes most pronounced C6-C7. Cavitary lesion in the left upper lobe 1.4 cm unchanged from the PET scan dated 12/15/2024
# Sepsis present on admission
Patient got sepsis bolus IV fluids in the ER hold off on further fluids for now
Likely source influenza
Cannot rule out bacterial pneumonia-procalcitonin elevated
Continue Tamiflu
Also on cefepime and doxycycline
Blood cultures negative so far
Lactic acidosis resolved
Mucinex, nebulizer treatments
Acute hypoxic respiratory failure much on high flow oxygen
Patient was off of oxygen morning of 05/09/2025 however back on 6 L of oxygen now
Possibly has an element of COPD exacerbation however she is refusing to increase prednisone from 10 mg
Pulmonary following
# Elevated troponin-trended down. Likely nonischemic myocardial injury secondary to hypoxia.
Cardiology evaluation appreciated
Check echocardiogram
# Paroxysmal SVTs-consider changing nifedipine to verapamil or Cardizem if okay with cardiology also. Await echo. Cannot use beta-ashutosh secondary to patient's lung condition
# Hyponatremia likely SIADH
Fluid restriction
1 more dose of Lasix today
# Bilateral Lung Ca
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
Patient had right upper lobe squamous cell carcinoma 2019
there is a cavitary lesion in the left upper lobe 1.4 cm-there was mild FDG uptake within that lesion on the PET scan from December 2024
Patient had a lung biopsy 02/12/2025-mostly necrotic acellular tissue no malignancy reported.
# Hypomagnesemia-replace
# Hypertension-restart nifedipine
# Mild aortic stenosis
# COPD-continue Trelegy or equivalent and Duo Nebs
# History of SVT/atrial tachycardia-on flecainide
# Rheumatoid arthritis/psoriatic arthritis-continue Plaquenil and prednisone
# Hyperlipidemia-continue pravastatin
# Low BMI 16-continue megestrol for appetite
# IBS with constipation-continue Linzess
# Diverticulosis
# History of Left eye injury in the past with prosthetic eye
# History of sigmoidectomy with colostomy and reversal for ruptured diverticulitis/history of small bowel obstruction
# Neuropathy/sciatica-chronic pain opiate dependent-continue hydrocodone/acetaminophen
# Osteoporosis on Prolia
# Active smoker-cessation counseling. Patient states it is difficult to quit. Refusing nicotine patch
# DVT prophylaxis-Lovenox
# DNR
Discussed with nursing at bedside
Part of this note was created using voice recognition system. Occasional wrong word or��sound alike� substitutions may have inadvertently occurred due to the inherent limitations of voice recognition software. If noted kindly bring it to my
attention for correction.
[2025-05-10 14:14] LABS: Troponin I 0.235 ng/ml
[2025-05-10] MEDS: PLAVIX 300 MG PO (14:36)
[2025-05-10] MEDS: MAGNESIUM SULFATE 102 GRAMS IV (14:37)
--- NOTE | 2025-05-10 15:33 | PTCARENOTE ---
Pt's assessment as documented. Sating mid 90s on 6L NC. OOB to chair. Medicated with PRN pain meds as ordered, see MAR. Pt picks and chooses which meds she is agreeable to take despite education. Pt updated on plan of care. Ringing appropriately,
call camacho within reach.
--- NOTE | 2025-05-10 16:13 | W.PN.UPDATE ---
Update Note
Progress Note Update
Discussed Mrs. Nesbitt's EKG and ECHO results with her in detail. Explained that she had a heart attack in the anterior wall of her heart and Echo results showing decrease in motion and EF of her heart secondary to MA. After discussing management
options she shows understanding and refuses cardiac catheterization. She reports wanting to be treated only old style with medication management.
I requested a phone number of her daughter or so I can update them. She requested not discussing it with them yet. She would like to tell her daughter in person tomorrow when she comes to visit her. Also, her is sick with Flu and she
does not want to worry him by telling these bad news since he had 3 stents previously.
--- NOTE | 2025-05-10 17:51 | CM ---
F/U: Patient is Independent at baseline. Patient refused cardiac catheterization so patient is still not quite ready. PT/OT no evaluate yet. PLAN: Anticipate Home with VN.
[2025-05-10] MEDS: LOVENOX 30 MG SC (18:53)
[2025-05-10] MEDS: PRAVACHOL 40 MG PO (18:53)
[2025-05-10] MEDS: SENOKOT PO (21:22)
[2025-05-10] MEDS: COMPAZINE 5 MG IV (23:35)
[2025-05-11] VITALS (16 sets, daily range): BP systolic 118–172; BP diastolic 55–101; PULSE 73; O2SAT 98; BMI 15.0
--- NOTE | 2025-05-11 01:00 | PTCARENOTE ---
Assumed care of Pt from day RN. Pt AAOx3 able to make needs known. Pt having some pain and nausea, see mar for medication admin. Pt remains on 6L ns. Pt appearing to get rest over night, respirations even unlabored at this time. Cardiac Medication
changes in mar acknowledged. Education given Pt knowledgeable about changes. Assessment care and vitals as charted.
[2025-05-11] MEDS: STERILE WATER FOR INJECTION 10 ML IV ×3 (02:51→17:00)
[2025-05-11] MEDS: MAXIPIME 1000 MG IV ×3 (02:51→17:00)
[2025-05-11 05:38] LABS: Hematocrit 33.7 % (37.0-47.0); Hemoglobin 11.7 g/dL (12.0-16.0); Mean Corp Hgb Conc. 34.7 g/dL (33.0-37.0); Mean Corpuscular Volume 91.3 fL (81.0-99.0); Platelet Count 238 10^3/uL (130-400); Red Cell Dist. Width 12.7 % (11.5-14.5)
[2025-05-11 05:59] LABS: Blood Urea Nitrogen 16 mg/dl (7-17); Calcium 8.7 mg/dl (8.4-10.2); Chloride 91 mmol/L (98-107); Estimated Creatinine Clearance 47 ml/min; Glucose 86 mg/dl (70-99); Magnesium 1.6 mg/dl (1.6-2.3); Potassium 3.2 mmol/L (3.5-5.1); Sodium 130 mmol/L (135-145); eGFR > 60.00
[2025-05-11] MEDS: NON-FORMULARY ITEM 145 MCG PO (06:05)
[2025-05-11 06:30] LABS: Carbon Dioxide 37 mmol/L (22-30)
[2025-05-11] MEDS: NON-FORMULARY ITEM 1 INH INH (07:42)
--- NOTE | 2025-05-11 07:51 | W.PN.HOSP.TC ---
Addendum entered and electronically signed by Charles Alcocer MD 05/11/25 13:10:
Seen and examined the patient independently. Agree with the plan formulated by the resident. Had a second visit with the patient's and daughter at bedside she wanted me to update them and also answered their questions.
Patient was feeling slightly better today but still on oxygen
Cardiovascular system S1-S2 appreciated, systolic murmur at apex
Chest-few rales bilaterally
Abdomen soft and nontender
She probably had ACS . it is difficult to completely exclude Takotsubo cardiomyopathy on the echo with the wall motion changes in the apex
Aspirin Plavix and statin along with beta-blockers ordered.
Patient refuses cardiac catheterization-so plan is for medical treatment.
She also likely had acute
She also has episodes of SVT-cardiology started amiodarone after discontinuing flecainide
TSH is uyfxco-inervi-pt TSH and chest x-ray as outpatient hopefully amiodarone therapy will be short duration
Continue antibiotics for pneumonia and antivirals for influenza
Wean oxygen as tolerated
Elevated troponin likely secondary to ACS
Nifedipine has been discontinued
Provided doses of Lasix for SIADH. Repeat serum and urine osmolality tomorrow
Patient wants to take her own narcotics from home as she feels nauseous
Continue PPI and Pepcid she is on several medicines including Plaquenil, steroids, amiodarone, Tamiflu all of that could cause nausea.
Discussed with cardiology
Discussed with nursing
D/W pharmacy
Discussed with patient's and daughter at bedside in detail all questions answered.
time over 50 min
She wishes to go home and not to rehab. Will consult PT
Original Note:
Today's Communication/Plan
-
Follow cards recs
Stop flecainide
Change nifedipine to metoprolol
Possible Takotsubo's cardiomyopathy
Discuss with the family today
Repleted K and mag
Wean FiO2 to 90%
Assessment / Plan
Assessment / Plan
80 y/o F with pmh of COPD active smoker , chronic hyponatremia, adenocarcinoma of the lung in remission, Silastic and rheumatoid arthritis, hypertension, paroxysmal SVT presented to ED on 05/06/2025 with dizziness. She woke up to go to the bathroom
and felt really weak that she had to sit down on the floor and lay on the floor. got her up and she still felt weak and lightheaded and was also feeling short of breath. She smoked a cigarette while laying on the couch. She does not use
any oxygen at home. had nasal congestion and sickness for the past few days
Imaging
CT Head W/o Iv Contrast 05/06/2025
-No acute intracranial abnormalities appreciated.
-Mild atrophy and mild chronic small vessel change
CT Cervical Spine W/o Iv Contrast 05/06/2025
-No osseous injury appreciated.
-Moderate degenerative change, most pronounced at C6-7, without significant change compared to prior MRI.
- Cavitary lesion within the left upper lobe measures 1.4 cm in diameter, unchanged compared to prior PET/CT dated 12/15/2024.
Chest Xray 05/06/2025
1. No acute pulmonary abnormalities appreciated.
2. Linear and nodular opacities bilaterally, unchanged compared to prior chest x-ray. Please see report from CT chest dated 04/20/2025.
Chest Xray 05/07/2025
The lungs are symmetrically hyperinflated. Stable bandlike opacity in the left upper lobe and nodular opacity in the right upper lobe compared to previous examinations. Similar appearance of mild bibasilar reticulonodular opacities. No pleural
effusion or pneumothorax. Stable cardiomediastinal silhouette. Chronic degenerative changes of the spine.
ECG 05/10/2025
-SINUS RHYTHM WITH MARKED SINUS ARRHYTHMIA
LEFT ANTERIOR FASCICULAR BLOCK
MINIMAL VOLTAGE CRITERIA FOR LVH, MAY BE NORMAL VARIANT ( [employer] product )
ANTEROLATERAL INFARCT (CITED ON OR BEFORE 08-May-2025)
QTcB >= [address] ABNORMALITY
ECG 05/11/2025
SINUS TACHYCARDIA WITH PREMATURE ATRIAL COMPLEXES
LEFT ANTERIOR FASCICULAR BLOCK
MINIMAL VOLTAGE CRITERIA FOR LVH, MAY BE NORMAL VARIANT ( [employer] product )
T WAVE ABNORMALITY, CONSIDER ANTERIOR ISCHEMIA
ECHO 05/10/2025
1. Moderately reduced left ventricular systolic function with LV ejection fraction visually estimated 40%.
2. Hypokinesis of the mid-– apical anterior, anteroseptal, apical lateral and apex.
3. Normal RV size and systolic function.
4. Mild mitral regurgitation. Mild tricuspid regurgitation.
5. Trileaflet sclerotic aortic valve without significant stenosis. No aortic regurgitation.
6. Trivial pericardial effusion.
7. Compared to prior transthoracic echocardiogram dated 03/26/2022, LV ejection fraction was 65% with aortic sclerosis. Regional wall motion abnormalities are new
Plan
Acute symptoms triggered by influenza and possibly bacterial bronchitis/early pneumonia on top of her advanced COPD and pulmonary cachexia
Sepsis present on admission
-Patient got sepsis bolus IV fluids in the ER hold off on further fluids for now. Leukocytosis improved
-Influenza A positive
-Procalcitonin - 8.49
-Cannot rule out bacterial pneumonia-procalcitonin elevated
-Continue Tamiflu #D5
-Continue cefepime#D5, doxycycline #D6 for possible CAP
-Blood cx-negative
-Sputum cx-usual respiratory sisi
-Lactic acidosis resolved
-Consult pulmonology, input appreciated
-Refuses Mucinex stating it causes coughing
-transition to Trelegy her home med
-Active smoker - difficulty with quiting- refuses nicotine patch use
-Smoking cessation counseling
-provided acapella device
Acute hypoxic respiratory failure
-On 4L O2 NC - sat 96% -> wean FiO2 to 90%
-ABG- respiratory acidosis with compensatory met. alkalosis
-Troponin trending down - likely from demand ischemia Type 2 CT
-Consult cardiology, input appreciated
-IF SOB not improving order Chest Xray
-Pro BNP 7570
STEMI
-ECG - anteror wall ischemia
-Troponin downtrending
-Cardiology on board -stop flecainide after washout, change nifedipine to metoprolol, may need to stop hydroxychloroquine
-Given her COPD unlikely she will tolerate amiodarone
-Echo - hypokinesis apex - ? takatsubo's CMP
-Pt declines cardiac cath -continue aspirin and Plavix
Mild aortic stenosis
History of SVT/atrial tachycardia
-on flecainide
-check QTC on ECG - prolonged- rechecked WNL
-Echo today
-On telemetry W-kew-ldufqn EKG
Electrolyte abnormalities
-replete K
-replete Mg
Lightheadeness
-Check orthostatics
Hyponatremia
-Serum osmolality low, Urine osmolality 656, possibly indicates SIADH
-Na 129
-Fluid restriction
-Give lasix
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
-Patient had right upper lobe squamous cell carcinoma 2019
-there is a cavitary lesion in the left upper lobe 1.4 cm-there was mild FDG uptake within that lesion on the PET scan from December 2024
-Patient had a lung biopsy 02/12/2025-mostly necrotic acellular tissue no malignancy reported
Pumonary cachexia
Severe Protein Calorie Malnutrition
-Low BMI 16
-continue megestrol for appetite
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
Rheumatoid arthritis/psoriatic arthritis
-continue Plaquenil and prednisone 10mg
Hypertension
-Her BP 170/100-received Lopressor-BP 138/64
-Hold off on Nifedipine for now
Hyperlipidemia
-continue pravastatin
IBS with constipation
-continue Linzess
-bowel regimen for opioid induced constipation
Nausea
-Tigan ordered
-on Protonix
-improved
Diverticulosis
History of Left eye injury in the past with plastic eye
History of sigmoidectomy with colostomy and reversal for ruptured diverticulitis/history of small bowel obstruction
Neuropathy/sciatica-chronic pain opiate dependent-continue hydrocodone/acetaminophen
Osteoporosis on Prolia
DVT prophylaxis-Lovenox
DNR
Anticipated Discharge: > 48 hours
Subjective/Interval History
-
Date of Service: May 11, 2025
She was not able to sleep very good last night. She feels anxious about heart issues. She denies chest pain, shortness of breath on 4L O2, no palpitations. She is going to meet her family today and tell them about heart issues.
Objective Data
-
Labs:
Laboratory Results
05/11/25
05:26
WBC 8.2
Hgb 11.7 L
Hct 33.7 L
Plt Count 238
Sodium 130 L
Potassium 3.2 L
Chloride 91 L
Carbon Dioxide 37 H
BUN 16
Creatinine 0.4 L
Glucose 86
Calcium 8.7
Vital Signs:
Vital Signs
Temp Pulse Resp BP Pulse Ox
98.1 F 92 18 162/78 97
05/11/25 02:47 05/11/25 07:46 05/11/25 07:46 05/11/25 06:00 05/11/25 07:46
I&O
05/10/25 05/11/25 05/12/25
06:59 06:59 06:59
Intake Total 390 / 390
Output Total 125 / 125
Balance -125 / -125 390 / 390
Review of Systems
-
History Source: Patient
Constitutional: Reports No Symptoms and Sleep Disturbance
EENT: Reports No Symptoms Reported
Respiratory: Reports No Symptoms
Cardiac: Reports No Symptoms
Abdomen/GI: Reports No Symptoms
Breast: Reports No Symptoms
Genitourinary: Reports No Symptoms
Musculoskeletal: Reports No Symptoms
Skin: Reports No Symptoms
Neuro: Reports No Symptoms
Endocrine: Reports No Symptoms
Allergy / Immunology: Reports No Symptoms
Psych: Reports Anxious
Physical Exam
-
General: No Apparent Distress, Comfortable, Appears Chronically Ill and Cachectic
HEENT: Normocephalic, Atraumatic and Oxygen (4L)
Respiratory: Clear to Auscultation
Cardiac: S1/S2, Irregular Rhythm and Tachycardic
Breast: Deferred by me
GI: Soft, Nontender, Nondistended and Normal Bowel Sounds
Rectal: Deferred by Provider
Genito-urinary: Deferred by me
Musculoskeletal: No Edema
Skin: Warm and Dry
Neuro: AO x 3, No Motor Deficits, Nonfocal/Grossly Intact and No Sensory Deficits
Psych: Calm and Anxious
[2025-05-11] MEDS: TAMIFLU 30 MG PO (08:57)
[2025-05-11] MEDS: LOW STRENGTH ASPIRIN 81 MG PO (08:57)
[2025-05-11] MEDS: PROTONIX 40 MG PO (08:58)
[2025-05-11] MEDS: VIBRAMYCIN 100 MG PO ×2 (08:58→19:49)
[2025-05-11] MEDS: DELTASONE 10 MG PO (08:58)
[2025-05-11] MEDS: KCL 20 MEQ PO ×2 (08:59→11:13)
[2025-05-11] MEDS: PLAVIX 75 MG PO (08:59)
[2025-05-11] MEDS: TOPROL XL 25 MG PO ×2 (08:59→19:49)
[2025-05-11] MEDS: PEPCID 20 MG PO (08:59)
[2025-05-11] MEDS: MUCINEX PO ×2 (09:03→19:44)
[2025-05-11] MEDS: COLACE PO (09:03)
[2025-05-11] MEDS: NSS (PRESERVATIVE FREE) IV (09:03)
[2025-05-11] MEDS: MEGACE ORAL SUSPENSION PO (09:03)
[2025-05-11] MEDS: SENOKOT PO (09:03)
--- NOTE | 2025-05-11 09:04 | W.PN.CARDCBS ---
Today's Communication / Plan
-
Medical therapy optimization as above
Check EKG
Replete electrolytes
Continue telemetry monitoring
Impression / Plan
-
Impression:
Acute Hypoxic respiratory distress/sepsis secondary to influenza A
PSVT/AT, on flecainide and nifedipine at time of admission [she denies a history of atrial fibrillation/flutter.]
Elevated troponin, peak 0.609 on 05/08/2025 and downward trending/abnormal EKG/2D echocardiogram with moderately reduced left ventricular systolic function, EF estimated 40% with hypokinesis of mid to apical anterior, anteroseptum, apical lateral and
apex
- Assume ACS given risk factors for coronary artery disease; patient has declined cardiac catheterization
- Differential diagnosis also includes Takotsubo's cardiomyopathy, unconfirmed
Severe COPD
h/o lung cancer, stage Ia right lung and stage IIb left lung, XRT 2019, in remission
Mild aortic stenosis
Hyponatremia
Hypomag
HTN
HLD
Chronic conditions:
Depression
Blindness left eye status post enucleation
Rheumatoid arthritis
Psoriatic arthritis
Diverticulitis
Ongoing tobacco abuse
DNR
Sestamibi study June 2022: Small mild fixed basal inferior, basal inferoseptal, mid inferior most likely soft tissue attenuation artifact, EF 67%
Echocardiogram March 2022: Small LV, mild LVH, EF 65%, trace mitral regurgitation, aortic sclerosis, normal right heart, pulmonary artery systolic pressure 40-43 mmHg
Plan:
Elevated troponin, peak 0.609 on 05/08/2025 and downward trending/abnormal EKG/2D echocardiogram with moderately reduced left ventricular systolic function, EF estimated 40% with hypokinesis of mid to apical anterior, anteroseptum, apical lateral and
apex
- Assume ACS given risk factors for coronary artery disease; patient has declined cardiac catheterization
- Differential diagnosis also includes Takotsubo's cardiomyopathy, unconfirmed
- Patient is chest pain-free with improving O2 supplementation
- Medical therapy for presumed coronary artery disease. Aspirin/Plavix s/p Plavix load 05/10/2025.
- Continue pravastatin
- Discontinued flecainide with plan to initiate amiodarone
- Nifedipine changed to metoprolol and appears to be tolerating [cleared by pulmonary]
- proBNP elevated, 7570 on 05/10/2025, previously 1990 on 05/08/2025-although patient does not overtly examine in heart failure will give IV Lasix 20 mg x 1
- Replete potassium and magnesium for K greater than 4, mag greater than 2
- Would repeat 2D echocardiogram as an outpatient once she has recovered from influenza in 3 months to reassess ejection fraction
History of PSVT with frequent runs of rapid PAT on telemetry.
-Review of telemetry does not demonstrate definite atrial fibrillation or flutter
-Flecainide discontinued
-Repeat EKG this morning, discussed with nursing. Will initiate amiodarone after EKG review for QT interval
-Beta-ashutosh initiated.
-TSH within normal limits.
Acute on chronic hypoxic respiratory failure secondary to influenza A with underlying severe COPD and history of recurrent lung cancer currently in remission
-Improving O2 requirements, now on 3 L
-Tamiflu and supportive care
-Pulmonary following
Patient has requested that I not speak with family members including her and daughter
DNR status noted and reviewed with patient
Progress Note - Hide Trimmer
Subjective
Date of Service: May 11, 2025
Patient was seen examined sitting out of bed to chair. Reports shortness of breath is starting to improve although still has a cough. No wheezes. No chest pain. No dizziness. Denies palpitations. Is anxious to work with physical therapy.
Objective
Labs:
05/11/25 05:26
05/11/25 05:26
Labs
Hgb 11.7 g/dL (12.0-16.0) L 05/11/25 05:26
Hct 33.7 % (37.0-47.0) L 05/11/25 05:26
Plt Count 238 10^3/uL (130-400) 05/11/25 05:26
PT 14.0 Sec (11.4-14.6) 05/07/25 22:30
INR 1.07 05/07/25 22:30
APTT 36.6 Sec (23.4-35.0) H 05/07/25 22:30
Sodium 130 mmol/L (135-145) L 05/11/25 05:26
Potassium 3.2 mmol/L (3.5-5.1) L 05/11/25 05:26
BUN 16 mg/dl (7-17) 05/11/25 05:26
Creatinine 0.4 mg/dL (0.6-1.0) L 05/11/25 05:26
Glucose 86 mg/dl (70-99) 05/11/25 05:26
Troponins
05/08/25 05/08/25 05/08/25
10:45 17:28 22:17
Troponin I 0.281 H* 0.595 H* D 0.609 H*
05/09/25 05/10/25
04:36 13:17
Troponin I 0.519 H* 0.235 H*
Vital Signs and I&O:
Vital Signs
Temp Pulse Resp BP Pulse Ox
98.1 F 92 18 162/78 97
05/11/25 08:04 05/11/25 07:46 05/11/25 07:46 05/11/25 06:00 05/11/25 07:46
Vital Signs
Temp Pulse Resp BP Pulse Ox
98.1 F 92 18 162/78 97
05/11/25 08:04 05/11/25 07:46 05/11/25 07:46 05/11/25 06:00 05/11/25 07:46
Intake & Output
12/07/25 12/08/25 12/09/25 12/10/25
06:59 06:59 06:59 06:59
Intake Total 120 / 120 390 / 390
Output Total 125 / 125
Balance 120 / 120 -125 / -125 390 / 390
Physical Exam
Physical Exam
General: 80-year-old female on nasal cannula O2 sitting out of bed to chair.
Heart: Irregular, tachycardic. Positive S1-S2. 2/6 SM
Lungs: Increased thoracic kyphosis. Bronchovesicular breath sounds with scattered rhonchi. No wheeze
Abd: Positive BS, NT/ND, neg rebound/rigidity/guarding
Ext: No edema
Neuro: nonfocal
[2025-05-11] MEDS: MAGNESIUM SULFATE 102 GRAMS IV (09:29)
[2025-05-11] MEDS: MAGNESIUM SULFATE 100 IV (10:34)
--- NOTE | 2025-05-11 11:02 | W.PN.PUL.V3 ---
Today's Communication / Plan
-
Wean oxygen
Increase activity
Finite course of antibiotics
Chronic prednisone
SVT rate [id number] and amiodarone added
Assessment
-
80-year-old woman known to Dr. 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 Pulmonary cachexia with ongoing weight loss on Megace. Admitted with fatigue, shortness of breath
and increased coughing for few days, found to have flu positive. 05/06/2025
Acute respiratory sufficiency: Influenza A on top of severe COPD and deconditioning.
Chest x-ray 05/06/2025: Bilateral opacities stable compared to prior-postradiation changes. Hyperinflation.
Hyponatremia
Severe COPD with hyperinflation. Not on oxygen therapy.
Conditions present prior admission:
Severe COPD-chronic bronchitic symptoms/emphysema
Follows up with Dr. Leal
Most recent FEV1 postbronchodilator 50% 09/22/2024. Total lung capacity 68% DLCO 24%.
6-minute walk testing 04/01/2024: No oxygen desaturation. On 03/25/2025 unable to perform due to weakness.
Last acute exacerbation 07/2024
Ongoing smoking few cigarettes per day
Chronic hypoxemic respiratory failure
Psoriatic arthritis on chronic immunosuppression up until recently-now on low-dose prednisone and hydroxychloroquine.
Pulmonary cachexia
Megace started 03/25/2025.
Lung cancer:
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
More recently percutaneous biopsy of left upper lobe 1.4 cm lung nodule negative for malignancy.
IBS
History of SVT/atrial tachycardia on flecainide
Mild aortic stenosis
Hypertension
DNR status
Osteoporosis
Plan:
Respiratory status slowly improving-no increased wheezing on beta-blockers noted
Supplemental oxygen as needed-assess discharge supplemental oxygen needs prior to discharge
Prednisone 10 mg daily
Nebulizers as needed-
Trelegy as an outpatient
Mucolytic's
Antitussives
Incentive spirometry and Acapella
In regards to history of bilateral synchronous lung primary cancer status post radiation. She has been on remission.
Recently underwent CT chest that demonstrated left upper lobe cavitary nodule-status post percutaneous biopsy in April negative for malignancy.
The plan is to repeat CAT scan in the next 3 to 4 months. This is already scheduled by Dr. Leal.
It is encouraging that CT neck showed stability of left upper lobe abnormality.
Smoking cessation strongly encouraged-continues to smoke few cigarettes per day.
Nicotine patch if needed
Diuresis as tolerated
Monitor renal function, electrolytes, intake/ouTput, lower extremity edema and weight
Replace electrolytes as needed
Cardiology following-correspondence reviewed
Atrial tachycardia/atrial fibrillation rate control
Beta-blockers added-no increased wheezing noted
Amiodarone will be added
Check cultures
Sputum with usual respiratory sisi
Influenza A positive
Empiric antibiotics-finish finite course
Tamiflu-finite course
Respiratory isolation per protocol
DVT prophylaxis-on Lovenox
GI prophylaxis-on pantoprazole and famotidine
Nutrition
Early mobilization
DNR
Reviewed with nursing
Outpatient pulmonary follow-up
Diagnostic Data
Chest X-Ray: 05/07/25-The lungs are symmetrically hyperinflated. Stable bandlike opacity in the left upper lobe and nodular opacity in the right upper lobe compared to previous examinations. Similar appearance of mild bibasilar reticulonodular
opacities. No pleural effusion or pneumothorax. Stable cardiomediastinal silhouette. Chronic degenerative changes of the spine.
05/06/25-. No acute pulmonary abnormalities appreciated. 2. Linear and nodular opacities bilaterally, unchanged compared to prior chest x-ray. Please see report from CT chest dated 04/20/2025.
CT Scan: CHEST 12/02/24-. Mild interval enlargement of cavitary nodule within the left upper lobe measuring 14 x 10 mm, previously 10 x 10 mm. Continued close radiographic follow-up and/or further evaluation with PET/CT recommended. Significant
interval enlargement of now 9 x 5.8 mm nodule in the medial right upper lobe.
2. Multiple areas of scattered peripheral bronchial impaction with distal tree in bud nodules and consolidative changes, most pronounced within the right middle lobe, consistent with chronic endobronchial disease. Multiple scattered small nodules
and groundglass opacities, possibly related.
3. Unchanged confluent areas of airspace consolidation within the lateral right upper lobe and also within the left hilum extending into the left upper lobe compatible with treated tumor and radiation changes.
Echo: 03/26/22- 1. Small left ventricle with mild left ventricular hypertrophy and preserved contractility, ejection fraction 65% 2. Thickened mitral leaflets with trace mitral regurgitation and normal left atrium 3. Aortic sclerosis without
significant stenosis or regurgitation 4. Normal right heart with mild pulmonary hypertension, 40-43 mmHg systolic In May 2019, the mean aortic valve gradient was 12mmHg and is 8 mmHg today. The patient will be called and told that there is
preserved heart muscle function and no significant valve abnormality.
.
Subjective Data
-
Date of Service:
Date of Service: May 11, 2025
Chief Complaint: Pulmonary Follow Up (Acute exacerbation of COPD/influenza A) and Dyspnea Follow Up
Subjective:
Denies any increased wheezing, shortness of breath, productive cough, chest pain but admits to palpitations
Review of Systems
HEENT: Other (Per HPI)
Objective Data
Data Reviewed
Vital Signs / I&O:
Vital Signs
Temp Pulse Resp BP Pulse Ox
98.1 F 87 17 125/89 93
05/11/25 08:04 05/11/25 10:00 05/11/25 10:00 05/11/25 08:00 05/11/25 08:15
Intake and Output
05/10/25 05/11/25 05/12/25
06:59 06:59 06:59
Intake Total 390 / 390
Output Total 125 / 125
Balance -125 / -125 390 / 390
SaO2: 93
Nasal Cannula flow liters per minute: 3
Physical Exam
General: Respiratory Distress (n), Comfortable and Other (Cachectic/thin appearing)
HEENT: Normocephalic, Anicteric and Moist Mucous Membranes
Cardiovascular: Regular Rhythm
Respiratory: Clear (Prolonged expiratory time, diminished breath sounds, hyperinflation), Wheeze (n), Crackles, Non-Labored Respirations, Accessory Resp Muscle Use (n) and Stridor (n)
GI: Soft, Non Distended and Non Tender
Neurology: Awake, Alert and No Motor Deficits
Skin: Warm, Dry, Good Color, Cyanosis (n), Jaundice (n) and Rash (n)
Labs/Micro/Reports
Lab Data
05/11/25 05:26
Microbiology
05/06/25 07:52 Blood/Venous Blood Culture - Final
No Growth - Final Report
05/06/25 07:45 Blood/Venous Blood Culture - Final
No Growth - Final Report
05/07/25 03:16 Sputum Respiratory Culture - Final
Usual Respiratory Sisi
05/07/25 03:16 Sputum Gram Stain - Final
05/06/25 09:54 Urine Urine Culture - Final
--- NOTE | 2025-05-11 12:07 | PTCARENOTE ---
Pt's assessment as documented. Weaned to 2L NC with sats in the low to mid 90's. OOB to chair. Pt picks and chooses which meds she is agreeable to take. Family at bedside. Pt and family updated on plan of care. Ringing appropriately, call camacho
within reach.
[2025-05-11] MEDS: NORCO 5/325 1 TABLET PO ×2 (12:28→21:46)
--- NOTE | 2025-05-11 13:46 | CM ---
Patient seen at bedside in IMU with daughter also present. Patient daughter asking for referral to [facility] and patient is still on O2. Patient did not have home O2 previously. Liaison with [facility] aware and will follow with patient. CM will continue to
follow for discharge planning needs. Patient anticipates discharge Saturday.
Plan; home with [facility] to follow
--- NOTE | 2025-05-11 14:44 | VNURNOTE ---
Home Health Liaison met with patient at bedside to discuss [facility] nurse/therapy, visits, schedule and homebound status. Patient is agreeable and understands that visits at home will be 2-3 x per week to assess and teach medical management.
Patient is aware that [facility] will contact them for start of care within a week after discharge from . Provided contact number for [facility].
Watching for new home 02 needs. Patient stated she will refuse a standard set up (portable tank and home concentrator). Patient stated She only wants an [employer] and will pay out of pocket for it.
Also awaiting PT eval - pending.
[facility] referral completed in [facility].
[2025-05-11] MEDS: PACERONE 200 MG PO ×2 (15:19→21:46)
[2025-05-11] MEDS: LOVENOX 30 MG SC (17:00)
[2025-05-11] MEDS: PRAVACHOL 40 MG PO (17:01)
[2025-05-11 17:47] LABS: Blood Urea Nitrogen 19 mg/dl (7-17); Calcium 8.4 mg/dl (8.4-10.2); Carbon Dioxide 38 mmol/L (22-30); Chloride 90 mmol/L (98-107); Estimated Creatinine Clearance 47 ml/min; Glucose 127 mg/dl (70-99); Magnesium 2.1 mg/dl (1.6-2.3); Potassium 3.9 mmol/L (3.5-5.1); Sodium 126 mmol/L (135-145); eGFR > 60.00
[2025-05-11] MEDS: SENOKOT 17.2 MG PO (19:49)
[2025-05-11] MEDS: COLACE 100 MG PO (19:49)
[2025-05-12] VITALS (13 sets, daily range): BP systolic 106–152; BP diastolic 58–105; BMI 15.3
[2025-05-12] MEDS: STERILE WATER FOR INJECTION 10 ML IV ×3 (01:40→17:47)
[2025-05-12] MEDS: MAXIPIME 1000 MG IV ×3 (01:40→17:47)
--- NOTE | 2025-05-12 02:24 | PTCARENOTE ---
assumed care of patient. pt is AAOx3, VSS. 2L NC 100%, some SOB on exertion. able to make needs known. pt at times refusing certain medications. education given. pt able to walk into bathroom x1 assist with RW. pt able to have a BM. pt aware of need
of urine specimen. pt bladder scanned for 53ml d/t frequency. pt with complaints of whole body pain, medicated per MAR. care ongoing.
[2025-05-12] MEDS: NON-FORMULARY ITEM 145 MCG PO (05:47)
[2025-05-12 06:05] LABS: Hematocrit 32.2 % (37.0-47.0); Hemoglobin 11.1 g/dL (12.0-16.0); Mean Corp Hgb Conc. 34.5 g/dL (33.0-37.0); Mean Corpuscular Volume 91.5 fL (81.0-99.0); Platelet Count 250 10^3/uL (130-400); Red Cell Dist. Width 12.8 % (11.5-14.5)
[2025-05-12 06:53] LABS: Blood Urea Nitrogen 20 mg/dl (7-17); Calcium 8.2 mg/dl (8.4-10.2); Chloride 91 mmol/L (98-107); Estimated Creatinine Clearance 48 ml/min; Glucose 85 mg/dl (70-99); Potassium 3.6 mmol/L (3.5-5.1); Sodium 128 mmol/L (135-145); eGFR > 60.00
[2025-05-12 07:01] LABS: Carbon Dioxide 36 mmol/L (22-30)
--- NOTE | 2025-05-12 07:41 | W.PN.HOSP.TC ---
Today's Communication/Plan
-
Continue trial of weaning from oxygen
Walking pulse ox test tomorrow by CM
Follow cards recs
Assessment / Plan
Assessment / Plan
80 y/o F with pmh of COPD active smoker , chronic hyponatremia, adenocarcinoma of the lung in remission, Silastic and rheumatoid arthritis, hypertension, paroxysmal SVT presented to ED on 05/06/2025 with dizziness. She woke up to go to the bathroom
and felt really weak that she had to sit down on the floor and lay on the floor. got her up and she still felt weak and lightheaded and was also feeling short of breath. She smoked a cigarette while laying on the couch. She does not use
any oxygen at home. had nasal congestion and sickness for the past few days
Imaging
CT Head W/o Iv Contrast 05/06/2025
-No acute intracranial abnormalities appreciated.
-Mild atrophy and mild chronic small vessel change
CT Cervical Spine W/o Iv Contrast 05/06/2025
-No osseous injury appreciated.
-Moderate degenerative change, most pronounced at C6-7, without significant change compared to prior MRI.
- Cavitary lesion within the left upper lobe measures 1.4 cm in diameter, unchanged compared to prior PET/CT dated 12/15/2024.
Chest Xray 05/06/2025
1. No acute pulmonary abnormalities appreciated.
2. Linear and nodular opacities bilaterally, unchanged compared to prior chest x-ray. Please see report from CT chest dated 04/20/2025.
Chest Xray 05/07/2025
The lungs are symmetrically hyperinflated. Stable bandlike opacity in the left upper lobe and nodular opacity in the right upper lobe compared to previous examinations. Similar appearance of mild bibasilar reticulonodular opacities. No pleural
effusion or pneumothorax. Stable cardiomediastinal silhouette. Chronic degenerative changes of the spine.
ECG 05/10/2025
-SINUS RHYTHM WITH MARKED SINUS ARRHYTHMIA
LEFT ANTERIOR FASCICULAR BLOCK
MINIMAL VOLTAGE CRITERIA FOR LVH, MAY BE NORMAL VARIANT ( [employer] product )
ANTEROLATERAL INFARCT (CITED ON OR BEFORE 08-May-2025)
QTcB >= [address] ABNORMALITY
ECG 05/11/2025
SINUS TACHYCARDIA WITH PREMATURE ATRIAL COMPLEXES
LEFT ANTERIOR FASCICULAR BLOCK
MINIMAL VOLTAGE CRITERIA FOR LVH, MAY BE NORMAL VARIANT ( [place] product )
T WAVE ABNORMALITY, CONSIDER ANTERIOR ISCHEMIA
ECHO 05/10/2025
1. Moderately reduced left ventricular systolic function with LV ejection fraction visually estimated 40%.
2. Hypokinesis of the mid-– apical anterior, anteroseptal, apical lateral and apex.
3. Normal RV size and systolic function.
4. Mild mitral regurgitation. Mild tricuspid regurgitation.
5. Trileaflet sclerotic aortic valve without significant stenosis. No aortic regurgitation.
6. Trivial pericardial effusion.
7. Compared to prior transthoracic echocardiogram dated 03/26/2022, LV ejection fraction was 65% with aortic sclerosis. Regional wall motion abnormalities are new
Plan
Acute symptoms triggered by influenza and possibly bacterial bronchitis/early pneumonia on top of her advanced COPD
Sepsis present on admission
-Patient got sepsis bolus IV fluids in the ER hold off on further fluids for now. Leukocytosis improved
-Influenza A positive -completed 5 days of Tamiflu
-Procalcitonin - 8.49
-Cannot rule out bacterial pneumonia-procalcitonin elevated
-cefepime#D6, doxycycline #D6 for possible CAP -patient refuses taking doxycycline, completed antibiotic course
-Blood cx-negative
-Sputum cx-usual respiratory sisi
-Lactic acidosis resolved
-Consult pulmonology, input appreciated
-Refuses Mucinex stating it causes coughing
-Atrovent every 6 hours as needed
-transition to Trelegy her home med
-Active smoker - difficulty with quiting- refuses nicotine patch use
-Smoking cessation counseling
-provided acapella device
Acute hypoxic respiratory failure
-Improving oxygen requirements currently on room air tolerating well
-ABG- respiratory acidosis with compensatory met. alkalosis
-Consult cardiology, input appreciated
-Pro BNP 7570
-Walking pulse ox test tomorrow by CM
History of PSVT with frequent runs of rapid PAT on telemetry
-Troponin trending down - likely from demand ischemia Type 2 MT
-ECG - anteror wall ischemia
-Cardiology on board -stop flecainide after washout, change nifedipine to metoprolol, stop hydroxychloroquine
-Check Qtc if normal start amiodarone -TSH within normal limits
-Echo - hypokinesis apex - ? takatsubo's CMP
-Pt declines cardiac cath -continue aspirin and Plavix
Mild aortic stenosis
History of SVT/atrial tachycardia
-on flecainide
-check QTC on ECG - prolonged- rechecked WNL
-Echo today
-On telemetry [id number] EKG
Electrolyte abnormalities
-replete K
-replete Mg
Lightheadeness
-Check orthostatics
Hyponatremia
-Serum osmolality low, Urine osmolality 656, possibly indicates SIADH
-Na 129
-Fluid restriction
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
-Patient had right upper lobe squamous cell carcinoma 2019
-there is a cavitary lesion in the left upper lobe 1.4 cm-there was mild FDG uptake within that lesion on the PET scan from December 2024
-Patient had a lung biopsy 02/12/2025-mostly necrotic acellular tissue no malignancy reported
Pumonary cachexia
Severe Protein Calorie Malnutrition
-Low BMI 16
-Refuses megestrol for appetite
-director of group counseling program consulted
Rheumatoid arthritis/psoriatic arthritis
-continue Plaquenil and prednisone 10mg -taper back to home dose 5 mg prednisone tomorrow
Hypertension
-Her BP 170/100-received Lopressor-BP 138/64
-Hold off on Nifedipine for now
Hyperlipidemia
-continue pravastatin
IBS with constipation
-continue Linzess
-bowel regimen for opioid induced constipation
Nausea
-Tigan ordered
-on Protonix
-improved
Diverticulosis
History of Left eye injury in the past with plastic eye
History of sigmoidectomy with colostomy and reversal for ruptured diverticulitis/history of small bowel obstruction
Neuropathy/sciatica-chronic pain opiate dependent-continue hydrocodone/acetaminophen
Osteoporosis on Prolia
DVT prophylaxis-Lovenox
DNR
Anticipated Discharge: 24 - 48 hours
Subjective/Interval History
-
Date of Service: May 12, 2025
She is sitting comfortably on the chair. She feels a little bit anxious about using walker. She has been on room air trial. She reports feeling comfortable on room air denies shortness of breath. She denies chest pain.
Objective Data
-
Labs:
Laboratory Results
05/12/25
05:55
WBC 9.0
Hgb 11.1 L
Hct 32.2 L
Plt Count 250
Sodium 128 L
Potassium 3.6
Chloride 91 L
Carbon Dioxide 36 H
BUN 20 H
Creatinine 0.5 L
Glucose 85
Calcium 8.2 L
Vital Signs:
Vital Signs
Temp Pulse Resp BP Pulse Ox
97.7 F 69 16 152/105 96
05/12/25 03:00 05/12/25 06:00 05/12/25 06:00 05/12/25 06:00 05/12/25 06:00
I&O
05/11/25 05/12/25 05/13/25
06:59 06:59 06:59
Intake Total 390 / 390
Balance 390 / 390
Review of Systems
-
History Source: Patient
Constitutional: Reports No Symptoms
EENT: Reports No Symptoms Reported
Respiratory: Reports No Symptoms
Cardiac: Reports No Symptoms
Abdomen/GI: Reports No Symptoms
Breast: Reports No Symptoms
Genitourinary: Reports No Symptoms
Musculoskeletal: Reports No Symptoms
Skin: Reports No Symptoms
Neuro: Reports No Symptoms
Endocrine: Reports No Symptoms
Allergy / Immunology: Reports No Symptoms
Psych: Reports Anxious
Physical Exam
-
General: No Apparent Distress, Comfortable, Appears Chronically Ill and Cachectic
HEENT: Normocephalic, Atraumatic and Oxygen (room air trial to wean off o2)
Respiratory: Clear to Auscultation
Cardiac: S1/S2, Irregular Rhythm and Tachycardic
Breast: Deferred by me
GI: Soft, Nontender, Nondistended and Normal Bowel Sounds
Rectal: Deferred by Provider
Genito-urinary: Deferred by me
Musculoskeletal: No Edema
Skin: Warm and Dry
Neuro: AO x 3, No Motor Deficits, Nonfocal/Grossly Intact and No Sensory Deficits
Psych: Anxious
[2025-05-12] MEDS: NON-FORMULARY ITEM 1 INH INH (07:45)
[2025-05-12] MEDS: NSS (PRESERVATIVE FREE) IV (08:25)
[2025-05-12] MEDS: MUCINEX PO (08:25)
[2025-05-12] MEDS: PLAVIX 75 MG PO (08:35)
[2025-05-12] MEDS: TOPROL XL 25 MG PO ×2 (08:35→20:44)
[2025-05-12] MEDS: PACERONE 200 MG PO ×3 (08:35→20:43)
[2025-05-12] MEDS: KCL 20 MEQ PO (08:35)
[2025-05-12] MEDS: PEPCID 20 MG PO (08:35)
[2025-05-12] MEDS: LOW STRENGTH ASPIRIN 81 MG PO (08:35)
[2025-05-12] MEDS: COLACE PO ×2 (08:36→20:44)
[2025-05-12] MEDS: SENOKOT PO ×2 (08:36→20:44)
[2025-05-12 08:37] LABS: Albumin 3.1 g/dl (3.5-5.0); Magnesium 1.9 mg/dl (1.6-2.3)
[2025-05-12] MEDS: PROTONIX PO (08:40)
--- NOTE | 2025-05-12 08:47 | W.PN.CARDCBS ---
Today's Communication / Plan
-
Volume status appears reasonable and we will hold off on Lasix
SVT/atrial tachycardia improved on amiodarone
She refuses catheterization for her reduced ejection fraction and abnormal troponin
Flecainide has been discontinued
Ambulate and see if requires home oxygen
Impression / Plan
-
Impression:
Acute Hypoxic respiratory distress/sepsis secondary to influenza A
PSVT/AT, on flecainide and nifedipine at time of admission [she denies a history of atrial fibrillation/flutter.]
Elevated troponin, peak 0.609 on 05/08/2025 and downward trending/abnormal EKG/2D echocardiogram with moderately reduced left ventricular systolic function, EF estimated 40% with hypokinesis of mid to apical anterior, anteroseptum, apical lateral and
apex
- Assume ACS given risk factors for coronary artery disease; patient has declined cardiac catheterization
- Differential diagnosis also includes Takotsubo's cardiomyopathy, unconfirmed
Severe COPD
h/o lung cancer, stage Ia right lung and stage IIb left lung, XRT 2019, in remission
Mild aortic stenosis
Hyponatremia
Hypomag
HTN
HLD
Chronic conditions:
Depression
Blindness left eye status post enucleation
Rheumatoid arthritis
Psoriatic arthritis
Diverticulitis
Ongoing tobacco abuse
DNR
Sestamibi study June 2022: Small mild fixed basal inferior, basal inferoseptal, mid inferior most likely soft tissue attenuation artifact, EF 67%
Echocardiogram March 2022: Small LV, mild LVH, EF 65%, trace mitral regurgitation, aortic sclerosis, normal right heart, pulmonary artery systolic pressure 40-43 mmHg
Echocardiogram 05/10/2025: Ejection fraction 40%, hypokinesis of mid apical anterior, anteroseptum, apical lateral, and apex
Plan:
She feels well.
She declines cardiac catheterization
She declines beta-ashutosh therapy as her had chest pain recently which stopped with stopping Toprol. However she has been tolerating Toprol and pulmonary felt okay to start
Flecainide has been stopped
Amiodarone has been started and atrial tachycardia/SVT episodes appear improved
Discussed with pulmonary and nursing
Patient wants to go home by Saturday
She is encouraged to ambulate and may need home oxygen although on room air currently
Continue treatment for flu with Tamiflu
Progress Note - [employer]
Subjective
Date of Service: May 12, 2025
No complaints.
Objective
Labs:
05/12/25 05:55
05/12/25 05:55
Labs
Hgb 11.1 g/dL (12.0-16.0) L 05/12/25 05:55
Hct 32.2 % (37.0-47.0) L 05/12/25 05:55
Plt Count 250 10^3/uL (130-400) 05/12/25 05:55
PT 14.0 Sec (11.4-14.6) 05/07/25 22:30
INR 1.07 05/07/25 22:30
APTT 36.6 Sec (23.4-35.0) H 05/07/25 22:30
Sodium 128 mmol/L (135-145) L 05/12/25 05:55
Potassium 3.6 mmol/L (3.5-5.1) 05/12/25 05:55
BUN 20 mg/dl (7-17) H 05/12/25 05:55
Creatinine 0.5 mg/dL (0.6-1.0) L 05/12/25 05:55
Glucose 85 mg/dl (70-99) 05/12/25 05:55
Troponins
05/10/25
13:17
Troponin I 0.235 H*
Vital Signs and I&O:
Vital Signs
Temp Pulse Resp BP Pulse Ox
97.7 F 90 18 152/105 95
05/12/25 07:45 05/12/25 07:50 05/12/25 07:50 05/12/25 06:00 05/12/25 07:50
Vital Signs
Temp Pulse Resp BP Pulse Ox
97.7 F 90 18 152/105 95
05/12/25 07:45 05/12/25 07:50 05/12/25 07:50 05/12/25 06:00 05/12/25 07:50
Intake & Output
05/10/25 05/11/25 05/12/25 05/13/25
06:59 06:59 06:59 06:59
Intake Total 390 / 390
Output Total 125 / 125 200 / 200
Balance -125 / -125 390 / 390 -200 / -200
Physical Exam
Physical Exam
General: Well developed, well nourished in NAD.
Neck: Supple, no JVD, HJR, carotids +2 B/L, no bruits bilaterally.
Heart: Non displaced PMI, RRR, no murmurs, No S3, S4, no rubs.
Lungs: Scattered rhonchi
Extremities: No clubbing, cyanosis or edema bilaterally.
Neuro: Grossly nonfocal, awake, alert and oriented x3.
[2025-05-12] MEDS: NORCO 5/325 1 TABLET PO ×2 (08:51→20:43)
[2025-05-12] MEDS: DELTASONE 10 MG PO (09:02)
[2025-05-12] MEDS: MEGACE ORAL SUSPENSION PO (09:03)
[2025-05-12] MEDS: TIGAN 200 MG IM (10:42)
[2025-05-12] MEDS: KCL 270 MEQ IV (10:43)
--- NOTE | 2025-05-12 10:50 | PTCARENOTE ---
Patient reports feelings of indigestion. Patient asking to get back into bed. Following getting settled in bed, patient reports nausea and then was dry heaving. Pt did not vomit. Pt reports she thinks she ate too fast. RN asked if patient would want
to take her Protonix that she refused this morning. Pt still declined, education provided and pt voiced understanding. Pt asking for Zofran instead of ordered Tigan, TT to and advised QTc was prolonged yesterday and unable to give
Zofran. Pt then was agreeable to Tigan, see MAR. Assessment, care and VS as charted.
--- NOTE | 2025-05-12 10:50 | W.PN.PUL.V3 ---
Today's Communication / Plan
-
Wean oxygen.
Assessment destroyed supplemental oxygen needs.
SVT/antiarrhythmics per cardiology.
Finite course of antibiotics.
Outpatient pulmonary follow-up
Assessment
-
80-year-old woman known to Dr. 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 Pulmonary cachexia with ongoing weight loss on Megace. Admitted with fatigue, shortness of breath
and increased coughing for few days, found to have flu positive. 05/06/2025
Acute respiratory sufficiency: Influenza A on top of severe COPD and deconditioning.
Chest x-ray 05/06/2025: Bilateral opacities stable compared to prior-postradiation changes. Hyperinflation.
Hyponatremia
Severe COPD with hyperinflation. Not on oxygen therapy.
Conditions present prior admission:
Severe COPD-chronic bronchitic symptoms/emphysema
Follows up with Dr. Leal
Most recent FEV1 postbronchodilator 50% 09/22/2024. Total lung capacity 68% DLCO 24%.
6-minute walk testing 04/01/2024: No oxygen desaturation. On 03/25/2025 unable to perform due to weakness.
Last acute exacerbation 07/2024
Ongoing smoking few cigarettes per day
Chronic hypoxemic respiratory failure
Psoriatic arthritis on chronic immunosuppression up until recently-now on low-dose prednisone and hydroxychloroquine.
Pulmonary cachexia
Megace started 03/25/2025.
Lung cancer:
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
More recently percutaneous biopsy of left upper lobe 1.4 cm lung nodule negative for malignancy.
IBS
History of SVT/atrial tachycardia on flecainide
Mild aortic stenosis
Hypertension
DNR status
Osteoporosis
Plan:
Respiratory status slowly improving-no increased wheezing on beta-blockers noted
Supplemental oxygen as needed-assess discharge supplemental oxygen needs prior to discharge-currently on 2 L-99% saturation
Prednisone 10 mg daily
Nebulizers as needed-
Trelegy as an outpatient
Mucolytic's
Antitussives
Incentive spirometry and Acapella
In regards to history of bilateral synchronous lung primary cancer status post radiation-She has been on remission.
Recently underwent CT chest that demonstrated left upper lobe cavitary nodule-status post percutaneous biopsy in April negative for malignancy.
The plan is to repeat CAT scan in the next 3 to 4 months. This is already scheduled by Dr. Leal.
It is encouraging that CT neck showed stability of left upper lobe abnormality.
Smoking cessation strongly encouraged-continues to smoke few cigarettes per day.
Nicotine patch if needed
Diuresis continues as tolerated
Monitor renal function, electrolytes, intake/output, lower extremity edema and weight
Replace electrolytes as needed
Cardiology following-correspondence reviewed-reviewed with Dr. Chung
Atrial tachycardia/atrial fibrillation rate control
Beta-blockers added-no increased wheezing noted
Amiodarone continues-no objections
.
Cultures reviewed
Sputum with usual respiratory sisi
Influenza A positive
Empiric antibiotics-finish finite course
Tamiflu-finite course
Respiratory isolation per protocol
DVT prophylaxis-on Lovenox
GI prophylaxis-on pantoprazole and famotidine
Nutrition
Early mobilization
DNR
Reviewed with nursing
Outpatient pulmonary follow-up
Diagnostic Data
Chest X-Ray: 05/07/25-The lungs are symmetrically hyperinflated. Stable bandlike opacity in the left upper lobe and nodular opacity in the right upper lobe compared to previous examinations. Similar appearance of mild bibasilar reticulonodular
opacities. No pleural effusion or pneumothorax. Stable cardiomediastinal silhouette. Chronic degenerative changes of the spine.
05/06/25-1. No acute pulmonary abnormalities appreciated. 2. Linear and nodular opacities bilaterally, unchanged compared to prior chest x-ray. Please see report from CT chest dated 04/20/2025.
CT Scan: CHEST 12/02/24-1. Mild interval enlargement of cavitary nodule within the left upper lobe measuring 14 x 10 mm, previously 10 x 10 mm. Continued close radiographic follow-up and/or further evaluation with PET/CT recommended. Significant
interval enlargement of now 9 x 5.8 mm nodule in the medial right upper lobe.
2. Multiple areas of scattered peripheral bronchial impaction with distal tree in bud nodules and consolidative changes, most pronounced within the right middle lobe, consistent with chronic endobronchial disease. Multiple scattered small nodules
and groundglass opacities, possibly related.
3. Unchanged confluent areas of airspace consolidation within the lateral right upper lobe and also within the left hilum extending into the left upper lobe compatible with treated tumor and radiation changes.
Echo: 03/26/22- 1. Small left ventricle with mild left ventricular hypertrophy and preserved contractility, ejection fraction 65% 2. Thickened mitral leaflets with trace mitral regurgitation and normal left atrium 3. Aortic sclerosis without
significant stenosis or regurgitation 4. Normal right heart with mild pulmonary hypertension, 40-43 mmHg systolic In May 2019, the mean aortic valve gradient was 12mmHg and is 8 mmHg today. The patient will be called and told that there is
preserved heart muscle function and no significant valve abnormality.
.
Subjective Data
-
Date of Service:
Date of Service: May 12, 2025
Chief Complaint: Pulmonary Follow Up (Acute exacerbation of COPD/influenza A) and Dyspnea Follow Up
Subjective:
Denies any short of breath, increased wheezing, chest pain or abdominal pain
Review of Systems
General: Other ( per HPI)
Objective Data
Data Reviewed
Vital Signs / I&O:
Vital Signs
Temp Pulse Resp BP Pulse Ox
97.7 F 68 18 126/97 95
05/12/25 07:45 05/12/25 08:35 05/12/25 07:50 05/12/25 08:35 05/12/25 07:50
Intake and Output
05/11/25 05/12/25 05/13/25
06:59 06:59 06:59
Intake Total 390 / 390
Output Total 200 / 200
Balance 390 / 390 -200 / -200
SaO2: 95
Nasal Cannula flow liters per minute: 2
Physical Exam
General: Respiratory Distress (n), Comfortable and Other (Cachectic/thin appearing)
HEENT: Normocephalic, Anicteric and Moist Mucous Membranes
Cardiovascular: Regular Rhythm
Respiratory: Clear (Prolonged expiratory time, diminished breath sounds, hyperinflation), Wheeze (n), Crackles, Non-Labored Respirations, Accessory Resp Muscle Use (n) and Stridor (n)
GI: Soft, Non Distended and Non Tender
Neurology: Awake, Alert and No Motor Deficits
Skin: Warm, Dry, Good Color, Cyanosis (n), Jaundice (n) and Rash (n)
Labs/Micro/Reports
Lab Data
05/12/25 05:55
05/12/25 05:55
Microbiology
05/06/25 07:52 Blood/Venous Blood Culture - Final
No Growth - Final Report
05/06/25 07:45 Blood/Venous Blood Culture - Final
No Growth - Final Report
05/07/25 03:16 Sputum Respiratory Culture - Final
Usual Respiratory Sisi
05/07/25 03:16 Sputum Gram Stain - Final
[2025-05-12] MEDS: ATROVENT NEBULES INH (11:59)
[2025-05-12] MEDS: ATROVENT NEBULES 0.5 MG INH ×2 (12:26→19:30)
--- NOTE | 2025-05-12 14:23 | W.PN.UPDATE ---
Update Note
Progress Note Update
Patient seen with residents.
A/P:
# Acute hypoxic respiratory failure, resolved
weaned to room air today
Check walking pulse ox tomorrow
Pulm on board
# Influenza infection
Completed treatment with Tamiflu
# Community-acquired pneumonia
Procalcitonin 8.49
Okay with continue antibiotic for 7 days, currently on cefepime, patient declined doxycycline
# STEMI vs type II RI
Patient declined cardiac catheterization
Troponin downtrended
Off flecainide per cardiology
change nifedipine to metoprolol per cardiology
continue aspirin and Plavix
total time 51 min
--- NOTE | 2025-05-12 15:48 | PN.CDI ---
CDI
- -
CDI:
Physician Documentation Request
Admit Date: 05/06/25 10:16
Dear Doctor Eliecer,
Clinical Indicators:
Patient admitted with sepsis.
05/11 KCL 40 meq IV rider x 1.
Potassium level:
05/11/25
05:26
Potassium 3.2 L
Based on the above, could you clarify in the progress notes, the appropriate diagnosis, if significant, that supports the above abnormalities and additional evaluation, monitoring and/or treatment rendered:
Hypokalemia
Abnormal lab value, clinically insignificant
Other
Use of terms such as suspected, likely, concern for, or probable (associated with a specific diagnosis that is being evaluated, monitored, or treated as if it exists) are acceptable and can be coded in the inpatient setting, when documented at the
time of discharge.
Thank you,
BONNIE Horvath RN
CDI Specialist
available via tiger text
Please use your independent medical judgment in providing your response.
--- NOTE | 2025-05-12 15:53 | PN.CDI ---
CDI
- -
CDI:
Physician Documentation Request
Admit Date: 05/06/25 10:16
Dear Doctor Eliecer,
Clinical Indicators:
Patient admitted with sepsis.
05/10 WO RN skin/wound assessment: Gluteal Cleft Stage 2 Pressure Injury vs MASD, POA
Treatment: Silicone border foam dressing, pressure redistribution devices
Physician documentation of the type and location of wounds is required for compliant documentation. Based on the above clinical findings and your assessment, please provide the following in your progress note:
1. Location of the ulcer/wound, including laterality.
2. Type (etiology) of ulcer/wound:
- Pressure (decubitus) ulcer
- Other
- Unable to determine
3. If a pressure ulcer, please also include the stage* of the ulcer:
- Stage 1 - Skin intact, non-blanchable redness
- Stage 2 - Partial thickness loss of dermis, includes intact or open blister
- Stage 3 - Full thickness tissue not including bone, tendon or muscle
- Stage 4 - Full thickness tissue loss, including exposed bone, tendon or muscle
- Unstageable - Full thickness loss in which the base of the ulcer is covered by slough (yellow, pak, downs, green or brown) and/or eschar (pak, brown or black) in the wound bed.
- Unable to determine
Use of terms such as suspected, likely, concern for, or probable (associated with a specific diagnosis that is being evaluated, monitored, or treated as if it exists) are acceptable and can be coded in the inpatient setting, when documented at the
time of discharge.
Thank you,
BONNIE Horvath RN
CDI Specialist
available via tiger text
Please use your independent medical judgment in providing your response.
*Source: National Pressure Ulcer Advisory Panel (NPUAP)
[2025-05-12] MEDS: PRAVACHOL 40 MG PO (16:22)
[2025-05-12] MEDS: LOVENOX 30 MG SC (17:47)
[2025-05-12] MEDS: MUCINEX 600 MG PO (20:44)
[2025-05-13] VITALS (9 sets, daily range): BP systolic 134–165; BP diastolic 70–104; BMI 15.6
[2025-05-13] MEDS: ATROVENT NEBULES INH ×3 (02:03→13:34)
[2025-05-13] MEDS: MAXIPIME 1000 MG IV ×2 (02:08→10:46)
[2025-05-13] MEDS: STERILE WATER FOR INJECTION 10 ML IV ×2 (02:08→10:46)
[2025-05-13] MEDS: ATROVENT NEBULES 0.5 MG INH (05:08)
[2025-05-13] MEDS: NORCO 5/325 1 TABLET PO ×2 (05:34→13:38)
[2025-05-13 05:53] LABS: Blood Urea Nitrogen 23 mg/dl (7-17); Calcium 8.7 mg/dl (8.4-10.2); Carbon Dioxide 31 mmol/L (22-30); Chloride 96 mmol/L (98-107); Estimated Creatinine Clearance 49 ml/min; Glucose 87 mg/dl (70-99); Magnesium 1.6 mg/dl (1.6-2.3); Potassium 4.2 mmol/L (3.5-5.1); Sodium 130 mmol/L (135-145); eGFR > 60.00
[2025-05-13 05:56] LABS: Hematocrit 31.4 % (37.0-47.0); Hemoglobin 10.9 g/dL (12.0-16.0); Mean Corp Hgb Conc. 34.7 g/dL (33.0-37.0); Mean Corpuscular Volume 92.1 fL (81.0-99.0); Platelet Count 274 10^3/uL (130-400); Red Cell Dist. Width 12.9 % (11.5-14.5)
--- NOTE | 2025-05-13 06:14 | PTCARENOTE ---
Received pt at change of shift. AAOx3. On 1L NC for 'security'. Satting 92% on RA; 97% on 1 L. Lungs are diminished and coarse. Pt requested breathing treatment around 02:30. RT to bedside. Resting in bed comfortably with call camacho in reach.
[2025-05-13] MEDS: NON-FORMULARY ITEM PO (06:19)
--- NOTE | 2025-05-13 07:18 | W.PN.HOSP.TC ---
Addendum entered and electronically signed by Haroon Gonzáles MD, Resident 05/13/25 15:57:
Pressure ulcer vs Moisture associated skin damage
-Gluteal cleft with shallow linear opening
-Stage II
Original Note:
Today's Communication/Plan
-
Pulse ox walking test
Potential discharge today
Completed course of antibiotics, Tamiflu
Follow recs from cards, pulm
Assessment / Plan
Assessment / Plan
80 y/o F with pmh of COPD active smoker , chronic hyponatremia, adenocarcinoma of the lung in remission, Silastic and rheumatoid arthritis, hypertension, paroxysmal SVT presented to ED on 05/06/2025 with dizziness. She woke up to go to the bathroom
and felt really weak that she had to sit down on the floor and lay on the floor. got her up and she still felt weak and lightheaded and was also feeling short of breath. She smoked a cigarette while laying on the couch. She does not use
any oxygen at home. had nasal congestion and sickness for the past few days
Imaging
CT Head W/o Iv Contrast 05/06/2025
-No acute intracranial abnormalities appreciated.
-Mild atrophy and mild chronic small vessel change
CT Cervical Spine W/o Iv Contrast 05/06/2025
-No osseous injury appreciated.
-Moderate degenerative change, most pronounced at C6-7, without significant change compared to prior MRI.
- Cavitary lesion within the left upper lobe measures 1.4 cm in diameter, unchanged compared to prior PET/CT dated 12/15/2024.
Chest Xray 05/06/2025
1. No acute pulmonary abnormalities appreciated.
2. Linear and nodular opacities bilaterally, unchanged compared to prior chest x-ray. Please see report from CT chest dated 04/20/2025.
Chest Xray 05/07/2025
The lungs are symmetrically hyperinflated. Stable bandlike opacity in the left upper lobe and nodular opacity in the right upper lobe compared to previous examinations. Similar appearance of mild bibasilar reticulonodular opacities. No pleural
effusion or pneumothorax. Stable cardiomediastinal silhouette. Chronic degenerative changes of the spine.
ECG 05/10/2025
-SINUS RHYTHM WITH MARKED SINUS ARRHYTHMIA
LEFT ANTERIOR FASCICULAR BLOCK
MINIMAL VOLTAGE CRITERIA FOR LVH, MAY BE NORMAL VARIANT ( [employer] product )
ANTEROLATERAL INFARCT (CITED ON OR BEFORE 08-May-2025)
QTcB >= [address] ABNORMALITY
ECG 05/11/2025
SINUS TACHYCARDIA WITH PREMATURE ATRIAL COMPLEXES
LEFT ANTERIOR FASCICULAR BLOCK
MINIMAL VOLTAGE CRITERIA FOR LVH, MAY BE NORMAL VARIANT ( [employer] product )
T WAVE ABNORMALITY, CONSIDER ANTERIOR ISCHEMIA
ECHO 05/10/2025
1. Moderately reduced left ventricular systolic function with LV ejection fraction visually estimated 40%.
2. Hypokinesis of the mid-– apical anterior, anteroseptal, apical lateral and apex.
3. Normal RV size and systolic function.
4. Mild mitral regurgitation. Mild tricuspid regurgitation.
5. Trileaflet sclerotic aortic valve without significant stenosis. No aortic regurgitation.
6. Trivial pericardial effusion.
7. Compared to prior transthoracic echocardiogram dated 03/26/2022, LV ejection fraction was 65% with aortic sclerosis. Regional wall motion abnormalities are new
Plan
Acute symptoms triggered by influenza and possibly bacterial bronchitis/early pneumonia on top of her advanced COPD
Sepsis present on admission
-Patient got sepsis bolus IV fluids in the ER hold off on further fluids for now. Leukocytosis improved
-Influenza A positive -completed 5 days of Tamiflu
-Procalcitonin - 8.49
-Cannot rule out bacterial pneumonia-procalcitonin elevated
-cefepime#D7, doxycycline #D6 for possible CAP -patient refuses taking doxycycline, completed antibiotic course
-Blood cx-negative
-Sputum cx-usual respiratory sisi
-Lactic acidosis resolved
-Consult pulmonology, input appreciated
-Refuses Mucinex stating it causes coughing
-Atrovent every 6 hours as needed
-transition to [employer] her home med
-Active smoker - difficulty with quiting- refuses nicotine patch use
-Smoking cessation counseling
-provided acapella device
Acute hypoxic respiratory failure
-Improving oxygen requirements currently on room air tolerating well
-ABG- respiratory acidosis with compensatory met. alkalosis
-Consult cardiology, input appreciated
-Pro BNP 7570
-Walking pulse ox test today.
History of PSVT with frequent runs of rapid PAT on telemetry
-Troponin trending down - likely from demand ischemia Type 2 NH
-ECG - anteror wall ischemia
-Cardiology on board -stop flecainide after washout, change nifedipine to metoprolol, stop hydroxychloroquine
-Check Qtc if normal start amiodarone -TSH within normal limits
-Echo - hypokinesis apex - ? takatsubo's CMP
-Pt declines cardiac cath -continue aspirin and Plavix
Mild aortic stenosis
History of SVT/atrial tachycardia
-on flecainide
-check QTC on ECG - prolonged- rechecked WNL
-Echo today
-On telemetry J-ipw-conrcu EKG
Hypokalemia
-replete K >4
Lightheadeness
-Check orthostatics
Hyponatremia
-Serum osmolality low, Urine osmolality 656, possibly indicates SIADH
-Na 129
-Fluid restriction
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
-Patient had right upper lobe squamous cell carcinoma 2019
-there is a cavitary lesion in the left upper lobe 1.4 cm-there was mild FDG uptake within that lesion on the PET scan from December 2024
-Patient had a lung biopsy 02/12/2025-mostly necrotic acellular tissue no malignancy reported
Pumonary cachexia
Severe Protein Calorie Malnutrition
-Low BMI 16
-Refuses megestrol for appetite
-certified professional controller consulted
Rheumatoid arthritis/psoriatic arthritis
-continue Plaquenil and prednisone 10mg -taper back to home dose 5 mg prednisone during discharge
Hypertension
-Her BP 170/100-received Lopressor-BP 138/64
-Hold off on Nifedipine for now
Hyperlipidemia
-continue pravastatin
IBS with constipation
-continue Linzess
-bowel regimen for opioid induced constipation
Nausea
-Tigan ordered
-on Protonix
Diverticulosis
History of Left eye injury in the past with plastic eye
History of sigmoidectomy with colostomy and reversal for ruptured diverticulitis/history of small bowel obstruction
Neuropathy/sciatica-chronic pain opiate dependent-continue hydrocodone/acetaminophen
Osteoporosis on Prolia
DVT prophylaxis-Lovenox
DNR
Anticipated Discharge: Today
Subjective/Interval History
-
Date of Service: May 13, 2025
She is comfortable sitting on the bed. She reports using 1 L oxygen for sleep just to feel more comfortable. She denies shortness of breath. She complains about having nausea and believes it is because of the bed moving once a while. She had
difficulty with sleeping last night. She reports wanting to go home today.
Objective Data
-
Labs:
Laboratory Results
05/13/25
05:16
WBC 10.4
Hgb 10.9 L
Hct 31.4 L
Plt Count 274
Sodium 130 L
Potassium 4.2
Chloride 96 L
Carbon Dioxide 31 H
BUN 23 H
Creatinine 0.5 L
Glucose 87
Calcium 8.7
Vital Signs:
Vital Signs
Temp Pulse Resp BP Pulse Ox
97.8 F 69 25 153/98 89
05/13/25 07:07 05/13/25 06:00 05/13/25 06:00 05/13/25 06:00 05/13/25 06:00
I&O
05/12/25 05/13/25 05/14/25
06:59 06:59 06:59
Intake Total 1230 / 1230
Output Total 200 / 200
Balance 1030 / 1030
Review of Systems
-
History Source: Patient
Constitutional: Reports Sleep Disturbance
EENT: Reports No Symptoms Reported
Respiratory: Reports No Symptoms
Cardiac: Reports No Symptoms
Abdomen/GI: Reports No Symptoms
Breast: Reports No Symptoms
Genitourinary: Reports No Symptoms
Musculoskeletal: Reports No Symptoms
Skin: Reports No Symptoms
Neuro: Reports No Symptoms
Endocrine: Reports No Symptoms
Allergy / Immunology: Reports No Symptoms
Physical Exam
-
General: Well Developed, No Apparent Distress, Comfortable and Cachectic
HEENT: Normocephalic, Atraumatic and Oxygen (1L)
Respiratory: Clear to Auscultation
Cardiac: Regular Rhythm, S1/S2 and Tachycardic
Breast: Deferred by me
GI: Soft, Nontender, Nondistended and Normal Bowel Sounds
Rectal: Deferred by Provider
Genito-urinary: Deferred by me
Musculoskeletal: No Edema
Skin: Warm and Dry
Neuro: AO x 3, No Motor Deficits, Nonfocal/Grossly Intact and No Sensory Deficits
Psych: Calm
[2025-05-13] MEDS: NON-FORMULARY ITEM 1 INH INH (07:43)
--- NOTE | 2025-05-13 07:45 | W.PN.CARDCBS ---
Addendum entered and electronically signed by Wilmar Chambers MD 05/13/25 09:12:
Would discharge on amiodarone 200 mg p.o. twice daily for 14 days then 200 mg daily.
Original Note:
Today's Communication / Plan
-
Telemetry still with some brief episodes of SVT. Continue amiodarone and Toprol.
Treat non-STEMI with medical therapy for now. Continue aspirin, Plavix, Toprol, and pravastatin. Check lipids.
Continue nebulizers, steroids, and cefepime for COPD/influenza.
Wean oxygen.
Impression / Plan
-
Impression:
Acute Hypoxic respiratory distress/sepsis secondary to influenza A
PSVT/AT, on flecainide and nifedipine at time of admission [she denies a history of atrial fibrillation/flutter.]
Elevated troponin, peak 0.609 on 05/08/2025 and downward trending/abnormal EKG/2D echocardiogram with moderately reduced left ventricular systolic function, EF estimated 40% with hypokinesis of mid to apical anterior, anteroseptum, apical lateral and
apex
- Assume ACS given risk factors for coronary artery disease; patient has declined cardiac catheterization
- Differential diagnosis also includes Takotsubo's cardiomyopathy, unconfirmed
Severe COPD
h/o lung cancer, stage Ia right lung and stage IIb left lung, XRT 2019, in remission
Mild aortic stenosis
Hyponatremia
Hypomag
HTN
HLD
Chronic conditions:
Depression
Blindness left eye status post enucleation
Rheumatoid arthritis
Psoriatic arthritis
Diverticulitis
Ongoing tobacco abuse
DNR
Sestamibi study June 2022: Small mild fixed basal inferior, basal inferoseptal, mid inferior most likely soft tissue attenuation artifact, EF 67%
Echocardiogram March 2022: Small LV, mild LVH, EF 65%, trace mitral regurgitation, aortic sclerosis, normal right heart, pulmonary artery systolic pressure 40-43 mmHg
Echocardiogram 05/10/2025: Ejection fraction 40%, hypokinesis of mid apical anterior, anteroseptum, apical lateral, and apex
Plan:
Telemetry still with some rare episodes of SVT/atrial tachycardia. Continue amiodarone and she should remain off flecainide.
She declines cardiac catheterization
Continue medical therapy for non-STEMI. Continue aspirin and Plavix. Will treat with Plavix for 6 months. Continue Toprol 25 mg p.o. twice daily. She likely has significant coronary artery disease.
Continue pravastatin. Check lipids, and pending results would consider switching to atorvastatin.
Continue inhalers and prednisone for COPD. Continue cefepime.
Patient wants to go home by Saturday
She is encouraged to ambulate and may need home oxygen although on room air currently
Continue treatment for flu with Tamiflu
Progress Note - Immigration Officer
Subjective
Date of Service: May 13, 2025
She denies chest pains. Still having some nausea. Breathing is overall stable. She feels no palpitations.
Objective
Labs:
05/13/25 05:16
05/13/25 05:16
Labs
Hgb 10.9 g/dL (12.0-16.0) L 05/13/25 05:16
Hct 31.4 % (37.0-47.0) L 05/13/25 05:16
Plt Count 274 10^3/uL (130-400) 05/13/25 05:16
PT 14.0 Sec (11.4-14.6) 05/07/25 22:30
INR 1.07 05/07/25 22:30
APTT 36.6 Sec (23.4-35.0) H 05/07/25 22:30
Sodium 130 mmol/L (135-145) L 05/13/25 05:16
Potassium 4.2 mmol/L (3.5-5.1) 05/13/25 05:16
BUN 23 mg/dl (7-17) H 05/13/25 05:16
Creatinine 0.5 mg/dL (0.6-1.0) L 05/13/25 05:16
Glucose 87 mg/dl (70-99) 05/13/25 05:16
Troponins
05/10/25
13:17
Troponin I 0.235 H*
Vital Signs and I&O:
Vital Signs
Temp Pulse Resp BP Pulse Ox
97.8 F 69 25 153/98 89
05/13/25 07:07 05/13/25 06:00 05/13/25 06:00 05/13/25 06:00 05/13/25 06:00
Vital Signs
Temp Pulse Resp BP Pulse Ox
97.8 F 69 25 153/98 89
05/13/25 07:07 05/13/25 06:00 05/13/25 06:00 05/13/25 06:00 05/13/25 06:00
Intake & Output
05/11/25 05/12/25 05/13/25 05/14/25
06:59 06:59 06:59 06:59
Intake Total 390 / 390 1230 / 1230
Output Total 200 / 200
Balance 390 / 390 1030 / 1030
Physical Exam
Physical Exam
GEN: No distress, awake, Ox3
HEENT: supple, anicteric, mmm
LUNGS: bilat rhonchi
CV: Reg, S1/S2, 1/6 syst LSB, no gallop
ABD: soft, BS+, NT/ND
EXT: No edema
NEURO: Gross non-focal
SKIN: No rash
[2025-05-13] MEDS: COMPAZINE 5 MG IV (07:50)
--- NOTE | 2025-05-13 07:59 | PTCARENOTE ---
Pt AAOx3, nauseated at this time given Zofran IV. Anxious to go home.
[2025-05-13 08:29] LABS: HDL Cholesterol 38 mg/dl; LDL Cholesterol, Calculated 47 mg/dl; Very Low Density Lipoprotein 15 mg/dl (0-30)
[2025-05-13] MEDS: PLAVIX 75 MG PO (09:47)
[2025-05-13] MEDS: TOPROL XL 25 MG PO (09:48)
[2025-05-13] MEDS: PROTONIX 40 MG PO (09:48)
[2025-05-13] MEDS: LOW STRENGTH ASPIRIN 81 MG PO (09:48)
[2025-05-13] MEDS: PACERONE 200 MG PO ×2 (09:49→15:49)
[2025-05-13] MEDS: DELTASONE 10 MG PO (09:49)
[2025-05-13] MEDS: MUCINEX PO (09:50)
[2025-05-13] MEDS: NSS (PRESERVATIVE FREE) IV (09:50)
[2025-05-13] MEDS: SENOKOT PO (09:50)
[2025-05-13] MEDS: COLACE PO (09:50)
[2025-05-13] MEDS: MEGACE ORAL SUSPENSION PO (09:50)
[2025-05-13] MEDS: PEPCID PO (09:50)
--- NOTE | 2025-05-13 10:36 | W.PN.PUL.V3 ---
Today's Communication / Plan
-
Wean oxygen
Increase activity
Antiarrhythmics per cardiology
Finite course of antibiotics
Outpatient pulmonary follow-up
Assessment
-
80-year-old woman known to Dr. 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 Pulmonary cachexia with ongoing weight loss on Megace. Admitted with fatigue, shortness of breath
and increased coughing for few days, found to have flu positive. 05/06/2025
Acute respiratory sufficiency: Influenza A on top of severe COPD and deconditioning.
Chest x-ray 05/06/2025: Bilateral opacities stable compared to prior-postradiation changes. Hyperinflation.
Hyponatremia
Severe COPD with hyperinflation. Not on oxygen therapy.
Conditions present prior admission:
Severe COPD-chronic bronchitic symptoms/emphysema
Follows up with Dr. Leal
Most recent FEV1 postbronchodilator 50% 09/22/2024. Total lung capacity 68% DLCO 24%.
6-minute walk testing 04/01/2024: No oxygen desaturation. On 03/25/2025 unable to perform due to weakness.
Last acute exacerbation 07/2024
Ongoing smoking few cigarettes per day
Chronic hypoxemic respiratory failure
Psoriatic arthritis on chronic immunosuppression up until recently-now on low-dose prednisone and hydroxychloroquine.
Pulmonary cachexia
Megace started 03/25/2025.
Lung cancer:
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
More recently percutaneous biopsy of left upper lobe 1.4 cm lung nodule negative for malignancy.
IBS
History of SVT/atrial tachycardia on flecainide
Mild aortic stenosis
Hypertension
DNR status
Osteoporosis
Plan:
Respiratory status slowly improving-no increased wheezing on beta-blockers noted
Supplemental oxygen as needed-assess discharge supplemental oxygen needs prior to discharge-currently on 2 L-99% saturation
Prednisone 10 mg daily
Nebulizers as needed-
Trelegy as an outpatient
Mucolytic's
Antitussives
Incentive spirometry and Acapella
In regards to history of bilateral synchronous lung primary cancer status post radiation-She has been on remission.
Recently underwent CT chest that demonstrated left upper lobe cavitary nodule-status post percutaneous biopsy in April negative for malignancy.
The plan is to repeat CAT scan in the next 3 to 4 months. This is already scheduled by Dr. Leal.
It is encouraging that CT neck showed stability of left upper lobe abnormality.
Smoking cessation strongly encouraged-continues to smoke few cigarettes per day.
Nicotine patch if needed
Diuresis continues as tolerated per cardiology
Monitor renal function, electrolytes, intake/output, lower extremity edema and weight
Replace electrolytes as needed
Cardiology following-correspondence reviewed
Atrial tachycardia/atrial fibrillation rate control
Beta-blockers added-no increased wheezing noted
Amiodarone continues-no objections-monitor as an outpatient as can cause pulmonary toxicity
Cultures reviewed
Sputum with usual respiratory sisi
Influenza A positive
Empiric antibiotics-finish finite course
Tamiflu-finite course
Respiratory isolation per protocol
DVT prophylaxis-on Lovenox
GI prophylaxis-on pantoprazole and famotidine
Nutrition
Early mobilization
DNR
Reviewed with nursing
Outpatient pulmonary [id number] will sign off-please call with questions
Diagnostic Data
Chest X-Ray: 05/07/25-The lungs are symmetrically hyperinflated. Stable bandlike opacity in the left upper lobe and nodular opacity in the right upper lobe compared to previous examinations. Similar appearance of mild bibasilar reticulonodular
opacities. No pleural effusion or pneumothorax. Stable cardiomediastinal silhouette. Chronic degenerative changes of the spine.
05/06/25-1. No acute pulmonary abnormalities appreciated. 2. Linear and nodular opacities bilaterally, unchanged compared to prior chest x-ray. Please see report from CT chest dated 04/20/2025.
CT Scan: CHEST 7/2/25-1. Mild interval enlargement of cavitary nodule within the left upper lobe measuring 14 x 10 mm, previously 10 x 10 mm. Continued close radiographic follow-up and/or further evaluation with PET/CT recommended. Significant
interval enlargement of now 9 x 5.8 mm nodule in the medial right upper lobe.
2. Multiple areas of scattered peripheral bronchial impaction with distal tree in bud nodules and consolidative changes, most pronounced within the right middle lobe, consistent with chronic endobronchial disease. Multiple scattered small nodules
and groundglass opacities, possibly related.
3. Unchanged confluent areas of airspace consolidation within the lateral right upper lobe and also within the left hilum extending into the left upper lobe compatible with treated tumor and radiation changes.
Echo: 03/26/22- 1. Small left ventricle with mild left ventricular hypertrophy and preserved contractility, ejection fraction 65% 2. Thickened mitral leaflets with trace mitral regurgitation and normal left atrium 3. Aortic sclerosis without
significant stenosis or regurgitation 4. Normal right heart with mild pulmonary hypertension, 40-43 mmHg systolic In May 2019, the mean aortic valve gradient was 12mmHg and is 8 mmHg today. The patient will be called and told that there is
preserved heart muscle function and no significant valve abnormality.
.
Subjective Data
-
Date of Service:
Date of Service: May 13, 2025
Chief Complaint: Pulmonary Follow Up (Acute exacerbation of COPD/influenza A) and Dyspnea Follow Up
Subjective:
No complaints of shortness of breath, wheezing, anxious to be discharged, heart rate better controlled
Review of Systems
General: Other (Per HPI)
Objective Data
Data Reviewed
Vital Signs / I&O:
Vital Signs
Temp Pulse Resp BP Pulse Ox
97.8 F 75 25 143/74 93
05/13/25 07:07 05/13/25 09:48 05/13/25 08:00 05/13/25 09:48 05/13/25 08:00
Intake and Output
05/12/25 05/13/25 05/14/25
06:59 06:59 06:59
Intake Total 1230 / 1230
Output Total 200 / 200
Balance 1030 / 1030
SaO2: 93
Nasal Cannula flow liters per minute: 1
Physical Exam
General: Respiratory Distress (n), Comfortable and Other (Cachectic/thin appearing)
HEENT: Normocephalic, Anicteric and Moist Mucous Membranes
Cardiovascular: Regular Rhythm
Respiratory: Clear (Prolonged expiratory time, diminished breath sounds, hyperinflation), Wheeze (n), Crackles, Non-Labored Respirations, Accessory Resp Muscle Use (n) and Stridor (n)
GI: Soft, Non Distended and Non Tender
Neurology: Awake, Alert and No Motor Deficits
Skin: Warm, Dry, Good Color, Cyanosis (n), Jaundice (n) and Rash (n)
Labs/Micro/Reports
Lab Data
05/13/25 05:16
05/13/25 05:16
Microbiology
05/06/25 07:52 Blood/Venous Blood Culture - Final
No Growth - Final Report
05/06/25 07:45 Blood/Venous Blood Culture - Final
No Growth - Final Report
--- NOTE | 2025-05-13 13:46 | W.PN.UPDATE ---
Addendum entered and electronically signed by Tosha Romo MD 05/14/25 08:31:
Total DC time 40 minutes
Original Note:
Update Note
Progress Note Update
A/P:
# Acute hypoxic respiratory failure, resolved
weaned to room air
Walking pulse ox ordered, however patient refused to walk. Saturation at 87% on room air- which indicates that she qualifies for home O2 anyway.
CM on board to help facilitate home O2 set up.
Pulm on board
# Influenza infection
Completed treatment with Tamiflu
# Community-acquired pneumonia
Procalcitonin 8.49
Completed Abx for 7 days with cefepime; patient declined doxycycline
# STEMI vs type II NV
Patient declined cardiac catheterization
Troponin downtrended
Off flecainide per cardiology
change nifedipine to metoprolol per cardiology
continue aspirin and Plavix
Extensive coordination with nurse case management
total DC time 50 min
--- NOTE | 2025-05-13 13:51 | W.DCSUMMARY ---
Documented by User: Haroon Gonzáles MD, Resident 05/13/25 17:54
Discharge Summary
Discharge Data
Date of Admission: 05/06/25
Date of Discharge: 05/13/25
-
Pending Results: No
Hospital Course
Discharging Physician : Dr. Haroon Gonzáles, Dr. Tosha Romo
Disposition : Home with home care
Primary care physician : Ana Bhatt
Principal Discharge diagnosis :
Influenza A
Sepsis with Pneumonia
COPD
Acute hypoxic respiratory failure
Paroxysmal supraventricular tachycardia/Premature atrial tachycardia
Chronic Discharge diagnosis :
Mild aortic stenosis
Bilateral synchronous pulmonary malignancies s/p radiation
Rheumatoid arthritis/psoriatic arthritis
Hypertension
Hyperlipidemia
IBS with constipation
Diverticulosis
History of Left eye injury in the past with plastic eye
History of sigmoidectomy with colostomy and reversal for ruptured diverticulitis/history of small bowel obstruction
Neuropathy/sciatica
Osteoporosis
Hospital Course :
80 y/o F with pmh of COPD active smoker , chronic hyponatremia, adenocarcinoma of the lung in remission, psoriatic and rheumatoid arthritis, hypertension, paroxysmal SVT presented to ED on 05/06/2025 with dizziness, weakness and shortness of breath.
At the ED she was positive for Influenza. Her symptoms triggered by influenza and possibly early pneumonia on top of her advanced COPD. She was treated with antibiotics empirically for CAP and with Tamiflu for flu.
Her hospital course was complicated by acute hypoxic respiratory failure and required up to 40 L of HFNC O2. Pulmonology and cardiology was on board. Her troponin levels were elevated likely from demand ischemia type II NE. On echo her ejection
fraction was decreased and she had hypokinesis of apex of the heart. Possible Takotsubo cardiomyopathy or acute coronary syndrome given her risk factors for coronary artery disease. Patient has declined cardiac catheterization and decided to
proceed with medical therapy for presumed coronary artery disease. Elevator Operator Service adjusted the medications including, flecainide was discontinued amiodarone was initiated, nifedipine was switched to metoprolol, aspirin, Plavix, pravastatin were
continued. Discontinued hydroxychloroquine.
Her troponin level trended down, her shortness of breath improved, weaned off from NC O2 is being discharged on room air.
Recommendations
Take amiodarone 200 mg orally twice daily for 14 days then change it to 200 mg daily.
Hold hydroxychloroquine while on amiodarone.
Please continue taking aspirin, Plavix, Toprol and pravastatin.
Get lipid panel blood work from your PCP for possible change of medication from pravastatin to atorvastatin. Discussed that with cardiology office
Please follow-up with PCP within a week
Please follow-up with cardiology office within 2 weeks
Please follow-up with grapple crew leader office within 2 weeks
Smoking cessation is strongly encouraged
Repeat 2D echo as an outpatient in 3 months to reassess ejection fraction
Repeat CAT scan in the next 3 to 4 months. It is already scheduled by Dr. Leal's office.
Important imaging findings :
CT Head W/o Iv Contrast 05/06/2025
-No acute intracranial abnormalities appreciated.
-Mild atrophy and mild chronic small vessel change
CT Cervical Spine W/o Iv Contrast 05/06/2025
-No osseous injury appreciated.
-Moderate degenerative change, most pronounced at C6-7, without significant change compared to prior MRI.
- Cavitary lesion within the left upper lobe measures 1.4 cm in diameter, unchanged compared to prior PET/CT dated 12/15/2024.
Chest Xray 05/06/2025
1. No acute pulmonary abnormalities appreciated.
2. Linear and nodular opacities bilaterally, unchanged compared to prior chest x-ray. Please see report from CT chest dated 04/20/2025.
Chest Xray 05/07/2025
The lungs are symmetrically hyperinflated. Stable bandlike opacity in the left upper lobe and nodular opacity in the right upper lobe compared to previous examinations. Similar appearance of mild bibasilar reticulonodular opacities. No pleural
effusion or pneumothorax. Stable cardiomediastinal silhouette. Chronic degenerative changes of the spine.
ECG 05/10/2025
-SINUS RHYTHM WITH MARKED SINUS ARRHYTHMIA
LEFT ANTERIOR FASCICULAR BLOCK
MINIMAL VOLTAGE CRITERIA FOR LVH, MAY BE NORMAL VARIANT ( Sandeep product )
ANTEROLATERAL INFARCT (CITED ON OR BEFORE 08-May-2025)
QTcB >= [address] ABNORMALITY
ECG 05/11/2025
SINUS TACHYCARDIA WITH PREMATURE ATRIAL COMPLEXES
LEFT ANTERIOR FASCICULAR BLOCK
MINIMAL VOLTAGE CRITERIA FOR LVH, MAY BE NORMAL VARIANT ( Sandeep product )
T WAVE ABNORMALITY, CONSIDER ANTERIOR ISCHEMIA
ECHO 05/10/2025
1. Moderately reduced left ventricular systolic function with LV ejection fraction visually estimated 40%.
2. Hypokinesis of the mid-� apical anterior, anteroseptal, apical lateral and apex.
3. Normal RV size and systolic function.
4. Mild mitral regurgitation. Mild tricuspid regurgitation.
5. Trileaflet sclerotic aortic valve without significant stenosis. No aortic regurgitation.
6. Trivial pericardial effusion.
7. Compared to prior transthoracic echocardiogram dated 03/26/2022, LV ejection fraction was 65% with aortic sclerosis. Regional wall motion abnormalities are new
Discharge Plan
-
Patient Disposition: Home with Home Care
Discharge Diagnosis/Procedures: Influenza A
Sepsis with Pneumonia
COPD
Acute hypoxic respiratory failure
Paroxysmal supraventricular tachycardia/Premature atrial tachycardia
Condition: Fair
Diet: No restrictions
Activity: With Walker
Driving Restrictions: As prior to admission
Bathing Restrictions: None
Blood Work: Lipid Panel
Others Tests: Repeat 2D echo as an outpatient in 3 months to reassess ejection fraction/
Repeat CT chest in the next 3 to 4 months- this has already been scheduled by Dr. Leal's office.
Other Services: VN and PT
Activity Restrictions/Additional Instructions:
Wound Care Instructions
Gluteal cleft: clean with soap and water, silicone foam change q 3 days and prn soilage.
If foam not appropriate or gets soiled can use Calazime barrier cream instead daily.
Skin tears on arm and leg: clean with saline, adaptic and dry dressing, change q 2-3 days and prn soilage.
Air chair cushion when sitting, can take upon discharge.
Increase protein in diet
Follow up at wound care center if becomes worse, call for an appointment.
Referrals:
Michael Foley MD [Active, Pulmonary Medicine] - in one to two weeks
Referral Note: patient signing out AMA, can call to for SENIOR BUYER PLANNER visit in 1-2 weeks
Ana Bhatt MD [Family Provider, Internal Medicine] - in less than 1 week
Katerina Mitchell CRNP [Specified Professional Personl, Cardiology] - 05/25/25 4:00 pm
Referral Note: You have a cardiology follow-up appointment at the [place] office with Dr. Parra's FEEDER SWITCHBOARD OPERATOR, Katerina. Please call with questions
Additional Discharge Medication Instructions: Take amiodarone 200 mg orally twice daily for 14 days then change it to 200 mg daily.
Hold hydroxychloroquine while on amiodarone.
Please continue taking aspirin, Plavix, Toprol and pravastatin.
Get lipid panel blood work from your PCP for possible change of medication from pravastatin to atorvastatin. Discussed that with cardiology office
Please follow-up with PCP within a week
Please follow-up with cardiology office within 2 weeks
Please follow-up with grapple crew leader office within 2 weeks
Smoking cessation is strongly encouraged
Repeat 2D echo as an outpatient in 3 months to reassess ejection fraction
Repeat CAT scan in the next 3 to 4 months. It is already scheduled by Dr. Leal's office.
Prescriptions:
New
ipratropium bromide 0.02 % Solution
0.5 mg inhalation R Q6 30 Days Qty: 300 0RF
aspirin 81 mg Tablet,Chewable
81 mg PO DAILY Qty: 30 0RF
clopidogrel 75 mg Tablet
75 mg PO DAILY Qty: 30 0RF
amiodarone [Pacerone] 200 mg Tablet
200 mg PO BID Qty: 60 0RF
Rx Instructions:
amiodarone 200 mg p.o. twice daily for 14 days then 200 mg daily.
sennosides-docusate sodium [Senna Plus] 8.6-50 mg Tablet
1 tab PO BIDPRN PRN (Reason: constipation) 5 Days Qty: 10 0RF
metoprolol succinate 25 mg Tablet Extended Release 24 Hr
25 mg PO BID Qty: 30 0RF
ipratropium bromide 0.02 % solution
0.5 mg inhalation Q6H Qty: 62.5 0RF
Continued
pravastatin 40 MG tablet
40 mg PO QPM
coQ10 (ubiquinol) 200 mg Capsule
200 mg PO HS
Prolia 60 mg/mL Syringe
60 mg SC [id number]
biotin 1 mg Capsule
1 mg PO DAILY
Trelegy Ellipta 200-62.5-25 mcg Blister With Device
1 inh INHALATION R DAILY
megestrol 400 mg/10 mL (40 mg/mL) Suspension
50 mg PO DAILY
hydrocodone-acetaminophen 5-325 mg Tablet
1 tab PO TIDPRN PRN (Reason: severe pain)
prednisone 1 mg Tablet
5 mg PO DAILY
Linzess 145 mcg Capsule
145 mcg PO DAILY
fluticasone propionate 50 mcg/actuation [place],Suspension
2 spray INTRANASAL DAILY
Discontinued
nifedipine 60 mg Tablet Extended Release 24hr
60 mg PO DAILY
hydroxychloroquine 200 mg Tablet
200 mg PO BID
NyQuil 7.5-60-30-1,000 mg/30 mL Liquid
15 ml PO HS
flecainide 100 mg Tablet
100 mg PO Q12H
Discharge Orders:
Discharge Patient (As Directed); Ordered 05/13/25
Ordered By: Haroon Gonzáles
Discharge Date and Time
Discharge Date/Time: 05/13/25 16:51
Print Language: KUWAITI

Documented by User: Tosha Romo MD 05/14/25 08:30
Discharge Summary
Discharge Data
Date of Admission: 05/06/25
Date of Discharge: 05/13/25
Hospital Course
Discharging Physician : Dr. Haroon Gonzáles, Dr. Tosha Romo
Disposition : Home with home care
Primary care physician : Ana Bhatt
Principal Discharge diagnosis :
Influenza A
Sepsis with Pneumonia
COPD
Acute hypoxic respiratory failure
Paroxysmal supraventricular tachycardia/Premature atrial tachycardia
Chronic Discharge diagnosis :
Mild aortic stenosis
Bilateral synchronous pulmonary malignancies s/p radiation
Rheumatoid arthritis/psoriatic arthritis
Hypertension
Hyperlipidemia
IBS with constipation
Diverticulosis
History of Left eye injury in the past with plastic eye
History of sigmoidectomy with colostomy and reversal for ruptured diverticulitis/history of small bowel obstruction
Neuropathy/sciatica
Osteoporosis
Hospital Course :
80 y/o F with pmh of COPD active smoker , chronic hyponatremia, adenocarcinoma of the lung in remission, psoriatic and rheumatoid arthritis, hypertension, paroxysmal SVT; presented to the ED on 05/06/2025 with dizziness, weakness and shortness of
breath. She was found Influenza positive in the emergency room. She may also have concurrent bacterial pneumonia and was started with empiric antibiotic coverage.
Her hospital course was complicated by acute hypoxic respiratory failure with O2 requirement up to 40 L of HFNC.
Her troponin levels were also elevated. On echo her ejection fraction was decreased and she had hypokinesis of apex of the heart, Possible Takotsubo cardiomyopathy or acute coronary syndrome. Cardiac catheterization was offered, however the patient
declined and opted for medical management for the presumed coronary artery disease.
Elevator Operator Service adjusted her medications: flecainide was discontinued, amiodarone was initiated, nifedipine was switched to metoprolol, and aspirin, Plavix, pravastatin were continued.
While on amiodarone, prior to admission hydroxychloroquine was discontinued.
Her troponin level trended down, her shortness of breath improved, with O2 weaned off to room air. She did require home O2 based on assessment and this was arranged by the case fitter.
Recommendations
Take amiodarone 200 mg orally twice daily for 14 days then change it to 200 mg daily.
Hold hydroxychloroquine while on amiodarone.
Please continue taking aspirin, Plavix, Toprol and pravastatin.
Get lipid panel blood work from your PCP for possible change of medication from pravastatin to atorvastatin. Discussed that with cardiology office
Please follow-up with PCP within a week
Please follow-up with cardiology office within 2 weeks
Please follow-up with grapple crew leader office within 2 weeks
Smoking cessation is strongly encouraged
Repeat 2D echo as an outpatient in 3 months to reassess ejection fraction
Repeat CAT scan in the next 3 to 4 months. It is already scheduled by Dr. Leal's office.
Important imaging findings :
CT Head W/o Iv Contrast 05/06/2025
-No acute intracranial abnormalities appreciated.
-Mild atrophy and mild chronic small vessel change
CT Cervical Spine W/o Iv Contrast 05/06/2025
-No osseous injury appreciated.
-Moderate degenerative change, most pronounced at C6-7, without significant change compared to prior MRI.
- Cavitary lesion within the left upper lobe measures 1.4 cm in diameter, unchanged compared to prior PET/CT dated 12/15/2024.
Chest Xray 05/06/2025
1. No acute pulmonary abnormalities appreciated.
2. Linear and nodular opacities bilaterally, unchanged compared to prior chest x-ray. Please see report from CT chest dated 04/20/2025.
Chest Xray 05/07/2025
The lungs are symmetrically hyperinflated. Stable bandlike opacity in the left upper lobe and nodular opacity in the right upper lobe compared to previous examinations. Similar appearance of mild bibasilar reticulonodular opacities. No pleural
effusion or pneumothorax. Stable cardiomediastinal silhouette. Chronic degenerative changes of the spine.
ECG 05/10/2025
-SINUS RHYTHM WITH MARKED SINUS ARRHYTHMIA
LEFT ANTERIOR FASCICULAR BLOCK
MINIMAL VOLTAGE CRITERIA FOR LVH, MAY BE NORMAL VARIANT ( Sandeep product )
ANTEROLATERAL INFARCT (CITED ON OR BEFORE 08-May-2025)
QTcB >= [address] ABNORMALITY
ECG 05/11/2025
SINUS TACHYCARDIA WITH PREMATURE ATRIAL COMPLEXES
LEFT ANTERIOR FASCICULAR BLOCK
MINIMAL VOLTAGE CRITERIA FOR LVH, MAY BE NORMAL VARIANT ( Sandeep product )
T WAVE ABNORMALITY, CONSIDER ANTERIOR ISCHEMIA
ECHO 05/10/2025
1. Moderately reduced left ventricular systolic function with LV ejection fraction visually estimated 40%.
2. Hypokinesis of the mid-� apical anterior, anteroseptal, apical lateral and apex.
3. Normal RV size and systolic function.
4. Mild mitral regurgitation. Mild tricuspid regurgitation.
5. Trileaflet sclerotic aortic valve without significant stenosis. No aortic regurgitation.
6. Trivial pericardial effusion.
7. Compared to prior transthoracic echocardiogram dated 03/26/2022, LV ejection fraction was 65% with aortic sclerosis. Regional wall motion abnormalities are new
Discharge Plan
-
Patient Disposition: Home with Home Care
Discharge Diagnosis/Procedures: Influenza A
Sepsis with Pneumonia
COPD
Acute hypoxic respiratory failure
Paroxysmal supraventricular tachycardia/Premature atrial tachycardia
Condition: Fair
Diet: No restrictions
Activity: With Walker
Driving Restrictions: As prior to admission
Bathing Restrictions: None
Blood Work: Lipid Panel
Others Tests: Repeat 2D echo as an outpatient in 3 months to reassess ejection fraction/
Repeat CT chest in the next 3 to 4 months- this has already been scheduled by Dr. Leal's office.
Other Services: VN and PT
Activity Restrictions/Additional Instructions:
Wound Care Instructions
Gluteal cleft: clean with soap and water, silicone foam change q 3 days and prn soilage.
If foam not appropriate or gets soiled can use Calazime barrier cream instead daily.
Skin tears on arm and leg: clean with saline, adaptic and dry dressing, change q 2-3 days and prn soilage.
Air chair cushion when sitting, can take upon discharge.
Increase protein in diet
Follow up at wound care center if becomes worse, call for an appointment.
Referrals:
Michael Foley MD [Active, Pulmonary Medicine] - in one to two weeks
Referral Note: patient signing out AMA, can call to for SENIOR BUYER PLANNER visit in 1-2 weeks
Ana Bhatt MD [Family Provider, Internal Medicine] - in less than 1 week
Katerina Mitchell CRNP [Specified Professional Personl, Cardiology] - 05/25/25 4:00 pm
Referral Note: You have a cardiology follow-up appointment at the [place] office with Dr. Parra's FEEDER SWITCHBOARD OPERATOR, Katerina. Please call with questions
Additional Discharge Medication Instructions: Take amiodarone 200 mg orally twice daily for 14 days then change it to 200 mg daily.
Hold hydroxychloroquine while on amiodarone.
Please continue taking aspirin, Plavix, Toprol and pravastatin.
Get lipid panel blood work from your PCP for possible change of medication from pravastatin to atorvastatin. Discussed that with cardiology office
Please follow-up with PCP within a week
Please follow-up with cardiology office within 2 weeks
Please follow-up with grapple crew leader office within 2 weeks
Smoking cessation is strongly encouraged
Repeat 2D echo as an outpatient in 3 months to reassess ejection fraction
Repeat CAT scan in the next 3 to 4 months. It is already scheduled by Dr. Leal's office.
Prescriptions:
New
ipratropium bromide 0.02 % Solution
0.5 mg inhalation R Q6 30 Days Qty: 300 0RF
aspirin 81 mg Tablet,Chewable
81 mg PO DAILY Qty: 30 0RF
clopidogrel 75 mg Tablet
75 mg PO DAILY Qty: 30 0RF
amiodarone [Pacerone] 200 mg Tablet
200 mg PO BID Qty: 60 0RF
Rx Instructions:
amiodarone 200 mg p.o. twice daily for 14 days then 200 mg daily.
sennosides-docusate sodium [Senna Plus] 8.6-50 mg Tablet
1 tab PO BIDPRN PRN (Reason: constipation) 5 Days Qty: 10 0RF
metoprolol succinate 25 mg Tablet Extended Release 24 Hr
25 mg PO BID Qty: 30 0RF
ipratropium bromide 0.02 % solution
0.5 mg inhalation Q6H Qty: 62.5 0RF
Continued
pravastatin 40 MG tablet
40 mg PO QPM
coQ10 (ubiquinol) 200 mg Capsule
200 mg PO HS
Prolia 60 mg/mL Syringe
60 mg SC [id number]
biotin 1 mg Capsule
1 mg PO DAILY
Trelegy Ellipta 200-62.5-25 mcg Blister With Device
1 inh INHALATION R DAILY
megestrol 400 mg/10 mL (40 mg/mL) Suspension
50 mg PO DAILY
hydrocodone-acetaminophen 5-325 mg Tablet
1 tab PO TIDPRN PRN (Reason: severe pain)
prednisone 1 mg Tablet
5 mg PO DAILY
Linzess 145 mcg Capsule
145 mcg PO DAILY
fluticasone propionate 50 mcg/actuation [place],Suspension
2 spray INTRANASAL DAILY
Discontinued
nifedipine 60 mg Tablet Extended Release 24hr
60 mg PO DAILY
hydroxychloroquine 200 mg Tablet
200 mg PO BID
NyQuil 7.5-60-30-1,000 mg/30 mL Liquid
15 ml PO HS
flecainide 100 mg Tablet
100 mg PO Q12H
Discharge Orders:
Discharge Patient (As Directed); Ordered 05/13/25
Ordered By: Haroon Gonzáles
Discharge Date and Time
Discharge Date/Time: 05/13/25 16:51
Print Language: KUWAITI
--- NOTE | 2025-05-13 14:38 | VNURNOTE ---
Attempted to meet with patient again at bedside. She was sound asleep and did not wake up to my knock on the door. She was not disturbed. I spoke to her spouse on the phone. 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 LACHO Chang updated.
New home 02 arranged by LACHO / Jose.
[facility] referral accepted in [facility].
--- NOTE | 2025-05-13 16:08 | PTCARENOTE ---
Pt and daughter given DC instructions. All questions answered. left via wc with daughter
--- NOTE | 2025-05-13 16:31 | CM ---
F/U: LACHO Chang told by Team that patient wants Oxygen and willing to pay for it out of pocket. Talked to patient, she just wants portable oxygen concentrator NOTHING Else. Oxygen Home test completed partially, but patient qualified. Reached [employer],
faxed clinical plus order, and they plan to deliver just the portable concentrator tonight. Told patient/ daughter, IMM completed. Patient will get [facility]. PLAN: Home w/ [facility] & just portable O2.
== END 2025-05-13 16:51 | disposition home health service (06) | DRG 871 ==
LOC: IMU 10:16
PROVIDERS: Emergency Medicine; Internal Medicine Cardiovascular Disease; Registered Nurse; Student in an Organized Health Care Education/Training Program; ADMITTING PHYSICIAN Hospitalist; ATTENDING PHYSICIAN Internal Medicine; CONSULT PHYSICIAN Internal Medicine Cardiovascular Disease; CONSULT PHYSICIAN Internal Medicine Critical Care Medicine; EMERGENCY PHYSICIAN Emergency Medicine; FAMILY PHYSICIAN Internal Medicine
DX: A41.9 Sepsis, unspecified organism (principal); E43 Unspecified severe protein-calorie malnutrition; J10.00 Influenza due to other identified influenza virus with unspecified type of pneumonia; J96.21 Acute and chronic respiratory failure with hypoxia; I21.A1 Myocardial infarction type 2; J44.1 Chronic obstructive pulmonary disease with (acute) exacerbation; I47.19 Other supraventricular tachycardia; K57.32 Diverticulitis of large intestine without perforation or abscess without bleeding; K56.609 Unspecified intestinal obstruction, unspecified as to partial versus complete obstruction; E87.20 Acidosis, unspecified; Z68.1 Body mass index [BMI] 19.9 or less, adult; R64 Cachexia; E22.2 Syndrome of inappropriate secretion of antidiuretic hormone; F11.20 Opioid dependence, uncomplicated; D84.821 Immunodeficiency due to drugs; J44.0 Chronic obstructive pulmonary disease with (acute) lower respiratory infection; M06.9 Rheumatoid arthritis, unspecified; L40.50 Arthropathic psoriasis, unspecified; Z92.3 Personal history of irradiation; Z85.118 Personal history of other malignant neoplasm of bronchus and lung; I10 Essential (primary) hypertension; E78.00 Pure hypercholesterolemia, unspecified; K58.1 Irritable bowel syndrome with constipation; G62.9 Polyneuropathy, unspecified; M54.30 Sciatica, unspecified side; M81.0 Age-related osteoporosis without current pathological fracture; R65.20 Severe sepsis without septic shock; Z66 Do not resuscitate; K59.03 Drug induced constipation; T40.2X5A Adverse effect of other opioids, initial encounter; G89.29 Other chronic pain; Z79.60 Long term (current) use of unspecified immunomodulators and immunosuppressants; E86.1 Hypovolemia; F17.210 Nicotine dependence, cigarettes, uncomplicated; F32.A Depression, unspecified; H54.62 Unqualified visual loss, left eye, normal vision right eye; I48.91 Unspecified atrial fibrillation; Z88.6 Allergy status to analgesic agent; Z88.5 Allergy status to narcotic agent; Z79.899 Other long term (current) drug therapy; J43.9 Emphysema, unspecified; W19.XXXA Unspecified fall, initial encounter; Z79.52 Long term (current) use of systemic steroids; Z80.7 Family history of other malignant neoplasms of lymphoid, hematopoietic and related tissues; Z82.49 Family history of ischemic heart disease and other diseases of the circulatory system; Z87.01 Personal history of pneumonia (recurrent); Z90.49 Acquired absence of other specified parts of digestive tract; Z90.710 Acquired absence of both cervix and uterus; Z97.0 Presence of artificial eye; L89.302 Pressure ulcer of unspecified buttock, stage 2; Z11.52 Encounter for screening for COVID-19
CPT/HCPCS: 36600; 70450; 71045; 72125; 80048; 80053; 80061; 81003; 81015; 82040; 82306; 82550; 82607; 82805; 82962; 83605; 83735; 83880; 83930; 83935; 84145; 84300; 84443; 84484; 85025; 85027; 85610; 85730; 87040; 87070; 87086; 87205; 87502; 87811; 93005; 93306; 94640; 96361; 96365; 96366; 97162; 99285

== ENCOUNTER 2025-05-24 21:19 | Inpatient (IN) | payer MEDICARE, SELFPAY ==
[2025-05-24] VITALS (7 sets, daily range): BP systolic 107–138; BP diastolic 50–90; BMI 16.7; BMI 16.9
[2025-05-24 19:23] LABS: ALT (SGPT) 13 U/L (0-35); AST (SGOT) 29 U/L (14-36); Albumin 3.4 g/dl (3.5-5.0); Alkaline Phosphatase 45 U/L (38-126); Blood Urea Nitrogen 12 mg/dl (7-17); Calcium 8.9 mg/dl (8.4-10.2); Carbon Dioxide 31 mmol/L (22-30); Chloride 81 mmol/L (98-107); Glucose 127 mg/dl (70-99); Potassium 3.8 mmol/L (3.5-5.1); Sodium 116 mmol/L (135-145); Total Protein 6.3 g/dl (6.3-8.2); eGFR > 60.00
[2025-05-24 19:27] LABS: Hematocrit 33.1 % (37.0-47.0); Hemoglobin 11.9 g/dL (12.0-16.0); Mean Corp Hgb Conc. 36.0 g/dL (33.0-37.0); Mean Corpuscular Volume 88.0 fL (81.0-99.0); Nucleated Red Blood Cells % 0 %; Platelet Count 409 10^3/uL (130-400); Red Cell Dist. Width 12.8 % (11.5-14.5)
[2025-05-24] MEDS: NORCO 5/325 1 TABLET PO (20:00)
[2025-05-24] MEDS: SODIUM CHLORIDE 3% 250 IV (20:03)
--- NOTE | 2025-05-24 20:08 | ED.GENMED ---
History of Present Illness
<Edwin Paige PA-C - Last Filed: 05/24/25 21:37>
General
Chief Complaint: Abnormal Lab Value
Time Seen by Provider: 05/24/25 18:28
History of Present Illness
History of Present Illness:
80-year-old female with history of adenocarcinoma in remission, SVT, and rheumatoid arthritis presents to the emergency department for evaluation of low sodium. Patient was feeling dizzy lethargic today. She was admitted to the hospital just over
1 week ago at which time she was found to be hyponatremic at 127. 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 She states she has not been drinking much since returning home. She is on Lasix. This dosage has not changed
since her hospital stay. Denies chest pain or dyspnea. No blurry vision or double vision. She is also complaining of acute on chronic neck pain secondary to arthritis.
Past History
<Edwin Paige PA-C - Last Filed: 05/24/25 21:37>
Past History
ED Past Medical History: Arrthythmia (Atrial fibrillation), HTN, Hypercholesterolemia and Other (Psoriatic arthritis)
ED Past Surgical History: Cholecystectomy, Gynecological, Orthopedic, Tonsilectomy and Other
Social History
Tobacco: Smoker
Alcohol: Occasional
Personal:
Living: with family
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
Family History
Family History: Other (Her mother had multiple myeloma and amyloidosis. Her brother had an DC)
Review of Systems
<SRI Francis Last Filed: 05/24/25 21:37>
Review of Systems
Allergies reviewed?: Yes
All Other Systems: ROS reviewed and negative except as documented in HPI and ROS
Phy Exam
<Edwin Paige PA-C - Last Filed: 05/24/25 21:37>
Physical Exam
Physical Exam:
GEN: Well appearing, NAD, WDWN
HEENT: Oral mucosa moist, no scleral icterus
Cardiac: Regular rate
Lung: No respiratory distress, no tachypnea
MSK: No gross deformity or injuries
Skin: Good color, no pallor or jaundice, no rashes
Neuro: AO x3, moves all extremities freely
Psych: Calm, cooperative
Course
<Edwin Paige PA-C - Last Filed: 05/24/25 21:37>
Orders/Labs/Results
Orders:
Orders
05/24/25 17:27
Electrocardiogram (*1) Urgent
Reason for Study: Other
Other Reason for Exam: low sodium
05/24/25 17:28
EKG- Treatment ONCE
05/24/25 18:29
Osmolality, Random Urine Urgent
Urine Sodium Urgent
05/24/25 18:54
Complete Blood Count/With Diff Urgent
Comprehensive Metabolic Panel Urgent
Serum Osmolality Urgent
Comment: ADDED
05/24/25 19:43
Hydrocodone 5/APAP 325 [[place] 5/325] 1 tablet PO NOW STA
05/24/25 20:00
3% Sodium Chloride 250 ml [Sodium Chloride 3%] 250 ml IV ONCE
05/24/25 20:57
Admit/Transfer Patient As Directed
Co-Sign Provider:
Level of Care: Inpatient admission
Assign to:: Telemetry
Physician / Group: Esau Nguyen
Diagnosis: acute on chronic hyponatremia
Reason for Telemetry: Arrhythmia
Date to Stop Telemetry: 05/27/25
Time to Stop Telemetry: 11:00
Reason for Hospitalization: acute on chronic hyponatremia
Expected length of stay greater than two midnights?: Yes
ELOS- Estimated Length of Stay in days: 3
I certify the patient meets the requirements for IP care: Yes
PRN Pain Medication Management As Directed
May give lesser potent ordered pain med per pt: Yes
preference::
Protocol:: Medication orders for pain may be administered in a
manner that supports deferring to patient preference
when the pt is:
- Requesting an ordered lesser potent pain medication.
Least to most potent pain medications are defined
as: acetaminophen < NSAID < tramadol < opioids
(morphine, oxycodone, hydromorphone).
- Requesting a lesser dose of the same medication IF
ORDERED.
- Requesting a less intrusive route of administration
if both routes are prescribed by the provider (PO <
IV).
05/24/25 20:59
Code Status As Directed
Resuscitation Status: Do not resuscitate
Reached after discussion with pt or family/Healthcare POA: Yes
Decision communicated with: patient
05/24/25 21:00
DNR Bracelet Application ONCE
05/24/25 21:09
NT-proBNP Urgent
05/27/25 11:00
DC Protocol for Telemetry ONCE
Abnormal Lab Results
05/24/25
18:54
WBC 17.5 H 10^3/uL
(4.8-10.8)
RBC 3.76 L 10^6/uL
(4.20-5.40)
Hgb 11.9 L g/dL
(12.0-16.0)
Hct 33.1 L %
(37.0-47.0)
MCH 31.6 H pg
(27.0-31.0)
Plt Count 409 H 10^3/uL
(130-400)
Abs Immat Gran (auto) 0.1 H 10^3/uL
(0-0.05)
Absolute Neuts (auto) 15.1 H 10^3/uL
(1.4-6.5)
Absolute Lymphs (auto) 0.9 L 10^3/uL
(1.2-3.4)
Absolute Monos (auto) 1.4 H 10^3/uL
(0.1-0.6)
Immature Gran % 0.6 H %
(0-0.5)
Neutrophils % 86.1 H %
(42.2-75.2)
Lymphocytes % 5.0 L %
(20.5-51.1)
Sodium 116 L* mmol/L
(135-145)
Chloride 81 L mmol/L
(98-107)
Carbon Dioxide 31 H mmol/L
(22-30)
Creatinine 0.5 L mg/dL
(0.6-1.0)
Glucose 127 H mg/dl
(70-99)
Serum Osmolality 248 L mOsm/kg
(275-300)
Albumin 3.4 L g/dl
(3.5-5.0)
05/24/25 18:54
05/24/25 18:54
Vital Signs
Initial and Last Documented VS:
Initial Vital Signs
Temp Pulse Resp BP Pulse Ox
98.0 F 64 16 122/50 98
05/24/25 17:22 05/24/25 17:22 05/24/25 17:22 05/24/25 17:22 05/24/25 17:22
Last Documented Vital Signs
Temp Pulse Resp BP Pulse Ox
98.0 F 58 19 138/90 96
05/24/25 17:22 05/24/25 20:45 05/24/25 20:45 05/24/25 20:00 05/24/25 20:45
Garlandlt;Donato Warren, DO - Last Filed: 05/24/25 20:50>
Orders/Labs/Results
Orders:
Orders
05/24/25 17:27
Electrocardiogram (*1) Urgent
Reason for Study: Other
Other Reason for Exam: low sodium
05/24/25 17:28
EKG- Treatment ONCE
05/24/25 18:29
Osmolality, Random Urine Urgent
Urine Sodium Urgent
05/24/25 18:54
Complete Blood Count/With Diff Urgent
Comprehensive Metabolic Panel Urgent
Serum Osmolality Urgent
Comment: ADDED
05/24/25 19:43
Hydrocodone 5/APAP 325 [[place] 5/325] 1 tablet PO NOW STA
05/24/25 20:00
3% Sodium Chloride 250 ml [Sodium Chloride 3%] 250 ml IV ONCE
05/24/25 20:57
Admit/Transfer Patient As Directed
Co-Sign Provider:
Level of Care: Inpatient admission
Assign to:: Telemetry
Physician / Group: Esau Nguyen
Diagnosis: acute on chronic hyponatremia
Reason for Telemetry: Arrhythmia
Date to Stop Telemetry: 05/27/25
Time to Stop Telemetry: 11:00
Reason for Hospitalization: acute on chronic hyponatremia
Expected length of stay greater than two midnights?: Yes
ELOS- Estimated Length of Stay in days: 3
I certify the patient meets the requirements for IP care: Yes
PRN Pain Medication Management As Directed
May give lesser potent ordered pain med per pt: Yes
preference::
Protocol:: Medication orders for pain may be administered in a
manner that supports deferring to patient preference
when the pt is:
- Requesting an ordered lesser potent pain medication.
Least to most potent pain medications are defined
as: acetaminophen < NSAID < tramadol < opioids
(morphine, oxycodone, hydromorphone).
- Requesting a lesser dose of the same medication IF
ORDERED.
- Requesting a less intrusive route of administration
if both routes are prescribed by the provider (PO <
IV).
05/24/25 20:59
Code Status As Directed
Resuscitation Status: Do not resuscitate
Reached after discussion with pt or family/Healthcare POA: Yes
Decision communicated with: patient
05/24/25 21:00
DNR Bracelet Application ONCE
05/24/25 21:09
NT-proBNP Urgent
05/27/25 11:00
DC Protocol for Telemetry ONCE
Abnormal Lab Results
05/24/25
18:54
WBC 17.5 H 10^3/uL
(4.8-10.8)
RBC 3.76 L 10^6/uL
(4.20-5.40)
Hgb 11.9 L g/dL
(12.0-16.0)
Hct 33.1 L %
(37.0-47.0)
MCH 31.6 H pg
(27.0-31.0)
Plt Count 409 H 10^3/uL
(130-400)
Abs Immat Gran (auto) 0.1 H 10^3/uL
(0-0.05)
Absolute Neuts (auto) 15.1 H 10^3/uL
(1.4-6.5)
Absolute Lymphs (auto) 0.9 L 10^3/uL
(1.2-3.4)
Absolute Monos (auto) 1.4 H 10^3/uL
(0.1-0.6)
Immature Gran % 0.6 H %
(0-0.5)
Neutrophils % 86.1 H %
(42.2-75.2)
Lymphocytes % 5.0 L %
(20.5-51.1)
Sodium 116 L* mmol/L
(135-145)
Chloride 81 L mmol/L
(98-107)
Carbon Dioxide 31 H mmol/L
(22-30)
Creatinine 0.5 L mg/dL
(0.6-1.0)
Glucose 127 H mg/dl
(70-99)
Serum Osmolality 248 L mOsm/kg
(275-300)
Albumin 3.4 L g/dl
(3.5-5.0)
05/24/25 18:54
05/24/25 18:54
Vital Signs
Initial and Last Documented VS:
Initial Vital Signs
Temp Pulse Resp BP Pulse Ox
98.0 F 64 16 122/50 98
05/24/25 17:22 05/24/25 17:22 05/24/25 17:22 05/24/25 17:22 05/24/25 17:22
Last Documented Vital Signs
Temp Pulse Resp BP Pulse Ox
98.0 F 58 19 138/90 96
05/24/25 17:22 05/24/25 20:45 05/24/25 20:45 05/24/25 20:00 05/24/25 20:45
<Edwin Paige PA-C - Last Filed: 05/24/25 21:37>
MDM/Problems Addressed
MDM/Problems Addressed:
Acute on chronic hyponatremia most likely in some part due to SIADH but worsened by lack of p.o. intake recently and Lasix use. Patient is dizzy and lightheaded thus will initiate 3% and a 20 cc/h rate. Patient will be admitted to the hospitalist
service for further management
<Edwin Paige PA-C - Last Filed: 05/24/25 21:37>
*Pulse Oximetry
SaO2: 98
Oxygen Mode of Delivery: Room air
Patient hypoxic: no
*Critical Care Note
Total Time (30-74mins, 75-104mins- exclusive of procedures): 40 minutes
comment:
Critical care time: 40 minutes
Critical care time was exclusive of: Separately billable procedures, treating other patients, and teaching time
Critical care was necessary to treat or prevent imminent or life-threatening deterioration of the following conditions: Severe Hyponatremia
Critical care time spent personally by me on the following activities:
[x] Review of old charts
[x] Obtaining history from patient or surrogate
[x] Ordering and review of the laboratory studies
[ ] Ordering and review of radiographic studies
[x] Ordering and performing treatments and interventions
[x] Patient patient's response to treatment
[x] Development of treatment plan with patient or surrogate
ED Attending Note
<Edwin Paige PA-C - Last Filed: 05/24/25 21:37>
-
Portions of this chart may have been created with voice recognition software.� Occasional wrong word or��sound alike� substitutions may have occurred due to the inherent limitations of voice recognition software.
<Donato Warren DO - Last Filed: 05/24/25 20:50>
ED Attending Note
Patient seen and examined by attending physician: Yes
I performed the substantive portion of visit, reviewed & personally made and approve the management plan that is documented in note by myself or ELOISA.: Yes
ED Attending Note:
Seen with PA examined independently fatigued elderly female recurrent hyponatremia with normal mental status no seizure
Discharge Plan
Departure
Patient Disposition: Admit
Date of Disposition: 05/24/25
Time of Disposition: 20:10
Admit to: IMU
Presentation/result/management discussed w/ accepting MD/DO: Hospitalist
Discharge Problem:
Acute hyponatremia
Interventions
Interventions:
*General Assessment Last Done: 05/24/25 17:22
*Neglect/Abuse Screening Last Done: 05/24/25 17:22
*ED COVID-19 Vaccine History Last Done: 05/24/25 17:22
*ED Influenza Vaccine History Last Done: 05/24/25 17:22
[facility] Fall Risk Assessment Tool Last Done: 05/24/25 20:11
*Risk Screen - Suicide (C-SSRS) Last Done: 05/24/25 17:22
--- NOTE | 2025-05-24 20:13 | HPS.HSE ---
Family Physician
-
Family Physician: Ana Bhatt
Chief Complaint
-
abnormal out patient labs
History of Present Illness
Patient is a 80-year-old female with past medical history significant for COPD (current smoker), chronic hyponatremia, adenocarcinoma of the lung in remission, rheumatoid arthritis/psoriatic arthritis, essential hypertension, hyperlipidemia and
paroxysmal SVT who presented to [facility] ED for evaluation of abnormal out patient labs. Patient stated she had routine out patient labs this morning. Her interlocking installer called her this afternoon and requested she go to ED for evaluation. She notes only
weakness as a symptom. Patient observed with 3L O2 via NC that she reports she uses at home with portable oxygen concentrator. She notes this was not ordered by her provider but she feels it helps because she feels like she is 'air hungry,' despite
SpO2 maintaining mid 90s.
Medical History
Past Medical History
Past Medical History: Reports Other
Additional Past Medical History:
COPD (current smoker)
chronic hyponatremia
adenocarcinoma of the lung in remission
rheumatoid arthritis/psoriatic arthritis
essential hypertension
hyperlipidemia
paroxysmal SVT
diverticulosis
left prosthetic eye
Past Surgical History: Reports Other
Additional Past Surgical History:
Tonsillectomy
cholecystectomy
hysterectomy
Diverticulosis with perforation-Colectomy 1994
Reversal of colectomy 1994
Social History
Tobacco: Smoker (1/2 pack per day)
Alcohol: Occasional
Drug: None
Personal:
Living: With Family
Employment: Retired
Family History
Family History: Other (Multiple myeloma and amyloidosis- mother )
Allergies / Home Medications
Allergies reflects when Allergies were last updated in [employer].
Home Medications with original date entered in [employer]
Allergy/Medication List:
Allergies
Allergy/AdvReac Type Severity Reaction Status Date / Time
codeine (Codeine) Allergy VOMITING Verified 05/24/25 17:24
ibuprofen Allergy muscle Verified 05/24/25 17:24
spasms and
pain
latex (Latex) Allergy rash/sob Verified 05/24/25 17:24
levofloxacin (From Levaquin) Allergy severe Verified 05/24/25 17:24
muscle
spasms and
pain
morphine Allergy Shortness Verified 05/24/25 17:24
of Breath
oxycodone Allergy Vomiting Verified 05/24/25 17:24
titanium Allergy Swelling Verified 05/24/25 17:24
monocry sutures Allergy Swelling Uncoded 05/24/25 17:24
Home Medications
pravastatin 40 mg tablet 40 mg PO QPM High Cholesterol 02/17/20
coQ10 (ubiquinol) 200 mg capsule 200 mg PO HS Supplement 08/05/23
biotin 1 mg capsule 1 mg PO DAILY Supplement 02/10/25
denosumab 60 mg/mL subcutaneous syringe (Prolia) 60 mg SC [id number] osteoporosis 02/10/25
fluticasone fur. 200 mcg-umeclid 62.5 mcg-vilant 25 mcg inhalat.powder (Trelegy Ellipta) 1 inh inhalation R DAILY Lung/Breathing Issues 02/10/25
hydrocodone 5 mg-acetaminophen 325 mg tablet 1 tab PO TIDPRN PRN severe pain 05/06/25
linaclotide 145 mcg capsule (Linzess) 145 mcg PO DAILY Constipation 05/06/25
megestrol 400 mg/10 mL (40 mg/mL) oral suspension 50 mg PO DAILY appetite stimulation 05/06/25
prednisone 1 mg tablet 5 mg PO DAILY rheumatoid arthritis 05/06/25
fluticasone propionate 50 mcg/actuation nasal spray,suspension 2 spray intranasal DAILY Congestion 05/11/25
amiodarone 200 mg tablet (Pacerone) 200 mg PO BID #60 tabs 05/13/25
aspirin 81 mg chewable tablet 81 mg PO DAILY #30 tabs 05/13/25
clopidogrel 75 mg tablet 75 mg PO DAILY #30 tabs 05/13/25
ipratropium bromide 0.02 % solution for inhalation 0.5 mg (2.5 mL) inhalation Q6H dyspnea #62.5 mL 05/13/25
ipratropium bromide 0.02 % solution for inhalation 0.5 mg (2.5 mL) inhalation R Q6 30 days #300 mL 05/13/25
metoprolol succinate 25 mg tablet,extended release 24 hr 25 mg PO BID #30 tabs 05/13/25
sennosides 8.6 mg-docusate sodium 50 mg tablet (Senna Plus) 1 tab PO BIDPRN PRN constipation 5 days #10 tabs 05/13/25
Review of Systems
-
History Source: Patient
Constitutional: Reports Fatigue
EENT: Reports No Symptoms
Respiratory: Reports No Symptoms
Cardiac: Reports No Symptoms
Abdomen/GI: Reports No Symptoms
: Reports No Symptoms
Musculoskeletal: Reports No Symptoms
Skin: Reports No Symptoms
Neurological: Reports Weakness
Endocrine: Reports No Symptoms
Hematologic/Lymphatic: Reports No Symptoms
Psych: Reports No Symptoms
Physical Exam
Vital Signs
Vital Signs
Temp Pulse Resp BP Pulse Ox
98.0 F 59 21 138/90 98
05/24/25 17:22 05/24/25 20:00 05/24/25 20:00 05/24/25 20:00 05/24/25 20:10
Physical Exam
General: Well Developed, No Apparent Distress, Comfortable, Conversant and Cachectic
HEENT: NormoCephalic, Moist mucous membranes, PERRLA, Nose Appears Normal and Ears Appear Normal
Respiratory: Clear, Non Labored Respirations, Decreased Breath Sounds and Other (O2 @ 3L in place )
Cardiac: S1/S2, Regular Rhythm and Murmur
GI: Soft, Non Tender, Non Distended and Normal Bowel Sounds
Musculoskeletal: No Clubbing and No Cyanosis
Skin: Warm and IV/Catheter Site
Neuro: Awake and AO x 3
Psych: Calm
Laboratory Results
-
05/24/25 18:54
05/24/25 18:54
Laboratory Results
Total Bilirubin 1.1 mg/dl (0.2-1.3) 05/24/25 18:54
AST 29 U/L (14-36) 05/24/25 18:54
ALT 13 U/L (0-35) 05/24/25 18:54
Alkaline Phosphatase 45 U/L (38-126) 05/24/25 18:54
Data Reviewed
-
Medical Tests (Nuc Med, Echo, EKG etc): Report Reviewed by me (EKG: Critical Test Result: Long QTc SINUS RHYTHM WITH PREMATURE ATRIAL COMPLEXES WITH Aberrant conduction MODERATE VOLTAGE CRITERIA FOR LVH, MAY BE NORMAL VARIANT ( Sokolow-Pearson ,
Sandeep product ) ST and MARKED T WAVE ABNORMALITY CONSIDER ANTEROLATERAL ISCHEMIA PROLONGED QT)
Lab Data: Labs Reviewed by me (WBC 17.5, neut 86.1, Na+ 116, chloride 81, CO2 31, serum osmo 246)
Impression/Plan
-
IMPRESSION/PLAN:
#abnormal out patient labs
#acute on chronic hyponatremia
WBC 17.5, neut 86.1, Na+ 116, chloride 81, CO2 31, serum osmo 246
EKG: Critical Test Result: Long QTc
SINUS RHYTHM WITH PREMATURE ATRIAL COMPLEXES WITH Aberrant conduction
MODERATE VOLTAGE CRITERIA FOR LVH, MAY BE NORMAL VARIANT ( Sokolow-Pearson , [place] product )
ST and MARKED T WAVE ABNORMALITY CONSIDER ANTEROLATERAL ISCHEMIA
PROLONGED QT
- Admit to telemetry
- Consult Nephrology
- urine studies pending
- check pBNP for HF
- check cortisol
- serial sodium levels
#COPD
current 1/2 pack per day smoker
- encourage smoking cessation
- continue fluticasone spray, ipratropium bromide and Trelegy Ellipta
#rheumatoid arthritis/psoriatic arthritis
- continue prednisone
#essential hypertension
- continue metoprolol
#hyperlipidemia
- continue pravastatin
#CAD
pt elected to medically manage verse cardiac cath during last admission
- continue aspirin, Plavix and pravastatin
#paroxysmal SVT
- continue amiodarone and metoprolol
#Lung cancer
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
Patient had right upper lobe squamous cell carcinoma 2019
there is a cavitary lesion in the left upper lobe 1.4 cm-there was mild FDG uptake within that lesion on the PET scan from December 2024
Patient had a lung biopsy 02/12/2025-mostly necrotic acellular tissue no malignancy reported.
Code status: DNR
DVT prophylaxis: Lovenox sq
--- NOTE | 2025-05-24 20:55 | W.PN.UPDATE ---
Update Note
Progress Note Update
Patient seen in conjunction with nurse practitioner, I agree with the findings on exam physical and I concur with assessment and plan unless otherwise stated.
Patient is a 80-year-old with past medical history significant for COPD not usually on home O2 but was self prescribed a self home O2 since I last discharged from hospital. During that admission she suffered influenza A, pneumonia complicated by
hypoxic along failure without intubation, nonischemic cardiomyopathy thought to be secondary to Takotsubo, exacerbation of COPD, known syndrome of SIADH who who was ultimately discharged on slight change in medication regimen with amiodarone was
initiated, nifedipine was switched to metoprolol, aspirin, Plavix, pravastatin were continued. But not on diuretics. She had a follow-up blood work today which showed a sodium of 116. Since discharge patient reports poor p.o. intake. Denies
nausea vomiting or diarrhea. She does report some pedal edema. She has been weak, she states she has been losing weight. She denies any new pulmonary symptoms. She reports feeling lightheaded and weak. Weakness is chronic.
In the emergency department she was afebrile, blood pressure was 138/90 with a pulse rate of 59 oxygen saturation of 96% on 2 L. ECG shows a normal sinus rhythm at rate of 68 with a QTc of 560. No acute ST or T wave changes. White count was 17.5
hemoglobin 11.9 plate count of 400. Sodium was 116 down from 130. The rest of her electrolytes BUN and creatinine were normal.
Assessment and plan
Hyponatremia -suggestion is of hypovolemic hyponatremia but cannot rule out hyponatremia secondary to CHF versus hypercortisolism versus exacerbation of her SIADH. Patient denies being on any antidepressants although she was prescribed. She is not
on any other medications known to cause hyponatremia. She was started on amiodarone during her last admission but this is not associated with hyponatremia.
- Admit to telemetry
� Without evidence of fluid losses, and with known nonischemic cardiomyopathy and pedal edema I doubt this is hypovolemic hyponatremia
� Suspect hyponatremia secondary to CHF versus SIADH
� Will obtain urine awesome's and urine sodium
� If urine sodium is low likely this is CHF related
� Started on hypertonic saline 20 mL/h
� Sodium every 4 hours
� Check orthostatic vital signs
� Check a.m. cortisol
� Nephrology consultation
� Repeat BNP.
CHF
� Continue metoprolol succinate
� Continue aspirin and Plavix
� Continue amiodarone for now
COPD�no evidence of acute exacerbation but patient is now on 2 to 3 L home O2 that she self prescribed since her discharge. She states she occasionally feels the wrong and that is why she uses it. Denies feeling short of breath. Denies any cough
fevers or chills.
� For airway movement but this is chronic
� Continue Trelegy
� Obtain oxygen saturation off of supplemental oxygen
� Will need prescription for home O2 on discharge
DVT prophylaxis�Lovenox subcu
CODE STATUS�DNR
[2025-05-25 00:50] LABS: Sodium 120 mmol/L (135-145)
[2025-05-25 01:24] LABS: Cortisol, Random 15.3 ug/dl
[2025-05-25] MEDS: ATROVENT NEBULES 0.5 MG INH ×4 (01:30→19:49)
[2025-05-25 03:40] VITALS: BP 125/61
[2025-05-25 05:58] LABS: Blood Urea Nitrogen 8 mg/dl (7-17); Calcium 8.3 mg/dl (8.4-10.2); Carbon Dioxide 34 mmol/L (22-30); Chloride 86 mmol/L (98-107); Estimated Creatinine Clearance 53 ml/min; Glucose 85 mg/dl (70-99); Potassium 3.8 mmol/L (3.5-5.1); Sodium 123 mmol/L (135-145); eGFR > 60.00
[2025-05-25] MEDS: SYMBICORT 160/4.5 MCG INHALER 2 PUFF INH ×2 (06:39→19:49)
[2025-05-25 07:00] VITALS: BP 141/57
[2025-05-25] MEDS: TOPROL XL 25 MG PO ×2 (08:15→20:38)
[2025-05-25] MEDS: DELTASONE 5 MG PO (08:15)
[2025-05-25] MEDS: MEGACE ORAL SUSPENSION 200 MG PO (08:15)
[2025-05-25] MEDS: LOW STRENGTH ASPIRIN 81 MG PO (08:15)
[2025-05-25] MEDS: PLAVIX 75 MG PO (08:15)
[2025-05-25] MEDS: PACERONE 200 MG PO ×2 (08:15→20:43)
[2025-05-25] MEDS: NORCO 5/325 1 TABLET PO ×2 (08:24→22:05)
--- NOTE | 2025-05-25 08:38 | VNURNOTE ---
Chart reviewed. Patient is current with [facility]. Will continue to follow hospital course and DC plans.
[2025-05-25 09:23] LABS: Hematocrit 31.9 % (37.0-47.0); Hemoglobin 11.2 g/dL (12.0-16.0); Mean Corp Hgb Conc. 35.1 g/dL (33.0-37.0); Mean Corpuscular Volume 92.7 fL (81.0-99.0); Platelet Count 400 10^3/uL (130-400); Red Cell Dist. Width 13.2 % (11.5-14.5)
[2025-05-25 09:45] LABS: Sodium 123 mmol/L (135-145)
--- NOTE | 2025-05-25 10:08 | W.PN.HOSP.TC ---
Today's Communication/Plan
-
see plan
Assessment / Plan
Assessment / Plan
Gen: NAD, Awake and alert,
Eyes: EOMI, PERRLA, no scleral icterus.
Neck: supple.
CV: RRR, +S1/S2, no m/r/g.
Resp: CTAB, no rales, wheezes, or rhonchi.
Abd: +BS, soft, NT, ND
Skin: No rashes.
Neuro: CN 2-12 intact, non-focal.
Psych: Normal mood and affect.
Acute on chronic hypotonic hyponatremia:
-Na 116 on admission
-Noam 12, UOsm 364, Serum Osm 248
-Na now 123 s/p 3% NS
-c/s Nephrology
-cont Q4H Na checks, avoid increasing serum Na by more than 10mmol/L per day
COPD:
-not in acute exac
-current 1/2 pack per day smoker, encourage smoking cessation
-continue fluticasone spray, ipratropium bromide and Trelegy Ellipta
-Currently on 2L NC O2, states that she is intermittently on 3L NC O2 at home (chronic hypoxemic respiratory failure).
Other problems:
COPD: not in acute exac, current 1/2 pack per day smoker, encourage smoking cessation, continue fluticasone spray, ipratropium bromide and Trelegy Ellipta. Currently on 2L NC O2, states that she is intermittently on 3L NC O2 at home (chronic
hypoxemic respiratory failure).
RA and psoriatic arthritis: continue prednisone
Essential HTN: cont BB
HLD: cont statin
CAD: note, pt elected to medically manage verse cardiac cath during last admission, cont ASA/Plavix/statin
Paroxysmal SVT: cont Amio/BB
h/o ANKIT lung adenocarcinoma, XRT 2019, lung Bx ANKIT 02/12/2025 with mostly necrotic acellular tissue, no malignancy reported
DNR/Lovenox
Anticipated Discharge: 24 - 48 hours
Subjective/Interval History
-
Date of Service: May 25, 2025
Currently denies CP/SOB.
Objective Data
-
Labs:
Laboratory Results
05/25/25 05/25/25 05/25/25
00:24 05:21 06:00
WBC
Hgb
Hct
Plt Count
Sodium 120 L 123 L Cancelled
Potassium 3.8 Cancelled
Chloride 86 L Cancelled
Carbon Dioxide 34 H Cancelled
BUN 8 Cancelled
Creatinine 0.5 L Cancelled
Glucose 85 Cancelled
Calcium 8.3 L Cancelled
05/25/25 05/25/25 05/25/25
08:00 09:07 12:00
WBC 14.7 H
Hgb 11.2 L
Hct 31.9 L
Plt Count 400
Sodium Cancelled 123 L Cancelled
Potassium
Chloride
Carbon Dioxide
BUN
Creatinine
Glucose
Calcium
05/25/25 05/25/25 05/25/25
13:20 16:00 17:20
WBC
Hgb
Hct
Plt Count
Sodium Pending Cancelled Pending
Potassium
Chloride
Carbon Dioxide
BUN
Creatinine
Glucose
Calcium
05/25/25 05/25/25
20:00 21:20
WBC
Hgb
Hct
Plt Count
Sodium Cancelled Pending
Potassium
Chloride
Carbon Dioxide
BUN
Creatinine
Glucose
Calcium
Vital Signs:
Vital Signs
Temp Pulse Resp BP Pulse Ox
97.2 F 83 16 141/57 97
05/25/25 07:00 05/25/25 07:00 05/25/25 07:00 05/25/25 07:00 05/25/25 08:10
[2025-05-25 11:00] VITALS: BP 119/48
--- NOTE | 2025-05-25 11:56 | W.CON.NEPH ---
Consultation
-
Date/Time Consultation Requested: 05/24/20251999
Date/Time Consultation Performed: 05/25/2025 9 AM
Requesting Provider: Jojo Martinez
Performing Provider: Dr. Fuentes
Reason for Consultation: Hyponatremia
Medical History
-
Chief Complaint: Hyponatremia
History of Present Illness:
80-year-old female with past medical history significant for COPD (current smoker), chronic hyponatremia, adenocarcinoma of the lung in remission, rheumatoid arthritis/psoriatic arthritis, essential hypertension, hyperlipidemia and paroxysmal SVT
who presented to [facility] ED for evaluation of abnormal out patient labs. Sodium 116
Renal consult for hyponatremia
3% saline given in the ER came up to 123
Patient is otherwise asymptomatic no nausea or vomiting she does have a poor appetite. She does not drink excessive alcohol or water. She denies NSAID use
Past Medical History
Past medical history significant for COPD (current smoker), chronic hyponatremia, adenocarcinoma of the lung in remission, rheumatoid arthritis/psoriatic arthritis, essential hypertension, hyperlipidemia and paroxysmal SVT
Social History
Tobacco: Smoker
Alcohol: None
Family History
Family History: Not Pertinent
Allergies / Home Medications
Allergy/AdvReac Type Severity Reaction Status Date / Time
codeine (Codeine) Allergy VOMITING Verified 05/24/25 17:24
ibuprofen Allergy muscle Verified 05/24/25 17:24
spasms and
pain
latex (Latex) Allergy rash/sob Verified 05/24/25 17:24
levofloxacin (From Levaquin) Allergy severe Verified 05/24/25 17:24
muscle
spasms and
pain
morphine Allergy Shortness Verified 05/24/25 17:24
of Breath
oxycodone Allergy Vomiting Verified 05/24/25 17:24
titanium Allergy Swelling Verified 05/24/25 17:24
monocry sutures Allergy Swelling Uncoded 05/24/25 17:24
�Medication �Instructions �Recorded �Confirmed �Type
pravastatin 40 mg tablet 40 mg PO QPM High Cholesterol 02/17/20 05/24/25 History
coQ10 (ubiquinol) 200 mg capsule 200 mg PO HS Supplement 08/05/23 05/24/25 History
biotin 1 mg capsule 1 mg PO DAILY Supplement 02/10/25 05/24/25 History
denosumab 60 mg/mL subcutaneous 60 mg SC [id number] osteoporosis 02/10/25 05/24/25 History
syringe (Prolia)
fluticasone fur. 200 mcg-umeclid 1 inh inhalation R DAILY 02/10/25 05/24/25 History
62.5 mcg-vilant 25 mcg Lung/Breathing Issues
inhalat.powder (Trelegy Ellipta)
hydrocodone 5 mg-acetaminophen 325 1 tab PO TIDPRN PRN severe pain 05/06/25 05/24/25 History
mg tablet
linaclotide 145 mcg capsule 145 mcg PO DAILY Constipation 05/06/25 05/24/25 History
(Linzess)
megestrol 400 mg/10 mL (40 mg/mL) 50 mg PO DAILY appetite stimulation 05/06/25 05/24/25 History
oral suspension
prednisone 1 mg tablet 5 mg PO DAILY rheumatoid arthritis 05/06/25 05/24/25 History
fluticasone propionate 50 2 spray intranasal DAILY Congestion 05/11/25 05/24/25 History
mcg/actuation nasal
spray,suspension
amiodarone 200 mg tablet (Pacerone) 200 mg PO BID #60 tabs 05/13/25 05/24/25 Rx
aspirin 81 mg chewable tablet 81 mg PO DAILY #30 tabs 05/13/25 05/24/25 Rx
clopidogrel 75 mg tablet 75 mg PO DAILY #30 tabs 05/13/25 05/24/25 Rx
ipratropium bromide 0.02 % 0.5 mg (2.5 mL) inhalation Q6H 05/13/25 05/24/25 Rx
solution for inhalation dyspnea #62.5 mL
ipratropium bromide 0.02 % 0.5 mg (2.5 mL) inhalation R Q6 30 05/13/25 05/24/25 Rx
solution for inhalation days #300 mL
metoprolol succinate 25 mg 25 mg PO BID #30 tabs 05/13/25 05/24/25 Rx
tablet,extended release 24 hr
sennosides 8.6 mg-docusate sodium 1 tab PO BIDPRN PRN constipation 5 05/13/25 05/24/25 Rx
50 mg tablet (Senna Plus) days #10 tabs
Review of Systems
-
No chest pain or shortness of breath other than her chronic
All other systems: Negative unless noted
Physical Exam
Vital Signs
Vital Signs
Temp Pulse Resp BP Pulse Ox
97.7 F 62 16 119/48 98
05/25/25 11:00 05/25/25 11:00 05/25/25 11:00 05/25/25 11:00 05/25/25 11:00
Lab Results
WBC 14.7 10^3/uL (4.8-10.8) H 05/25/25 09:07
RBC 3.44 10^6/uL (4.20-5.40) L 05/25/25 09:07
Hgb 11.2 g/dL (12.0-16.0) L 05/25/25 09:07
Hct 31.9 % (37.0-47.0) L 05/25/25 09:07
Plt Count 400 10^3/uL (130-400) 05/25/25 09:07
Potassium Cancelled 05/25/25 06:00
Chloride Cancelled 05/25/25 06:00
Carbon Dioxide Cancelled 05/25/25 06:00
BUN Cancelled 05/25/25 06:00
Creatinine Cancelled 05/25/25 06:00
eGFR Cancelled 05/25/25 06:00
Glucose Cancelled 05/25/25 06:00
Calcium Cancelled 05/25/25 06:00
Nnp-F-Qbhmitwunbp Pept 58729 pg/ml 05/24/25 21:09
Albumin 3.4 g/dl (3.5-5.0) L 05/24/25 18:54
Physical Exam
General no acute distress
HEENT no cephalic atraumatic extraocular muscle intact no scleral icterus no JVD neck supple
lungs c decreased breath sounds with bilateral wheezing
heart regular S1-S2 positive
abdomen soft nontender positive bowel sounds
extremities no edema pulses present bilateral
Neurologically nonfocal alert and oriented x 3
Skin no lesions no abrasions no petechiae
Psych normal affect no bizarre behavior
Data Reviewed
-
Radiology: Image Personally Visualized and interpreted
Assessment/Plan
-
80-year-old female with past medical history significant for COPD (current smoker), chronic hyponatremia, adenocarcinoma of the lung in remission, rheumatoid arthritis/psoriatic arthritis, essential hypertension, hyperlipidemia and paroxysmal SVT
who presented to [facility] ED for evaluation of abnormal out patient labs. Sodium 116
Impression
Hyponatremia with low urine sodium of 12 elevated urine osmolality consistent with decreased p.o. 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
COPD
Adenocarcinoma of the lung
Plan
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
Status post 3% sodium improved to 123 slightly quicker than desired but repeat maintained at 123
Discontinue 3%
Continue serial BMP
Fluid restriction
Increase protein
Consider Samsca with next reading
[2025-05-25 14:00] LABS: Sodium 122 mmol/L (135-145)
--- NOTE | 2025-05-25 14:38 | PN.CDI ---
CDI
- -
CDI:
Physician Documentation Request
Admit Date: 05/24/25 21:19
Dear Doctor Maria Esther,
Patient admitted with acute on chronic hypotonic hyponatremia.
Please review the following and provide your response in the progress notes.
Clinical Indicators:
Height: 5' 4'
Weight: 98 lb 4 oz
BMI: 16.9
Please provide an associated diagnosis related to the abnormal BMI, such as:
Underweight
Cachectic
Anorexia
Other
BMI < or = to 19 BMI > or = to 40
Underweight Overweight
Weight Loss Obesity:
Due to excess calories
Drug induced
Due to other cause
Cachectic Severe or morbid obesity:
With alveolar hypoventilation (Obesity hypoventilation syndrome)
Without alveolar hypoventilation
Anorexia
Use of terms such as suspected, likely, concern for, or probable (associated with a specific diagnosis that is being evaluated, monitored, or treated as if it exists) are acceptable and can be coded in the inpatient setting, when documented at the
time of discharge.
Thank you,
Pascale NICOLE,RN,CCDS
CDI Specialist
Available via tiger text
Please use your independent medical judgment in providing your response.
[2025-05-25 15:10] VITALS: BP 117/49
[2025-05-25 15:53] VITALS: BMI 16.9
[2025-05-25] MEDS: ROBITUSSIN 200 MG PO (15:55)
--- NOTE | 2025-05-25 16:16 | CM ---
Addendum entered by Emily Robb 05/25/25 16:25:
Pt has a portable O2 concentrator at home that she purchased herself. She placed herself on 3L N/C for comfort.
Original Note:
Met with pt bedside. IA completed, IMM given and placed on chart. Lives with her spouse in a single story condo with no steps at the entrance.No hx of SNF. no insecurities identified. Confirmed PCP, Rx, insurance and drug coverage
Hx of HH with [facility]. [facility] aware of patient and is following for DC needs. Possible DC tomorrow if Na+ is improved
Plan: DC to home with [facility] if needed
[2025-05-25] MEDS: LOVENOX 30 MG SC (17:31)
[2025-05-25] MEDS: PRAVACHOL 40 MG PO (17:31)
[2025-05-25 17:49] LABS: Sodium 122 mmol/L (135-145)
[2025-05-25 21:41] LABS: Sodium 124 mmol/L (135-145)
--- NOTE | 2025-05-25 21:47 | W.PN.UPDATE ---
Update Note
Progress Note Update
restarted hypertonic saline at 25cc/hr with am labs
[2025-05-25] MEDS: MELATONIN 5 MG PO (22:05)
[2025-05-25] MEDS: SODIUM CHLORIDE 3% 250 IV (22:10)
[2025-05-25 23:04] VITALS: BP 118/54
[2025-05-26] MEDS: TIGAN 200 MG IM (01:34)
[2025-05-26 03:25] VITALS: BP 126/59
[2025-05-26] MEDS: ATROVENT NEBULES INH (05:01)
[2025-05-26 05:13] LABS: Blood Urea Nitrogen 10 mg/dl (7-17); Calcium 8.7 mg/dl (8.4-10.2); Carbon Dioxide 36 mmol/L (22-30); Chloride 90 mmol/L (98-107); Estimated Creatinine Clearance 53 ml/min; Glucose 88 mg/dl (70-99); Potassium 4.7 mmol/L (3.5-5.1); Sodium 127 mmol/L (135-145); eGFR > 60.00
[2025-05-26] MEDS: ATROVENT NEBULES 0.5 MG INH ×2 (07:10→12:49)
[2025-05-26] MEDS: SYMBICORT 160/4.5 MCG INHALER 2 PUFF INH (07:11)
[2025-05-26 07:25] VITALS: BP 140/60
--- NOTE | 2025-05-26 07:57 | W.PN.HOSP.TC ---
Addendum entered and electronically signed by Carlos A Mayo MD 05/26/25 14:30:
Total time spent on d/c = 35 min. This included today's physical exam, progress note, review of laboratory and diagnostic data, preparation of discharge documents and prescriptions, and discussions about the pt's hospital course and discharge plan
with the patient and other medical records clerk involved in the patient's care.
Original Note:
Today's Communication/Plan
-
see plan
Assessment / Plan
Assessment / Plan
Gen: NAD, Awake and alert, appears chronically ill and malnourished
Eyes: EOMI, PERRLA, no scleral icterus.
Neck: supple.
CV: alejandra, reg rhythm with occasional premature beats, +S1/S2, no m/r/g.
Resp: distant BS, CTAB, no rales, wheezes, or rhonchi.
Abd: +BS, soft, NT, ND
Skin: No rashes.
Neuro: CN 2-12 intact, non-focal.
Psych: Normal mood and affect.
Acute on chronic hypotonic hyponatremia:
-Na 116 on admission
-Noam 12, UOsm 364, Serum Osm 248
-Na now 127 s/p 3% NS x 2
-Nephrology following
-Na checks can not be Q12-Q24, avoid increasing serum Na by more than 10mmol/L per day
COPD:
-not in acute exac
-current 1/2 pack per day smoker, encourage smoking cessation
-continue fluticasone spray, ipratropium bromide and Trelegy Ellipta
-Currently on 2L NC O2, states that she is intermittently on 3L NC O2 at home (chronic hypoxemic respiratory failure).
Other problems:
COPD: not in acute exac, current 1/2 pack per day smoker, encourage smoking cessation, continue fluticasone spray, ipratropium bromide and Trelegy Ellipta. Currently on 2L NC O2, states that she is intermittently on 3L NC O2 at home (chronic
hypoxemic respiratory failure).
RA and psoriatic arthritis: continue prednisone
Essential HTN: cont BB
HLD: cont statin
CAD: note, pt elected to medically manage verse cardiac cath during last admission, cont ASA/Plavix/statin
Paroxysmal SVT: cont Amio/BB
h/o ANKIT lung adenocarcinoma, XRT 2019, lung Bx ANKIT 02/12/2025 with mostly necrotic acellular tissue, no malignancy reported
Underweight and cachectic
DNR/Lovenox
Anticipated Discharge: Within 24 hours
Subjective/Interval History
-
Date of Service: May 26, 2025
Objective Data
-
Labs:
Laboratory Results
05/25/25 05/26/25
21:06 04:28
Sodium 124 L 127 L
Potassium 4.7
Chloride 90 L
Carbon Dioxide 36 H
BUN 10
Creatinine 0.5 L
Glucose 88
Calcium 8.7
Vital Signs:
Vital Signs
Temp Pulse Resp BP Pulse Ox
98.1 F 61 16 126/59 97
05/26/25 03:25 05/26/25 07:13 05/26/25 07:13 05/26/25 03:25 05/26/25 07:13
I&O
05/25/25 05/26/25 05/27/25
06:59 06:59 06:59
Intake Total 480 / 480
Balance 480 / 480
[2025-05-26] MEDS: TOPROL XL 25 MG PO (10:03)
[2025-05-26] MEDS: PLAVIX 75 MG PO (10:03)
[2025-05-26] MEDS: DELTASONE 5 MG PO (10:03)
[2025-05-26] MEDS: LOW STRENGTH ASPIRIN 81 MG PO (10:03)
[2025-05-26] MEDS: PACERONE 200 MG PO (10:04)
[2025-05-26] MEDS: MEGACE ORAL SUSPENSION 200 MG PO (10:04)
[2025-05-26] MEDS: FLUSH (NSS) 1 FLUSH IV (10:05)
[2025-05-26 11:20] VITALS: BP 130/50
[2025-05-26] MEDS: NORCO 5/325 1 TABLET PO (12:34)
--- NOTE | 2025-05-26 12:40 | W.PN.NEPH.PH ---
Today's Communication / Plan
-
see plan
Assessment/Plan
-
80-year-old female with past medical history significant for COPD (current smoker), chronic hyponatremia, adenocarcinoma of the lung in remission, rheumatoid arthritis/psoriatic arthritis, essential hypertension, hyperlipidemia and paroxysmal SVT
who presented to [facility] ED for evaluation of abnormal out patient labs. Sodium 116
Impression
Hyponatremia with low urine sodium of 12 elevated urine osmolality consistent with decreased p.o. 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
Recent FLu 05/06
COPD
Adenocarcinoma of the lung
Plan
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
low U na suggest possible poor solute intake
Status post 3% sodium improved to 127
recheck labs now and if improving possibly ok for d/c
need strict FR and increase solute intake, pain control
noted echo from 05/10, EF 40%, may benefit from low dose lasix 20mg MWF if sodium difficult to maintain
if d/c today, check BMP on Saturday or Saturday
d/w pt and nursing
-
-
Date of Service: May 26, 2025
CC / HPI / ROS
-
Chief Complaint:
hyponatremia
History of Present Illness:
sodium betetr at 127 s/p HTS
Bp stable
k normal
Review of Systems:
weak but feels ok
wants to go home
no cp or sob
Labs
-
Labs:
WBC 14.7 10^3/uL (4.8-10.8) H 05/25/25 09:07
RBC 3.44 10^6/uL (4.20-5.40) L 05/25/25 09:07
Hgb 11.2 g/dL (12.0-16.0) L 05/25/25 09:07
Hct 31.9 % (37.0-47.0) L 05/25/25 09:07
Plt Count 400 10^3/uL (130-400) 05/25/25 09:07
eGFR > 60.00 05/26/25 04:28
Qan-P-Rwdfwkxyoar Pept 66160 pg/ml 05/24/25 21:09
Albumin 3.4 g/dl (3.5-5.0) L 05/24/25 18:54
Physical Exam
-
Vital Signs:
Vital Signs
Temp Pulse Resp BP Pulse Ox
97.8 F 64 18 140/60 100
05/26/25 07:25 05/26/25 07:25 05/26/25 07:25 05/26/25 07:25 05/26/25 07:25
Cardiovascular:: Regular rate and rhythm
Lung Excursion:: Normal (decreased BS)
Abdomen:: Nontender and Soft
Extremity Edema:: None: Bilateral:
Johnson Catheter: No
[2025-05-26 13:27] LABS: Blood Urea Nitrogen 11 mg/dl (7-17); Calcium 8.6 mg/dl (8.4-10.2); Carbon Dioxide 36 mmol/L (22-30); Chloride 91 mmol/L (98-107); Estimated Creatinine Clearance 53 ml/min; Glucose 121 mg/dl (70-99); Potassium 3.6 mmol/L (3.5-5.1); Sodium 128 mmol/L (135-145); eGFR > 60.00
--- NOTE | 2025-05-26 13:28 | CM ---
Possible DC tomorrow if Na+ level improves. She will go home with her . [facility] following
Plan: home with [facility]
--- NOTE | 2025-05-26 14:30 | W.DCSUMMARY ---
Discharge Summary
Discharge Data
Date of Admission: 05/24/25
Date of Discharge: 05/26/25
-
Pending Results: No
Hospital Course
Primary diagnoses:
Hyponatremia due to SIADH
Secondary diagnoses:
Chronic hypoxemic respiratory failure due to chronic obstructive pulmonary disease
Tobacco abuse disorder
Rheumatoid arthritis
Psoriatic arthritis
Essential hypertension
Hyperlipidemia
Coronary artery disease
Paroxysmal supraventricular tachycardia
h/o ANKIT lung adenocarcinoma, XRT 2019, lung Bx ANKIT 02/12/2025 with mostly necrotic acellular tissue, no malignancy reported
Underweight
Cachectic
Consults:
Nephrology
Imaging:
None
Hospital course: 80-year-old female who presented with a chief complaint of evaluation for hyponatremia as outlined in the H&P done on admission. On admission the patient's sodium was 116. Noam 12, UOsm 364, Serum Osm 248. Her sodium improved to
128 doses of 3% normal saline. Patient was seen in consultation by nephrology. At the time of discharge the patient will be on a fluid restriction and has been encouraged to increase her salt intake. She was recommended to have her sodium
rechecked in 2 to 5 days. She was discharged in medically stable condition.
Discharge Plan
-
Patient Disposition: Home (Routine Discharge)
Discharge Diagnosis/Procedures: Hyponatremia due to SIADH
Condition: Fair
Additional Diets: Fluid restrict to 1200 cc/day, increase salt intake
Activity: As tolerated
Driving Restrictions: As prior to admission
Blood Work: BMP in 2 days, prescription from PCP
Referrals:
Ana Bhatt MD [Family Provider, Internal Medicine] - in less than 1 week
Prescriptions:
Continued
pravastatin 40 MG tablet
40 mg PO QPM
coQ10 (ubiquinol) 200 mg Capsule
200 mg PO HS
Prolia 60 mg/mL Syringe
60 mg SC O2EXOMIU
biotin 1 mg Capsule
1 mg PO DAILY
Trelegy Ellipta 200-62.5-25 mcg Blister With Device
1 inh INHALATION R DAILY
megestrol 400 mg/10 mL (40 mg/mL) Suspension
50 mg PO DAILY
hydrocodone-acetaminophen 5-325 mg Tablet
1 tab PO TIDPRN PRN (Reason: severe pain)
prednisone 1 mg Tablet
5 mg PO DAILY
Linzess 145 mcg Capsule
145 mcg PO DAILY
fluticasone propionate 50 mcg/actuation Gulliver,Suspension
2 spray INTRANASAL DAILY
ipratropium bromide 0.02 % Solution
0.5 mg inhalation R Q6 30 Days Qty: 300 0RF
aspirin 81 mg Tablet,Chewable
81 mg PO DAILY Qty: 30 0RF
clopidogrel 75 mg Tablet
75 mg PO DAILY Qty: 30 0RF
amiodarone [Pacerone] 200 mg Tablet
200 mg PO BID Qty: 60 0RF
Rx Instructions:
amiodarone 200 mg p.o. twice daily for 14 days then 200 mg daily.
sennosides-docusate sodium [Senna Plus] 8.6-50 mg Tablet
1 tab PO BIDPRN PRN (Reason: constipation) 5 Days Qty: 10 0RF
metoprolol succinate 25 mg Tablet Extended Release 24 Hr
25 mg PO BID Qty: 30 0RF
ipratropium bromide 0.02 % solution
0.5 mg inhalation Q6H Qty: 62.5 0RF
Discharge Orders:
Discharge Patient (As Directed); Ordered 05/26/25
Ordered By: Carlos A Mayo
Discharge Date and Time
Print Language: LEBANESE
[2025-05-26 15:25] VITALS: BP 139/61
== END 2025-05-26 16:16 | disposition home health service (06) | DRG 644 ==
LOC: 4 EAST ACU 21:19
PROVIDERS: Emergency Medicine; Internal Medicine; Nurse Practitioner Family; Physician Assistant; ADMITTING PHYSICIAN Internal Medicine; ATTENDING PHYSICIAN Internal Medicine; CONSULT PHYSICIAN Internal Medicine Nephrology; EMERGENCY PHYSICIAN Emergency Medicine; FAMILY PHYSICIAN Internal Medicine
DX: E22.2 Syndrome of inappropriate secretion of antidiuretic hormone (principal); R64 Cachexia; Z68.1 Body mass index [BMI] 19.9 or less, adult; F17.210 Nicotine dependence, cigarettes, uncomplicated; Z66 Do not resuscitate; I11.0 Hypertensive heart disease with heart failure; Z79.02 Long term (current) use of antithrombotics/antiplatelets; Z79.82 Long term (current) use of aspirin; J44.9 Chronic obstructive pulmonary disease, unspecified; M06.9 Rheumatoid arthritis, unspecified; R63.6 Underweight; L40.50 Arthropathic psoriasis, unspecified; G89.29 Other chronic pain; Z79.899 Other long term (current) drug therapy
CPT/HCPCS: 36415; 80048; 80053; 82533; 83880; 83930; 83935; 84295; 84300; 85025; 85027; 93005; 94640; 99291; 99406

== ENCOUNTER → 2025-05-28 11:53 | Outpatient (REF) | payer MEDICARE, SELFPAY ==
[2025-05-28 15:27] LABS: Blood Urea Nitrogen 16 mg/dl (7-17); Calcium 9.4 mg/dl (8.4-10.2); Carbon Dioxide 35 mmol/L (22-30); Glucose 113 mg/dl (70-99); Potassium 3.8 mmol/L (3.5-5.1); Sodium 128 mmol/L (135-145); eGFR > 60.00
[2025-05-28 15:34] LABS: Chloride 88 mmol/L (98-107)
== END ==
LOC: HWLAB 11:53
PROVIDERS: ATTENDING PHYSICIAN Internal Medicine
DX: E87.1 Hypo-osmolality and hyponatremia (principal)
CPT/HCPCS: 36415; 80048